=== PATIENT | male | born 1960 | race Caucasian/White ===

== ENCOUNTER 2017-10-02 12:17 | Inpatient (IN) | payer MEDICAID, SELFPAY ==
[2017-10-02 12:31] VITALS: BP 126/72; PULSE 60; RESP 16; TEMP 36.6; O2SAT 95; BMI 38.6; BMI 38.7
--- NOTE | 2017-10-02 12:50 | PCM.HP.COS ---
History of Present Illness Date of Admission: 10/02/17 Chief Complaint: CVA The patient is a 57 year old right-handed male who was admitted to the rehab unit for rehabilitation after suffering a right parietal infarct 2/2 to symptomatic right ICA occlusion. He has a history of HTN, Hep C, Cervical spondylosis, left lacunar ICH, right parietal ischemic stroke in 2016, GERD, HPD, Asthma, chronic lower back pain with right sided sciatica, L3-L5 disc bulge with mild canal narrowing, LUE weakness/spasticity from a previous stroke. On 09/24/17 he started experiencing several falls one in which he hit his head. EMS was called and he was taken to the hospital where presented with dysarthria, left facial droopy and left sided weakness, his INIH was 13. CTH showed a NAP but the patient was not a candidate due to his history of an ICH. An MRI showed an occlusion of the Right ICA, and a Right Caudal M@ segment. He was then taken to interventional radiology where he received a right ICA angioplasty x 3 and stent with TICI 2b. It was also noted that he had residual multifocal distal emboli but they where unable to retrieve these. He continues to have mild left sided facial droopy, flaccid left upper arm, he is able to lift and extend his left leg. He is tolerating a regular diet with thin liquids. He lives alone, is previously completely functionally independent and is admitted to the rehab unit in order to restore his previous level of functional independence. He did take aspirin previously at home. Past Medical History Allergies Iodinated Contrast- Oral and IV Dye Allergy (Verified 10/02/17 12:44) Hives perfume Allergy (Verified 10/02/17 12:44) Other pollen extracts Allergy (Verified 10/02/17 12:44) Other Home Medications: Ambulatory Orders Medication Instructions Recorded Acetaminophen [Tylenol] 650 mg PO Q4H PRN PRN 10/02/17 Albuterol Inhaler [Ventolin Hfa 2 puff INHALATION Q4H PRN PRN 10/02/17 (SP)] Aspirin [Aspirin, Baby] 324 mg PO DAILY 10/02/17 Atorvastatin Calcium 80 mg PO DAILY 10/02/17 Carvedilol 12.5 mg PO BID 10/02/17 Clopidogrel Bisulfate [Plavix] 75 mg PO DAILY 10/02/17 Docusate Sodium [Colace] 100 mg PO BID 10/02/17 Enoxaparin Sodium [Lovenox] 40 mg SQ DAILY 10/02/17 Escitalopram Oxalate [Lexapro] 10 mg PO DAILY 10/02/17 Lisinopril [Zestril] 30 mg PO DAILY 10/02/17 Pantoprazole Sodium [Protonix] 40 mg PO DAILY 10/02/17 Surgical History: herniorrhaphy, - - Cervical neck surgery plating with cardaviar bone graph Psychiatric History: Anxiety, Depression Lives: Alone Smoking Status: Heavy Smoker (>10/day) Tobacco Use: Cigarettes Alcohol: None Drugs: None Review of Systems Constitutional: Denies: Chills, Fever, Weight Change Eyes: Denies: Blurred vision, Double vision, Drainage HEENT: Reports: Difficulty Hearing, Sore Throat. Denies: Difficulty Swallowing, Head Aches, Nasal Congestion Cardiovascular: Denies: Chest Pain, Palpitations Respiratory: Denies: Shortness of Breath Gastrointestinal: Reports: Constipation, Vomiting. Denies: Abdominal Pain, Diarrhea Genitourinary: Denies: Dysuria, Frequency, Incontinence, Urgency Musculoskeletal: Reports: Foot Pain. Denies: Joint stiffness, Joint Tenderness Skin: Denies: Rash, Wounds Neurological: Denies: Numbness, Tingling, Focal weakness Psychiatric: Denies: Anxiety, Depression, Homicidal Ideations, Suicidal Ideations Hematologic/ Lymphatic: Denies: Easy Bruising, Easy Bleeding VTE Information - Inpt Only VTE Present on Admission: No VTE Mechan Device Prophylaxis: SCD's, Knee High HERIBERTO Hose VTE Pharm Prophylaxis ordered?: Yes - Physical Exam General: Alert, Oriented x3, Cooperative HEENT: Atraumatic, PERRLA, EOMI, Normocephalic Neck: Supple, No JVD, Negative Carotid Bruits Lungs: Clear to auscultation, Normal air movement Cardiovascular: Regular rate, No murmurs Abdomen: Bowel Sounds Present, Soft, Non Tender Extremities: No edema, Capillary Refill Less than 3 Seconds Skin: No rashes, No breakdown Musculoskeletal: No Tenderness to Palpation of Joints or Extremities, - - flaccid left arm Neurological: Cranial nerves II-XII grossly intact, Facial Droop - Left, - - Motor strength Right side 5/5, Left side flaccid, U/E 0/5, LE 2/5 Psych/Mental Status: Normal Affect, Appropriate, Alert and oriented to time, place, person, mood and affect Weight: 129.274 kg Body Mass Index (BMI) 38.6 Active Medications Acetaminophen (Tylenol) 650 mg PO Q4H PRN PRN PRN Reason: PAIN Albuterol Sulfate (Ventolin Hfa (Sp)) 2 puff INHALATION Q4H PRN PRN PRN Reason: WHEEZING Aspirin (Aspirin, Baby) 324 mg PO DAILYCM [facility] Atorvastatin Calcium (Lipitor) 80 mg PO QHS [facility] Bisacodyl (Dulcolax) 10 mg RECTAL .PRN X 1 PRN PRN Reason: Constipation Carvedilol (Coreg) 12.5 mg PO BID [facility] Clopidogrel Bisulfate (Plavix) 75 mg PO DAILY [facility] Docusate Sodium (Colace) 100 mg PO BID [facility] Enoxaparin Sodium (Lovenox) 40 mg SC DAILY [facility] Escitalopram Oxalate (Lexapro) 10 mg PO DAILY [facility] Lisinopril (Zestril) 30 mg PO DAILY [facility] Magnesium Hydroxide (Milk Of Magnesia) 30 ml PO .PRN X 1 PRN PRN Reason: Constipation Pantoprazole Sodium (Protonix) 40 mg PO DAILY [facility] Assessment/Plan debility s/p right parietal infarct 2/2 to symptomatic right ICA occlusion. complicated by a previous left lacunar ICH, and a right parietal ischemic stroke in 2016. The goal of rehab is sabianist of functional independence. Plan: - Physical therapy for gait and balance - Occupational Therapy for ADLs - As needed analgesics - Bowel protocol - Stroke prevention on ASA, Statin - DVT prophylaxis: SCDs, Lovenox - Hypertension: Stable with good control, continue home medications, Keep BP < 130/80 mmHg - Hx of HLD continue home dose of statin, Check LDL and Hba1c levels - Goal Hba1c <7% - Cervical spondylosis => Continued neck pain 2/2 fall prior to stroke => continue C-Collar - Hx GERD continue home medication - Hx Hep C - Hx Asthma - Hx of left lacunar ICH and a right parietal ischemic stroke
[2017-10-02 13:13] VITALS: O2SAT 95
--- NOTE | 2017-10-02 16:30 | NURSING ---
per dr julian moreno office pt does not need to wear cervial brace any longer. kolby gill made aware.
--- NOTE | 2017-10-02 17:54 | NURSING ---
pt called out and stated, its too late im having a bm in my pants pt at first wanting to go to br to get on commode. 2nd nurse in for transfer and pt pivot transfer x2 to bsc. incont soft brm stool but had lg bm after being up. pt leaning hard to lt side with neglect. went to reposition self on commode and almost fell off bsc to lt. this rn had to catch pt and some impulsiveness noted as pt trying to assist with care too much. unable to void and back to chair. pt transfers well when feet planted directly under him. pa alarm while in chair d/t pt leaning so doesnt lean too far and fall.
[2017-10-02 20:33] VITALS: BP 142/72; PULSE 60; RESP 18; TEMP 36.7; O2SAT 95
[2017-10-02] MEDS: Carvedilol 12.5 MG Tablet PO (21:28)
[2017-10-02] MEDS: Docusate Sodium 100 MG Capsule PO (21:28)
[2017-10-03 05:43] LABS: Hematocrit 37.7 % (40-54); Hemoglobin 12.7 g/dl (13.0-16.5); Mean Corp Hgb Conc 33.7 g/gl (32-36); Mean Corpuscular Hgb 30.2 pg (27.0-32.0); Mean Corpuscular Volume 89.5 fL (80-94); Mean Platelet Vol. 11.3 fl (6.2-12.0); Platelet Count 209 K/mm3 (150-450); RBC Distribution Width CV 14.6 % (11.6-14.6); RBC Distribution Width SD 47.5 fl (35.1-43.9); Red Blood Count 4.21 M/mm3 (4.6-6.2); White Blood Count 9.3 K/mm3 (4.4-11.0)
[2017-10-03 05:51] LABS: Scan Indicated on CBC? Y/N NO
[2017-10-03 05:52] LABS: International Normalized Ratio 1.2; Prothrombin Time (Protime)PT. 14.3 SECONDS (11.7-14.9)
[2017-10-03 05:58] LABS: Anion Gap 8 (5-15); BUN 18 mg/dL (7-18); Calcium,Total 8.3 mg/dL (8.5-10.1); Chloride 105 mmol/L (98-107); Creatinine, Serum 0.78 mg/dL (0.70-1.30); EST Glomerular Filtration Rate 109 mL/min (>60); Est Glom Filt Rate - Afr Amer 132 mL/min (>60); Estimated Creatinine Clearance 116.07 ml/min; Glucose 89 mg/dL (74-106); Potassium 3.8 mmol/L (3.5-5.1); Sodium Level 139 mmol/L (136-145)
[2017-10-03 08:28] VITALS: BP 122/70; PULSE 63; RESP 18; TEMP 36.6; O2SAT 95
[2017-10-03] MEDS: Aspirin 81 MG TAB.CHEW 324 MG PO (09:10)
[2017-10-03] MEDS: Lisinopril 10 MG Tablet 30 MG PO (09:10)
[2017-10-03] MEDS: Escitalopram Oxalate 10 MG Tablet PO (09:10)
[2017-10-03] MEDS: Docusate Sodium 100 MG Capsule PO ×2 (09:10→20:46)
[2017-10-03] MEDS: Pantoprazole Sodium 40 MG Tablet PO (09:10)
[2017-10-03] MEDS: Carvedilol 12.5 MG Tablet PO ×2 (09:10→20:46)
[2017-10-03] MEDS: Clopidogrel Bisulfate 75 MG Tablet PO (09:10)
[2017-10-03] MEDS: Enoxaparin 40 MG/0.4 ML Syringe SC (09:11)
[2017-10-03] MEDS: NYSTATIN 500,000 UNIT/5 ML UDC 500000 UNIT PO ×3 (12:49→20:46)
--- NOTE | 2017-10-03 15:43 | PCM.PN.HOSP ---
Subjective: CC: Objective: CC: Status post right parietal infarct He is a nice 57 year old male who was admitted to the rehab unit for rehabilitation after a 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He underwent a right ICA angioplasty x 3 with stent placement by IR at [facility]. When I saw him he was alert and oriented to time place and person, he has significant left-sided weakness and facial droop. Vitals/I&O's: Vital Signs Temp Pulse Resp BP Pulse Ox 97.9 F 63 18 122/70 H 95 10/03/17 08:28 10/03/17 08:28 10/03/17 08:28 10/03/17 08:28 10/03/17 08:28 Oxygen Delivery Method Room Air Weight: 129.274 kg Body Mass Index (BMI) 38.6 Intake and Output for Last 24 Hours 10/01/17 10/02/17 10/03/17 23:59 23:59 23:59 Intake Total 680 / 680 220 / 220 Output Total 150 / 150 Balance 679 / 679 70 / 70 General: Alert, Oriented x3 Neck: Supple, No JVD Lungs: Clear to auscultation, No wheeze Cardiovascular: Regular rate, Regular Rhythm, Normal S1, Normal S2 Abdomen: Bowel Sounds Present, Soft, Non Tender Extremities: No edema Neurological: - - Left-sided deficits Psych/Mental Status: Normal Affect Laboratory Results 10/03/17 05:20: Sodium 139, Potassium 3.8, Chloride 105, Carbon Dioxide 26.0, Anion Gap 8, BUN 18, Creatinine 0.78, Estim Creat Clear Calc 116.07, Est GFR (MDRD) Af Amer 132, Est GFR (MDRD) Non-Af 109, BUN/Creatinine Ratio 23.0 H, Glucose 89, Calcium 8.3 L 10/03/17 05:20: WBC 9.3, RBC 4.21 L, Hgb 12.7 L, Hct 37.7 L, MCV 89.5, MCH 30.2, MCHC 33.7, RDW 14.6, RDW Differential 47.5 H, Plt Count 209, MPV 11.3 10/03/17 05:20: PT 14.3, INR 1.2 Current Medications Acetaminophen (Tylenol) 650 mg PO Q4H PRN PRN PRN Reason: PAIN Albuterol Sulfate (Ventolin Hfa (Sp)) 2 puff INHALATION Q4H PRN PRN PRN Reason: WHEEZING Aspirin (Aspirin, Baby) 324 mg PO DAILYCM [facility] Last Admin: 10/03/17 09:10 Dose: 324 mg Atorvastatin Calcium (Lipitor) 80 mg PO QHS [facility] Bisacodyl (Dulcolax) 10 mg RECTAL .PRN X 1 PRN PRN Reason: Constipation Carvedilol (Coreg) 12.5 mg PO BID [facility] Last Admin: 10/03/17 09:10 Dose: 12.5 mg Clopidogrel Bisulfate (Plavix) 75 mg PO DAILY [facility] Last Admin: 10/03/17 09:10 Dose: 75 mg Docusate Sodium (Colace) 100 mg PO BID [facility] Last Admin: 10/03/17 09:10 Dose: 100 mg Enoxaparin Sodium (Lovenox) 40 mg SC DAILY [facility] Last Admin: 10/03/17 09:11 Dose: 40 mg Escitalopram Oxalate (Lexapro) 10 mg PO DAILY [facility] Last Admin: 10/03/17 09:10 Dose: 10 mg Lisinopril (Zestril) 30 mg PO DAILY [facility] Last Admin: 10/03/17 09:10 Dose: 30 mg Magnesium Hydroxide (Milk Of Magnesia) 30 ml PO .PRN X 1 PRN PRN Reason: Constipation Nystatin (Nystatin) 500,000 unit PO 4X/DAY [facility] Last Admin: 10/03/17 12:49 Dose: 500,000 unit Pantoprazole Sodium (Protonix) 40 mg PO DAILY [facility] Last Admin: 10/03/17 09:10 Dose: 40 mg Assessment/Plan 1. s/p right parietal infarct due to right ICA occlusion; continue on post acute care rehabilitation. 2. PVD with right ICA stenosis; status post angioplasty and stent placement. Will Continue on dual antiplatelet therapy with a statin therapy. 3. Hypertension; continue on current antihypertensive agents. 4. history of Cervical spondylosis; stable. 5. DVT ppx with Lovenox.
[2017-10-03 19:29] VITALS: BP 124/61; PULSE 65; RESP 18; TEMP 36.4; O2SAT 93
[2017-10-03 19:30] VITALS: PULSE 65; O2SAT 93
[2017-10-03] MEDS: Atorvastatin Calcium 80 MG Tablet PO (20:45)
--- NOTE | 2017-10-04 02:46 | NURSING ---
Reviewed and agree with LPNs fims and handoff
[2017-10-04 07:53] VITALS: BP 133/71; PULSE 63; RESP 18; TEMP 36.8; O2SAT 95
[2017-10-04] MEDS: Escitalopram Oxalate 10 MG Tablet PO (08:28)
[2017-10-04] MEDS: Clopidogrel Bisulfate 75 MG Tablet PO (08:28)
[2017-10-04] MEDS: Carvedilol 12.5 MG Tablet PO ×2 (08:28→21:46)
[2017-10-04] MEDS: Enoxaparin 40 MG/0.4 ML Syringe SC (08:28)
[2017-10-04] MEDS: Docusate Sodium 100 MG Capsule PO ×2 (08:28→21:45)
[2017-10-04] MEDS: Lisinopril 10 MG Tablet 30 MG PO (08:28)
[2017-10-04] MEDS: Aspirin 81 MG TAB.CHEW 324 MG PO (08:28)
[2017-10-04] MEDS: Pantoprazole Sodium 40 MG Tablet PO (08:28)
[2017-10-04] MEDS: NYSTATIN 500,000 UNIT/5 ML UDC 500000 UNIT PO ×4 (08:29→21:46)
[2017-10-04 19:12] VITALS: PULSE 61; RESP 18; TEMP 36.5; O2SAT 96
[2017-10-04 21:42] VITALS: BP 119/78; PULSE 60
[2017-10-04] MEDS: Atorvastatin Calcium 80 MG Tablet PO (21:46)
[2017-10-05 06:56] VITALS: BP 142/78; PULSE 69; RESP 20; TEMP 37; O2SAT 95
[2017-10-05] MEDS: Pantoprazole Sodium 40 MG Tablet PO (07:37)
[2017-10-05] MEDS: Lisinopril 10 MG Tablet 30 MG PO (07:37)
[2017-10-05] MEDS: Aspirin 81 MG TAB.CHEW 324 MG PO (07:38)
[2017-10-05] MEDS: Clopidogrel Bisulfate 75 MG Tablet PO (07:38)
[2017-10-05] MEDS: Escitalopram Oxalate 10 MG Tablet PO (07:38)
[2017-10-05] MEDS: Docusate Sodium 100 MG Capsule PO ×2 (07:38→19:55)
[2017-10-05] MEDS: Carvedilol 12.5 MG Tablet PO ×2 (07:38→19:55)
[2017-10-05] MEDS: NYSTATIN 500,000 UNIT/5 ML UDC 500000 UNIT PO ×4 (08:22→19:55)
[2017-10-05] MEDS: Enoxaparin 40 MG/0.4 ML Syringe SC (08:22)
--- NOTE | 2017-10-05 13:10 | PN.NEURO_ITS ---
Subjective: No new complaints. Tolerating therapies. No GI or complaints. He reports some mild anxiety but this is controlled and he does not want any further therapy at this point. is present and agrees. Objective: Patient discloses stable left hemiparesis. There is a twitch of movement in his left upper extremity, and his left lower extremity, he is 2/5. - Physical Exam General: Alert, Oriented x3, Cooperative Psych/Mental Status: Normal Affect Vital Signs Temp Pulse Resp BP Pulse Ox 37.0 C 69 20 H 142/78 H 95 10/05/17 06:56 10/05/17 06:56 10/05/17 06:56 10/05/17 06:56 10/05/17 06:56 Oxygen Delivery Method Room Air Weight: 129.274 kg Body Mass Index (BMI) 38.6 Intake and Output for Last 24 Hours 10/03/17 10/04/17 10/05/17 23:59 23:59 23:59 Intake Total 220 / 220 680 / 680 Output Total 150 / 150 Balance 70 / 70 680 / 680 Current Medications Generic Name Dose Route Start Last Admin Trade Name Freq PRN Reason Stop Dose Admin Acetaminophen 650 mg 10/02/17 12:57 Tylenol PO Q4H PRN PRN PAIN Albuterol Sulfate 2 puff 10/02/17 12:57 Ventolin Hfa (Sp) INHALATION Q4H PRN PRN WHEEZING Aspirin 324 mg 10/03/17 08:00 10/05/17 07:38 Aspirin, Baby PO 324 mg DAILYCM [facility] Administration Atorvastatin Calcium 80 mg 10/03/17 22:00 10/04/17 21:46 Lipitor PO 80 mg QHS [facility] Administration Bisacodyl 10 mg 10/02/17 12:33 Dulcolax RECTAL .PRN X 1 PRN Constipation Carvedilol 12.5 mg 10/02/17 22:00 10/05/17 07:38 Coreg PO 12.5 mg BID [facility]RO Administration Clopidogrel Bisulfate 75 mg 10/03/17 10:00 10/05/17 07:38 Plavix PO 75 mg DAILY [facility] Administration Docusate Sodium 100 mg 10/02/17 22:00 10/05/17 07:38 Colace PO 100 mg BID [facility] Administration Enoxaparin Sodium 40 mg 10/03/17 10:00 10/05/17 08:22 Lovenox SC 40 mg DAILY [facility] Administration Escitalopram Oxalate 10 mg 10/03/17 10:00 10/05/17 07:38 Lexapro PO 10 mg DAILY [facility] Administration Lisinopril 30 mg 10/03/17 10:00 10/05/17 07:37 Zestril PO 30 mg DAILY [facility] Administration Magnesium Hydroxide 30 ml 10/02/17 12:33 Milk Of Magnesia PO .PRN X 1 PRN Constipation Nystatin 500,000 unit 10/03/17 10:00 10/05/17 08:22 Nystatin PO 500,000 unit 4X/DAY [facility] Administration Pantoprazole Sodium 40 mg 10/03/17 10:00 10/05/17 07:37 Protonix PO 40 mg DAILY [facility] Administration Assessment/Plan debility s/p right parietal infarct 2/2 to symptomatic right ICA occlusion. complicated by a previous left lacunar ICH, and a right parietal ischemic stroke in 2016. The goal of rehab is oriental orthodox of functional independence. Plan: - Physical therapy for gait and balance - Occupational Therapy for ADLs - As needed analgesics - Bowel protocol - Stroke prevention on ASA, Statin - DVT prophylaxis: SCDs, Lovenox - Hypertension: Stable with good control, continue home medications, Keep BP < 130/80 mmHg - Hx of HLD continue home dose of statin, Check LDL and Hba1c levels -Anxiety: Lexapro - Cervical spondylosis => Continued neck pain 2/2 fall prior to stroke => continue C-Collar - Hx GERD continue home medication - Hx Hep C - Hx Asthma - Hx of left lacunar ICH and a right parietal ischemic stroke
[2017-10-05] MEDS: Atorvastatin Calcium 80 MG Tablet PO (19:55)
[2017-10-05 19:59] VITALS: PULSE 58
[2017-10-05 22:00] VITALS: BP 147/65; PULSE 58; RESP 18; TEMP 36.8; O2SAT 94
--- NOTE | 2017-10-06 00:40 | NURSING ---
Reviewed and agree with LPNs fims and shift assessment
[2017-10-06] MEDS: Acetaminophen 325 MG Tablet 650 MG PO (02:20)
[2017-10-06 07:17] VITALS: BP 157/77; PULSE 56; RESP 17; TEMP 36.4; O2SAT 94
[2017-10-06] MEDS: Lisinopril 10 MG Tablet 30 MG PO (07:56)
[2017-10-06] MEDS: Docusate Sodium 100 MG Capsule PO (07:56)
[2017-10-06] MEDS: Aspirin 81 MG TAB.CHEW 324 MG PO (07:56)
[2017-10-06] MEDS: NYSTATIN 500,000 UNIT/5 ML UDC 500000 UNIT PO ×4 (07:56→19:47)
[2017-10-06] MEDS: Clopidogrel Bisulfate 75 MG Tablet PO (07:56)
[2017-10-06] MEDS: Carvedilol 12.5 MG Tablet PO ×2 (07:57→19:47)
[2017-10-06] MEDS: Escitalopram Oxalate 10 MG Tablet PO (07:57)
[2017-10-06] MEDS: Pantoprazole Sodium 40 MG Tablet PO (07:57)
[2017-10-06] MEDS: Enoxaparin 40 MG/0.4 ML Syringe SC (07:59)
--- NOTE | 2017-10-06 11:07 | PN.NEURO_ITS ---
Subjective: Patient seen and examined. No new compliances. Tolerating therapy, He has slight Twitch of movement left upper extremity, his Strength in Left lower extremity is 2/5. - Physical Exam General: Alert, Oriented x3, Cooperative HEENT: Atraumatic, PERRLA, EOMI, Normocephalic Neck: Supple, No JVD, Negative Carotid Bruits Lungs: Clear to auscultation, Normal air movement Cardiovascular: Regular rate, No murmurs Abdomen: Bowel Sounds Present, Soft, Non Tender Extremities: No edema, Capillary Refill Less than 3 Seconds Skin: No rashes, No breakdown Musculoskeletal: No Tenderness to Palpation of Joints or Extremities Neurological: Cranial nerves II-XII grossly intact Psych/Mental Status: Normal Affect, Appropriate Vital Signs Temp Pulse Resp BP Pulse Ox 97.5 F L 56 L 17 157/77 H 94 10/06/17 07:17 10/06/17 07:17 10/06/17 07:17 10/06/17 07:17 10/06/17 07:17 Oxygen Delivery Method Room Air Weight: 129.274 kg Body Mass Index (BMI) 38.6 Intake and Output for Last 24 Hours 10/04/17 10/05/17 10/06/17 23:59 23:59 23:59 Intake Total 680 / 680 360 / 360 260 / 260 Balance 680 / 680 360 / 360 260 / 260 Active Medications Acetaminophen (Tylenol) 650 mg PO Q4H PRN PRN PRN Reason: PAIN Last Admin: 10/06/17 02:20 Dose: 650 mg Albuterol Sulfate (Ventolin Hfa (Sp)) 2 puff INHALATION Q4H PRN PRN PRN Reason: WHEEZING Aspirin [facility], Baby) [facility] Last Admin: 10/06/17 07:56 Dose: 324 mg Atorvastatin Calcium (Lipitor) 80 mg PO QHS [facility] Last Admin: 10/05/17 19:55 Dose: 80 mg Bisacodyl (Dulcolax) 10 mg RECTAL .PRN X 1 PRN PRN Reason: Constipation Carvedilol (Coreg) 12.5 mg PO BID [facility] Last Admin: 10/06/17 07:57 Dose: 12.5 mg Clopidogrel Bisulfate (Plavix) 75 mg PO DAILY [facility] Last Admin: 10/06/17 07:56 Dose: 75 mg Enoxaparin Sodium (Lovenox) 40 mg SC DAILY [facility] Last Admin: 10/06/17 07:59 Dose: 40 mg Escitalopram Oxalate (Lexapro) 10 mg PO DAILY [facility] Last Admin: 10/06/17 07:57 Dose: 10 mg Lisinopril (Zestril) 30 mg PO DAILY [facility] Last Admin: 10/06/17 07:56 Dose: 30 mg Magnesium Hydroxide (Milk Of Magnesia) 30 ml PO .PRN X 1 PRN PRN Reason: Constipation Nystatin (Nystatin) 500,000 unit PO 4X/DAY [facility] Last Admin: 10/06/17 07:56 Dose: 500,000 unit Pantoprazole Sodium (Protonix) 40 mg PO DAILY [facility] Last Admin: 10/06/17 07:57 Dose: 40 mg Senna/Docusate Sodium (Senokot-S, Suki-Colace) 2 tablet PO BID [facility] Assessment/Plan debility s/p right parietal infarct 2/2 to symptomatic right ICA occlusion. complicated by a previous left lacunar ICH, and a right parietal ischemic stroke in 2016. The goal of rehab is sikhism of functional independence. Plan: - Physical therapy for gait and balance - Occupational Therapy for ADLs - As needed analgesics - Bowel protocol - Stroke prevention on ASA, Statin - DVT prophylaxis: SCDs, Lovenox - Hypertension: Stable with good control, continue home medications, Keep BP < 130/80 mmHg - Echo shows an EF 85%, mild LVH, no WMA and no shunt. - Hx of HLD continue home dose of statin, Check LDL and Hba1c levels => LDL 113 , and HA1C 5.7 - Goal Hba1c <7% - Cervical spondylosis => Continued neck pain 2/2 fall prior to stroke => continue C-Collar - Hx GERD continue home medication - Hx Hep C - Hx Asthma - Hx of left lacunar ICH and a right parietal ischemic stroke - Recommend 30 day event monitor on D/C
[2017-10-06 12:04] VITALS: BMI 38.6
[2017-10-06 16:21] VITALS: BP 132/73; PULSE 56; RESP 16
[2017-10-06 19:40] VITALS: BP 137/83; PULSE 58; RESP 18; TEMP 36.7; O2SAT 97; BMI 38.6
[2017-10-06] MEDS: Atorvastatin Calcium 80 MG Tablet PO (19:47)
[2017-10-06] MEDS: Senna/Docusate Sodium 1 Tablet 2 TABLET PO (19:47)
--- NOTE | 2017-10-07 02:31 | NURSING ---
Reviewed and agree with [employer] documentation.
[2017-10-07] MEDS: Escitalopram Oxalate 10 MG Tablet PO (07:53)
[2017-10-07] MEDS: Pantoprazole Sodium 40 MG Tablet PO (07:53)
[2017-10-07] MEDS: NYSTATIN 500,000 UNIT/5 ML UDC 500000 UNIT PO ×4 (07:53→20:42)
[2017-10-07] MEDS: Senna/Docusate Sodium 1 Tablet 2 TABLET PO ×2 (07:53→20:41)
[2017-10-07] MEDS: Carvedilol 12.5 MG Tablet PO ×2 (07:53→20:41)
[2017-10-07] MEDS: Lisinopril 10 MG Tablet 30 MG PO (07:53)
[2017-10-07] MEDS: Aspirin 81 MG TAB.CHEW 324 MG PO (07:53)
[2017-10-07] MEDS: Clopidogrel Bisulfate 75 MG Tablet PO (07:53)
[2017-10-07 10:00] VITALS: BP 143/85; PULSE 60; RESP 17; TEMP 36.7; O2SAT 95
[2017-10-07] MEDS: Enoxaparin 40 MG/0.4 ML Syringe SC (10:27)
[2017-10-07 12:15] VITALS: BMI 38.6
--- NOTE | 2017-10-07 13:28 | PCM.PN.NEU ---
Subjective: Patient seen and examined. No new complaints. Tolerating therapy. Was able to move the index finger on his left hand, and has some muscle tone in the thigh of his left leg. He is tolerating a regular diet. No issues with GI/. - Physical Exam General: Alert, Oriented x3, Cooperative HEENT: Atraumatic, PERRLA, EOMI, Normocephalic Neck: Supple, No JVD, Negative Carotid Bruits Lungs: Clear to auscultation, Normal air movement Cardiovascular: Regular rate, No murmurs Abdomen: Bowel Sounds Present, Soft, Non Tender Extremities: No edema, Capillary Refill Less than 3 Seconds Skin: No rashes, No breakdown Musculoskeletal: No Tenderness to Palpation of Joints or Extremities Neurological: Cranial nerves II-XII grossly intact Psych/Mental Status: Normal Affect, Appropriate Vital Signs Temp Pulse Resp BP Pulse Ox 98.0 F 60 17 143/85 H 95 10/07/17 10:00 10/07/17 10:00 10/07/17 10:00 10/07/17 10:00 10/07/17 10:00 Oxygen Delivery Method Room Air Weight: 129.274 kg Body Mass Index (BMI) 38.6 Intake and Output for Last 24 Hours 10/05/17 10/06/17 10/07/17 23:59 23:59 23:59 Intake Total 360 / 360 500 / 500 240 / 240 Balance 360 / 360 500 / 500 240 / 240 Active Medications Acetaminophen (Tylenol) 650 mg PO Q4H PRN PRN PRN Reason: PAIN Last Admin: 10/06/17 02:20 Dose: 650 mg Albuterol Sulfate (Ventolin Hfa (Sp)) 2 puff INHALATION Q4H PRN PRN PRN Reason: WHEEZING [facility]) [facility] Last Admin: 10/07/17 07:53 Dose: 324 mg Atorvastatin Calcium (Lipitor) 80 mg PO QHS [facility] Last Admin: 10/06/17 19:47 Dose: 80 mg Bisacodyl (Dulcolax) 10 mg RECTAL .PRN X 1 PRN PRN Reason: Constipation Carvedilol (Coreg) 12.5 mg PO BID [facility] Last Admin: 10/07/17 07:53 Dose: 12.5 mg Clopidogrel Bisulfate (Plavix) 75 mg PO DAILY [facility] Last Admin: 10/07/17 07:53 Dose: 75 mg Enoxaparin Sodium (Lovenox) 40 mg SC DAILY [facility] Last Admin: 10/07/17 10:27 Dose: 40 mg Escitalopram Oxalate (Lexapro) 10 mg PO DAILY [facility] Last Admin: 10/07/17 07:53 Dose: 10 mg Lisinopril (Zestril) 30 mg PO DAILY [facility] Last Admin: 10/07/17 07:53 Dose: 30 mg Magnesium Hydroxide (Milk Of Magnesia) 30 ml PO .PRN X 1 PRN PRN Reason: Constipation Nystatin (Nystatin) 500,000 unit PO 4X/DAY [facility] Last Admin: 10/07/17 07:53 Dose: 500,000 unit Pantoprazole Sodium (Protonix) 40 mg PO DAILY [facility] Last Admin: 10/07/17 07:53 Dose: 40 mg Senna/Docusate Sodium (Senokot-S, Suki-Colace) 2 tablet PO BID [facility] Last Admin: 10/07/17 07:53 Dose: 2 tablet Assessment/Plan debility s/p right parietal infarct 2/2 to symptomatic right ICA occlusion. complicated by a previous left lacunar ICH, and a right parietal ischemic stroke in 2016. The goal of rehab is confucianist of functional independence. Plan: - Physical therapy for gait and balance - Occupational Therapy for ADLs - As needed analgesics - Bowel protocol - Stroke prevention on ASA, Statin - DVT prophylaxis: SCDs, Lovenox - Hypertension: Stable with good control, continue home medications, Keep BP < 130/80 mmHg - Echo shows an EF 85%, mild LVH, no WMA and no shunt. - Hx of HLD continue home dose of statin, Check LDL and Hba1c levels => LDL 113, and HA1C 5.7 - Goal Hba1c <7% - Cervical spondylosis => Continued neck pain 2/2 fall prior to stroke => continue C-Collar - Hx GERD continue home medication - Hx Hep C - Hx Asthma - Hx of left lacunar ICH and a right parietal ischemic stroke - Recommend 30 day event monitor on D/C
--- NOTE | 2017-10-07 14:41 | PCM.PN.HOSP ---
Subjective: Still with left sided weakness. Started having some movement in LLE. Vitals/I&O's: Vital Signs Temp Pulse Resp BP Pulse Ox 36.7 C 60 17 143/85 H 95 10/07/17 10:00 10/07/17 10:00 10/07/17 10:00 10/07/17 10:00 10/07/17 10:00 Oxygen Delivery Method Room Air Weight: 129.274 kg Body Mass Index (BMI) 38.6 Intake and Output for Last 24 Hours 10/05/17 10/06/17 10/07/17 23:59 23:59 23:59 Intake Total 360 / 360 500 / 500 240 / 240 Balance 360 / 360 500 / 500 240 / 240 General: Alert, Cooperative, No apparent distress HEENT: Atraumatic, Normocephalic Neck: No Nodes, Thyroid Normal Size and Texture Lungs: Clear to auscultation, Normal air movement, No rhonchi, No wheeze Cardiovascular: Regular rate, Regular Rhythm, Normal S1, Normal S2 Abdomen: Bowel Sounds Present, Soft, Non Tender, Non-Distended, Obese Extremities: No edema, No Calf Tenderness Neurological: Facial Droop - left, - - MS 1/5 LLE, 5/5 RLE Psych/Mental Status: Normal Affect, Appropriate Current Medications Acetaminophen (Tylenol) 650 mg PO Q4H PRN PRN PRN Reason: PAIN Last Admin: 10/06/17 02:20 Dose: 650 mg Albuterol Sulfate (Ventolin Hfa (Sp)) 2 puff INHALATION Q4H PRN PRN PRN Reason: WHEEZING [facility]) [facility] Last Admin: 10/07/17 07:53 Dose: 324 mg Atorvastatin Calcium (Lipitor) 80 mg PO QHS [facility] Last Admin: 10/06/17 19:47 Dose: 80 mg Bisacodyl (Dulcolax) 10 mg RECTAL .PRN X 1 PRN PRN Reason: Constipation Carvedilol (Coreg) 12.5 mg PO BID [facility] Last Admin: 10/07/17 07:53 Dose: 12.5 mg Clopidogrel Bisulfate (Plavix) 75 mg PO DAILY [facility] Last Admin: 10/07/17 07:53 Dose: 75 mg Enoxaparin Sodium (Lovenox) 40 mg SC DAILY [facility] Last Admin: 10/07/17 10:27 Dose: 40 mg Escitalopram Oxalate (Lexapro) 10 mg PO DAILY [facility] Last Admin: 10/07/17 07:53 Dose: 10 mg Lisinopril (Zestril) 30 mg PO DAILY [facility] Last Admin: 10/07/17 07:53 Dose: 30 mg Magnesium Hydroxide (Milk Of Magnesia) 30 ml PO .PRN X 1 PRN PRN Reason: Constipation Nystatin (Nystatin) 500,000 unit PO 4X/DAY [facility] Last Admin: 10/07/17 13:49 Dose: 500,000 unit Pantoprazole Sodium (Protonix) 40 mg PO DAILY [facility] Last Admin: 10/07/17 07:53 Dose: 40 mg Senna/Docusate Sodium (Senokot-S, Suki-Colace) 2 tablet PO BID [facility] Last Admin: 10/07/17 07:53 Dose: 2 tablet Assessment/Plan 1. Right ICA stroke still with dense left sided hemiparesis, though some mvmt in LLE. s/p [id number] stent continue with asa, plavix, high-intensity statin 2. DVT proph: LMWH Code Visit Inpatient E&M: 32615 Subs Hosp L2
--- NOTE | 2017-10-07 14:45 | PN_ITS ---
Subjective: Still with left sided weakness. Started having some movement in LLE. Vitals/I&O's: Vital Signs Temp Pulse Resp BP Pulse Ox 36.7 C 60 17 143/85 H 95 10/07/17 10:00 10/07/17 10:00 10/07/17 10:00 10/07/17 10:00 10/07/17 10:00 Oxygen Delivery Method Room Air Weight: 129.274 kg Body Mass Index (BMI) 38.6 Intake and Output for Last 24 Hours 10/05/17 10/06/17 10/07/17 23:59 23:59 23:59 Intake Total 360 / 360 500 / 500 240 / 240 Balance 360 / 360 500 / 500 240 / 240 General: Alert, Cooperative, No apparent distress HEENT: Atraumatic, Normocephalic Neck: No Nodes, Thyroid Normal Size and Texture Lungs: Clear to auscultation, Normal air movement, No rhonchi, No wheeze Cardiovascular: Regular rate, Regular Rhythm, Normal S1, Normal S2 Abdomen: Bowel Sounds Present, Soft, Non Tender, Non-Distended, Obese Extremities: No edema, No Calf Tenderness Neurological: Facial Droop - left, - - MS 1/5 LLE, 5/5 RLE Psych/Mental Status: Normal Affect, Appropriate Current Medications Acetaminophen (Tylenol) 650 mg PO Q4H PRN PRN PRN Reason: PAIN Last Admin: 10/06/17 02:20 Dose: 650 mg Albuterol Sulfate (Ventolin Hfa (Sp)) 2 puff INHALATION Q4H PRN PRN PRN Reason: WHEEZING Aspirin ([facility], Baby) [facility] Last Admin: 10/07/17 07:53 Dose: 324 mg Atorvastatin Calcium (Lipitor) 80 mg PO QHS [facility] Last Admin: 10/06/17 19:47 Dose: 80 mg Bisacodyl (Dulcolax) 10 mg RECTAL .PRN X 1 PRN PRN Reason: Constipation Carvedilol (Coreg) 12.5 mg PO BID [facility] Last Admin: 10/07/17 07:53 Dose: 12.5 mg Clopidogrel Bisulfate (Plavix) 75 mg PO DAILY [facility] Last Admin: 10/07/17 07:53 Dose: 75 mg Enoxaparin Sodium (Lovenox) 40 mg SC DAILY [facility] Last Admin: 10/07/17 10:27 Dose: 40 mg Escitalopram Oxalate (Lexapro) 10 mg PO DAILY [facility] Last Admin: 10/07/17 07:53 Dose: 10 mg Lisinopril (Zestril) 30 mg PO DAILY [facility] Last Admin: 10/07/17 07:53 Dose: 30 mg Magnesium Hydroxide (Milk Of Magnesia) 30 ml PO .PRN X 1 PRN PRN Reason: Constipation Nystatin (Nystatin) 500,000 unit PO 4X/DAY [facility] Last Admin: 10/07/17 13:49 Dose: 500,000 unit Pantoprazole Sodium (Protonix) 40 mg PO DAILY [facility] Last Admin: 10/07/17 07:53 Dose: 40 mg Senna/Docusate Sodium (Senokot-S, Suki-Colace) 2 tablet PO BID [facility] Last Admin: 10/07/17 07:53 Dose: 2 tablet Assessment/Plan 1. Right ICA stroke * still with dense left sided hemiparesis, though some mvmt in LLE. * s/p JAGRUTI stent * continue with asa, plavix, high-intensity statin 2. DVT proph: LMWH Code Visit Inpatient E&M: 22721 Subs Hosp L2
--- NOTE | 2017-10-07 16:31 | CHAPLAIN ---
Type of Pastoral Visit _x__ Initial Visit ___ Follow-up Visit ___ On-call Visit ___ General Patient Visit ___ Spiritual Assessment ___ Family Conference ___ Bereavement ___ Rapid Response ___ Code Blue ___ Other (describe below) Pastoral Care Referral From _x__ Patient ___ Family _x__ Nurse ___ Physician ___ Station Cleaning Porter ___ Television Production Technician ___ Other (describe below) Sacrament/Intervention _x__ Active listening ___ Anointing ___ Zoroastrianism ___ Bereavement ___ Communion ___ Lali exploration ___ _x__ Life review _x__ Prayer ___ Reconciliation ___ Sacrament of Sick ___ Supportive presence ___ Wedding ___ Other (describe below) Pastoral Comments Very active talker who expressed delight in talking about spiritual things 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
[2017-10-07 20:10] VITALS: BP 143/87; PULSE 61; RESP 18; TEMP 37; O2SAT 95; BMI 38.6
[2017-10-07] MEDS: Atorvastatin Calcium 80 MG Tablet PO (20:41)
[2017-10-07] MEDS: Menthol/Lanolin/Calamine/Znox 113 GM Tube 1 APPLIC TOPICAL (20:42)
--- NOTE | 2017-10-08 01:18 | NURSING ---
REVIEWED AND AGREE WITH [employer] [place].
[2017-10-08 07:53] VITALS: BP 156/89; PULSE 58; RESP 18; TEMP 36.4; O2SAT 93
[2017-10-08] MEDS: Lisinopril 10 MG Tablet 30 MG PO (09:36)
[2017-10-08] MEDS: Escitalopram Oxalate 10 MG Tablet PO (09:36)
[2017-10-08] MEDS: Clopidogrel Bisulfate 75 MG Tablet PO (09:36)
[2017-10-08] MEDS: Carvedilol 12.5 MG Tablet PO ×2 (09:36→22:04)
[2017-10-08] MEDS: Aspirin 81 MG TAB.CHEW 324 MG PO (09:36)
[2017-10-08] MEDS: Pantoprazole Sodium 40 MG Tablet PO (09:36)
[2017-10-08] MEDS: Enoxaparin 40 MG/0.4 ML Syringe SC (09:37)
[2017-10-08] MEDS: NYSTATIN 500,000 UNIT/5 ML UDC 500000 UNIT PO ×4 (09:37→22:04)
[2017-10-08] MEDS: Senna/Docusate Sodium 1 Tablet 2 TABLET PO (09:38)
[2017-10-08] MEDS: Menthol/Lanolin/Calamine/Znox 113 GM Tube 1 APPLIC TOPICAL ×2 (09:39→22:06)
[2017-10-08 09:57] VITALS: BMI 38.6
--- NOTE | 2017-10-08 10:36 | PCM.PN.NEU ---
Subjective: Patient seen and examined. No events over night. Tolerating therapy. Denies any shortness of breath or chest pains. Tolerating a regular diet. No issues with GI/. - Physical Exam General: Alert, Oriented x3, Cooperative HEENT: Atraumatic, PERRLA, EOMI, Normocephalic Neck: Supple, No JVD, Negative Carotid Bruits Lungs: Clear to auscultation, Normal air movement Cardiovascular: Regular rate, No murmurs Abdomen: Bowel Sounds Present, Soft, Non Tender Extremities: No edema, Capillary Refill Less than 3 Seconds Skin: No rashes, No breakdown Musculoskeletal: No Tenderness to Palpation of Joints or Extremities Neurological: Cranial nerves II-XII grossly intact Psych/Mental Status: Normal Affect, Appropriate Vital Signs Temp Pulse Resp BP Pulse Ox 97.6 F L 58 L 18 156/89 H 93 10/08/17 07:53 10/08/17 07:53 10/08/17 07:53 10/08/17 07:53 10/08/17 07:53 Oxygen Delivery Method Room Air Weight: 129.274 kg Body Mass Index (BMI) 38.6 Intake and Output for Last 24 Hours 10/06/17 10/07/17 10/08/17 23:59 23:59 23:59 Intake Total 500 / 500 600 / 600 260 / 260 Balance 500 / 500 600 / 600 260 / 260 Active Medications Acetaminophen (Tylenol) 650 mg PO Q4H PRN PRN PRN Reason: PAIN Last Admin: 10/06/17 02:20 Dose: 650 mg Albuterol Sulfate (Ventolin Hfa (Sp)) 2 puff INHALATION Q4H PRN PRN PRN Reason: WHEEZING [facility], [facility]) [facility] Last Admin: 10/08/17 09:36 Dose: 324 mg Atorvastatin Calcium (Lipitor) 80 mg PO QHS [facility] Last Admin: 10/07/17 20:41 Dose: 80 mg Bisacodyl (Dulcolax) 10 mg RECTAL .PRN X 1 PRN PRN Reason: Constipation Calamine/Phenol (Calmoseptine Ointment) 1 applic TOPICAL BID [facility] PRN Reason: Protocol Last Admin: 10/08/17 09:39 Dose: 1 applicatio Carvedilol (Coreg) 12.5 mg PO BID [facility] Last Admin: 10/08/17 09:36 Dose: 12.5 mg Clopidogrel Bisulfate (Plavix) 75 mg PO DAILY [facility] Last Admin: 10/08/17 09:36 Dose: 75 mg Enoxaparin Sodium (Lovenox) 40 mg SC DAILY [facility] Last Admin: 10/08/17 09:37 Dose: 40 mg Escitalopram Oxalate (Lexapro) 10 mg PO DAILY [facility] Last Admin: 10/08/17 09:36 Dose: 10 mg Lisinopril (Zestril) 30 mg PO DAILY [facility] Last Admin: 10/08/17 09:36 Dose: 30 mg Magnesium Hydroxide (Milk Of Magnesia) 30 ml PO .PRN X 1 PRN PRN Reason: Constipation Nystatin (Nystatin) 500,000 unit PO 4X/DAY [facility] Last Admin: 10/08/17 09:37 Dose: 500,000 unit Pantoprazole Sodium (Protonix) 40 mg PO DAILY [facility] Last Admin: 10/08/17 09:36 Dose: 40 mg Senna/Docusate Sodium (Senokot-S, Suki-Colace) 2 tablet PO BID [facility] Last Admin: 10/08/17 09:38 Dose: 2 tablet Assessment/Plan Debility s/p right parietal infarct 2/2 to symptomatic right ICA occlusion. complicated by a previous left lacunar ICH, and a right parietal ischemic stroke in 2016. The goal of rehab is yarsani of functional independence. Plan: - Physical therapy for gait and balance - Occupational Therapy for ADLs - As needed analgesics - Bowel protocol - Stroke prevention on ASA, Statin - DVT prophylaxis: SCDs, Lovenox - Hypertension: Stable with good control, continue home medications, Keep BP < 130/80 mmHg - Echo shows an EF 85%, mild LVH, no WMA and no shunt. - Hx of HLD continue home dose of statin, Check LDL and Hba1c levels => LDL 113, and HA1C 5.7 - Goal Hba1c <7% - Cervical spondylosis => Continued neck pain 2/2 fall prior to stroke => continue C-Collar - Hx GERD continue home medication - Hx Hep C - Hx Asthma - Hx of left lacunar ICH and a right parietal ischemic stroke - Recommend 30 day event monitor on D/C
--- NOTE | 2017-10-08 10:39 | PN.NEURO_ITS ---
Subjective: Patient seen and examined. No events over night. Tolerating therapy. Denies any shortness of breath or chest pains. Tolerating a regular diet. No issues with GI/. - Physical Exam General: Alert, Oriented x3, Cooperative HEENT: Atraumatic, PERRLA, EOMI, Normocephalic Neck: Supple, No JVD, Negative Carotid Bruits Lungs: Clear to auscultation, Normal air movement Cardiovascular: Regular rate, No murmurs Abdomen: Bowel Sounds Present, Soft, Non Tender Extremities: No edema, Capillary Refill Less than 3 Seconds Skin: No rashes, No breakdown Musculoskeletal: No Tenderness to Palpation of Joints or Extremities Neurological: Cranial nerves II-XII grossly intact Psych/Mental Status: Normal Affect, Appropriate Vital Signs Temp Pulse Resp BP Pulse Ox 97.6 F L 58 L 18 156/89 H 93 10/08/17 07:53 10/08/17 07:53 10/08/17 07:53 10/08/17 07:53 10/08/17 07:53 Oxygen Delivery Method Room Air Weight: 129.274 kg Body Mass Index (BMI) 38.6 Intake and Output for Last 24 Hours 10/06/17 10/07/17 10/08/17 23:59 23:59 23:59 Intake Total 500 / 500 600 / 600 260 / 260 Balance 500 / 500 600 / 600 260 / 260 Active Medications Acetaminophen (Tylenol) 650 mg PO Q4H PRN PRN PRN Reason: PAIN Last Admin: 10/06/17 02:20 Dose: 650 mg Albuterol Sulfate (Ventolin Hfa (Sp)) 2 puff INHALATION Q4H PRN PRN PRN Reason: WHEEZING Aspirin ([facility]in, Baby) [facility] Last Admin: 10/08/17 09:36 Dose: 324 mg Atorvastatin Calcium (Lipitor) 80 mg PO QHS [facility] Last Admin: 10/07/17 20:41 Dose: 80 mg Bisacodyl (Dulcolax) 10 mg RECTAL .PRN X 1 PRN PRN Reason: Constipation Calamine/Phenol (Calmoseptine Ointment) 1 applic TOPICAL BID [facility] PRN Reason: Protocol Last Admin: 10/08/17 09:39 Dose: 1 applicatio Carvedilol (Coreg) 12.5 mg PO BID [facility] Last Admin: 10/08/17 09:36 Dose: 12.5 mg Clopidogrel Bisulfate (Plavix) 75 mg PO DAILY [facility] Last Admin: 10/08/17 09:36 Dose: 75 mg Enoxaparin Sodium (Lovenox) 40 mg SC DAILY [facility] Last Admin: 10/08/17 09:37 Dose: 40 mg Escitalopram Oxalate (Lexapro) 10 mg PO DAILY [facility] Last Admin: 10/08/17 09:36 Dose: 10 mg Lisinopril (Zestril) 30 mg PO DAILY [facility] Last Admin: 10/08/17 09:36 Dose: 30 mg Magnesium Hydroxide (Milk Of Magnesia) 30 ml PO .PRN X 1 PRN PRN Reason: Constipation Nystatin (Nystatin) 500,000 unit PO 4X/DAY [facility] Last Admin: 10/08/17 09:37 Dose: 500,000 unit Pantoprazole Sodium (Protonix) 40 mg PO DAILY [facility] Last Admin: 10/08/17 09:36 Dose: 40 mg Senna/Docusate Sodium (Senokot-S, Suki-Colace) 2 tablet PO BID [facility] Last Admin: 10/08/17 09:38 Dose: 2 tablet Assessment/Plan Debility s/p right parietal infarct 2/2 to symptomatic right ICA occlusion. complicated by a previous left lacunar ICH, and a right parietal ischemic stroke in 2016. The goal of rehab is buddhism of functional independence. Plan: - Physical therapy for gait and balance - Occupational Therapy for ADLs - As needed analgesics - Bowel protocol - Stroke prevention on ASA, Statin - DVT prophylaxis: SCDs, Lovenox - Hypertension: Stable with good control, continue home medications, Keep BP < 130/80 mmHg - Echo shows an EF 85%, mild LVH, no WMA and no shunt. - Hx of HLD continue home dose of statin, Check LDL and Hba1c levels => LDL 113 , and HA1C 5.7 - Goal Hba1c <7% - Cervical spondylosis => Continued neck pain 2/2 fall prior to stroke => continue C-Collar - Hx GERD continue home medication - Hx Hep C - Hx Asthma - Hx of left lacunar ICH and a right parietal ischemic stroke - Recommend 30 day event monitor on D/C
--- NOTE | 2017-10-08 14:00 | SP.MBSS_ITS ---
PRIMARY / SECONDARY DIAGNOSIS: dysphagia (R13.10) REFERRING PHYSICIAN: Dr. Travis Levin MD CURRENT DIET: regular textures, thin liquids DENTITION: WFL MENTAL STATUS: left visuospatial neglect RESPIRATORY STATUS: O2 via room air PREVIOUS MODIFIED BARIUM SWALLOW STUDY: none REASON FOR REFERRAL: Patient is a 57 year old male referred for a modified barium swallow (MBS) study to objectively assess the Patients oropharyngeal swallow function under fluoroscopy secondary to the recent diagnosis of right parietal infarct secondary to symptomatic right ICA occlusion complicated by a previous left lacunar intracerebral hemorrhage, a right parietal ischemic stroke in 2015, and a right anterior cervical fusion in June of 2017. Patient reports undergoing anterior cervical surgery prior to , reports persistent dysphagia with both liquids and solids (persistent globus sensation, mild odynophagia / discomfort) most notably with larger bolus, reports tightness in neck during outpatient physical therapy sessions prior to admission, reports workup underway prior to cerebrovascular accident. Pt. reports current issues w / persistent left sided pocketing improving, though continued presence, continued right sided drooling. MEDICAL HISTORY: Left lacunar intracerebral hemorrhage, a right parietal ischemic stroke in 2015 with residual left upper extremity weakness / spasticity, cervical spondylosis status post right anterior cervical fusion in June of 2017, hepatitis C, gastroesophageal reflux disease, hypertension, histrionic personality disorder, asthma, chronic lower back pain with right sided sciatica , L3-L5 disc bulge with mild canal narrowing. STUDY FINDINGS: Patient participated in a Modified Barium Swallow (MBS) study on 10/08/2017. Dr. Jackson was the radiologist present for this evaluation. This study was recorded in the lateral view and images were sent to PACs for storage. The following consistencies were presented to this patient for analysis of oropharyngeal swallow function: thin liquids, pudding, and a regular textured, Nevin Doone cookie. Results of the MBS are as follows: PENETRATION / ASPIRATION SCALE (VÁZQUEZ): 1 = does not enter airway 2 = enters airway/above vocal folds/ejected 3 = enters airway/above vocal folds/not ejected 4 = enters airway/contacts vocal folds/ejected 5 = enters airway/contacts vocal folds/not ejected 6 = enters airway/below vocal folds/ejected 7 = enters airway/below vocal folds/not ejected despite effort 8 = enters airway/below vocal folds/no effort PENETRATION / ASPIRATION SCALE (SCORE): Thin liquid - 5 mL tsp.: 2 Thin liquids via cup (single sip): 2 Thin liquids via cup (single sip): 2 Thin liquids via cup (chin tuck): 1 Thin liquids via cup (single sip): 2 * Thin liquids via cup (chin tuck): 1 Thin liquids via cup (chin tuck): 1 Thin liquids via straw (sequential swallows): 2 Pudding via spoon: 1 Regular textured cookie: 1 Thin liquids via straw (sequential swallows): 2 * denotes suboptimal chin tuck execution IMPRESSION: DIAGNOSIS: mild to moderate oropharyngeal dysphagia (R13.12) ORAL PHASE CHARACTERIZED BY: LABIAL SEAL: interlabial escape, no progression to anterior lip TONGUE CONTROL DURING BOLUS MANIPULATION: posterior escape of less than half of bolus BOLUS PREPARATION / MASTICATION: slow prolonged chewing/mashing with complete recollection BOLUS TRANSPORT / LINGUAL MOTION: brisk tongue motion ORAL RESIDUE: trace residue lining oral structures PHARYNGEAL PHASE CHARACTERIZED BY: INITIATION OF PHARYNGEAL SWALLOW: bolus head in valleculae at first hyoid excursion SOFT PALATE ELEVATION: no bolus between soft palate and pharyngeal wall LARYNGEAL ELEVATION: partial superior movement of thyroid cartilage/partial approximation of arytenoids cartilage to epiglottic petiole ANTERIOR HYOID EXCURSION: trace / partial anterior movement EPIGLOTTIC MOVEMENT: partial epiglottic inversion LARYNGEAL VESTIBULE CLOSURE AT HEIGHT OF SWALLOW: inconsistent laryngeal vestibule closure with narrow column of air/contrast in laryngeal vestibule PHARYNGEAL STRIPPING WAVE: pharyngeal stripping wave present / diminished PHARYNGOESOPHAGEAL SEGMENT OPENING: partial distension and partial duration; partial obstruction of flow TONGUE BASE RETRACTION: narrow column of contrast between tongue base and posterior pharyngeal wall PHARYNGEAL RESIDUE: collection of residue within or on pharyngeal structures ( valleculae, pyriform sinus) primarily with more viscous textures ESOPHAGEAL PHASE CHARACTERIZED BY: ESOPHAGEAL BOLUS CLEARANCE IN THE UPRIGHT POSITION: could not view EFFECTS OF TREATMENT STRATEGIES ATTEMPTED: Chin tuck posture = effective Reduced bolus size = effective DIET TEXTURE RECOMMENDATIONS: Will recommend a regular-soft textured, thin liquid diet. COMPENSATORY STRATEGIES RECOMMENDED: Supervision, chin tuck with thin liquids, check for left sided pocketing, intermittent lingual sweep, reduced bolus volume, alternate liquids and solids, minimize distractions, seated upright at 90 degrees during PO intake, remain upright at 90 degrees for 30-60 min post intake, medication whole in applesauce. INTERPRETATION OF RESULTS: Patient presents with mild to moderate oropharyngeal dysphagia (R13.12) secondary to a right parietal infarct complicated by a previous left lacunar intracerebral hemorrhage, a right parietal ischemic stroke in 2016, and a right anterior cervical fusion. Oral phase primarily marked by mastication inefficiency; suboptimal lingual control resulting in premature posterior bolus loss; poor oral clearance secondary to reduced intraoral strength and sensitivity; insufficient labial control. Pharyngeal phase primarily marked by delayed pharyngeal swallow onset timing; reduced closure of the airway during deglutition attributed to reduced anterior hyoid excursion; and suboptimal pharyngeal motility / pharyngeal dysmotility resulting in pharyngeal retention within the valleculae and pyriforms. All deficits ameliorated with chin tuck execution and bolus volume adjustments. Noted carotid stent during head movement , spinal disc cadaver allografts RECOMMENDATIONS: Patient requires intensive skilled speech-language intervention targeting continued diet texture management; training and implementation of recommended compensatory strategies; and training and implementation of recommended oropharyngeal strengthening exercises to facilitate improved labial control / strength, lingual control / strength, swallow onset timing, laryngeal vestibule closure / pressure, pharyngeal motility. ADDITIONAL COMMENTS/RECOMMENDATIONS: Results and recommendations were discussed with the Patient immediately following MBS completion, with the Patient verbalizing understanding and agreement with all recommendations and education provided. IMAGE COUNT: [id number]
--- NOTE | 2017-10-08 14:00 | RAD_ITS ---
STUDY: SWALLOWING STUDY REASON FOR EXAM: Male, 57 years old. CVA. TECHNIQUE: The examination was performed with Speech Pathology in attendance. Under fluoroscopic observation, the patient ingested thin barium, thick barium, barium pudding, and barium coated cracker. FLUOROSCOPY TIME: 2:05 minutes/seconds. 1744 spot images were obtained. RADIOLOGIST INVOLVEMENT: Radiologist was present and providing direct supervision. COMPARISON: None. FINDINGS: The following was observed during swallowing of the various mixtures of barium: Thin Barium: Transient penetration with ingestion of thin liquids. Thick Barium: There was no evidence of aspiration or laryngeal penetration. Barium Pudding: There was no evidence of aspiration or laryngeal penetration. Barium Coated Cracker: There was no evidence of aspiration or laryngeal penetration. RAD/Swallowing Function w/Video IMPRESSION: Transient penetration with ingestion of thin liquids. The swallow study findings were discussed with the patient by the speech pathologist at the conclusion of the examination. Please see speech pathology report for more information and recommendations. Electronically Signed: Jose Luis Jackson MD at 8:24 EST Tel [phone], Service support ,
[2017-10-08 22:00] VITALS: BP 137/75; PULSE 67; RESP 14; TEMP 36.8; O2SAT 94
[2017-10-08] MEDS: Atorvastatin Calcium 80 MG Tablet PO (22:04)
[2017-10-08 23:17] VITALS: BMI 38.6
--- NOTE | 2017-10-09 03:50 | NURSING ---
Reviewed and agree with TEMPERATURE REGULATOR documentation.
[2017-10-09] MEDS: Acetaminophen 325 MG Tablet 650 MG PO (06:26)
[2017-10-09] MEDS: Aspirin 81 MG TAB.CHEW 324 MG PO (07:17)
[2017-10-09] MEDS: Clopidogrel Bisulfate 75 MG Tablet PO (07:18)
[2017-10-09] MEDS: Escitalopram Oxalate 10 MG Tablet PO (07:18)
[2017-10-09] MEDS: Pantoprazole Sodium 40 MG Tablet PO (07:18)
[2017-10-09] MEDS: Carvedilol 12.5 MG Tablet PO ×2 (07:18→23:00)
[2017-10-09] MEDS: Lisinopril 10 MG Tablet 30 MG PO (07:18)
[2017-10-09 07:46] VITALS: BP 153/84; PULSE 72; RESP 16; TEMP 36.4; O2SAT 94
--- NOTE | 2017-10-09 09:42 | CT_ITS ---
STUDY: CT BRAIN WITHOUT CONTRAST REASON FOR EXAM: Male, 57 years old. Right parietal ischemic stroke. Right ICA occlusion. RADIATION DOSAGE (If Supplied By Facility): CTDIvol = ( 44.99 ) mGy, DLP = ( 849.54 ) mGycm TECHNIQUE: Transaxial CT imaging of the brain was performed without administration of intravenous contrast material. Individualized dose optimization techniques were used for this CT. COMPARISON: None. FINDINGS: Normal soft tissue structures. Normal calvarium. There is mild cerebral atrophy with widening of the extra-axial spaces and ventricular dilatation. There is a consult for decreased attenuation in the right temporal parietal lobes involving the white matter and garay matter. This is in keeping with history of drop right middle suprarenal artery territory infarction. There is evidence of increase attenuation of the gyri suggestive of petechial hemorrhage. Mild degree of volume edema. Evidence of a lacunar infarct in the body of the left caudate nucleus. Normal brainstem. Normal cerebellum. There is no intracranial hemorrhage. There are no findings of an acute ischemic infarction. Normal visualized paranasal sinuses. CT/Brain/Head without Contrast IMPRESSION: Findings in keeping with subacute infarction involving the right temporoparietal lobes with evidence of edema and petechial hemorrhage along the gyri. Old lacunar infarct in the left basal ganglia. Electronically Signed: Jose Luis Jackson MD at 11:59 EST Tel [phone], Service support ,
[2017-10-09] MEDS: NYSTATIN 500,000 UNIT/5 ML UDC 500000 UNIT PO ×4 (10:04→23:00)
[2017-10-09] MEDS: Enoxaparin 40 MG/0.4 ML Syringe SC (10:05)
[2017-10-09] MEDS: Menthol/Lanolin/Calamine/Znox 113 GM Tube 1 APPLIC TOPICAL ×2 (10:07→22:59)
--- NOTE | 2017-10-09 10:53 | CASEMGMT ---
Team meeting held. Patient present, no support person present. Patient reporting that patient girlfriend is working today. Patient aware that insurance update is due on 10/14/17 and that there is no guarantee of continued coverage. No discharge date set at this time, team wanting to continue to work with patient. Patient plans to discharge back home alone, this manager social services to keep working with patient on formulate the discharge plan as patient would not be able to return home alone at this time. Support given. Will continue to follow. Elvia DENT, LEGAL OPERATIONS MANAGER
--- NOTE | 2017-10-09 13:03 | PCM.PN.NEU ---
Subjective: Staffed in team meeting. Family was not present at meeting. Questions answered. With Physical therapy He is a moderate assist of 1-2 for transfer. He is moderate assist of two to stand and pivot. He is a max assist of two to stand at the wall and to help with advancement of left leg. With Occupational therapy, he is an assist of moderate to max to get in the shower, he is able to do upper body care on the left side requires help for care on the right. He is total assist for lower body care. He has some movement in his Biceps and Triceps area with E stim. With speech he has left neglect and in attention to that left side. He is improving on that side and is finding ways to help compensate for the neglect. Had a swallow evaluation noted some problems but they are correctable with the use of tucking his chin. He remains on a regular diet with thin liquids. Complaining of headaches, will do a CT head to look for changes in the area of his stroke. - Physical Exam General: Alert, Oriented x3, Cooperative HEENT: Atraumatic, PERRLA, EOMI, Normocephalic Neck: Supple, No JVD, Negative Carotid Bruits Lungs: Clear to auscultation, Normal air movement Cardiovascular: Regular rate, No murmurs Abdomen: Bowel Sounds Present, Soft, Non Tender Extremities: No edema, Capillary Refill Less than 3 Seconds Skin: No rashes, No breakdown Musculoskeletal: No Tenderness to Palpation of Joints or Extremities Neurological: Cranial nerves II-XII grossly intact Psych/Mental Status: Normal Affect, Appropriate Vital Signs Temp Pulse Resp BP Pulse Ox 97.5 F L 72 16 153/84 H 94 10/09/17 07:46 10/09/17 07:46 10/09/17 07:46 10/09/17 07:46 10/09/17 07:46 Oxygen Delivery Method Room Air Weight: 129.274 kg Body Mass Index (BMI) 38.6 Intake and Output for Last 24 Hours 10/07/17 10/08/17 10/09/17 23:59 23:59 23:59 Intake Total 600 / 600 620 / 620 240 / 240 Balance 600 / 600 620 / 620 240 / 240 Active Medications Acetaminophen (Tylenol) 650 mg PO Q4H PRN PRN PRN Reason: PAIN Last Admin: 10/09/17 06:26 Dose: 650 mg Albuterol Sulfate (Ventolin Hfa (Sp)) 2 puff INHALATION Q4H PRN PRN PRN Reason: WHEEZING Aspirin (Aspirin, Baby) 324 mg PO DAILYCM [facility] Last Admin: 10/09/17 07:17 Dose: 324 mg Atorvastatin Calcium (Lipitor) 80 mg PO QHS [facility] Last Admin: 10/08/17 22:04 Dose: 80 mg Bisacodyl (Dulcolax) 10 mg RECTAL .PRN X 1 PRN PRN Reason: Constipation Calamine/Phenol (Calmoseptine Ointment) 1 applic TOPICAL BID [facility] PRN Reason: Protocol Last Admin: 10/09/17 10:07 Dose: 1 applicatio Carvedilol (Coreg) 12.5 mg PO BID [facility] Last Admin: 10/09/17 07:18 Dose: 12.5 mg Clopidogrel Bisulfate (Plavix) 75 mg PO DAILY [facility] Last Admin: 10/09/17 07:18 Dose: 75 mg Enoxaparin Sodium (Lovenox) 40 mg SC DAILY [facility] Last Admin: 10/09/17 10:05 Dose: 40 mg Escitalopram Oxalate (Lexapro) 10 mg PO DAILY [facility] Last Admin: 10/09/17 07:18 Dose: 10 mg Lisinopril (Zestril) 30 mg PO DAILY [facility] Last Admin: 10/09/17 07:18 Dose: 30 mg Magnesium Hydroxide (Milk Of Magnesia) 30 ml PO .PRN X 1 PRN PRN Reason: Constipation Nutritional Formula (Lactose Free) (Ensure Enlive) 120 ml PO 4X/DAY [facility] Last Admin: 10/09/17 07:20 Dose: Not Given Nystatin (Nystatin) 500,000 unit PO 4X/DAY [facility] Last Admin: 10/09/17 10:04 Dose: 500,000 unit Pantoprazole Sodium (Protonix) 40 mg PO DAILY [facility] Last Admin: 10/09/17 07:18 Dose: 40 mg Senna/Docusate Sodium (Senokot-S, Suki-Colace) 2 tablet PO BID [facility] Last Admin: 10/09/17 07:18 Dose: Not Given Assessment/Plan Debility s/p right parietal infarct 2/2 to symptomatic right ICA occlusion. complicated by a previous left lacunar ICH, and a right parietal ischemic stroke in 2016. The goal of rehab is [facility]ecostal of functional independence. Plan: - Physical therapy for gait and balance - Occupational Therapy for ADLs - As needed analgesics - Bowel protocol - Stroke prevention on ASA, Statin - DVT prophylaxis: SCDs, Lovenox - Hypertension: Stable with good control, continue home medications, Keep BP < 130/80 mmHg - Echo shows an EF 85%, mild LVH, no WMA and no shunt. - Hx of HLD continue home dose of statin, Check LDL and Hba1c levels => LDL 113, and HA1C 5.7 - Goal Hba1c <7% - Cervical spondylosis => Continued neck pain 2/2 fall prior to stroke => continue C-Collar - Hx GERD continue home medication - Hx Hep C - Hx Asthma - Hx of left lacunar ICH and a right parietal ischemic stroke - Recommend 30 day event monitor on D/C - CT head= new complains of increase headaches.
[2017-10-09 13:06] VITALS: BMI 38.6
--- NOTE | 2017-10-09 13:13 | PN.NEURO_ITS ---
Subjective: Staffed in team meeting. Family was not present at meeting. Questions answered. With Physical therapy He is a moderate assist of 1-2 for transfer. He is moderate assist of two to stand and pivot. He is a max assist of two to stand at the wall and to help with advancement of left leg. With Occupational therapy, he is an assist of moderate to max to get in the shower, he is able to do upper body care on the left side requires help for care on the right. He is total assist for lower body care. He has some movement in his Biceps and Triceps area with E stim. With speech he has left neglect and in attention to that left side. He is improving on that side and is finding ways to help compensate for the neglect. Had a swallow evaluation noted some problems but they are correctable with the use of tucking his chin. He remains on a regular diet with thin liquids. Complaining of headaches, will do a CT head to look for changes in the area of his stroke. - Physical Exam General: Alert, Oriented x3, Cooperative HEENT: Atraumatic, PERRLA, EOMI, Normocephalic Neck: Supple, No JVD, Negative Carotid Bruits Lungs: Clear to auscultation, Normal air movement Cardiovascular: Regular rate, No murmurs Abdomen: Bowel Sounds Present, Soft, Non Tender Extremities: No edema, Capillary Refill Less than 3 Seconds Skin: No rashes, No breakdown Musculoskeletal: No Tenderness to Palpation of Joints or Extremities Neurological: Cranial nerves II-XII grossly intact Psych/Mental Status: Normal Affect, Appropriate Vital Signs Temp Pulse Resp BP Pulse Ox 97.5 F L 72 16 153/84 H 94 10/09/17 07:46 10/09/17 07:46 10/09/17 07:46 10/09/17 07:46 10/09/17 07:46 Oxygen Delivery Method Room Air Weight: 129.274 kg Body Mass Index (BMI) 38.6 Intake and Output for Last 24 Hours 10/07/17 10/08/17 10/09/17 23:59 23:59 23:59 Intake Total 600 / 600 620 / 620 240 / 240 Balance 600 / 600 620 / 620 240 / 240 Active Medications Acetaminophen (Tylenol) 650 mg PO Q4H PRN PRN PRN Reason: PAIN Last Admin: 10/09/17 06:26 Dose: 650 mg Albuterol Sulfate (Ventolin Hfa (Sp)) 2 puff INHALATION Q4H PRN PRN PRN Reason: WHEEZING Aspirin (Aspirin, Baby) 324 mg PO DAILYCM [facility] Last Admin: 10/09/17 07:17 Dose: 324 mg Atorvastatin Calcium (Lipitor) 80 mg PO QHS [facility] Last Admin: 10/08/17 22:04 Dose: 80 mg Bisacodyl (Dulcolax) 10 mg RECTAL .PRN X 1 PRN PRN Reason: Constipation Calamine/Phenol (Calmoseptine Ointment) 1 applic TOPICAL BID [facility] PRN Reason: Protocol Last Admin: 10/09/17 10:07 Dose: 1 applicatio Carvedilol (Coreg) 12.5 mg PO BID [facility] Last Admin: 10/09/17 07:18 Dose: 12.5 mg Clopidogrel Bisulfate (Plavix) 75 mg PO DAILY [facility] Last Admin: 10/09/17 07:18 Dose: 75 mg Enoxaparin Sodium (Lovenox) 40 mg SC DAILY [facility] Last Admin: 10/09/17 10:05 Dose: 40 mg Escitalopram Oxalate (Lexapro) 10 mg PO DAILY [facility] Last Admin: 10/09/17 07:18 Dose: 10 mg Lisinopril (Zestril) 30 mg PO DAILY [facility] Last Admin: 10/09/17 07:18 Dose: 30 mg Magnesium Hydroxide (Milk Of Magnesia) 30 ml PO .PRN X 1 PRN PRN Reason: Constipation Nutritional Formula (Lactose Free) (Ensure Enlive) 120 ml PO 4X/DAY [facility] Last Admin: 10/09/17 07:20 Dose: Not Given Nystatin (Nystatin) 500,000 unit PO 4X/DAY [facility] Last Admin: 10/09/17 10:04 Dose: 500,000 unit Pantoprazole Sodium (Protonix) 40 mg PO DAILY [facility] Last Admin: 10/09/17 07:18 Dose: 40 mg Senna/Docusate Sodium (Senokot-S, Suki-Colace) 2 tablet PO BID [facility] Last Admin: 10/09/17 07:18 Dose: Not Given Assessment/Plan Debility s/p right parietal infarct 2/2 to symptomatic right ICA occlusion. complicated by a previous left lacunar ICH, and a right parietal ischemic stroke in 2016. The goal of rehab is jew of functional independence. Plan: - Physical therapy for gait and balance - Occupational Therapy for ADLs - As needed analgesics - Bowel protocol - Stroke prevention on ASA, Statin - DVT prophylaxis: SCDs, Lovenox - Hypertension: Stable with good control, continue home medications, Keep BP < 130/80 mmHg - Echo shows an EF 85%, mild LVH, no WMA and no shunt. - Hx of HLD continue home dose of statin, Check LDL and Hba1c levels => LDL 113 , and HA1C 5.7 - Goal Hba1c <7% - Cervical spondylosis => Continued neck pain 2/2 fall prior to stroke => continue C-Collar - Hx GERD continue home medication - Hx Hep C - Hx Asthma - Hx of left lacunar ICH and a right parietal ischemic stroke - Recommend 30 day event monitor on D/C - CT head= new complains of increase headaches.
--- NOTE | 2017-10-09 15:00 | NURSING ---
Nithya JACOBS aware of CT scan results. Patient denies further headache and neuro assessment is at baseline.
[2017-10-09 19:49] VITALS: BP 130/76; PULSE 62; RESP 18; TEMP 36.5; O2SAT 94
[2017-10-09 19:52] VITALS: BMI 38.6
[2017-10-09 21:26] LABS: Hematocrit 36.1 % (40-54); Mean Corp Hgb Conc 33.2 g/gl (32-36); Mean Corpuscular Volume 90.3 fL (80-94); Mean Platelet Vol. 10.2 fl (6.2-12.0); Platelet Count 240 K/mm3 (150-450); RBC Distribution Width CV 14.6 % (11.6-14.6); RBC Distribution Width SD 48.2 fl (35.1-43.9)
[2017-10-09 21:27] LABS: Scan Indicated on CBC? Y/N NO
[2017-10-09 21:46] LABS: International Normalized Ratio 1.2; Prothrombin Time (Protime)PT. 14.6 SECONDS (11.7-14.9)
[2017-10-09] MEDS: Atorvastatin Calcium 80 MG Tablet PO (23:00)
[2017-10-09] MEDS: Senna/Docusate Sodium 1 Tablet 2 TABLET PO (23:00)
[2017-10-10] MEDS: Carvedilol 12.5 MG Tablet PO ×2 (07:58→19:44)
[2017-10-10] MEDS: Escitalopram Oxalate 10 MG Tablet PO (07:58)
[2017-10-10] MEDS: Lisinopril 10 MG Tablet 30 MG PO (07:58)
[2017-10-10] MEDS: NYSTATIN 500,000 UNIT/5 ML UDC 500000 UNIT PO ×4 (08:00→19:45)
[2017-10-10] MEDS: Clopidogrel Bisulfate 75 MG Tablet PO (08:00)
[2017-10-10] MEDS: Pantoprazole Sodium 40 MG Tablet PO (08:00)
[2017-10-10] MEDS: Aspirin 81 MG TAB.CHEW 324 MG PO (08:02)
[2017-10-10] MEDS: Menthol/Lanolin/Calamine/Znox 113 GM Tube 1 APPLIC TOPICAL ×2 (08:15→19:42)
[2017-10-10 08:30] VITALS: BP 154/79; PULSE 69; RESP 17; TEMP 36.5; O2SAT 95
[2017-10-10 13:23] VITALS: BMI 38.6
--- NOTE | 2017-10-10 14:56 | NURSING ---
small flecks and small blood clots noted in urine. patient denies pain or burning with urination, dysuria, cva tenderness, afebrile, urine color light yellow. blood noted coming from meatus. 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 spoke with dr sue and he was consulted.
--- NOTE | 2017-10-10 16:46 | PCM.PN.NEU ---
Subjective: Patient seen having issues with spot bleeding on belly, and blood around urethral Meatus. Sent Urinalysis, Urine culture and will consult Urology, decrease his ASA from 325mg to 81mg. Due to placement of stent will need to keep his Plavix dose and an ASA dose going will hold the Lovenox for now and use Prasad hoses and SCDs for DVT PPX. Tolerating therapy. No issues with GI. - Physical Exam General: Alert, Oriented x3, Cooperative HEENT: Atraumatic, PERRLA, EOMI, Normocephalic Neck: Supple, No JVD, Negative Carotid Bruits Lungs: Clear to auscultation, Normal air movement Cardiovascular: Regular rate, No murmurs Abdomen: Bowel Sounds Present, Soft, Non Tender Extremities: No edema, Capillary Refill Less than 3 Seconds Skin: No rashes, No breakdown Musculoskeletal: No Tenderness to Palpation of Joints or Extremities Neurological: Cranial nerves II-XII grossly intact Psych/Mental Status: Normal Affect, Appropriate Vital Signs Temp Pulse Resp BP Pulse Ox 97.7 F L 69 17 154/79 H 95 10/10/17 08:30 10/10/17 08:30 10/10/17 08:30 10/10/17 08:30 10/10/17 08:30 Oxygen Delivery Method Room Air Weight: 129.274 kg Body Mass Index (BMI) 38.6 Intake and Output for Last 24 Hours 10/08/17 10/09/17 10/10/17 23:59 23:59 23:59 Intake Total 620 / 620 840 / 840 320 / 320 Balance 620 / 620 840 / 840 320 / 320 Laboratory Tests Past 24 Hrs 10/09/17 10/09/17 21:15 21:15 WBC 7.0 RBC 4.00 L Hgb 12.0 L Hct 36.1 L MCV 90.3 MCH 30.0 MCHC 33.2 RDW 14.6 RDW Differential 48.2 H Plt Count 240 MPV 10.2 PT 14.6 INR 1.2 Active Medications Acetaminophen (Tylenol) 650 mg PO Q4H PRN PRN PRN Reason: PAIN Last Admin: 10/09/17 06:26 Dose: 650 mg Albuterol Sulfate (Ventolin Hfa (Sp)) 2 puff INHALATION Q4H PRN PRN PRN Reason: WHEEZING Aspirin (Aspirin, Baby) 81 mg PO DAILYCM [facility] Atorvastatin Calcium (Lipitor) 80 mg PO QHS [facility] Last Admin: 10/09/17 23:00 Dose: 80 mg Bisacodyl (Dulcolax) 10 mg RECTAL .PRN X 1 PRN PRN Reason: Constipation Calamine/Phenol (Calmoseptine Ointment) 1 applic TOPICAL BID [facility] PRN Reason: Protocol Last Admin: 10/10/17 08:15 Dose: 1 applicatio Carvedilol (Coreg) 12.5 mg PO BID [facility] Last Admin: 10/10/17 07:58 Dose: 12.5 mg Clopidogrel Bisulfate (Plavix) 75 mg PO DAILY [facility] Last Admin: 10/10/17 08:00 Dose: 75 mg Escitalopram Oxalate (Lexapro) 10 mg PO DAILY [facility] Last Admin: 10/10/17 07:58 Dose: 10 mg Lisinopril (Zestril) 30 mg PO DAILY [facility] Last Admin: 10/10/17 07:58 Dose: 30 mg Magnesium Hydroxide (Milk Of Magnesia) 30 ml PO .PRN X 1 PRN PRN Reason: Constipation Nutritional Formula (Lactose Free) (Ensure Enlive) 120 ml PO 4X/DAY [facility] Last Admin: 10/10/17 13:19 Dose: 120 ml Nystatin (Nystatin) 500,000 unit PO 4X/DAY [facility] Last Admin: 10/10/17 13:19 Dose: 500,000 unit Pantoprazole Sodium (Protonix) 40 mg PO DAILY [facility] Last Admin: 10/10/17 08:00 Dose: 40 mg Senna/Docusate Sodium (Senokot-S, Suki-Colace) 2 tablet PO BID [facility] Last Admin: 10/10/17 08:15 Dose: Not Given Assessment/Plan Debility s/p right parietal infarct 2/2 to symptomatic right ICA occlusion. complicated by a previous left lacunar ICH, and a right parietal ischemic stroke in 2016. The goal of rehab is jain of functional independence. Plan: - Physical therapy for gait and balance - Occupational Therapy for ADLs - As needed analgesics - Bowel protocol - Stroke prevention on ASA decrease to 81mg from 325mg, Statin - DVT prophylaxis: SCDs, Plavix, Prasad hoses - Hypertension: Stable with good control, continue home medications, Keep BP < 130/80 mmHg - Echo shows an EF 85%, mild LVH, no WMA and no shunt. - Hx of HLD continue home dose of statin, Check LDL and Hba1c levels => LDL 113, and HA1C 5.7 - Goal Hba1c <7% - Cervical spondylosis => Continued neck pain 2/2 fall prior to stroke => continue C-Collar - Hx GERD continue home medication - Hx Hep C - Hx Asthma - Hx of left lacunar ICH and a right parietal ischemic stroke - Recommend 30 day event monitor on D/C - CT head= new complains of increase headaches. - Stent placement => continue Plavix, ASA 81 mg - Blood around urethral meatus => Urinalysis, urine culture, consult Urology
--- NOTE | 2017-10-10 16:55 | PN.NEURO_ITS ---
Subjective: Patient seen having issues with spot bleeding on belly, and blood around urethral Meatus. Sent Urinalysis, Urine culture and will consult Urology, decrease his ASA from 325mg to 81mg. Due to placement of stent will need to keep his Plavix dose and an ASA dose going will hold the Lovenox for now and use Prasad hoses and SCDs for DVT PPX. Tolerating therapy. No issues with GI. - Physical Exam General: Alert, Oriented x3, Cooperative HEENT: Atraumatic, PERRLA, EOMI, Normocephalic Neck: Supple, No JVD, Negative Carotid Bruits Lungs: Clear to auscultation, Normal air movement Cardiovascular: Regular rate, No murmurs Abdomen: Bowel Sounds Present, Soft, Non Tender Extremities: No edema, Capillary Refill Less than 3 Seconds Skin: No rashes, No breakdown Musculoskeletal: No Tenderness to Palpation of Joints or Extremities Neurological: Cranial nerves II-XII grossly intact Psych/Mental Status: Normal Affect, Appropriate Vital Signs Temp Pulse Resp BP Pulse Ox 97.7 F L 69 17 154/79 H 95 10/10/17 08:30 10/10/17 08:30 10/10/17 08:30 10/10/17 08:30 10/10/17 08:30 Oxygen Delivery Method Room Air Weight: 129.274 kg Body Mass Index (BMI) 38.6 Intake and Output for Last 24 Hours 10/08/17 10/09/17 10/10/17 23:59 23:59 23:59 Intake Total 620 / 620 840 / 840 320 / 320 Balance 620 / 620 840 / 840 320 / 320 Laboratory Tests Past 24 Hrs 10/09/17 10/09/17 21:15 21:15 WBC 7.0 RBC 4.00 L Hgb 12.0 L Hct 36.1 L MCV 90.3 MCH 30.0 MCHC 33.2 RDW 14.6 RDW Differential 48.2 H Plt Count 240 MPV 10.2 PT 14.6 INR 1.2 Active Medications Acetaminophen (Tylenol) 650 mg PO Q4H PRN PRN PRN Reason: PAIN Last Admin: 10/09/17 06:26 Dose: 650 mg Albuterol Sulfate (Ventolin Hfa (Sp)) 2 puff INHALATION Q4H PRN PRN PRN Reason: WHEEZING Aspirin (Aspirin, Baby) 81 mg PO DAILYCM [facility] Atorvastatin Calcium (Lipitor) 80 mg PO QHS [facility] Last Admin: 10/09/17 23:00 Dose: 80 mg Bisacodyl (Dulcolax) 10 mg RECTAL .PRN X 1 PRN PRN Reason: Constipation Calamine/Phenol (Calmoseptine Ointment) 1 applic TOPICAL BID [facility] PRN Reason: Protocol Last Admin: 10/10/17 08:15 Dose: 1 applicatio Carvedilol (Coreg) 12.5 mg PO BID [facility] Last Admin: 10/10/17 07:58 Dose: 12.5 mg Clopidogrel Bisulfate (Plavix) 75 mg PO DAILY [facility] Last Admin: 10/10/17 08:00 Dose: 75 mg Escitalopram Oxalate (Lexapro) 10 mg PO DAILY [facility] Last Admin: 10/10/17 07:58 Dose: 10 mg Lisinopril (Zestril) 30 mg PO DAILY [facility] Last Admin: 10/10/17 07:58 Dose: 30 mg Magnesium Hydroxide (Milk Of Magnesia) 30 ml PO .PRN X 1 PRN PRN Reason: Constipation Nutritional Formula (Lactose Free) (Ensure Enlive) 120 ml PO 4X/DAY [facility] Last Admin: 10/10/17 13:19 Dose: 120 ml Nystatin (Nystatin) 500,000 unit PO 4X/DAY [facility] Last Admin: 10/10/17 13:19 Dose: 500,000 unit Pantoprazole Sodium (Protonix) 40 mg PO DAILY [facility] Last Admin: 10/10/17 08:00 Dose: 40 mg Senna/Docusate Sodium (Senokot-S, Suki-Colace) 2 tablet PO BID [facility] Last Admin: 10/10/17 08:15 Dose: Not Given Assessment/Plan Debility s/p right parietal infarct 2/2 to symptomatic right ICA occlusion. complicated by a previous left lacunar ICH, and a right parietal ischemic stroke in 2016. The goal of rehab is methodist of functional independence. Plan: - Physical therapy for gait and balance - Occupational Therapy for ADLs - As needed analgesics - Bowel protocol - Stroke prevention on ASA decrease to 81mg from 325mg, Statin - DVT prophylaxis: SCDs, Plavix, Prasad hoses - Hypertension: Stable with good control, continue home medications, Keep BP < 130/80 mmHg - Echo shows an EF 85%, mild LVH, no WMA and no shunt. - Hx of HLD continue home dose of statin, Check LDL and Hba1c levels => LDL 113 , and HA1C 5.7 - Goal Hba1c <7% - Cervical spondylosis => Continued neck pain 2/2 fall prior to stroke => continue C-Collar - Hx GERD continue home medication - Hx Hep C - Hx Asthma - Hx of left lacunar ICH and a right parietal ischemic stroke - Recommend 30 day event monitor on D/C - CT head= new complains of increase headaches. - Stent placement => continue Plavix, ASA 81 mg - Blood around urethral meatus => Urinalysis, urine culture, consult Urology
[2017-10-10 19:39] VITALS: BP 134/81; PULSE 72; RESP 18; TEMP 36.6; O2SAT 97
[2017-10-10] MEDS: Atorvastatin Calcium 80 MG Tablet PO (19:44)
[2017-10-10 20:42] LABS: Bacteria 0 SEEN /hpf (None Seen); Mucous, Urine 0 SEEN /hpf (<or=2+); Squamous Epithelial Cells - UA 0 SEEN /hpf (0-5); White Blood Cells 0 SEEN /hpf (0-5)
[2017-10-10 20:47] LABS: Color, Urine Yellow (Yellow); Glucose, Dipstick Normal (Normal); Ketone-Dipstick Negative (Negative); Leukocyte Esterase-Dipstick Negative /ul (Negative); Nitrite-Dipstick Negative (Negative); Occult Blood-Urine 50 /ul (Negative); Protein-Dipstick Negative (Negative); Urine Bilirubin Dipstick Negative (Negative); Urine Clarity Sl. Cloudy (Clear); Urine Urobilinogen Normal (Normal)
[2017-10-10 21:21] LABS: Red Blood Cells-Urine 10-25 SEEN /hpf (0-5)
[2017-10-11] MEDS: Acetaminophen 325 MG Tablet 650 MG PO (04:44)
[2017-10-11] MEDS: Loratadine 10 MG Tablet 5 MG PO (04:45)
[2017-10-11 08:21] VITALS: BP 149/76; PULSE 60; RESP 18; TEMP 36.5; O2SAT 95
[2017-10-11] MEDS: Carvedilol 12.5 MG Tablet PO ×2 (08:44→22:50)
[2017-10-11] MEDS: Escitalopram Oxalate 10 MG Tablet PO (08:44)
[2017-10-11] MEDS: Pantoprazole Sodium 40 MG Tablet PO (08:44)
[2017-10-11] MEDS: Lisinopril 10 MG Tablet 30 MG PO (08:44)
[2017-10-11] MEDS: Aspirin 81 MG TAB.CHEW PO (08:44)
[2017-10-11] MEDS: Clopidogrel Bisulfate 75 MG Tablet PO (08:44)
[2017-10-11] MEDS: NYSTATIN 500,000 UNIT/5 ML UDC 500000 UNIT PO ×4 (08:45→22:50)
[2017-10-11] MEDS: Menthol/Lanolin/Calamine/Znox 113 GM Tube 1 APPLIC TOPICAL ×2 (08:48→22:50)
[2017-10-11 11:47] VITALS: BMI 38.6
--- NOTE | 2017-10-11 14:43 | CON.PCM_ITS ---
Reason for Consult Date of Consultation: 10/11/17 History of Present Illness: The patient is a 57 year old M on rehab due to 2nd CVA. Has been taking 4 ASA/ d and plavix and then started on Lovenox injections. Shortly afterwards strarted w groo hematuria. Has positive hx of tobacco usage. Had obstructive sxs for few yrs w noct X2, slow strem and minimal urgency (until these CVA's). Since stopping the Lovenox the urine has cleared and C&S was negative, Dictation not available due to ??? At this point suspect BPH as culprit, but w hx of tobacco etc would recommend US of kidneys PSA and then start on proscar Plan on cysto scopy in few days. Past Medical History Allergies Iodinated Contrast- Oral and IV Dye Allergy (Verified 10/02/17 12:44) Hives perfume Allergy (Verified 10/02/17 12:44) Other pollen extracts Allergy (Verified 10/02/17 12:44) Other Home Medications: Ambulatory Orders Medication Instructions Recorded Acetaminophen [Tylenol] 650 mg PO Q4H PRN PRN 10/02/17 Albuterol Inhaler [Ventolin Hfa 2 puff INHALATION Q4H PRN PRN 10/02/17 (SP)] Aspirin [Aspirin, Baby] 324 mg PO DAILY 10/02/17 Atorvastatin Calcium 80 mg PO DAILY 10/02/17 Carvedilol 12.5 mg PO BID 10/02/17 Clopidogrel Bisulfate [Plavix] 75 mg PO DAILY 10/02/17 Docusate Sodium [Colace] 100 mg PO BID 10/02/17 Enoxaparin Sodium [Lovenox] 40 mg SQ DAILY 10/02/17 Escitalopram Oxalate [Lexapro] 10 mg PO DAILY 10/02/17 Lisinopril [Zestril] 30 mg PO DAILY 10/02/17 Pantoprazole Sodium [Protonix] 40 mg PO DAILY 10/02/17 Surgical History: herniorrhaphy, - - Cervical neck surgery plating with cardaviar bone graph Psychiatric History: Anxiety, Depression Lives: Alone Smoking Status: Heavy Smoker (>10/day) Tobacco Use: Cigarettes Alcohol: None Drugs: None - Physical Exam Vital Signs Temp Pulse Resp BP Pulse Ox 97.7 F L 60 18 149/76 H 95 10/11/17 08:21 10/11/17 08:21 10/11/17 08:21 10/11/17 08:21 10/11/17 08:21 Oxygen Delivery Method Room Air Weight: 129.274 kg Body Mass Index (BMI) 38.6 Intake and Output for Last 24 Hours 10/09/17 10/10/17 10/11/17 23:59 23:59 23:59 Intake Total 840 / 840 680 / 680 360 / 360 Balance 840 / 840 680 / 680 360 / 360 Microbiology Past 72 Hours 10/10/17 20:25 Urine Culture - Preliminary Urine, Clean Catch Culture exhibits no growth. Laboratory Tests Past 24 Hrs 10/10/17 20:25 Urine Color Yellow Urine Clarity Sl. Cloudy Urine pH 6.0 Ur Specific [place] 1.020 Urine Protein Negative Urine Glucose (UA) Normal Urine Ketones Negative Urine Occult Blood 50 H Urine Nitrite Negative Urine Bilirubin Negative Urine Urobilinogen Normal Ur Leukocyte Esterase Negative Urine RBC 10-25 SEEN Urine WBC 0 SEEN Ur Squamous Epith Cells 0 SEEN Urine Bacteria 0 SEEN Urine Mucus 0 SEEN
--- NOTE | 2017-10-11 15:10 | US_ITS ---
STUDY: RENAL ULTRASOUND - COMPLETE REASON FOR EXAM: Male, 57 years old. Hematuria TECHNIQUE: Ultrasound evaluation of the kidneys was performed with real-time and static boothe-scale imaging. COMPARISON: None available. FINDINGS: This study is limited by patient body habitus and bowel gas. RIGHT KIDNEY: Normal location of the right kidney, which is normal in size. The right kidney measures 13.3 cm. There is a normal cortex of the right kidney. There is no right renal mass or cyst. There are no right renal calculi. There is no right hydronephrosis. DISTAL RIGHT URETER: There is non-visualization of the distal right ureter. There is no demonstrated right ureterovesical junction calculus. There is a visualized right ureteral jet. LEFT KIDNEY: Normal location of the left kidney, which is normal in size. The left kidney measures 14.5 cm. There is a normal cortex of the left kidney. There is no left renal mass or cyst. There are no left renal calculi. There is no left hydronephrosis. DISTAL LEFT URETER: There is non-visualization of the distal left ureter. There is no demonstrated left ureterovesical junction calculus. There is a visualized left ureteral jet. BLADDER: There is a postvoid residual volume of 72 cc. US/Kidney and Bladder IMPRESSION: Normal kidneys. Postvoid residual volume of 72 cc in the urinary bladder. Electronically Signed: Campbell Valdovinos, at 6:35 EST Tel , Service support ,
[2017-10-11 16:21] LABS: PSA,Total- Diagnostic 2.72 ng/mL (0.0-4.0)
[2017-10-11 19:43] VITALS: BP 115/65; PULSE 64; RESP 16; TEMP 36.6; O2SAT 96
[2017-10-11] MEDS: Atorvastatin Calcium 80 MG Tablet PO (22:50)
[2017-10-12] VITALS (9 sets, daily range): BP systolic 99–185; BP diastolic 63–86; PULSE 60–66; RESP 16–20; TEMP 36.4–37; O2SAT 94–95; BMI 38.6
[2017-10-12] MEDS: Acetaminophen 325 MG Tablet 650 MG PO ×2 (02:52→22:25)
--- NOTE | 2017-10-12 02:55 | NURSING ---
PT WAKES AND REPORTS HE HAS ZHENG PAIN TO BACK OF HEAD, AND PAIN IN R EAR AND THROAT. STATES THROAT FEELS WORSE WHEN HE SWALLOWS AND PT WONDERS IF HE HAS A FEVER. TEMP IS 97.9. SPEECH IS CLEAR AND APPROPRIATE AND NO NEURO CHANGES NOTED. PT REPOSITIONED, INCONTINENT OF URINE AND ATTENDS AND LINENS CHANGED AND PT MEDICATED. WILL REASSESS SHORTLY.
--- NOTE | 2017-10-12 03:30 | NURSING ---
PT RESTING QUIETLY WITH EYES PARTIALLY CLOSED. PT STATES HE NO LONGER HAS PAIN TO BACK OF HEAD. STATES PAIN TO R EAR AND THROAT HAS DECREASED TO #2 AND THAT THROAT IS DRY,BUT HE DOES NOT WANT TO DRINK WATER BECAUSE HE DOESN'T WANT TO HAVE TO URINATE TOO MUCH. CALL LIGHT IN REACH AND PT ENCOURAGED TO NOTIFY ME OF ANY CHANGES, PT VERBALIZES UNDERSTANDING.
--- NOTE | 2017-10-12 04:00 | NURSING ---
PT RESTING WITH EYES CLOSED AND RESPIRATIONS ARE EVEN AND EASY.
--- NOTE | 2017-10-12 07:00 | NURSING ---
WHILE TALKING WITH PT TO ASSESS PAIN, PT STATES HE NOW NOTICES HE HAS FRONTAL ZHENG PAIN THAT HE RATES #6. PAIN IS MOSTLY GONE TO BACK OF HEAD.
--- NOTE | 2017-10-12 07:19 | NURSING ---
NEUROLOGY PAGING SERVICE CONTACTED FOR DR WALLACE.
--- NOTE | 2017-10-12 07:30 | NURSING ---
DR WALLACE INFORMED THAT PT HAD MILD HEADACHE, SORE THROAT AND R EAR PAIN WHICH WAS MOSTLY RELIEVED WITH TYLENOL. INFORMED THAT WHILE TALKING WITH PT AT 0700 TODAY, PT NOTICED THAT NOW HE HAS A FRONTAL ZHENG THAT HE RATE #6 ON PAIN SCALE AND REQUESTING TYLENOL. NO OTHER NEURO CHANGES NOTED. ORDERS GIVEN. REQUEST TO RETURN CALL TO HIM IS PT'S BP IS 140-1150'S SYSTOLIC AFTER BEING CHECK THIS AM.
--- NOTE | 2017-10-12 08:03 | NURSING ---
patient c/o severe chest pain to center of chest rates pain 8/10 and c/o burining pain down right arm. slight sob, denies n/v, skin warm and dry, color pale. patient resting in bed. called [facility] for ekg stat, dr dunham pagechristiano. 02 applied at 2 l/m via n.c. dr dunham aware and ordered cardiac enzymes. dr alicea aware. bp 185/86, apical regular at 64, resp 20, spo2 94% with o2 at 2 l/m via n.c. cps here to complete ekg. lab called at this time.
--- NOTE | 2017-10-12 08:11 | EKG12_ITS ---
Test Reason : CP Blood Pressure : / mmHG Vent. Rate : 060 BPM Atrial Rate : 060 BPM P-R Int : 182 ms QRS Dur : 104 ms QT Int : 422 ms P-R-T Axes : 065 -41 062 degrees QTc Int : 422 ms Normal sinus rhythm Left axis deviation Abnormal ECG No previous ECGs available Confirmed by OSWALDO JOHNSON ([id number]), purchase request editor SUZIE RIOS ([id number]) on 10/16/2017 3:11:42 PM Referred By: TTAE Confirmed By:OSWALDO JOHNSON
--- NOTE | 2017-10-12 08:18 | NURSING ---
dr dunham here to see patient. lab here at this time.
--- NOTE | 2017-10-12 08:25 | NURSING ---
dr dunham ordered nitroglycerin sl prn and give x1 now. ok to give scheduled medications, and to d/c toradol x1 dose. patient is resting in bed. dr dunham read the ekg and is awaiting lab work.
[2017-10-12 08:30] LABS: Hematocrit 37.8 % (40-54); Hemoglobin 12.9 g/dl (13.0-16.5); Mean Corp Hgb Conc 34.1 g/gl (32-36); Mean Corpuscular Hgb 30.6 pg (27.0-32.0); Mean Corpuscular Volume 89.8 fL (80-94); Mean Platelet Vol. 10.5 fl (6.2-12.0); Platelet Count 226 K/mm3 (150-450); RBC Distribution Width CV 14.3 % (11.6-14.6); RBC Distribution Width SD 45.9 fl (35.1-43.9); Red Blood Count 4.21 M/mm3 (4.6-6.2); Scan Indicated on CBC? Y/N NO; White Blood Count 6.9 K/mm3 (4.4-11.0)
[2017-10-12] MEDS: Pantoprazole Sodium 40 MG Tablet PO (08:30)
[2017-10-12] MEDS: Loratadine 10 MG Tablet 5 MG PO ×2 (08:30→15:05)
[2017-10-12] MEDS: Lisinopril 10 MG Tablet 30 MG PO (08:31)
[2017-10-12] MEDS: Finasteride 5 MG Tablet PO (08:31)
[2017-10-12] MEDS: Aspirin 81 MG TAB.CHEW PO (08:31)
[2017-10-12] MEDS: Escitalopram Oxalate 10 MG Tablet PO (08:31)
[2017-10-12] MEDS: Clopidogrel Bisulfate 75 MG Tablet PO (08:31)
[2017-10-12] MEDS: Carvedilol 12.5 MG Tablet PO ×2 (08:31→22:17)
[2017-10-12] MEDS: Menthol/Lanolin/Calamine/Znox 113 GM Tube 1 APPLIC TOPICAL ×2 (08:33→22:17)
--- NOTE | 2017-10-12 08:36 | NURSING ---
nitroglycerin 0.4 mg given at this time. patient resting in bed. chest pain continues to mid chest. describes as pressure and burning continues to radiate down right arm. pain level to chest area to 6/10. a/o x3. continues to deny dizziness, vertigo, n/v, but slight sob continues resp at 20. spo2 95 with o2 @ 2l/m via n.c.
[2017-10-12 08:51] LABS: Anion Gap 7 (5-15); BUN 11 mg/dL (7-18); BUN/Creat Ratio 13.4 RATIO (10-20); Calcium,Total 8.5 mg/dL (8.5-10.1); Chloride 107 mmol/L (98-107); Creatinine, Serum 0.82 mg/dL (0.70-1.30); EST Glomerular Filtration Rate 103 mL/min (>60); Est Glom Filt Rate - Afr Amer 124 mL/min (>60); Estimated Creatinine Clearance 110.41 ml/min; Glucose 92 mg/dL (74-106); Potassium 4.2 mmol/L (3.5-5.1); Sodium Level 143 mmol/L (136-145)
--- NOTE | 2017-10-12 08:53 | NURSING ---
22 gauge iv started to right hand,good blood return and flush.
--- NOTE | 2017-10-12 09:26 | NURSING ---
dr dunham aware of troponin level. will continue to monitor and awaiting next troponin level.
--- NOTE | 2017-10-12 10:34 | NURSING ---
dr alicea aware and updated on patient.
--- NOTE | 2017-10-12 10:42 | NURSING ---
patient resting quietly in bed with eyes closed. no distress noted.
--- NOTE | 2017-10-12 12:09 | NURSING ---
patient repositioned up in chair. only has mild pain pressure to mid chest area, denies any further burning sensation down right arm. denies sob, dizziness, lightheadedness, n/v or headache at this time. no acute distress noted.
--- NOTE | 2017-10-12 12:23 | PCM.PN.HOSP ---
Subjective: Patient seen and examined today. He was complaining of right-sided chest pain radiating to his right arm which has just started this morning. He really pain at around 8/10 initially but at time of review had gone down to about 4/10. He denied any dizziness or palpitations or increased sweating. He also denied any shortness of breath. He has never had a heart attack before those he does have a strong family history of it. His father of a heart attack in his 30s. He denied any fever or chills, any cough, any abdominal pain, any diarrhea vomiting. 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 He has a history of hypertension, hepatitis C, cervical spondylosis, asthma, and previous right parietal ischemic stroke in 2016 with residual left upper extremity weakness and spasticity. He is status post right ICA angioplasty ?3 and stent. Vitals/I&O's: Vital Signs Temp Pulse Resp BP Pulse Ox 97.9 F 60 18 137/81 H 94 10/12/17 07:47 10/12/17 12:08 10/12/17 12:08 10/12/17 12:08 10/12/17 12:08 Oxygen Flow Rate 2 Oxygen Delivery Method Room Air Weight: 285 lb 0.006 oz Body Mass Index (BMI) 38.6 Intake and Output for Last 24 Hours 10/10/17 10/11/17 10/12/17 23:59 23:59 23:59 Intake Total 680 / 680 600 / 600 Balance 680 / 680 600 / 600 General: Alert, Oriented x3, Cooperative HEENT: Atraumatic, PERRLA, EOMI, Normocephalic Oral: Moist Mucosa Neck: Supple, No JVD, Negative Carotid Bruits Lungs: Clear to auscultation, Normal air movement, No rhonchi, No wheeze, No rales Cardiovascular: Regular rate, Regular Rhythm, Normal S1, Normal S2, No murmurs Abdomen: Bowel Sounds Present, Soft, Non Tender, Non-Distended, No Hepato-splenomegaly Extremities: No clubbing, No cyanosis, No edema Skin: No rashes, No breakdown Musculoskeletal: No Tenderness to Palpation of Joints or Extremities Lymphatic: No Cervical, Supraclavicular, or Inguinal Adenopathy Neurological: - - 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 Unable to wrinkle his forehead on the left side of his face. And when he smells mouth is deviated more towards the right side. He also has left upper extremity weakness with power approximately 1/5. Power of left lower extremities approximately 3/5. Psych/Mental Status: Normal Affect, Appropriate, Alert and oriented to time, place, person, mood and affect Microbiology Past 72 Hours 10/10/17 20:25 Urine, Clean Catch Urine Culture - Preliminary Coag Negative Staph Laboratory Results 10/11/17 15:33: Total PSA 2.72 10/12/17 08:20: Sodium 143, Potassium 4.2, Chloride 107, Carbon Dioxide 29.0, Anion Gap 7, BUN 11, Creatinine 0.82, Estim Creat Clear Calc 110.41, Est GFR (MDRD) Af Amer 124, Est GFR (MDRD) Non-Af 103, BUN/Creatinine Ratio 13.4, Glucose 92, Calcium 8.5, Troponin I < 0.02 10/12/17 08:20: WBC 6.9, RBC 4.21 L, Hgb 12.9 L, Hct 37.8 L, MCV 89.8, MCH 30.6, MCHC 34.1, RDW 14.3, RDW Differential 45.9 H, Plt Count 226, MPV 10.5 10/12/17 11:42: Troponin I < 0.02 Current Medications Acetaminophen (Tylenol) 650 mg PO Q4H PRN PRN PRN Reason: PAIN Last Admin: 10/12/17 02:52 Dose: 650 mg Albuterol Sulfate (Ventolin Hfa (Sp)) 2 puff INHALATION Q4H PRN PRN PRN Reason: WHEEZING Aspirin ([facility]in, Baby) [facility] Last Admin: 10/12/17 08:31 Dose: 81 mg Atorvastatin Calcium (Lipitor) 80 mg PO QHS [facility] Last Admin: 10/11/17 22:50 Dose: 80 mg Bisacodyl (Dulcolax) 10 mg RECTAL .PRN X 1 PRN PRN Reason: Constipation Calamine/Phenol (Calmoseptine Ointment) 1 applic TOPICAL BID [facility] PRN Reason: Protocol Last Admin: 10/12/17 08:33 Dose: 1 applicatio Carvedilol (Coreg) 12.5 mg PO BID [facility] Last Admin: 10/12/17 08:31 Dose: 12.5 mg Clopidogrel Bisulfate (Plavix) 75 mg PO DAILY [facility] Last Admin: 10/12/17 08:31 Dose: 75 mg Enoxaparin Sodium (Lovenox) 40 mg SC DAILY@0600 [facility] Escitalopram Oxalate (Lexapro) 10 mg PO DAILY [facility] Last Admin: 10/12/17 08:31 Dose: 10 mg Finasteride (Proscar) 5 mg PO DAILY [facility] Last Admin: 10/12/17 08:31 Dose: 5 mg Lisinopril (Zestril) 30 mg PO DAILY [facility] Last Admin: 10/12/17 08:31 Dose: 30 mg Loratadine (Claritin) 5 mg PO DAILY PRN PRN Reason: ALLERGIES Last Admin: 10/12/17 08:30 Dose: 5 mg Magnesium Hydroxide (Milk Of Magnesia) 30 ml PO .PRN X 1 PRN PRN Reason: Constipation Nitroglycerin (Nitrostat) 0.4 mg SUBLINGUAL Q5M PRN PRN Reason: CARDIAC/CHEST PAIN Last Admin: 10/12/17 08:34 Dose: 0.4 mg Nutritional Formula (Lactose Free) (Ensure Enlive) 120 ml PO 4X/DAY [facility] Last Admin: 10/12/17 08:33 Dose: Not Given Nystatin (Nystatin) 500,000 unit PO 4X/DAY [facility] Last Admin: 10/12/17 08:56 Dose: Not Given Pantoprazole Sodium (Protonix) 40 mg PO DAILY [facility] Last Admin: 10/12/17 08:30 Dose: 40 mg Senna/Docusate Sodium (Senokot-S, Suki-Colace) 2 tablet PO BID [facility] Last Admin: 10/12/17 08:32 Dose: Not Given Assessment/Plan 1. Chest pain will want to rule out ACS Complains of chest pain this morning pain was right-sided and radiating to his right arm. He described the pain as pressure-like. At time of review, chest pain had gone down from about 8 to about 5/10. He also complains of a history of GERD and was thinking of the chest pain may be due to GERD. At time of review vitals were significant for blood pressure of 140/77, pulse of 64 and respiratory rate of 20. At time pain started, blood pressure going up to 185/86 Stat EKG was significant only for left axis deviation. There were no acute ST changes. Initial troponin done was negative. repeat troponin was also less than 0.02. We will cycle troponin and cycle EKG as well. On aspirin and Plavix and high intensity statin on account of stroke. Start patient on sublingual nitroglycerin 0.4 mg as needed. . He had an echo done on account of stroke showed normal EF of 85%, and mild LVH Will give protonix as it may help with chest pain, in light of his previous history of GERD will continue to monitor 2. Hypertension: fairly controlled. On carvedilol and lisinopril 3. History of right ICA stroke still has some left side3d hemiparesis, with power in LUE eing ~ 1/5, and in LLE being 3/5 neurology on board s/p JAGRUTI stent on aspirin, plavix, high intensity statin DVT prophylaxis: lovenox Code Visit Inpatient E&M: 49378 Subs Hosp L2
--- NOTE | 2017-10-12 12:34 | PN_ITS ---
Subjective: Patient seen and examined today. He was complaining of right-sided chest pain radiating to his right arm which has just started this morning. He really pain at around 8/10 initially but at time of review had gone down to about 4/10. He denied any dizziness or palpitations or increased sweating. He also denied any shortness of breath. He has never had a heart attack before those he does have a strong family history of it. His father of a heart attack in his 30s. He denied any fever or chills, any cough, any abdominal pain, any diarrhea vomiting. 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 He has a history of hypertension, hepatitis C, cervical spondylosis, asthma, and previous right parietal ischemic stroke in 2016 with residual left upper extremity weakness and spasticity. He is status post right ICA angioplasty ?3 and stent. Vitals/I&O's: Vital Signs Temp Pulse Resp BP Pulse Ox 97.9 F 60 18 137/81 H 94 10/12/17 07:47 10/12/17 12:08 10/12/17 12:08 10/12/17 12:08 10/12/17 12:08 Oxygen Flow Rate 2 Oxygen Delivery Method Room Air Weight: 285 lb 0.006 oz Body Mass Index (BMI) 38.6 Intake and Output for Last 24 Hours 10/10/17 10/11/17 10/12/17 23:59 23:59 23:59 Intake Total 680 / 680 600 / 600 Balance 680 / 680 600 / 600 General: Alert, Oriented x3, Cooperative HEENT: Atraumatic, PERRLA, EOMI, Normocephalic Oral: Moist Mucosa Neck: Supple, No JVD, Negative Carotid Bruits Lungs: Clear to auscultation, Normal air movement, No rhonchi, No wheeze, No rales Cardiovascular: Regular rate, Regular Rhythm, Normal S1, Normal S2, No murmurs Abdomen: Bowel Sounds Present, Soft, Non Tender, Non-Distended, No Hepato- splenomegaly Extremities: No clubbing, No cyanosis, No edema Skin: No rashes, No breakdown Musculoskeletal: No Tenderness to Palpation of Joints or Extremities Lymphatic: No Cervical, Supraclavicular, or Inguinal Adenopathy Neurological: - - 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 Unable to wrinkle his forehead on the left side of his face. And when he smells mouth is deviated more towards the right side. He also has left upper extremity weakness with power approximately 1/5. Power of left lower extremities approximately 3/5. Psych/Mental Status: Normal Affect, Appropriate, Alert and oriented to time, place, person, mood and affect Microbiology Past 72 Hours 10/10/17 20:25 Urine, Clean Catch Urine Culture - Preliminary Coag Negative Staph Laboratory Results 10/11/17 15:33: Total PSA 2.72 10/12/17 08:20: Sodium 143, Potassium 4.2, Chloride 107, Carbon Dioxide 29.0, Anion Gap 7, BUN 11, Creatinine 0.82, Estim Creat Clear Calc 110.41, Est GFR ( MDRD) Af Amer 124, Est GFR (MDRD) Non-Af 103, BUN/Creatinine Ratio 13.4, Glucose 92, Calcium 8.5, Troponin I < 0.02 10/12/17 08:20: WBC 6.9, RBC 4.21 L, Hgb 12.9 L, Hct 37.8 L, MCV 89.8, MCH 30.6 , MCHC 34.1, RDW 14.3, RDW Differential 45.9 H, Plt Count 226, MPV 10.5 10/12/17 11:42: Troponin I < 0.02 Current Medications Acetaminophen (Tylenol) 650 mg PO Q4H PRN PRN PRN Reason: PAIN Last Admin: 10/12/17 02:52 Dose: 650 mg Albuterol Sulfate (Ventolin Hfa (Sp)) 2 puff INHALATION Q4H PRN PRN PRN Reason: WHEEZING Aspirin ([facility]in, Baby) [facility] Last Admin: 10/12/17 08:31 Dose: 81 mg Atorvastatin Calcium (Lipitor) 80 mg PO QHS [facility] Last Admin: 10/11/17 22:50 Dose: 80 mg Bisacodyl (Dulcolax) 10 mg RECTAL .PRN X 1 PRN PRN Reason: Constipation Calamine/Phenol (Calmoseptine Ointment) 1 applic TOPICAL BID [facility] PRN Reason: Protocol Last Admin: 10/12/17 08:33 Dose: 1 applicatio Carvedilol (Coreg) 12.5 mg PO BID [facility] Last Admin: 10/12/17 08:31 Dose: 12.5 mg Clopidogrel Bisulfate (Plavix) 75 mg PO DAILY [facility] Last Admin: 10/12/17 08:31 Dose: 75 mg Enoxaparin Sodium (Lovenox) 40 mg SC DAILY@0600 [facility] Escitalopram Oxalate (Lexapro) 10 mg PO DAILY [facility] Last Admin: 10/12/17 08:31 Dose: 10 mg Finasteride (Proscar) 5 mg PO DAILY [facility] Last Admin: 10/12/17 08:31 Dose: 5 mg Lisinopril (Zestril) 30 mg PO DAILY [facility] Last Admin: 10/12/17 08:31 Dose: 30 mg Loratadine (Claritin) 5 mg PO DAILY PRN PRN Reason: ALLERGIES Last Admin: 10/12/17 08:30 Dose: 5 mg Magnesium Hydroxide (Milk Of Magnesia) 30 ml PO .PRN X 1 PRN PRN Reason: Constipation Nitroglycerin (Nitrostat) 0.4 mg SUBLINGUAL Q5M PRN PRN Reason: CARDIAC/CHEST PAIN Last Admin: 10/12/17 08:34 Dose: 0.4 mg Nutritional Formula (Lactose Free) (Ensure Enlive) 120 ml PO 4X/DAY [facility] Last Admin: 10/12/17 08:33 Dose: Not Given Nystatin (Nystatin) 500,000 unit PO 4X/DAY [facility] Last Admin: 10/12/17 08:56 Dose: Not Given Pantoprazole Sodium (Protonix) 40 mg PO DAILY [facility] Last Admin: 10/12/17 08:30 Dose: 40 mg Senna/Docusate Sodium (Senokot-S, Suki-Colace) 2 tablet PO BID [facility] Last Admin: 10/12/17 08:32 Dose: Not Given Assessment/Plan 1. Chest pain will want to rule out ACS * Complains of chest pain this morning pain was right-sided and radiating to his right arm. He described the pain as pressure-like. * At time of review, chest pain had gone down from about 8 to about 5/10. He also complains of a history of GERD and was thinking of the chest pain may be due to GERD. * At time of review vitals were significant for blood pressure of 140/77, pulse of 64 and respiratory rate of 20. At time pain started, blood pressure going up to 185/86 * Stat EKG was significant only for left axis deviation. There were no acute ST changes. * Initial troponin done was negative. repeat troponin was also less than 0.02. We will cycle troponin and cycle EKG as well. * On aspirin and Plavix and high intensity statin on account of stroke. Start patient on sublingual nitroglycerin 0.4 mg as needed. * . He had an echo done on account of stroke showed normal EF of 85%, and mild LVH * Will give protonix as it may help with chest pain, in light of his previous history of GERD * will continue to monitor * 2. Hypertension: fairly controlled. On carvedilol and lisinopril 3. History of right ICA stroke * still has some left side3d hemiparesis, with power in LUE eing ~ 1/5, and in LLE being 3/5 * neurology on board * s/p JAGRUTI stent * on aspirin, plavix, high intensity statin * DVT prophylaxis: lovenox Code Visit Inpatient E&M: 70284 Subs Hosp L2
[2017-10-12] MEDS: NYSTATIN 500,000 UNIT/5 ML UDC 500000 UNIT PO ×3 (13:33→22:16)
--- NOTE | 2017-10-12 17:32 | NURSING ---
patient continues to deny chest pain/pressure or headaches at this time. patient sitting up in chair eating supper. no acute distress noted.
--- NOTE | 2017-10-12 17:49 | NURSING ---
no blood noted in urine this shift. urine clear and straw color. denies any urinary abnormal symptoms at this time.
[2017-10-12] MEDS: Atorvastatin Calcium 80 MG Tablet PO (22:16)
[2017-10-12] MEDS: 0.9% NaCl Peripheral Flush Adult/Peds IV (22:30)
[2017-10-13 05:00] VITALS: BMI 38.6
[2017-10-13 07:21] VITALS: BP 137/83; PULSE 60; RESP 18; TEMP 36.8; O2SAT 94
[2017-10-13] MEDS: Carvedilol 12.5 MG Tablet PO ×2 (07:46→20:25)
[2017-10-13] MEDS: Pantoprazole Sodium 40 MG Tablet PO (07:46)
[2017-10-13] MEDS: Aspirin 81 MG TAB.CHEW PO (07:46)
[2017-10-13] MEDS: Finasteride 5 MG Tablet PO (07:46)
[2017-10-13] MEDS: Clopidogrel Bisulfate 75 MG Tablet PO (07:46)
[2017-10-13] MEDS: Loratadine 10 MG Tablet 5 MG PO (07:46)
[2017-10-13] MEDS: Escitalopram Oxalate 10 MG Tablet PO (07:46)
[2017-10-13] MEDS: Lisinopril 10 MG Tablet 30 MG PO (07:46)
[2017-10-13] MEDS: NYSTATIN 500,000 UNIT/5 ML UDC 500000 UNIT PO (07:46)
[2017-10-13] MEDS: Menthol/Lanolin/Calamine/Znox 113 GM Tube 1 APPLIC TOPICAL ×2 (07:49→20:25)
--- NOTE | 2017-10-13 10:10 | REHABEVAL_ITS ---
Admission Information Status Changes from Prescreening?: No changes Identified Actual Problem List:: Falls, Pain, ALteration in Cmfrt, Cognitve Impr/Memory Loss, Mobility Impaired, Self Care Deficit, Ineffect.D/C Plan r/t Psy Potential Problem List:: DVT, Bleeding, Infection, UTI, Aspiration, Falls, Skin Integrity, Depression Risk of Complications DVT: LMWH, HERIBERTO Hose, Sequential Compression Device Bleeding: Monitor Lab Values, Nursing to Teach Precautions for anti-coagulation therapy., Wound, if applicable, to be assessed every shift., Stroke patients assessed for lethargy or change in status. Infection: Clinical Staff to Monitor for S/S of infection:, S/S of infection include fever, redness, warmth, etc. Urinary Tract Infection: Monitor for frequency, burning, discomfort, or incontinence., Nursing will obtain urine sample for urinalysis and C&S when ordered. Aspiration: Clinical staff will monitor for coughing, drooling, congestion., Speech will evaluate swallowing and dsyphasia., Nursing will monitor patient swallowing during meals. Falls: Patient will be evaluated for Fall Precautions, Patient will be placed on Fall Precautions as indicated per protocol. Skin Breakdown: Nursing will assess skin daily using assessment tool., Nursing will place on Skin Breakdown Precautions as indicated. Pain: Clinical staff will assess patient's pain level per protocol., Medications will be given, if needed, and the pain level reassessed., Other methods: Massage, distraction, decrease stimulus, etc. used PRN. Plan of Care Patient requires physician specializing in physical medicine and rehab oversight to provide close medical supervision of rehab issues including: Pain Management, Sleep Problems, Bowel and Bladder, Medical and co-morbidity Management, DVT prophylaxis, Rehabilitation Leadership, Coordination of treatment team Patient needs Physical Therapy: For a minimum of 1 hour, At least 5 out of 7 days Patient needs Physical Therapy to improve:: Mobility, Mobility, Mobility, Strengthening, Transfers, Stretching, ROM, Endurance, Stairs, Gait, Balance Patient needs Occupational Therapy: For a minimum of 1 hour, At least 5 out of 7 days Patient needs Occupational Therapy to improve ADL's incl.: Eating, Grooming, Bathing, Dressing, Toileting, Toilet transfers, Community Reintegration, Higher functioning activities, Household tasks, Adaptive Equipment, Splinting, Other activities as determined Patient requires speech therapy: For a minimum of 1 hour, At least 5 out of 7 days Patient requires speech therapy for: Swallowing, Cognition, Language Skills, Compensatory Strategies Patient requires 24/ Rehabilitation Nursing for: Pain Issues, Identifying and preventing risk factors, Monitoring and reporting current medical conditions, Assisting with ambulation, transfer, and all ADL's, Teaching patients about disease process and medications, Family teaching, Providing safe environment, Bowel and Bladder Issues, Skin integrity, Medication Management Patient needs Division Manager/ Case Management for: Discharge Planning, Arranging Home Equipment or Services, Family Interventions Patient needs Dietary and Nutrition Services for: Adequate Nutrition, Nutritional Supplements, Nutritional Education Goals Patient will remain: free from falls, or injury at time of discharge. Patient will perform bed mobility at: MOD I level of assist. Patient will complete transfers from bed to chair at: MOD I level of assist. Patient will ambulate: 100 feet, with MOD I assist, with LRD Patient will complete upper body dressing at: MOD I level of assist. Patient will complete lower body dressing at: MOD I level of assist. Patient will complete toileting at: MOD I level of assist. Patient will perform bathing at: MOD I level of assist. Patient will complete grooming at: MOD I level of assist. Patient will complete home management skills at: MOD I level of assist. Patient will achieve: 12 stairs, at MOD I assist Patient will have pain level of: of 3 or less Patient's skin will: remain intact, free from infection. Patient will receive: adequate nutrition. Discharge Planning Pt Prognosis for Sig. Practical Improv. w/in Reasonable Time: Good Anticipated D/C Destination: Home with Outpt Therapy Was Preadmission Assessment Accurate?: Yes
--- NOTE | 2017-10-13 10:54 | PN.NEURO_ITS ---
Subjective: Patient seen and examined. No issues over night. Over the weekend the patient complained of right sided chest pain radiating to his right arm, EKG was obtained which showed normal sinus rhythm and serial troponin was negative. This morning the patient states he feels much better, denies any shortness of breath, chest pains, or dizziness. He is tolerating therapy, is able to lift his right leg up off the mat, his strength is about 3/5, he has more tone is his biceps and triceps strength is about 2/5. No issues with GI/. - Physical Exam General: Alert, Oriented x3, Cooperative HEENT: Atraumatic, PERRLA, EOMI, Normocephalic Neck: Supple, No JVD, Negative Carotid Bruits Lungs: Clear to auscultation, Normal air movement Cardiovascular: Regular rate, No murmurs Abdomen: Bowel Sounds Present, Soft, Non Tender Extremities: No edema, Capillary Refill Less than 3 Seconds Skin: No rashes, No breakdown Musculoskeletal: No Tenderness to Palpation of Joints or Extremities Neurological: Cranial nerves II-XII grossly intact Psych/Mental Status: Normal Affect, Appropriate Vital Signs Temp Pulse Resp BP Pulse Ox 98.3 F 60 18 137/83 H 94 10/13/17 07:21 10/13/17 07:21 10/13/17 07:21 10/13/17 07:21 10/13/17 07:21 Oxygen Flow Rate 2 Oxygen Delivery Method Room Air Weight: 121.251 kg Body Mass Index (BMI) 38.6 Intake and Output for Last 24 Hours 10/11/17 10/12/17 10/13/17 23:59 23:59 23:59 Intake Total 600 / 600 Output Total 200 / 200 Balance 600 / 600 -200 / -200 Microbiology Past 72 Hours 10/10/17 20:25 Urine Culture - Final Urine, Clean Catch Coag Negative Staph Laboratory Tests Past 24 Hrs 10/12/17 10/12/17 10/12/17 11:42 15:55 22:04 Troponin I < 0.02 < 0.02 < 0.02 Active Medications Acetaminophen (Tylenol) 650 mg PO Q4H PRN PRN PRN Reason: PAIN Last Admin: 10/12/17 22:25 Dose: 650 mg Albuterol Sulfate (Ventolin Hfa (Sp)) 2 puff INHALATION Q4H PRN PRN PRN Reason: WHEEZING [facility]irin [facility], [facility]) [facility] Last Admin: 10/13/17 07:46 Dose: 81 mg Atorvastatin Calcium (Lipitor) 80 mg PO QHS [facility] Last Admin: 10/12/17 22:16 Dose: 80 mg Bisacodyl (Dulcolax) 10 mg RECTAL .PRN X 1 PRN PRN Reason: Constipation Calamine/Phenol (Calmoseptine Ointment) 1 applic TOPICAL BID [facility] PRN Reason: Protocol Last Admin: 10/13/17 07:49 Dose: 1 applicatio Carvedilol (Coreg) 12.5 mg PO BID [facility] Last Admin: 10/13/17 07:46 Dose: 12.5 mg Clopidogrel Bisulfate (Plavix) 75 mg PO DAILY [facility] Last Admin: 10/13/17 07:46 Dose: 75 mg Escitalopram Oxalate (Lexapro) 10 mg PO DAILY [facility] Last Admin: 10/13/17 07:46 Dose: 10 mg Finasteride (Proscar) 5 mg PO DAILY [facility] Last Admin: 10/13/17 07:46 Dose: 5 mg Lisinopril (Zestril) 30 mg PO DAILY [facility] Last Admin: 10/13/17 07:46 Dose: 30 mg Loratadine (Claritin) 5 mg PO DAILY [facility] Magnesium Hydroxide (Milk Of Magnesia) 30 ml PO .PRN X 1 PRN PRN Reason: Constipation Nitroglycerin (Nitrostat) 0.4 mg SUBLINGUAL Q5M PRN PRN Reason: CARDIAC/CHEST PAIN Last Admin: 10/12/17 08:34 Dose: 0.4 mg Pantoprazole Sodium (Protonix) 20 mg PO BID [facility] Senna/Docusate Sodium (Senokot-S, Suki-Colace) 2 tablet PO BID [facility] Last Admin: 10/13/17 07:40 Dose: Not Given Sodium Chloride () 5 - 30 ml IV UD PRN PRN Reason: SALINE FLUSH Last Admin: 10/12/17 22:30 Dose: 20 ml Assessment/Plan Debility s/p right parietal infarct 2/2 to symptomatic right ICA occlusion. complicated by a previous left lacunar ICH, and a right parietal ischemic stroke in 2016. The goal of rehab is buddhism of functional independence. Plan: - Physical therapy for gait and balance - Occupational Therapy for ADLs - As needed analgesics - Bowel protocol - Stroke prevention on ASA decrease to 81mg from 325mg, Statin - DVT prophylaxis: SCDs, Plavix, Prasad yadieles - Hypertension: Stable with good control, continue home medications, Keep BP < 130/80 mmHg - Echo shows an EF 85%, mild LVH, no WMA and no shunt. - Hx of HLD continue home dose of statin, Check LDL and Hba1c levels => LDL 113 , and HA1C 5.7 - Goal Hba1c <7% - Cervical spondylosis => Continued neck pain 2/2 fall prior to stroke => continue C-Collar - Hx GERD continue home medication - Hx Hep C - Hx Asthma - Hx of left lacunar ICH and a right parietal ischemic stroke - Recommend 30 day event monitor on D/C - CT head= new complains of increase headaches. - Stent placement => continue Plavix, ASA 81 mg - Blood around urethral meatus => Urinalysis, urine culture, consult Urology
[2017-10-13 11:42] VITALS: BMI 38.6
--- NOTE | 2017-10-13 11:46 | NURSING ---
left message for [employer] to return call regarding a hinge brace for patient.
--- NOTE | 2017-10-13 16:24 | CASEMGMT ---
Social Work Meeting with patient in room to discuss discharge planning. This social worker psychiatric broaching topic of a plan B for patient in the event that patient is not approved more time with patient insurance. Patient aware that patient is unable to discharge home at this time and would need to transition to a intermediate facility if [facility] would not approve more time. Patient planning to speak with patient girlfriend this evening about what detention if needed. A list of nursing homes was provided to patient. Support given. Will continue to follow. Elvia DENT, TOMOGRAPHIC TECH
[2017-10-13 20:05] VITALS: BP 142/70; PULSE 60; RESP 18; TEMP 36.6; O2SAT 98
[2017-10-13 20:17] VITALS: BMI 38.6
[2017-10-13] MEDS: Senna/Docusate Sodium 1 Tablet 2 TABLET PO (20:26)
[2017-10-13] MEDS: Atorvastatin Calcium 80 MG Tablet PO (20:26)
[2017-10-14 07:47] VITALS: BP 144/81; PULSE 64; RESP 17; TEMP 36.7; O2SAT 91
[2017-10-14] MEDS: Pantoprazole Sodium 20 MG Tablet PO ×2 (09:04→22:28)
[2017-10-14] MEDS: Lisinopril 10 MG Tablet 30 MG PO (09:04)
[2017-10-14] MEDS: Aspirin 81 MG TAB.CHEW PO (09:05)
[2017-10-14] MEDS: Carvedilol 12.5 MG Tablet PO ×2 (09:05→22:28)
[2017-10-14] MEDS: Clopidogrel Bisulfate 75 MG Tablet PO (09:05)
[2017-10-14] MEDS: Escitalopram Oxalate 10 MG Tablet PO (09:05)
[2017-10-14] MEDS: Finasteride 5 MG Tablet PO (09:05)
[2017-10-14] MEDS: Loratadine 10 MG Tablet 5 MG PO (09:05)
[2017-10-14] MEDS: Menthol/Lanolin/Calamine/Znox 113 GM Tube 1 APPLIC TOPICAL ×2 (09:06→22:29)
--- NOTE | 2017-10-14 10:54 | PCM.PN.NEU ---
Subjective: Patient seen and examined. No issues overnight. Tolerating therapy, was able to walk about 25 feet x 2 along the chair rail this morning. The brace for his leg from [employer] will be delivered on , this should help him to increase his distance during walking. - Physical Exam General: Alert, Oriented x3, Cooperative HEENT: Atraumatic, PERRLA, EOMI, Normocephalic Neck: Supple, No JVD, Negative Carotid Bruits Lungs: Clear to auscultation, Normal air movement Cardiovascular: Regular rate, No murmurs Abdomen: Bowel Sounds Present, Soft, Non Tender Extremities: No edema, Capillary Refill Less than 3 Seconds Skin: No rashes, No breakdown Musculoskeletal: No Tenderness to Palpation of Joints or Extremities Neurological: Cranial nerves II-XII grossly intact Psych/Mental Status: Normal Affect, Appropriate Vital Signs Temp Pulse Resp BP Pulse Ox 98.1 F 64 17 144/81 H 91 10/14/17 07:47 10/14/17 07:47 10/14/17 07:47 10/14/17 07:47 10/14/17 07:47 Oxygen Flow Rate 2 Oxygen Delivery Method Room Air Weight: 121.251 kg Body Mass Index (BMI) 38.6 Intake and Output for Last 24 Hours 10/12/17 10/13/17 10/14/17 23:59 23:59 23:59 Intake Total 360 / 360 480 / 480 Output Total 200 / 200 250 / 250 Balance 160 / 160 230 / 230 Microbiology Past 72 Hours 10/10/17 20:25 Urine Culture - Final Urine, Clean Catch Coag Negative Staph Active Medications Acetaminophen (Tylenol) 650 mg PO Q4H PRN PRN PRN Reason: PAIN Last Admin: 10/12/17 22:25 Dose: 650 mg Albuterol Sulfate (Ventolin Hfa (Sp)) 2 puff INHALATION Q4H PRN PRN PRN Reason: WHEEZING Aspirin (Aspirin, Baby) 81 mg PO [facility] Last Admin: 10/14/17 09:05 Dose: 81 mg Atorvastatin Calcium (Lipitor) 80 mg PO QHS [facility] Last Admin: 10/13/17 20:26 Dose: 80 mg Bisacodyl (Dulcolax) 10 mg RECTAL .PRN X 1 PRN PRN Reason: Constipation Calamine/Phenol (Calmoseptine Ointment) 1 applic TOPICAL BID [facility] PRN Reason: Protocol Last Admin: 10/14/17 09:06 Dose: 1 applicatio Carvedilol (Coreg) 12.5 mg PO BID [facility] Last Admin: 10/14/17 09:05 Dose: 12.5 mg Clopidogrel Bisulfate (Plavix) 75 mg PO DAILY [facility] Last Admin: 10/14/17 09:05 Dose: 75 mg Escitalopram Oxalate (Lexapro) 10 mg PO DAILY [facility] Last Admin: 10/14/17 09:05 Dose: 10 mg Finasteride (Proscar) 5 mg PO DAILY [facility] Last Admin: 10/14/17 09:05 Dose: 5 mg Lisinopril (Zestril) 30 mg PO DAILY [facility] Last Admin: 10/14/17 09:04 Dose: 30 mg Loratadine (Claritin) 5 mg PO DAILY [facility] Last Admin: 10/14/17 09:05 Dose: 5 mg Magnesium Hydroxide (Milk Of Magnesia) 30 ml PO .PRN X 1 PRN PRN Reason: Constipation Nitroglycerin (Nitrostat) 0.4 mg SUBLINGUAL Q5M PRN PRN Reason: CARDIAC/CHEST PAIN Last Admin: 10/12/17 08:34 Dose: 0.4 mg Pantoprazole Sodium (Protonix) 20 mg PO BID [facility] Last Admin: 10/14/17 09:04 Dose: 20 mg Senna/Docusate Sodium (Senokot-S, Suki-Colace) 2 tablet PO BID [facility] Last Admin: 10/14/17 08:55 Dose: Not Given Sodium Chloride () 5 - 30 ml IV UD PRN PRN Reason: SALINE FLUSH Last Admin: 10/12/17 22:30 Dose: 20 ml Assessment/Plan Debility s/p right parietal infarct 2/2 to symptomatic right ICA occlusion. complicated by a previous left lacunar ICH, and a right parietal ischemic stroke in 2016. The goal of rehab is confucianist of functional independence. Plan: - Physical therapy for gait and balance - Occupational Therapy for ADLs - As needed analgesics - Bowel protocol - Stroke prevention on ASA decrease to 81mg from 325mg, Statin - DVT prophylaxis: SCDs, Plavix, Prasad hoses - Hypertension: Stable with good control, continue home medications, Keep BP < 130/80 mmHg - Echo shows an EF 85%, mild LVH, no WMA and no shunt. - Hx of HLD continue home dose of statin, Check LDL and Hba1c levels => LDL 113, and HA1C 5.7 - Goal Hba1c <7% - Cervical spondylosis => Continued neck pain 2/2 fall prior to stroke => continue C-Collar - Hx GERD continue home medication - Hx Hep C - Hx Asthma - Hx of left lacunar ICH and a right parietal ischemic stroke - Recommend 30 day event monitor on D/C - CT head= new complains of increase headaches. - Stent placement => continue Plavix, ASA 81 mg - Blood around urethral meatus => Urinalysis, urine culture, consult Urology - Hinged knee brace => pending delivery
--- NOTE | 2017-10-14 11:05 | PN.NEURO_ITS ---
Subjective: Patient seen and examined. No issues overnight. Tolerating therapy, was able to walk about 25 feet x 2 along the chair rail this morning. The brace for his leg from [employer] will be delivered on , this should help him to increase his distance during walking. - Physical Exam General: Alert, Oriented x3, Cooperative HEENT: Atraumatic, PERRLA, EOMI, Normocephalic Neck: Supple, No JVD, Negative Carotid Bruits Lungs: Clear to auscultation, Normal air movement Cardiovascular: Regular rate, No murmurs Abdomen: Bowel Sounds Present, Soft, Non Tender Extremities: No edema, Capillary Refill Less than 3 Seconds Skin: No rashes, No breakdown Musculoskeletal: No Tenderness to Palpation of Joints or Extremities Neurological: Cranial nerves II-XII grossly intact Psych/Mental Status: Normal Affect, Appropriate Vital Signs Temp Pulse Resp BP Pulse Ox 98.1 F 64 17 144/81 H 91 10/14/17 07:47 10/14/17 07:47 10/14/17 07:47 10/14/17 07:47 10/14/17 07:47 Oxygen Flow Rate 2 Oxygen Delivery Method Room Air Weight: 121.251 kg Body Mass Index (BMI) 38.6 Intake and Output for Last 24 Hours 10/12/17 10/13/17 10/14/17 23:59 23:59 23:59 Intake Total 360 / 360 480 / 480 Output Total 200 / 200 250 / 250 Balance 160 / 160 230 / 230 Microbiology Past 72 Hours 10/10/17 20:25 Urine Culture - Final Urine, Clean Catch Coag Negative Staph Active Medications Acetaminophen (Tylenol) 650 mg PO Q4H PRN PRN PRN Reason: PAIN Last Admin: 10/12/17 22:25 Dose: 650 mg Albuterol Sulfate (Ventolin Hfa (Sp)) 2 puff INHALATION Q4H PRN PRN PRN Reason: WHEEZING Aspirin (Aspirin, Baby) 81 mg PO DAILYCM [facility] Last Admin: 10/14/17 09:05 Dose: 81 mg Atorvastatin Calcium (Lipitor) 80 mg PO QHS [facility] Last Admin: 10/13/17 20:26 Dose: 80 mg Bisacodyl (Dulcolax) 10 mg RECTAL .PRN X 1 PRN PRN Reason: Constipation Calamine/Phenol (Calmoseptine Ointment) 1 applic TOPICAL BID [facility] PRN Reason: Protocol Last Admin: 10/14/17 09:06 Dose: 1 applicatio Carvedilol (Coreg) 12.5 mg PO BID [facility] Last Admin: 10/14/17 09:05 Dose: 12.5 mg Clopidogrel Bisulfate (Plavix) 75 mg PO DAILY [facility] Last Admin: 10/14/17 09:05 Dose: 75 mg Escitalopram Oxalate (Lexapro) 10 mg PO DAILY [facility] Last Admin: 10/14/17 09:05 Dose: 10 mg Finasteride (Proscar) 5 mg PO DAILY [facility] Last Admin: 10/14/17 09:05 Dose: 5 mg Lisinopril (Zestril) 30 mg PO DAILY [facility] Last Admin: 10/14/17 09:04 Dose: 30 mg Loratadine (Claritin) 5 mg PO DAILY [facility] Last Admin: 10/14/17 09:05 Dose: 5 mg Magnesium Hydroxide (Milk Of Magnesia) 30 ml PO .PRN X 1 PRN PRN Reason: Constipation Nitroglycerin (Nitrostat) 0.4 mg SUBLINGUAL Q5M PRN PRN Reason: CARDIAC/CHEST PAIN Last Admin: 10/12/17 08:34 Dose: 0.4 mg Pantoprazole Sodium (Protonix) 20 mg PO BID [facility] Last Admin: 10/14/17 09:04 Dose: 20 mg Senna/Docusate Sodium (Senokot-S, Suki-Colace) 2 tablet PO BID [facility] Last Admin: 10/14/17 08:55 Dose: Not Given Sodium Chloride () 5 - 30 ml IV UD PRN PRN Reason: SALINE FLUSH Last Admin: 10/12/17 22:30 Dose: 20 ml Assessment/Plan Debility s/p right parietal infarct 2/2 to symptomatic right ICA occlusion. complicated by a previous left lacunar ICH, and a right parietal ischemic stroke in 2016. The goal of rehab is hinduism of functional independence. Plan: - Physical therapy for gait and balance - Occupational Therapy for ADLs - As needed analgesics - Bowel protocol - Stroke prevention on ASA decrease to 81mg from 325mg, Statin - DVT prophylaxis: SCDs, Plavix, Prasad hoses - Hypertension: Stable with good control, continue home medications, Keep BP < 130/80 mmHg - Echo shows an EF 85%, mild LVH, no WMA and no shunt. - Hx of HLD continue home dose of statin, Check LDL and Hba1c levels => LDL 113 , and HA1C 5.7 - Goal Hba1c <7% - Cervical spondylosis => Continued neck pain 2/2 fall prior to stroke => continue C-Collar - Hx GERD continue home medication - Hx Hep C - Hx Asthma - Hx of left lacunar ICH and a right parietal ischemic stroke - Recommend 30 day event monitor on D/C - CT head= new complains of increase headaches. - Stent placement => continue Plavix, ASA 81 mg - Blood around urethral meatus => Urinalysis, urine culture, consult Urology - Hinged knee brace => pending delivery
--- NOTE | 2017-10-14 12:00 | CASEMGMT ---
Insurance Clinical information faxed. Pending continued stay approval at this time. Auth#[id number] Elvia DENT, MACHINE ADJUSTER LEADER
[2017-10-14 13:12] VITALS: BMI 38.6
[2017-10-14 19:59] VITALS: BP 140/93; PULSE 60; RESP 18; TEMP 36.3; O2SAT 96
[2017-10-14 20:06] VITALS: BMI 38.6
[2017-10-14] MEDS: Atorvastatin Calcium 80 MG Tablet PO (22:28)
[2017-10-15 07:58] VITALS: BP 142/84; PULSE 64; RESP 18; TEMP 36.5; O2SAT 92
[2017-10-15] MEDS: Lisinopril 10 MG Tablet 30 MG PO (07:58)
[2017-10-15] MEDS: Pantoprazole Sodium 20 MG Tablet PO ×2 (07:58→21:06)
[2017-10-15] MEDS: Carvedilol 12.5 MG Tablet PO ×2 (07:59→21:07)
[2017-10-15] MEDS: Loratadine 10 MG Tablet 5 MG PO (07:59)
[2017-10-15] MEDS: Clopidogrel Bisulfate 75 MG Tablet PO (07:59)
[2017-10-15] MEDS: Escitalopram Oxalate 10 MG Tablet PO (07:59)
[2017-10-15] MEDS: Aspirin 81 MG TAB.CHEW PO (07:59)
[2017-10-15] MEDS: Acetaminophen 325 MG Tablet 650 MG PO (08:03)
[2017-10-15] MEDS: Menthol/Lanolin/Calamine/Znox 113 GM Tube 1 APPLIC TOPICAL ×2 (08:03→21:07)
[2017-10-15] MEDS: Finasteride 5 MG Tablet PO (08:04)
--- NOTE | 2017-10-15 09:30 | PN.NEURO_ITS ---
Subjective: Patient seen and examined. No new complaints. Tolerating therapy. Denies any shortness of breath or chest pains. Tolerating regular diet, no issues with GI/ . - Physical Exam General: Alert, Oriented x3, Cooperative HEENT: Atraumatic, PERRLA, EOMI, Normocephalic Neck: Supple, No JVD, Negative Carotid Bruits Lungs: Clear to auscultation, Normal air movement Cardiovascular: Regular rate, No murmurs Abdomen: Bowel Sounds Present, Soft, Non Tender Extremities: No edema, Capillary Refill Less than 3 Seconds Skin: No rashes, No breakdown Musculoskeletal: No Tenderness to Palpation of Joints or Extremities Neurological: Cranial nerves II-XII grossly intact Psych/Mental Status: Normal Affect, Appropriate Vital Signs Temp Pulse Resp BP Pulse Ox 97.7 F L 64 18 142/84 H 92 10/15/17 07:58 10/15/17 07:58 10/15/17 07:58 10/15/17 07:58 10/15/17 07:58 Oxygen Flow Rate 2 Oxygen Delivery Method Room Air Weight: 121.25 kg Body Mass Index (BMI) 38.6 Intake and Output for Last 24 Hours 10/13/17 10/14/17 10/15/17 23:59 23:59 23:59 Intake Total 360 / 360 720 / 720 480 / 480 Output Total 200 / 200 250 / 250 Balance 160 / 160 470 / 470 480 / 480 Microbiology Past 72 Hours 10/10/17 20:25 Urine Culture - Final Urine, Clean Catch Coag Negative Staph Active Medications Acetaminophen (Tylenol) 650 mg PO Q4H PRN PRN PRN Reason: PAIN Last Admin: 10/15/17 08:03 Dose: 650 mg Albuterol Sulfate (Ventolin Hfa (Sp)) 2 puff INHALATION Q4H PRN PRN PRN Reason: WHEEZING [facility]ir[facility], [facility] Last Admin: 10/15/17 07:59 Dose: 81 mg Atorvastatin Calcium (Lipitor) 80 mg PO QHS [facility] Last Admin: 10/14/17 22:28 Dose: 80 mg Bisacodyl (Dulcolax) 10 mg RECTAL .PRN X 1 PRN PRN Reason: Constipation Calamine/Phenol (Calmoseptine Ointment) 1 applic TOPICAL BID [facility] PRN Reason: Protocol Last Admin: 10/15/17 08:03 Dose: 1 applicatio Carvedilol (Coreg) 12.5 mg PO BID [facility] Last Admin: 10/15/17 07:59 Dose: 12.5 mg Clopidogrel Bisulfate (Plavix) 75 mg PO DAILY [facility] Last Admin: 10/15/17 07:59 Dose: 75 mg Escitalopram Oxalate (Lexapro) 10 mg PO DAILY [facility] Last Admin: 10/15/17 07:59 Dose: 10 mg Finasteride (Proscar) 5 mg PO DAILY [facility] Last Admin: 10/15/17 08:04 Dose: 5 mg Lisinopril (Zestril) 30 mg PO DAILY [facility] Last Admin: 10/15/17 07:58 Dose: 30 mg Loratadine (Claritin) 5 mg PO DAILY [facility] Last Admin: 10/15/17 07:59 Dose: 5 mg Magnesium Hydroxide (Milk Of Magnesia) 30 ml PO .PRN X 1 PRN PRN Reason: Constipation Nitroglycerin (Nitrostat) 0.4 mg SUBLINGUAL Q5M PRN PRN Reason: CARDIAC/CHEST PAIN Last Admin: 10/12/17 08:34 Dose: 0.4 mg Pantoprazole Sodium (Protonix) 20 mg PO BID [facility] Last Admin: 10/15/17 07:58 Dose: 20 mg Senna/Docusate Sodium (Senokot-S, Suki-Colace) 2 tablet PO BID [facility] Last Admin: 10/15/17 08:05 Dose: Not Given Sodium Chloride () 5 - 30 ml IV UD PRN PRN Reason: SALINE FLUSH Last Admin: 10/12/17 22:30 Dose: 20 ml Assessment/Plan Debility s/p right parietal infarct 2/2 to symptomatic right ICA occlusion. complicated by a previous left lacunar ICH, and a right parietal ischemic stroke in 2016. The goal of rehab is sabianism of functional independence. Plan: - Physical therapy for gait and balance - Occupational Therapy for ADLs - As needed analgesics - Bowel protocol - Stroke prevention on ASA decrease to 81mg from 325mg, Statin - DVT prophylaxis: SCDs, Plavix, Prasad hoses - Hypertension: Stable with good control, continue home medications, Keep BP < 130/80 mmHg - Echo shows an EF 85%, mild LVH, no WMA and no shunt. - Hx of HLD continue home dose of statin, Check LDL and Hba1c levels => LDL 113 , and HA1C 5.7 - Goal Hba1c <7% - Cervical spondylosis => Continued neck pain 2/2 fall prior to stroke => continue C-Collar - Hx GERD continue home medication - Hx Hep C - Hx Asthma - Hx of left lacunar ICH and a right parietal ischemic stroke - Recommend 30 day event monitor on D/C - CT head= new complains of increase headaches. - Stent placement => continue Plavix, ASA 81 mg - Blood around urethral meatus => Urinalysis, urine culture, consult Urology - Hinged knee brace => pending delivery
--- NOTE | 2017-10-15 11:59 | CASEMGMT ---
Insurance Continued stay has been approved with next update due on 10/28/17 with LCD being 10/28/17. Auth#[id number] Elvia DENT, [employer] REDEMPTION CLERK
[2017-10-15 16:36] VITALS: BMI 38.6
[2017-10-15 19:32] VITALS: BP 122/69; PULSE 71; RESP 16; TEMP 36.5; O2SAT 97
[2017-10-15] MEDS: Atorvastatin Calcium 80 MG Tablet PO (21:06)
[2017-10-16 05:00] VITALS: BMI 38.6
[2017-10-16] MEDS: Acetaminophen 325 MG Tablet 650 MG PO (07:47)
[2017-10-16] MEDS: Finasteride 5 MG Tablet PO (07:48)
[2017-10-16] MEDS: Escitalopram Oxalate 10 MG Tablet PO (07:48)
[2017-10-16] MEDS: Lisinopril 10 MG Tablet 30 MG PO (07:48)
[2017-10-16] MEDS: Carvedilol 12.5 MG Tablet PO ×2 (07:48→21:39)
[2017-10-16] MEDS: Pantoprazole Sodium 20 MG Tablet PO ×2 (07:48→21:39)
[2017-10-16] MEDS: Clopidogrel Bisulfate 75 MG Tablet PO (07:48)
[2017-10-16] MEDS: Loratadine 10 MG Tablet 5 MG PO (07:48)
[2017-10-16] MEDS: Aspirin 81 MG TAB.CHEW PO (07:49)
[2017-10-16] MEDS: Menthol/Lanolin/Calamine/Znox 113 GM Tube 1 APPLIC TOPICAL ×2 (07:52→21:39)
[2017-10-16 08:00] VITALS: BP 156/80; PULSE 64; RESP 17; TEMP 36.8; O2SAT 94
--- NOTE | 2017-10-16 08:41 | PN.NEURO_ITS ---
Subjective: Staffed in team meeting. Family was not present at meeting. Questions answered. With Physical therapy He is contact guard to minimal assist to get to his feet. Minimal assist on the right and moderate assist on the left side for stand and pivot. Rojas carr saw patient this morning to assess gait will be back later this afternoon to cast the left ankle for articulating AFO. He has strength in both his quad muscle and hip muscle on the left side but not in the ankle. With Occupational therapy, he is minimal assist to get in the shower, and moderate assist to get out of the shower. He is able to do his upper body care with minimal assistance but is moderate assistance for lower body he needs help with putting on his undergarments and pants. With speech he has left neglect and in attention to that left side. He is improving on that side and is finding ways to help compensate for the neglect. He does require cues to remind him to look and pay attention to the left side. he is easily distracted, he is improving in this area. He is doing well with the chin tuck for eating does requires cues occasionally to remind him to tuck his chin, he is supervised when eating. He remains on a regular diet with thin liquids. Complaining of right ear discomfort, the ear canal is red and has a large amount of wax will order neomycin drops x 4 days and reassess. - Physical Exam General: Alert, Oriented x3, Cooperative HEENT: Atraumatic, PERRLA, EOMI, Normocephalic, - - C/O pain and discomfort in his right ear, TM slight pink the ear canal is full of wax and the canalitself is red. Neck: Supple, No JVD, Negative Carotid Bruits Lungs: Clear to auscultation, Normal air movement Cardiovascular: Regular rate, No murmurs Abdomen: Bowel Sounds Present, Soft, Non Tender, Obese Extremities: No edema, Capillary Refill Less than 3 Seconds, - - Flaccid left upper extremity Skin: No rashes, No breakdown Musculoskeletal: No Tenderness to Palpation of Joints or Extremities Neurological: Cranial nerves II-XII grossly intact Psych/Mental Status: Normal Affect, Appropriate Vital Signs Temp Pulse Resp BP Pulse Ox 97.7 F L 71 16 122/69 H 97 10/15/17 19:32 10/15/17 19:32 10/15/17 19:32 10/15/17 19:32 10/15/17 19:32 Oxygen Flow Rate 2 Oxygen Delivery Method Room Air Weight: 121.25 kg Body Mass Index (BMI) 38.6 Intake and Output for Last 24 Hours 10/14/17 10/15/17 10/16/17 23:59 23:59 23:59 Intake Total 720 / 720 1100 / 1100 420 / 420 Output Total 250 / 250 Balance 470 / 470 1100 / 1100 420 / 420 Microbiology Past 72 Hours 10/10/17 20:25 Urine Culture - Final Urine, Clean Catch Coag Negative Staph Active Medications Acetaminophen (Tylenol) 650 mg PO Q4H PRN PRN PRN Reason: PAIN Last Admin: 10/16/17 07:47 Dose: 650 mg Albuterol Sulfate (Ventolin Hfa (Sp)) 2 puff INHALATION Q4H PRN PRN PRN Reason: WHEEZING [facility] Last Admin: 10/16/17 07:49 Dose: 81 mg Atorvastatin Calcium (Lipitor) 80 mg PO QHS [facility] Last Admin: 10/15/17 21:06 Dose: 80 mg Bisacodyl (Dulcolax) 10 mg RECTAL .PRN X 1 PRN PRN Reason: Constipation Calamine/Phenol (Calmoseptine Ointment) 1 applic TOPICAL BID [facility] PRN Reason: Protocol Last Admin: 10/16/17 07:52 Dose: 1 applicatio Carvedilol (Coreg) 12.5 mg PO BID [facility] Last Admin: 10/16/17 07:48 Dose: 12.5 mg Clopidogrel Bisulfate (Plavix) 75 mg PO DAILY [facility] Last Admin: 10/16/17 07:48 Dose: 75 mg Escitalopram Oxalate (Lexapro) 10 mg PO DAILY [facility] Last Admin: 10/16/17 07:48 Dose: 10 mg Finasteride (Proscar) 5 mg PO DAILY [facility] Last Admin: 10/16/17 07:48 Dose: 5 mg Lisinopril (Zestril) 10 mg PO X1 ONE Stop: 10/16/17 10:01 Lisinopril (Zestril) 40 mg PO DAILY [facility] Loratadine (Claritin) 5 mg PO DAILY [facility] Last Admin: 10/16/17 07:48 Dose: 5 mg Magnesium Hydroxide (Milk Of Magnesia) 30 ml PO .PRN X 1 PRN PRN Reason: Constipation Nitroglycerin (Nitrostat) 0.4 mg SUBLINGUAL Q5M PRN PRN Reason: CARDIAC/CHEST PAIN Last Admin: 10/12/17 08:34 Dose: 0.4 mg Pantoprazole Sodium (Protonix) 20 mg PO BID [facility] Last Admin: 10/16/17 07:48 Dose: 20 mg Senna/Docusate Sodium (Senokot-S, Suki-Colace) 2 tablet PO BID [facility] Last Admin: 10/15/17 21:06 Dose: Not Given Sodium Chloride () 5 - 30 ml IV UD PRN PRN Reason: SALINE FLUSH Last Admin: 10/12/17 22:30 Dose: 20 ml Assessment/Plan Debility s/p right parietal infarct 2/2 to symptomatic right ICA occlusion. complicated by a previous left lacunar ICH, and a right parietal ischemic stroke in 2016. The goal of rehab is druze of functional independence. Plan: - Physical therapy for gait and balance - Occupational Therapy for ADLs - As needed analgesics - Bowel protocol - Stroke prevention on ASA decrease to 81mg from 325mg, Statin - DVT prophylaxis: SCDs, Plavix, Prasad hoses - Hypertension: Stable with good control, continue home medications, Keep BP < 130/80 mmHg - Echo shows an EF 85%, mild LVH, no WMA and no shunt. - Hx of HLD continue home dose of statin, Check LDL and Hba1c levels => LDL 113 , and HA1C 5.7 - Goal Hba1c <7% - Cervical spondylosis => Continued neck pain 2/2 fall prior to stroke => continue C-Collar - Hx GERD continue home medication - Hx Hep C - Hx Asthma - Hx of left lacunar ICH and a right parietal ischemic stroke - Recommend 30 day event monitor on D/C - CT head= new complains of increase headaches. - Stent placement => continue Plavix, ASA 81 mg - Blood around urethral meatus => Urinalysis, urine culture, consult Urology - Hinged knee brace and AFO => pending delivery - Right Ear pain => ear canal red, wax => Neomycin drops in canal 2 drops TID
--- NOTE | 2017-10-16 10:03 | CASEMGMT ---
Team meeting held. Patient present, no support person present at this time. Patient plans to continue with further care and treatment on the Inpatient Rehab Unit as there has been no discharge date set. Patient next insurance update is due on 10/28/17. Patient plans to discharge home with significant other at time of discharge. Support given. Will continue to follow. Elvia DENT, VIDEO GAME TECHNICIAN
[2017-10-16] MEDS: Lisinopril 10 MG Tablet PO (10:14)
[2017-10-16 16:27] VITALS: BMI 38.6
[2017-10-16 21:36] VITALS: BP 139/84; PULSE 60; RESP 18; TEMP 36.5; O2SAT 97
[2017-10-16] MEDS: Atorvastatin Calcium 80 MG Tablet PO (21:39)
[2017-10-16] MEDS: Neomycin Sulfate/Polymyxin/Hc Susp 10 ML Bottle 4 DRP OTIC (21:39)
[2017-10-17] MEDS: Neomycin Sulfate/Polymyxin/Hc Susp 10 ML Bottle 4 DRP OTIC ×3 (05:48→20:15)
[2017-10-17] MEDS: Clopidogrel Bisulfate 75 MG Tablet PO (07:17)
[2017-10-17] MEDS: Escitalopram Oxalate 10 MG Tablet PO (07:17)
[2017-10-17] MEDS: Aspirin 81 MG TAB.CHEW PO (07:17)
[2017-10-17] MEDS: Menthol/Lanolin/Calamine/Znox 113 GM Tube 1 APPLIC TOPICAL ×2 (07:18→20:14)
[2017-10-17 07:55] VITALS: BP 160/77; PULSE 70; RESP 18; TEMP 36.4; O2SAT 94
[2017-10-17] MEDS: Loratadine 10 MG Tablet 5 MG PO (09:43)
[2017-10-17] MEDS: Pantoprazole Sodium 20 MG Tablet PO ×2 (09:43→20:14)
[2017-10-17] MEDS: Carvedilol 12.5 MG Tablet PO ×2 (09:43→20:14)
[2017-10-17] MEDS: Finasteride 5 MG Tablet PO (09:43)
[2017-10-17] MEDS: Lisinopril 40 MG Tablet PO (10:19)
[2017-10-17 16:21] VITALS: BMI 38.6
--- NOTE | 2017-10-17 16:59 | PCM.PN.HOSP ---
Subjective: C: Status post right parietal infarct He is a nice 57 year old male who was admitted to the rehab unit for rehabilitation after a 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He underwent a right ICA angioplasty x 3 with stent placement by IR at [facility]. When I saw him he was alert and oriented to time place and person, he has significant left-sided weakness and facial droop. No acute event reported overnight. Vitals/I&O's: Vital Signs Temp Pulse Resp BP Pulse Ox 97.6 F L 70 18 160/77 H 94 10/17/17 07:55 10/17/17 07:55 10/17/17 07:55 10/17/17 07:55 10/17/17 07:55 Oxygen Flow Rate 2 Oxygen Delivery Method Room Air Weight: 121.25 kg Body Mass Index (BMI) 38.6 Intake and Output for Last 24 Hours 10/15/17 10/16/17 10/17/17 23:59 23:59 23:59 Intake Total 1100 / 1100 1100 / 1100 520 / 520 Balance 1100 / 1100 1100 / 1100 520 / 520 General: Alert, Oriented x3 Oral: Moist Mucosa Neck: Supple, No JVD Lungs: Clear to auscultation, No wheeze Cardiovascular: Regular rate, Normal S1, Normal S2 Abdomen: Bowel Sounds Present, Soft Extremities: No clubbing, No edema Neurological: Cranial nerves II-XII grossly intact, Motor Exam 5/5 strength throughout Psych/Mental Status: Normal Affect Current Medications Acetaminophen (Tylenol) 650 mg PO Q4H PRN PRN PRN Reason: PAIN Last Admin: 10/16/17 07:47 Dose: 650 mg Albuterol Sulfate (Ventolin Hfa (Sp)) 2 puff INHALATION Q4H PRN PRN PRN Reason: WHEEZING Aspirin (Aspirin, Baby) 81 mg PO DAILYCM [facility]PLAC[facility] Last Admin: 10/17/17 07:17 Dose: 81 mg Atorvastatin Calcium (Lipitor) 80 mg PO QHS [facility] Last Admin: 10/16/17 21:39 Dose: 80 mg Bisacodyl (Dulcolax) 10 mg RECTAL .PRN X 1 PRN PRN Reason: Constipation Calamine/Phenol (Calmoseptine Ointment) 1 applic TOPICAL BID [facility] PRN Reason: Protocol Last Admin: 10/17/17 07:18 Dose: 1 applicatio Carvedilol (Coreg) 12.5 mg PO BID [facility] Last Admin: 10/17/17 09:43 Dose: 12.5 mg Clopidogrel Bisulfate (Plavix) 75 mg PO DAILY [facility] Last Admin: 10/17/17 07:17 Dose: 75 mg Escitalopram Oxalate (Lexapro) 10 mg PO DAILY [facility] Last Admin: 10/17/17 07:17 Dose: 10 mg Finasteride (Proscar) 5 mg PO DAILY [facility] Last Admin: 10/17/17 09:43 Dose: 5 mg Lisinopril (Zestril) 40 mg PO DAILY [facility] Last Admin: 10/17/17 10:19 Dose: 40 mg Loratadine (Claritin) 5 mg PO DAILY [facility] Last Admin: 10/17/17 09:43 Dose: 5 mg Magnesium Hydroxide (Milk Of Magnesia) 30 ml PO .PRN X 1 PRN PRN Reason: Constipation Neomycin/Polymyxin/Hydrocortisone (Otocort Susp) 4 drop OTIC Q8H [facility] Last Admin: 10/17/17 13:52 Dose: 4 drop Nitroglycerin (Nitrostat) 0.4 mg SUBLINGUAL Q5M PRN PRN Reason: CARDIAC/CHEST PAIN Last Admin: 10/12/17 08:34 Dose: 0.4 mg Pantoprazole Sodium (Protonix) 20 mg PO BID [facility] Last Admin: 10/17/17 09:43 Dose: 20 mg Senna/Docusate Sodium (Senokot-S, Suki-Colace) 2 tablet PO BID [facility] Last Admin: 10/17/17 09:44 Dose: Not Given Sodium Chloride () 5 - 30 ml IV UD PRN PRN Reason: SALINE FLUSH Last Admin: 10/12/17 22:30 Dose: 20 ml Assessment/Plan 1. s/p right parietal infarct due to right ICA occlusion; continue on post acute care rehabilitation. 2. PVD with right ICA stenosis; status post angioplasty and stent placement. Will Continue on dual antiplatelet therapy with a statin therapy. 3. Hypertension; continue on current antihypertensive agents. 4. history of Cervical spondylosis; stable. 5. DVT ppx with Lovenox. Code Visit Inpatient E&M: 54407 Subs Hosp L2
[2017-10-17 20:00] VITALS: BP 144/70; PULSE 63; RESP 16; TEMP 36.4; O2SAT 93; BMI 38.6
[2017-10-17] MEDS: Atorvastatin Calcium 80 MG Tablet PO (20:14)
[2017-10-18] MEDS: Neomycin Sulfate/Polymyxin/Hc Susp 10 ML Bottle 4 DRP OTIC ×3 (05:31→20:57)
--- NOTE | 2017-10-18 06:50 | NURSING ---
Reviewed and agree with [facility] fims and handoff
[2017-10-18] MEDS: Finasteride 5 MG Tablet PO (07:52)
[2017-10-18] MEDS: Loratadine 10 MG Tablet 5 MG PO (07:52)
[2017-10-18] MEDS: Pantoprazole Sodium 20 MG Tablet PO ×2 (07:52→20:57)
[2017-10-18] MEDS: Aspirin 81 MG TAB.CHEW PO (07:52)
[2017-10-18] MEDS: Escitalopram Oxalate 10 MG Tablet PO (07:52)
[2017-10-18] MEDS: Lisinopril 40 MG Tablet PO (07:52)
[2017-10-18] MEDS: Clopidogrel Bisulfate 75 MG Tablet PO (07:52)
[2017-10-18] MEDS: Carvedilol 12.5 MG Tablet PO ×2 (07:52→20:59)
[2017-10-18 08:09] VITALS: BP 144/95; PULSE 73; RESP 18; TEMP 36.8; O2SAT 95
[2017-10-18] MEDS: Menthol/Lanolin/Calamine/Znox 113 GM Tube 1 APPLIC TOPICAL ×2 (08:22→21:00)
[2017-10-18] MEDS: Acetaminophen 325 MG Tablet 650 MG PO ×3 (09:26→20:56)
[2017-10-18 11:53] VITALS: BMI 38.6
[2017-10-18 20:36] VITALS: BP 155/78; PULSE 60; RESP 17; TEMP 36.8; O2SAT 95
[2017-10-18] MEDS: Atorvastatin Calcium 80 MG Tablet PO (20:58)
[2017-10-18 21:06] VITALS: BMI 38.6
[2017-10-19] MEDS: Neomycin Sulfate/Polymyxin/Hc Susp 10 ML Bottle 4 DRP OTIC ×3 (05:23→20:53)
[2017-10-19 07:30] VITALS: BP 161/91; PULSE 65; RESP 18; O2SAT 93
[2017-10-19] MEDS: Carvedilol 12.5 MG Tablet PO ×2 (07:41→20:53)
[2017-10-19] MEDS: Senna/Docusate Sodium 1 Tablet 2 TABLET PO ×2 (07:41→20:51)
[2017-10-19] MEDS: Escitalopram Oxalate 10 MG Tablet PO (07:42)
[2017-10-19] MEDS: Loratadine 10 MG Tablet 5 MG PO (07:42)
[2017-10-19] MEDS: Finasteride 5 MG Tablet PO (07:42)
[2017-10-19] MEDS: Clopidogrel Bisulfate 75 MG Tablet PO (07:42)
[2017-10-19] MEDS: Lisinopril 40 MG Tablet PO (07:42)
[2017-10-19] MEDS: Aspirin 81 MG TAB.CHEW PO (07:42)
[2017-10-19] MEDS: Pantoprazole Sodium 20 MG Tablet PO ×2 (07:42→20:52)
[2017-10-19] MEDS: Menthol/Lanolin/Calamine/Znox 113 GM Tube 1 APPLIC TOPICAL ×2 (07:44→20:53)
[2017-10-19 11:05] VITALS: BMI 38.6
--- NOTE | 2017-10-19 12:54 | PCM.PN.NEU ---
Subjective: No new complaints. Tolerating therapies. He is with his today. No GI or complaints, sleeping well. Looking forward to receiving his AFO early this week. - Physical Exam General: Alert, Oriented x3, Cooperative, No apparent distress Neurological: Cranial nerves II-XII grossly intact Vital Signs Temp Pulse Resp BP Pulse Ox 36.8 C 65 18 161/91 H 93 10/18/17 20:36 10/19/17 07:30 10/19/17 07:30 10/19/17 07:30 10/19/17 07:30 Oxygen Flow Rate 2 Oxygen Delivery Method Room Air Weight: 121.25 kg Body Mass Index (BMI) 38.6 Intake and Output for Last 24 Hours 10/17/17 10/18/17 10/19/17 23:59 23:59 23:59 Intake Total 640 / 640 1200 / 1200 620 / 620 Balance 640 / 640 1200 / 1200 620 / 620 Assessment/Plan debility s/p right parietal infarct 2/2 to symptomatic right ICA occlusion. complicated by a previous left lacunar ICH, and a right parietal ischemic stroke in 2016. The goal of rehab is adventism of functional independence. Plan: - Physical therapy for gait and balance - Occupational Therapy for ADLs - As needed analgesics - Bowel protocol - Stroke prevention on ASA, Statin - DVT prophylaxis: SCDs, Lovenox - Hypertension: Stable with good control, continue home medications, Keep BP < 130/80 mmHg - Hx of HLD continue home dose of statin, Check LDL and Hba1c levels -Anxiety: Lexapro - Cervical spondylosis => Continued neck pain 2/2 fall prior to stroke => continue C-Collar - Hx GERD continue home medication - Hx Hep C - Hx Asthma - Hx of left lacunar ICH and a right parietal ischemic stroke
[2017-10-19 19:51] VITALS: BP 141/69; PULSE 75; RESP 18; TEMP 36.8; O2SAT 96
[2017-10-19 19:55] VITALS: BMI 38.6
[2017-10-19] MEDS: Atorvastatin Calcium 80 MG Tablet PO (20:52)
[2017-10-20] MEDS: Neomycin Sulfate/Polymyxin/Hc Susp 10 ML Bottle 4 DRP OTIC ×3 (05:43→20:59)
[2017-10-20] MEDS: Escitalopram Oxalate 10 MG Tablet PO (07:51)
[2017-10-20] MEDS: Loratadine 10 MG Tablet 5 MG PO (07:51)
[2017-10-20] MEDS: Aspirin 81 MG TAB.CHEW PO (07:51)
[2017-10-20] MEDS: Lisinopril 40 MG Tablet PO (07:51)
[2017-10-20] MEDS: Clopidogrel Bisulfate 75 MG Tablet PO (07:51)
[2017-10-20] MEDS: Finasteride 5 MG Tablet PO (07:51)
[2017-10-20] MEDS: Pantoprazole Sodium 20 MG Tablet PO ×2 (07:51→20:59)
[2017-10-20] MEDS: Carvedilol 12.5 MG Tablet PO ×2 (07:51→20:57)
[2017-10-20] MEDS: Menthol/Lanolin/Calamine/Znox 113 GM Tube 1 APPLIC TOPICAL ×2 (07:56→20:57)
[2017-10-20 08:00] VITALS: BP 160/100; PULSE 64
[2017-10-20 08:17] VITALS: PULSE 64; RESP 18; TEMP 36.6; O2SAT 94
[2017-10-20 08:36] VITALS: BP 165/99
[2017-10-20 09:19] VITALS: BP 150/80
[2017-10-20] MEDS: Lisinopril 10 MG Tablet PO (10:00)
[2017-10-20 11:05] VITALS: BMI 38.6
--- NOTE | 2017-10-20 13:37 | PCM.PN.NEU ---
Subjective: Patient seen and examined. No events over night. Tolerating therapy. Will restart Lovenox at 30mg daily. Denies any shortness of breath, or chest pains. No issues with blood from the Urethra will continue to monitor now that we are restarting the Lovenox. - Physical Exam General: Alert, Oriented x3, Cooperative HEENT: Atraumatic, PERRLA, EOMI, Normocephalic Neck: Supple, No JVD, Negative Carotid Bruits Lungs: Clear to auscultation, Normal air movement Cardiovascular: Regular rate, No murmurs Abdomen: Bowel Sounds Present, Soft, Non Tender Extremities: No edema, Capillary Refill Less than 3 Seconds Skin: No rashes, No breakdown Musculoskeletal: No Tenderness to Palpation of Joints or Extremities Neurological: Cranial nerves II-XII grossly intact Psych/Mental Status: Normal Affect, Appropriate Vital Signs Temp Pulse Resp BP Pulse Ox 97.8 F 64 18 150/80 H 94 10/20/17 08:17 10/20/17 08:17 10/20/17 08:17 10/20/17 09:19 10/20/17 08:17 Oxygen Flow Rate 2 Oxygen Delivery Method Room Air Weight: 121.25 kg Body Mass Index (BMI) 38.6 Intake and Output for Last 24 Hours 10/18/17 10/19/17 10/20/17 23:59 23:59 23:59 Intake Total 1200 / 1200 620 / 620 520 / 520 Balance 1200 / 1200 620 / 620 520 / 520 Active Medications Acetaminophen (Tylenol) 650 mg PO Q4H PRN PRN PRN Reason: PAIN Last Admin: 10/18/17 20:56 Dose: 650 mg Albuterol Sulfate (Ventolin Hfa (Sp)) 2 puff INHALATION Q4H PRN PRN PRN Reason: WHEEZING Aspirin (Aspirin, Baby) 81 mg PO DAILYCM [facility] Last Admin: 10/20/17 07:51 Dose: 81 mg Atorvastatin Calcium (Lipitor) 80 mg PO QHS [facility] Last Admin: 10/19/17 20:52 Dose: 80 mg Bisacodyl (Dulcolax) 10 mg RECTAL .PRN X 1 PRN PRN Reason: Constipation Calamine/Phenol (Calmoseptine Ointment) 1 applic TOPICAL BID [facility] PRN Reason: Protocol Last Admin: 10/20/17 07:56 Dose: 1 applicatio Carvedilol (Coreg) 12.5 mg PO BID [facility] Last Admin: 10/20/17 07:51 Dose: 12.5 mg Clopidogrel Bisulfate (Plavix) 75 mg PO DAILY [facility] Last Admin: 10/20/17 07:51 Dose: 75 mg Enoxaparin Sodium (Lovenox) 30 mg SC DAILY@0600 [facility] Escitalopram Oxalate (Lexapro) 10 mg PO DAILY [facility] Last Admin: 10/20/17 07:51 Dose: 10 mg Finasteride (Proscar) 5 mg PO DAILY [facility] Last Admin: 10/20/17 07:51 Dose: 5 mg Lisinopril (Zestril) 40 mg PO DAILY [facility] Lisinopril (Zestril) 10 mg PO DAILY [facility] Loratadine (Claritin) 5 mg PO DAILY [facility] Last Admin: 10/20/17 07:51 Dose: 5 mg Magnesium Hydroxide (Milk Of Magnesia) 30 ml PO .PRN X 1 PRN PRN Reason: Constipation Neomycin/Polymyxin/Hydrocortisone (Otocort Susp) 4 drop OTIC Q8H [facility] Last Admin: 10/20/17 05:43 Dose: 4 drop Nitroglycerin (Nitrostat) 0.4 mg SUBLINGUAL Q5M PRN PRN Reason: CARDIAC/CHEST PAIN Last Admin: 10/12/17 08:34 Dose: 0.4 mg Pantoprazole Sodium (Protonix) 20 mg PO BID [facility] Last Admin: 10/20/17 07:51 Dose: 20 mg Senna/Docusate Sodium (Senokot-S, Suki-Colace) 2 tablet PO BID [facility] Last Admin: 10/20/17 07:52 Dose: Not Given Sodium Chloride () 5 - 30 ml IV UD PRN PRN Reason: SALINE FLUSH Last Admin: 10/12/17 22:30 Dose: 20 ml Assessment/Plan debility s/p right parietal infarct 2/2 to symptomatic right ICA occlusion. complicated by a previous left lacunar ICH, and a right parietal ischemic stroke in 2016. The goal of rehab is oriental orthodox of functional independence. Plan: - Physical therapy for gait and balance - Occupational Therapy for ADLs - As needed analgesics - Bowel protocol - Stroke prevention on ASA, Statin, and Plavix - DVT prophylaxis: SCDs, Prasad hoses, Lovenox - Hypertension: Stable with good control, continue home medications, Keep BP < 130/80 mmHg => increase Zestril to 50mg daily - Hx of HLD continue home dose of statin, Check LDL and Hba1c levels - Anxiety: Lexapro - Stent placement right ICA=> continue Plavix - Cervical spondylosis => Continued neck pain 2/2 fall prior to stroke => continue C-Collar - Hx GERD continue home medication - Hx Hep C - Hx Asthma - Hx of left lacunar ICH and a right parietal ischemic stroke - Restart Lovenox at 30mg daily
--- NOTE | 2017-10-20 13:44 | PN.NEURO_ITS ---
Subjective: Patient seen and examined. No events over night. Tolerating therapy. Will restart Lovenox at 30mg daily. Denies any shortness of breath, or chest pains. No issues with blood from the Urethra will continue to monitor now that we are restarting the Lovenox. - Physical Exam General: Alert, Oriented x3, Cooperative HEENT: Atraumatic, PERRLA, EOMI, Normocephalic Neck: Supple, No JVD, Negative Carotid Bruits Lungs: Clear to auscultation, Normal air movement Cardiovascular: Regular rate, No murmurs Abdomen: Bowel Sounds Present, Soft, Non Tender Extremities: No edema, Capillary Refill Less than 3 Seconds Skin: No rashes, No breakdown Musculoskeletal: No Tenderness to Palpation of Joints or Extremities Neurological: Cranial nerves II-XII grossly intact Psych/Mental Status: Normal Affect, Appropriate Vital Signs Temp Pulse Resp BP Pulse Ox 97.8 F 64 18 150/80 H 94 10/20/17 08:17 10/20/17 08:17 10/20/17 08:17 10/20/17 09:19 10/20/17 08:17 Oxygen Flow Rate 2 Oxygen Delivery Method Room Air Weight: 121.25 kg Body Mass Index (BMI) 38.6 Intake and Output for Last 24 Hours 10/18/17 10/19/17 10/20/17 23:59 23:59 23:59 Intake Total 1200 / 1200 620 / 620 520 / 520 Balance 1200 / 1200 620 / 620 520 / 520 Active Medications Acetaminophen (Tylenol) 650 mg PO Q4H PRN PRN PRN Reason: PAIN Last Admin: 10/18/17 20:56 Dose: 650 mg Albuterol Sulfate (Ventolin Hfa (Sp)) 2 puff INHALATION Q4H PRN PRN PRN Reason: WHEEZING Aspirin (Aspirin, Baby) 81 mg PO DAILYCM [facility] Last Admin: 10/20/17 07:51 Dose: 81 mg Atorvastatin Calcium (Lipitor) 80 mg PO QHS [facility] Last Admin: 10/19/17 20:52 Dose: 80 mg Bisacodyl (Dulcolax) 10 mg RECTAL .PRN X 1 PRN PRN Reason: Constipation Calamine/Phenol (Calmoseptine Ointment) 1 applic TOPICAL BID [facility] PRN Reason: Protocol Last Admin: 10/20/17 07:56 Dose: 1 applicatio Carvedilol (Coreg) 12.5 mg PO BID [facility] Last Admin: 10/20/17 07:51 Dose: 12.5 mg Clopidogrel Bisulfate (Plavix) 75 mg PO DAILY [facility] Last Admin: 10/20/17 07:51 Dose: 75 mg Enoxaparin Sodium (Lovenox) 30 mg SC DAILY@0600 [facility] Escitalopram Oxalate (Lexapro) 10 mg PO DAILY [facility] Last Admin: 10/20/17 07:51 Dose: 10 mg Finasteride (Proscar) 5 mg PO DAILY [facility] Last Admin: 10/20/17 07:51 Dose: 5 mg Lisinopril (Zestril) 40 mg PO DAILY [facility] Lisinopril (Zestril) 10 mg PO DAILY [facility] Loratadine (Claritin) 5 mg PO DAILY [facility] Last Admin: 10/20/17 07:51 Dose: 5 mg Magnesium Hydroxide (Milk Of Magnesia) 30 ml PO .PRN X 1 PRN PRN Reason: Constipation Neomycin/Polymyxin/Hydrocortisone (Otocort Susp) 4 drop OTIC Q8H [facility] Last Admin: 10/20/17 05:43 Dose: 4 drop Nitroglycerin (Nitrostat) 0.4 mg SUBLINGUAL Q5M PRN PRN Reason: CARDIAC/CHEST PAIN Last Admin: 10/12/17 08:34 Dose: 0.4 mg Pantoprazole Sodium (Protonix) 20 mg PO BID [facility] Last Admin: 10/20/17 07:51 Dose: 20 mg Senna/Docusate Sodium (Senokot-S, Suki-Colace) 2 tablet PO BID [facility] Last Admin: 10/20/17 07:52 Dose: Not Given Sodium Chloride () 5 - 30 ml IV UD PRN PRN Reason: SALINE FLUSH Last Admin: 10/12/17 22:30 Dose: 20 ml Assessment/Plan debility s/p right parietal infarct 2/2 to symptomatic right ICA occlusion. complicated by a previous left lacunar ICH, and a right parietal ischemic stroke in 2016. The goal of rehab is hinduism of functional independence. Plan: - Physical therapy for gait and balance - Occupational Therapy for ADLs - As needed analgesics - Bowel protocol - Stroke prevention on ASA, Statin, and Plavix - DVT prophylaxis: SCDs, Prasad hoses, Lovenox - Hypertension: Stable with good control, continue home medications, Keep BP < 130/80 mmHg => increase Zestril to 50mg daily - Hx of HLD continue home dose of statin, Check LDL and Hba1c levels - Anxiety: Lexapro - Stent placement right ICA=> continue Plavix - Cervical spondylosis => Continued neck pain 2/2 fall prior to stroke => continue C-Collar - Hx GERD continue home medication - Hx Hep C - Hx Asthma - Hx of left lacunar ICH and a right parietal ischemic stroke - Restart Lovenox at 30mg daily
--- NOTE | 2017-10-20 15:42 | PCM.PN.HOSP ---
Subjective: Patient is a 57-year-old male admitted to the inpatient rehab unit with 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, left-sided hemiparesis SKIN: No Rash Vitals/I&O's: Vital Signs Temp Pulse Resp BP Pulse Ox 97.8 F 64 18 150/80 H 94 10/20/17 08:17 10/20/17 08:17 10/20/17 08:17 10/20/17 09:19 10/20/17 08:17 Oxygen Flow Rate 2 Oxygen Delivery Method Room Air Weight: 121.25 kg Body Mass Index (BMI) 38.6 Intake and Output for Last 24 Hours 10/18/17 10/19/17 10/20/17 23:59 23:59 23:59 Intake Total 1200 / 1200 620 / 620 520 / 520 Balance 1200 / 1200 620 / 620 520 / 520 Current Medications Acetaminophen (Tylenol) 650 mg PO Q4H PRN PRN PRN Reason: PAIN Last Admin: 10/18/17 20:56 Dose: 650 mg Albuterol Sulfate (Ventolin Hfa (Sp)) 2 puff INHALATION Q4H PRN PRN PRN Reason: WHEEZING [facility] Last Admin: 10/20/17 07:51 Dose: 81 mg Atorvastatin Calcium (Lipitor) 80 mg PO QHS [facility] Last Admin: 10/19/17 20:52 Dose: 80 mg Bisacodyl (Dulcolax) 10 mg RECTAL .PRN X 1 PRN PRN Reason: Constipation Calamine/Phenol (Calmoseptine Ointment) 1 applic TOPICAL BID [facility] PRN Reason: Protocol Last Admin: 10/20/17 07:56 Dose: 1 applicatio Carvedilol (Coreg) 12.5 mg PO BID [facility] Last Admin: 10/20/17 07:51 Dose: 12.5 mg Clopidogrel Bisulfate (Plavix) 75 mg PO DAILY [facility] Last Admin: 10/20/17 07:51 Dose: 75 mg Enoxaparin Sodium (Lovenox) 30 mg SC DAILY@0600 [facility] Escitalopram Oxalate (Lexapro) 10 mg PO DAILY [facility] Last Admin: 10/20/17 07:51 Dose: 10 mg Finasteride (Proscar) 5 mg PO DAILY [facility] Last Admin: 10/20/17 07:51 Dose: 5 mg Lisinopril (Zestril) 40 mg PO DAILY [facility] Lisinopril (Zestril) 10 mg PO DAILY [facility] Loratadine (Claritin) 5 mg PO DAILY [facility] Last Admin: 10/20/17 07:51 Dose: 5 mg Magnesium Hydroxide (Milk Of Magnesia) 30 ml PO .PRN X 1 PRN PRN Reason: Constipation Neomycin/Polymyxin/Hydrocortisone (Otocort Susp) 4 drop OTIC Q8H [facility] Last Admin: 10/20/17 14:29 Dose: 4 drop Nitroglycerin (Nitrostat) 0.4 mg SUBLINGUAL Q5M PRN PRN Reason: CARDIAC/CHEST PAIN Last Admin: 10/12/17 08:34 Dose: 0.4 mg Pantoprazole Sodium (Protonix) 20 mg PO BID [facility] Last Admin: 10/20/17 07:51 Dose: 20 mg Senna/Docusate Sodium (Senokot-S, Suki-Colace) 2 tablet PO BID [facility] Last Admin: 10/20/17 07:52 Dose: Not Given Sodium Chloride () 5 - 30 ml IV UD PRN PRN Reason: SALINE FLUSH Last Admin: 10/12/17 22:30 Dose: 20 ml Assessment/Plan Patient is a 57-year-old male admitted to the inpatient rehab unit with 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 He underwent right ICA occlusion at the [facility] prior to his admission to the inpatient rehab unit 1. Acute right parietal infarct due to right ICA occlusion status post angioplasty and placement. Admitted to the inpatient rehab unit where patient is currently undergoing therapy. Patient is also on antiplatelet therapy as well as started 2. Hypertension-blood pressure controlled, home medications continued with dose adjustment as needed 3. Dyslipidemia: On statin therapy did continue 4. History of cervical spondylosis 5. DVT prophylaxis SC Lovenox Code Visit Inpatient E&M: [id number] [facility] Hosp L2
--- NOTE | 2017-10-20 15:46 | PN_ITS ---
Subjective: Patient is a 57-year-old male admitted to the inpatient rehab unit with 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, left-sided hemiparesis SKIN: No Rash Vitals/I&O's: Vital Signs Temp Pulse Resp BP Pulse Ox 97.8 F 64 18 150/80 H 94 10/20/17 08:17 10/20/17 08:17 10/20/17 08:17 10/20/17 09:19 10/20/17 08:17 Oxygen Flow Rate 2 Oxygen Delivery Method Room Air Weight: 121.25 kg Body Mass Index (BMI) 38.6 Intake and Output for Last 24 Hours 10/18/17 10/19/17 10/20/17 23:59 23:59 23:59 Intake Total 1200 / 1200 620 / 620 520 / 520 Balance 1200 / 1200 620 / 620 520 / 520 Current Medications Acetaminophen (Tylenol) 650 mg PO Q4H PRN PRN PRN Reason: PAIN Last Admin: 10/18/17 20:56 Dose: 650 mg Albuterol Sulfate (Ventolin Hfa (Sp)) 2 puff INHALATION Q4H PRN PRN PRN Reason: WHEEZING [facility] Last Admin: 10/20/17 07:51 Dose: 81 mg Atorvastatin Calcium (Lipitor) 80 mg PO QHS [facility] Last Admin: 10/19/17 20:52 Dose: 80 mg Bisacodyl (Dulcolax) 10 mg RECTAL .PRN X 1 PRN PRN Reason: Constipation Calamine/Phenol (Calmoseptine Ointment) 1 applic TOPICAL BID [facility] PRN Reason: Protocol Last Admin: 10/20/17 07:56 Dose: 1 applicatio Carvedilol (Coreg) 12.5 mg PO BID [facility] Last Admin: 10/20/17 07:51 Dose: 12.5 mg Clopidogrel Bisulfate (Plavix) 75 mg PO DAILY [facility] Last Admin: 10/20/17 07:51 Dose: 75 mg Enoxaparin Sodium (Lovenox) 30 mg SC DAILY@0600 [facility] Escitalopram Oxalate (Lexapro) 10 mg PO DAILY [facility] Last Admin: 10/20/17 07:51 Dose: 10 mg Finasteride (Proscar) 5 mg PO DAILY [facility] Last Admin: 10/20/17 07:51 Dose: 5 mg Lisinopril (Zestril) 40 mg PO DAILY [facility] Lisinopril (Zestril) 10 mg PO DAILY [facility] Loratadine (Claritin) 5 mg PO DAILY [facility] Last Admin: 10/20/17 07:51 Dose: 5 mg Magnesium Hydroxide (Milk Of Magnesia) 30 ml PO .PRN X 1 PRN PRN Reason: Constipation Neomycin/Polymyxin/Hydrocortisone (Otocort Susp) 4 drop OTIC Q8H [facility] Last Admin: 10/20/17 14:29 Dose: 4 drop Nitroglycerin (Nitrostat) 0.4 mg SUBLINGUAL Q5M PRN PRN Reason: CARDIAC/CHEST PAIN Last Admin: 10/12/17 08:34 Dose: 0.4 mg Pantoprazole Sodium (Protonix) 20 mg PO BID [facility] Last Admin: 10/20/17 07:51 Dose: 20 mg Senna/Docusate Sodium (Senokot-S, Suki-Colace) 2 tablet PO BID [facility] Last Admin: 10/20/17 07:52 Dose: Not Given Sodium Chloride () 5 - 30 ml IV UD PRN PRN Reason: SALINE FLUSH Last Admin: 10/12/17 22:30 Dose: 20 ml Assessment/Plan Patient is a 57-year-old male admitted to the inpatient rehab unit with 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 He underwent right ICA occlusion at the [facility] prior to his admission to the inpatient rehab unit 1. Acute right parietal infarct due to right ICA occlusion status post angioplasty and placement. Admitted to the inpatient rehab unit where patient is currently undergoing therapy. Patient is also on antiplatelet therapy as well as started 2. Hypertension-blood pressure controlled, home medications continued with dose adjustment as needed 3. Dyslipidemia: On statin therapy did continue 4. History of cervical spondylosis 5. DVT prophylaxis SC Lovenox Code Visit Inpatient E&M: [id number] [facility] Hosp L2
[2017-10-20 20:26] VITALS: BP 152/69; PULSE 70; RESP 17; TEMP 36.6; O2SAT 96
[2017-10-20 20:47] VITALS: BMI 38.6
[2017-10-20] MEDS: Atorvastatin Calcium 80 MG Tablet PO (20:58)
[2017-10-20] MEDS: Senna/Docusate Sodium 1 Tablet 2 TABLET PO (20:59)
[2017-10-21] MEDS: Neomycin Sulfate/Polymyxin/Hc Susp 10 ML Bottle 4 DRP OTIC ×3 (05:39→20:34)
[2017-10-21] MEDS: Enoxaparin 30 MG/0.3 ML Syringe SC (05:39)
[2017-10-21 07:30] VITALS: BP 157/97; PULSE 66; RESP 18; TEMP 36.2; O2SAT 94
[2017-10-21] MEDS: Menthol/Lanolin/Calamine/Znox 113 GM Tube 1 APPLIC TOPICAL ×2 (07:32→20:34)
[2017-10-21] MEDS: Senna/Docusate Sodium 1 Tablet 2 TABLET PO (07:33)
[2017-10-21] MEDS: Lisinopril 40 MG Tablet PO (07:33)
[2017-10-21] MEDS: Loratadine 10 MG Tablet 5 MG PO (07:33)
[2017-10-21] MEDS: Escitalopram Oxalate 10 MG Tablet PO (07:33)
[2017-10-21] MEDS: Finasteride 5 MG Tablet PO (07:33)
[2017-10-21] MEDS: Pantoprazole Sodium 20 MG Tablet PO ×2 (07:33→20:34)
[2017-10-21] MEDS: Clopidogrel Bisulfate 75 MG Tablet PO (07:34)
[2017-10-21] MEDS: Carvedilol 12.5 MG Tablet PO (07:34)
[2017-10-21] MEDS: Aspirin 81 MG TAB.CHEW PO (07:34)
[2017-10-21] MEDS: Acetaminophen 325 MG Tablet 650 MG PO (07:39)
[2017-10-21] MEDS: Lisinopril 10 MG Tablet PO (09:02)
[2017-10-21 10:11] VITALS: BMI 38.6
[2017-10-21 14:59] VITALS: BP 158/80; PULSE 63
[2017-10-21 20:10] VITALS: PULSE 60; RESP 18; O2SAT 97; BMI 38.6
[2017-10-21] MEDS: Carvedilol 25 MG Tablet PO (20:34)
[2017-10-21] MEDS: Atorvastatin Calcium 80 MG Tablet PO (20:34)
[2017-10-22] MEDS: Acetaminophen 325 MG Tablet 650 MG PO (05:05)
[2017-10-22] MEDS: Neomycin Sulfate/Polymyxin/Hc Susp 10 ML Bottle 4 DRP OTIC ×3 (05:06→22:12)
[2017-10-22] MEDS: Enoxaparin 30 MG/0.3 ML Syringe SC (05:07)
[2017-10-22 07:45] VITALS: BP 167/100
[2017-10-22] MEDS: Clopidogrel Bisulfate 75 MG Tablet PO (07:57)
[2017-10-22] MEDS: Loratadine 10 MG Tablet 5 MG PO (07:57)
[2017-10-22] MEDS: Lisinopril 40 MG Tablet PO (07:57)
[2017-10-22] MEDS: Carvedilol 25 MG Tablet PO ×2 (07:57→22:12)
[2017-10-22] MEDS: Pantoprazole Sodium 20 MG Tablet PO ×2 (07:57→22:11)
[2017-10-22] MEDS: Finasteride 5 MG Tablet PO (07:57)
[2017-10-22] MEDS: Escitalopram Oxalate 10 MG Tablet PO (07:57)
[2017-10-22] MEDS: Aspirin 81 MG TAB.CHEW PO (07:58)
[2017-10-22 08:00] VITALS: BP 167/100; PULSE 66; RESP 18; TEMP 36.6; O2SAT 98
[2017-10-22] MEDS: Menthol/Lanolin/Calamine/Znox 113 GM Tube 1 APPLIC TOPICAL ×2 (08:06→22:12)
[2017-10-22 08:10] VITALS: BP 160/102
[2017-10-22 08:28] VITALS: BP 156/96
--- NOTE | 2017-10-22 08:57 | PCM.PN.NEU ---
Subjective: Patient seen and examined. No Acute events over night. Tolerating therapy. Denies any shortness of breath or chest pain. No bleeding noted in urine since restarting the Lovenox injections. - Physical Exam General: Alert, Oriented x3, Cooperative HEENT: Atraumatic, PERRLA, EOMI, Normocephalic Neck: Supple, No JVD, Negative Carotid Bruits Lungs: Clear to auscultation, Normal air movement Cardiovascular: Regular rate, No murmurs Abdomen: Bowel Sounds Present, Soft, Non Tender Extremities: No edema, Capillary Refill Less than 3 Seconds Skin: No rashes, No breakdown Musculoskeletal: No Tenderness to Palpation of Joints or Extremities Neurological: Cranial nerves II-XII grossly intact Psych/Mental Status: Normal Affect, Appropriate Vital Signs Temp Pulse Resp BP Pulse Ox 97.8 F 66 18 156/96 H 98 10/22/17 08:00 10/22/17 08:00 10/22/17 08:00 10/22/17 08:28 10/22/17 08:00 Oxygen Flow Rate 2 Oxygen Delivery Method Room Air Weight: 121.8 kg Body Mass Index (BMI) 38.6 Intake and Output for Last 24 Hours 10/20/17 10/21/17 10/22/17 23:59 23:59 23:59 Intake Total 840 / 840 Balance 840 / 840 Active Medications Acetaminophen (Tylenol) 650 mg PO Q4H PRN PRN PRN Reason: PAIN Last Admin: 10/22/17 05:05 Dose: 650 mg Albuterol Sulfate (Ventolin Hfa (Sp)) 2 puff INHALATION Q4H PRN PRN PRN Reason: WHEEZING [facility]ir[facility] ([facility], [facility]) [facility] Last Admin: 10/22/17 07:58 Dose: 81 mg Atorvastatin Calcium (Lipitor) 80 mg PO QHS [facility] Last Admin: 10/21/17 20:34 Dose: 80 mg Bisacodyl (Dulcolax) 10 mg RECTAL .PRN X 1 PRN PRN Reason: Constipation Calamine/Phenol (Calmoseptine Ointment) 1 applic TOPICAL BID [facility] PRN Reason: Protocol Last Admin: 10/22/17 08:06 Dose: 1 applicatio Carvedilol (Coreg) 25 mg PO BID [facility] Last Admin: 10/22/17 07:57 Dose: 25 mg Clopidogrel Bisulfate (Plavix) 75 mg PO DAILY [facility] Last Admin: 10/22/17 07:57 Dose: 75 mg Enoxaparin Sodium (Lovenox) 30 mg SC DAILY@0600 [facility] Last Admin: 10/22/17 05:07 Dose: 30 mg Escitalopram Oxalate (Lexapro) 10 mg PO DAILY [facility] Last Admin: 10/22/17 07:57 Dose: 10 mg Finasteride (Proscar) 5 mg PO DAILY [facility] Last Admin: 10/22/17 07:57 Dose: 5 mg Lisinopril (Zestril) 40 mg PO DAILY [facility] Last Admin: 10/22/17 07:57 Dose: 40 mg Loratadine (Claritin) 5 mg PO DAILY [facility] Last Admin: 10/22/17 07:57 Dose: 5 mg Magnesium Hydroxide (Milk Of Magnesia) 30 ml PO .PRN X 1 PRN PRN Reason: Constipation Neomycin/Polymyxin/Hydrocortisone (Otocort Susp) 4 drop OTIC Q8H [facility] Last Admin: 10/22/17 05:06 Dose: 4 drop Nitroglycerin (Nitrostat) 0.4 mg SUBLINGUAL Q5M PRN PRN Reason: CARDIAC/CHEST PAIN Last Admin: 10/12/17 08:34 Dose: 0.4 mg Pantoprazole Sodium (Protonix) 20 mg PO BID [facility] Last Admin: 10/22/17 07:57 Dose: 20 mg Senna/Docusate Sodium (Senokot-S, Suki-Colace) 2 tablet PO BID [facility] Last Admin: 10/22/17 07:58 Dose: Not Given Sodium Chloride () 5 - 30 ml IV UD PRN PRN Reason: SALINE FLUSH Last Admin: 10/12/17 22:30 Dose: 20 ml Assessment/Plan debility s/p right parietal infarct 2/2 to symptomatic right ICA occlusion. complicated by a previous left lacunar ICH, and a right parietal ischemic stroke in 2016. The goal of rehab is yarsani of functional independence. Plan: - Physical therapy for gait and balance - Occupational Therapy for ADLs - As needed analgesics - Bowel protocol - Stroke prevention on ASA, Statin, and Plavix - DVT prophylaxis: SCDs, Prasad hoses, Lovenox - Hypertension: Stable with good control, continue home medications, Keep BP < 130/80 mmHg => increase Zestril to 50mg daily - Hx of HLD continue home dose of statin, Check LDL and Hba1c levels - Anxiety: Lexapro - Stent placement right ICA=> continue Plavix - Cervical spondylosis => Continued neck pain 2/2 fall prior to stroke => continue C-Collar - Hx GERD continue home medication - Hx Hep C - Hx Asthma - Hx of left lacunar ICH and a right parietal ischemic stroke - Restart Lovenox at 30mg daily
[2017-10-22 09:19] VITALS: BP 139/86; PULSE 74
--- NOTE | 2017-10-22 16:19 | PCM.PN.HOSP ---
Subjective: Patient seen admit to therapy progressing as expected. Pressure control still remains labile Objective: GENERAL: cooperative HEENT: Clear conjunctiva, NECK; supple, normal thyroid, CHEST: Clear to auscultation bilaterally, HEART: Regular S1 S2, no audible murmurs ABDOMEN: soft, non-tender, normoactive bowel sounds, RECTAL: deferred EXTREMITIES: No edema, no clubbing, MANAGER PROJECT: Awake, left-sided hemiparesis SKIN: No Rash Vitals/I&O's: Vital Signs Temp Pulse Resp BP Pulse Ox 97.8 F 74 18 139/86 H 98 10/22/17 08:00 10/22/17 09:19 10/22/17 08:00 10/22/17 09:19 10/22/17 08:00 Oxygen Flow Rate 2 Oxygen Delivery Method Room Air Weight: 121.8 kg Body Mass Index (BMI) 38.6 Intake and Output for Last 24 Hours 10/20/17 10/21/17 10/22/17 23:59 23:59 23:59 Intake Total 840 / 840 600 / 600 Balance 840 / 840 600 / 600 Current Medications Acetaminophen (Tylenol) 650 mg PO Q4H PRN PRN PRN Reason: PAIN Last Admin: 10/22/17 05:05 Dose: 650 mg Albuterol Sulfate (Ventolin Hfa (Sp)) 2 puff INHALATION Q4H PRN PRN PRN Reason: WHEEZING [facility] Last Admin: 10/22/17 07:58 Dose: 81 mg Atorvastatin Calcium (Lipitor) 80 mg PO QHS [facility] BEDS AT [facility] Last Admin: 10/21/17 20:34 Dose: 80 mg Bisacodyl (Dulcolax) 10 mg RECTAL .PRN X 1 PRN PRN Reason: Constipation Calamine/Phenol (Calmoseptine Ointment) 1 applic TOPICAL BID [facility] PRN Reason: Protocol Last Admin: 10/22/17 08:06 Dose: 1 applicatio Carvedilol (Coreg) 25 mg PO BID [facility] Last Admin: 10/22/17 07:57 Dose: 25 mg Clopidogrel Bisulfate (Plavix) 75 mg PO DAILY [facility] B[facility]S [facility] Last Admin: 10/22/17 07:57 Dose: 75 mg Enoxaparin Sodium (Lovenox) 30 mg SC DAILY@0600 [facility] BEDS [facility] Last Admin: 10/22/17 05:07 Dose: 30 mg Escitalopram Oxalate (Lexapro) 10 mg PO DAILY [facility] Last Admin: 10/22/17 07:57 Dose: 10 mg Finasteride (Proscar) 5 mg PO DAILY [facility] B[facility]S [facility] Last Admin: 10/22/17 07:57 Dose: 5 mg Lisinopril (Zestril) 40 mg PO DAILY [facility] B[facility] Last Admin: 10/22/17 07:57 Dose: 40 mg Loratadine (Claritin) 5 mg PO DAILY [facility] Last Admin: 10/22/17 07:57 Dose: 5 mg Magnesium Hydroxide (Milk Of Magnesia) 30 ml PO .PRN X 1 PRN PRN Reason: Constipation Neomycin/Polymyxin/Hydrocortisone (Otocort Susp) 4 drop OTIC Q8H [facility] BEDS [facility] Last Admin: 10/22/17 14:42 Dose: 4 drop Nitroglycerin (Nitrostat) 0.4 mg SUBLINGUAL Q5M PRN PRN Reason: CARDIAC/CHEST PAIN Last Admin: 10/12/17 08:34 Dose: 0.4 mg Pantoprazole Sodium (Protonix) 20 mg PO BID [facility] B[facility] Last Admin: 10/22/17 07:57 Dose: 20 mg Senna/Docusate Sodium (Senokot-S, Suki-Colace) 2 tablet PO BID [facility] BEDS AT [facility] Last Admin: 10/22/17 07:58 Dose: Not Given Sodium Chloride () 5 - 30 ml IV UD PRN PRN Reason: SALINE FLUSH Last Admin: 10/12/17 22:30 Dose: 20 ml Assessment/Plan Patient is a 57-year-old male admitted to the inpatient rehab unit with 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 He underwent right ICA occlusion at the [facility] prior to his admission to the inpatient rehab unit 1. Acute right parietal infarct due to right ICA occlusion status post angioplasty and placement. Admitted to the inpatient rehab unit where patient is currently undergoing therapy. Patient is also on antiplatelet therapy as well as started 2. Hypertension-blood pressure controlled, home medications continued with dose adjustment as needed 3. Dyslipidemia: On statin therapy did continue 4. History of cervical spondylosis 5. DVT prophylaxis SC Lovenox Code Visit Inpatient E&M: [id number] [facility] Hosp L2
[2017-10-22 17:00] VITALS: BMI 38.6
[2017-10-22 21:50] VITALS: BP 153/75; PULSE 63; RESP 20; TEMP 36.7; O2SAT 95
[2017-10-22] MEDS: Atorvastatin Calcium 80 MG Tablet PO (22:12)
[2017-10-23 05:00] VITALS: BMI 38.6
[2017-10-23] MEDS: Neomycin Sulfate/Polymyxin/Hc Susp 10 ML Bottle 4 DRP OTIC ×3 (06:29→20:44)
[2017-10-23] MEDS: Enoxaparin 30 MG/0.3 ML Syringe SC (06:29)
[2017-10-23 07:50] VITALS: BP 152/102; PULSE 74; RESP 20; TEMP 36.7; O2SAT 97
[2017-10-23] MEDS: Aspirin 81 MG TAB.CHEW PO (07:53)
[2017-10-23] MEDS: Lisinopril 40 MG Tablet PO (07:53)
[2017-10-23] MEDS: Pantoprazole Sodium 20 MG Tablet PO ×2 (07:53→20:45)
[2017-10-23] MEDS: Carvedilol 25 MG Tablet PO ×2 (07:54→20:44)
[2017-10-23] MEDS: Clopidogrel Bisulfate 75 MG Tablet PO (07:54)
[2017-10-23] MEDS: Escitalopram Oxalate 10 MG Tablet PO (07:54)
[2017-10-23] MEDS: Finasteride 5 MG Tablet PO (07:54)
[2017-10-23] MEDS: Loratadine 10 MG Tablet 5 MG PO (07:54)
[2017-10-23 10:49] VITALS: BP 152/104; PULSE 76
[2017-10-23] MEDS: Menthol/Lanolin/Calamine/Znox 113 GM Tube 1 APPLIC TOPICAL ×2 (10:53→20:44)
--- NOTE | 2017-10-23 10:53 | PCM.PN.NEU ---
Subjective: Staffed in team meeting. Family was not present at meeting. Questions answered. With Physical therapy He is contact guard to minimal assist to get to his feet. Minimal assist to stand and pivot. Has been fitted with brace for his left foot has improved the quality of his walking he is able to walk about 30 feet. He has strength in both his quad muscle and hip muscle on the left side but not in the ankle. With Occupational therapy, he is minimal assist to get in the shower, and moderate assist to get out of the shower. He is able to do his upper body care with minimal assistance but is moderate assistance for lower body he needs help with putting on his undergarments and pants. He is total assist to put on his brace. With speech his left neglect has improved and so has his attention on the left side. He is improving on that side and is finding ways to help compensate for the neglect. He is very aware of his limitation and is able to better focus on what he needs to do to help compensate. He is doing well with the chin tuck for eating, he is supervised when eating. He remains on a regular diet with thin liquids. Will re-team next . - Physical Exam General: Alert, Oriented x3, Cooperative HEENT: Atraumatic, PERRLA, EOMI, Normocephalic Neck: Supple, No JVD, Negative Carotid Bruits Lungs: Clear to auscultation, Normal air movement Cardiovascular: Regular rate, No murmurs Abdomen: Bowel Sounds Present, Soft, Non Tender Extremities: No edema, Capillary Refill Less than 3 Seconds Skin: No rashes, No breakdown Musculoskeletal: No Tenderness to Palpation of Joints or Extremities Neurological: Cranial nerves II-XII grossly intact Psych/Mental Status: Normal Affect, Appropriate Vital Signs Temp Pulse Resp BP Pulse Ox 98.1 F 76 20 H 152/104 H 97 10/23/17 07:50 10/23/17 10:49 10/23/17 07:50 10/23/17 10:49 10/23/17 07:50 Oxygen Flow Rate 2 Oxygen Delivery Method Room Air Weight: 121.8 kg Body Mass Index (BMI) 38.6 Intake and Output for Last 24 Hours 10/21/17 10/22/17 10/23/17 23:59 23:59 23:59 Intake Total 840 / 840 420 / 420 Balance 840 / 840 420 / 420 Active Medications Acetaminophen (Tylenol) 650 mg PO Q4H PRN PRN PRN Reason: PAIN Last Admin: 10/22/17 05:05 Dose: 650 mg Albuterol Sulfate (Ventolin Hfa (Sp)) 2 puff INHALATION Q4H PRN PRN PRN Reason: WHEEZING Amlodipine Besylate (Norvasc) 5 mg PO DAILY [facility] Aspirin ([facility]in, Baby) [facility] Last Admin: 10/23/17 07:53 Dose: 81 mg Atorvastatin Calcium (Lipitor) 80 mg PO QHS [facility] Last Admin: 10/22/17 22:12 Dose: 80 mg Bisacodyl (Dulcolax) 10 mg RECTAL .PRN X 1 PRN PRN Reason: Constipation Calamine/Phenol (Calmoseptine Ointment) 1 applic TOPICAL BID [facility] PRN Reason: Protocol Last Admin: 10/22/17 22:12 Dose: 1 applicatio Carvedilol (Coreg) 25 mg PO BID [facility] Last Admin: 10/23/17 07:54 Dose: 25 mg Clopidogrel Bisulfate (Plavix) 75 mg PO DAILY [facility] Last Admin: 10/23/17 07:54 Dose: 75 mg Enoxaparin Sodium (Lovenox) 30 mg SC DAILY@0600 [facility] Last Admin: 10/23/17 06:29 Dose: 30 mg Escitalopram Oxalate (Lexapro) 10 mg PO DAILY [facility] Last Admin: 10/23/17 07:54 Dose: 10 mg Finasteride (Proscar) 5 mg PO DAILY [facility] Last Admin: 10/23/17 07:54 Dose: 5 mg Lisinopril (Zestril) 40 mg PO DAILY [facility] Last Admin: 10/23/17 07:53 Dose: 40 mg Loratadine (Claritin) 5 mg PO DAILY [facility] Last Admin: 10/23/17 07:54 Dose: 5 mg Magnesium Hydroxide (Milk Of Magnesia) 30 ml PO .PRN X 1 PRN PRN Reason: Constipation Neomycin/Polymyxin/Hydrocortisone (Otocort Susp) 4 drop OTIC Q8H [facility] Last Admin: 10/23/17 06:29 Dose: 4 drop Nitroglycerin (Nitrostat) 0.4 mg SUBLINGUAL Q5M PRN PRN Reason: CARDIAC/CHEST PAIN Last Admin: 10/12/17 08:34 Dose: 0.4 mg Pantoprazole Sodium (Protonix) 20 mg PO BID [facility] Last Admin: 10/23/17 07:53 Dose: 20 mg Senna/Docusate Sodium (Senokot-S, Suki-Colace) 2 tablet PO BID [facility] Last Admin: 10/23/17 07:51 Dose: Not Given Sodium Chloride () 5 - 30 ml IV UD PRN PRN Reason: SALINE FLUSH Last Admin: 10/12/17 22:30 Dose: 20 ml Assessment/Plan debility s/p right parietal infarct 2/2 to symptomatic right ICA occlusion. complicated by a previous left lacunar ICH, and a right parietal ischemic stroke in 2016. The goal of rehab is [facility] of functional independence. Plan: - Physical therapy for gait and balance - Occupational Therapy for ADLs - As needed analgesics - Bowel protocol - Stroke prevention on ASA, Statin, and Plavix - DVT prophylaxis: SCDleigh, Prasad stinson, Lovenox - Hypertension: BP continues to be Elevated, Keep BP < 130/80 mmHg => currently on Coreg 25mg, Zestril 40mg, will add Norvasc 5mg daily - Hx of HLD continue home dose of statin, Check LDL and Hba1c levels - Anxiety: Lexapro - Stent placement right ICA=> continue Plavix - Cervical spondylosis => Continued neck pain 2/2 fall prior to stroke => continue C-Collar - Hx GERD continue home medication - Hx Hep C - Hx Asthma - Hx of left lacunar ICH and a right parietal ischemic stroke - Restart Lovenox at 30mg daily
[2017-10-23] MEDS: amLODIPine 5 MG Tablet PO (12:21)
[2017-10-23 13:38] VITALS: BP 162/79; PULSE 74; BMI 38.6
--- NOTE | 2017-10-23 13:59 | CASEMGMT ---
Team meeting held. Patient present, no support person present at this time. Patient reporting to want to update support person about team meeting and that this community mental health social worker does not need to contact support person. Patient plans to continue with further care and treatment on the Inpatient Rehab Unit at this time. Patient plans to discharge home with significant other at time of discharge. Support given. Will continue to follow. Elvia DENT, KAIAKO KURA [place] MAORI
[2017-10-23 20:27] VITALS: BMI 38.6
[2017-10-23 20:37] VITALS: BP 150/90; PULSE 62; RESP 18; TEMP 36.8; O2SAT 96
[2017-10-23] MEDS: Atorvastatin Calcium 80 MG Tablet PO (20:44)
[2017-10-23] MEDS: Senna/Docusate Sodium 1 Tablet 2 TABLET PO (20:45)
[2017-10-24] MEDS: Neomycin Sulfate/Polymyxin/Hc Susp 10 ML Bottle 4 DRP OTIC ×2 (05:22→14:38)
[2017-10-24] MEDS: Enoxaparin 30 MG/0.3 ML Syringe SC (05:22)
[2017-10-24] MEDS: Aspirin 81 MG TAB.CHEW PO (07:32)
[2017-10-24] MEDS: Loratadine 10 MG Tablet 5 MG PO (07:32)
[2017-10-24] MEDS: Carvedilol 25 MG Tablet PO ×2 (07:32→20:55)
[2017-10-24] MEDS: Escitalopram Oxalate 10 MG Tablet PO (07:33)
[2017-10-24] MEDS: Clopidogrel Bisulfate 75 MG Tablet PO (07:33)
[2017-10-24] MEDS: Pantoprazole Sodium 20 MG Tablet PO ×2 (07:33→20:55)
[2017-10-24] MEDS: Finasteride 5 MG Tablet PO (07:33)
[2017-10-24] MEDS: amLODIPine 5 MG Tablet PO (07:33)
[2017-10-24] MEDS: Lisinopril 40 MG Tablet PO (07:33)
[2017-10-24 08:20] VITALS: BP 155/77; PULSE 71; RESP 18; TEMP 36.5; O2SAT 93
[2017-10-24 10:07] VITALS: BMI 38.6
[2017-10-24] MEDS: Menthol/Lanolin/Calamine/Znox 113 GM Tube 1 APPLIC TOPICAL ×2 (11:34→20:55)
--- NOTE | 2017-10-24 14:53 | PCM.PN.NEU ---
Subjective: Patient seen, no new complaints. Tolerating therapy. Denies any shortness of breath or pain. No issues with GI/. - Physical Exam General: Alert, Oriented x3, Cooperative HEENT: Atraumatic, PERRLA, EOMI, Normocephalic Neck: Supple, No JVD, Negative Carotid Bruits Lungs: Clear to auscultation, Normal air movement Cardiovascular: Regular rate, No murmurs Abdomen: Bowel Sounds Present, Soft, Non Tender Extremities: No edema, Capillary Refill Less than 3 Seconds Skin: No rashes, No breakdown Musculoskeletal: No Tenderness to Palpation of Joints or Extremities Neurological: Cranial nerves II-XII grossly intact Psych/Mental Status: Normal Affect, Appropriate Vital Signs Temp Pulse Resp BP Pulse Ox 97.7 F L 71 18 155/77 H 93 10/24/17 08:20 10/24/17 08:20 10/24/17 08:20 10/24/17 08:20 10/24/17 08:20 Oxygen Flow Rate 2 Oxygen Delivery Method Room Air Weight: 121.8 kg Body Mass Index (BMI) 38.6 Intake and Output for Last 24 Hours 10/22/17 10/23/17 10/24/17 23:59 23:59 23:59 Intake Total 840 / 840 980 / 980 260 / 260 Balance 840 / 840 980 / 980 260 / 260 Active Medications Acetaminophen (Tylenol) 650 mg PO Q4H PRN PRN PRN Reason: PAIN Last Admin: 10/22/17 05:05 Dose: 650 mg Albuterol Sulfate (Ventolin Hfa (Sp)) 2 puff INHALATION Q4H PRN PRN PRN Reason: WHEEZING Amlodipine Besylate (Norvasc) 5 mg PO DAILY [facility] Last Admin: 10/24/17 07:33 Dose: 5 mg [facility], [facility]) [facility] Last Admin: 10/24/17 07:32 Dose: 81 mg Atorvastatin Calcium (Lipitor) 80 mg PO QHS [facility] Last Admin: 10/23/17 20:44 Dose: 80 mg Bisacodyl (Dulcolax) 10 mg RECTAL .PRN X 1 PRN PRN Reason: Constipation Calamine/Phenol (Calmoseptine Ointment) 1 applic TOPICAL BID [facility] PRN Reason: Protocol Last Admin: 10/24/17 11:34 Dose: 1 applicatio Carvedilol (Coreg) 25 mg PO BID [facility] Last Admin: 10/24/17 07:32 Dose: 25 mg Clopidogrel Bisulfate (Plavix) 75 mg PO DAILY [facility] Last Admin: 10/24/17 07:33 Dose: 75 mg Enoxaparin Sodium (Lovenox) 30 mg SC DAILY@0600 [facility] Last Admin: 10/24/17 05:22 Dose: 30 mg Escitalopram Oxalate (Lexapro) 10 mg PO DAILY [facility] Last Admin: 10/24/17 07:33 Dose: 10 mg Finasteride (Proscar) 5 mg PO DAILY [facility] Last Admin: 10/24/17 07:33 Dose: 5 mg Lisinopril (Zestril) 40 mg PO DAILY [facility] Last Admin: 10/24/17 07:33 Dose: 40 mg Loratadine (Claritin) 5 mg PO DAILY [facility] Last Admin: 10/24/17 07:32 Dose: 5 mg Magnesium Hydroxide (Milk Of Magnesia) 30 ml PO .PRN X 1 PRN PRN Reason: Constipation Neomycin/Polymyxin/Hydrocortisone (Otocort Susp) 4 drop OTIC Q8H [facility] Last Admin: 10/24/17 14:38 Dose: 4 drop Nitroglycerin (Nitrostat) 0.4 mg SUBLINGUAL Q5M PRN PRN Reason: CARDIAC/CHEST PAIN Last Admin: 10/12/17 08:34 Dose: 0.4 mg Pantoprazole Sodium (Protonix) 20 mg PO BID [facility] Last Admin: 10/24/17 07:33 Dose: 20 mg Senna/Docusate Sodium (Senokot-S, Suki-Colace) 2 tablet PO BID [facility] Last Admin: 10/24/17 07:35 Dose: Not Given Sodium Chloride () 5 - 30 ml IV UD PRN PRN Reason: SALINE FLUSH Last Admin: 10/12/17 22:30 Dose: 20 ml Assessment/Plan debility s/p right parietal infarct 2/2 to symptomatic right ICA occlusion. complicated by a previous left lacunar ICH, and a right parietal ischemic stroke in 2016. The goal of rehab is caodaism of functional independence. Plan: - Physical therapy for gait and balance - Occupational Therapy for ADLs - As needed analgesics - Bowel protocol - Stroke prevention on ASA, Statin, and Plavix - DVT prophylaxis: SCDs, Prasad hosbob, Lovenox - Hypertension: BP continues to be Elevated, Keep BP < 130/80 mmHg => currently on Coreg 25mg, Zestril 40mg, will add Norvasc 5mg daily - Hx of HLD continue home dose of statin, Check LDL and Hba1c levels - Anxiety: Lexapro - Stent placement right ICA=> continue Plavix - Cervical spondylosis => Continued neck pain 2/2 fall prior to stroke => continue C-Collar - Hx GERD continue home medication - Hx Hep C - Hx Asthma - Hx of left lacunar ICH and a right parietal ischemic stroke - Restart Lovenox at 30mg daily - Recheck INR levels
--- NOTE | 2017-10-24 14:56 | PN.NEURO_ITS ---
Subjective: Patient seen, no new complaints. Tolerating therapy. Denies any shortness of breath or pain. No issues with GI/. - Physical Exam General: Alert, Oriented x3, Cooperative HEENT: Atraumatic, PERRLA, EOMI, Normocephalic Neck: Supple, No JVD, Negative Carotid Bruits Lungs: Clear to auscultation, Normal air movement Cardiovascular: Regular rate, No murmurs Abdomen: Bowel Sounds Present, Soft, Non Tender Extremities: No edema, Capillary Refill Less than 3 Seconds Skin: No rashes, No breakdown Musculoskeletal: No Tenderness to Palpation of Joints or Extremities Neurological: Cranial nerves II-XII grossly intact Psych/Mental Status: Normal Affect, Appropriate Vital Signs Temp Pulse Resp BP Pulse Ox 97.7 F L 71 18 155/77 H 93 10/24/17 08:20 10/24/17 08:20 10/24/17 08:20 10/24/17 08:20 10/24/17 08:20 Oxygen Flow Rate 2 Oxygen Delivery Method Room Air Weight: 121.8 kg Body Mass Index (BMI) 38.6 Intake and Output for Last 24 Hours 10/22/17 10/23/17 10/24/17 23:59 23:59 23:59 Intake Total 840 / 840 980 / 980 260 / 260 Balance 840 / 840 980 / 980 260 / 260 Active Medications Acetaminophen (Tylenol) 650 mg PO Q4H PRN PRN PRN Reason: PAIN Last Admin: 10/22/17 05:05 Dose: 650 mg Albuterol Sulfate (Ventolin Hfa (Sp)) 2 puff INHALATION Q4H PRN PRN PRN Reason: WHEEZING Amlodipine Besylate (Norvasc) 5 mg PO DAILY [facility] Last Admin: 10/24/17 07:33 Dose: 5 mg [facility] Last Admin: 10/24/17 07:32 Dose: 81 mg Atorvastatin Calcium (Lipitor) 80 mg PO QHS [facility] Last Admin: 10/23/17 20:44 Dose: 80 mg Bisacodyl (Dulcolax) 10 mg RECTAL .PRN X 1 PRN PRN Reason: Constipation Calamine/Phenol (Calmoseptine Ointment) 1 applic TOPICAL BID [facility] PRN Reason: Protocol Last Admin: 10/24/17 11:34 Dose: 1 applicatio Carvedilol (Coreg) 25 mg PO BID [facility] Last Admin: 10/24/17 07:32 Dose: 25 mg Clopidogrel Bisulfate (Plavix) 75 mg PO DAILY [facility] Last Admin: 10/24/17 07:33 Dose: 75 mg Enoxaparin Sodium (Lovenox) 30 mg SC DAILY@0600 [facility] Last Admin: 10/24/17 05:22 Dose: 30 mg Escitalopram Oxalate (Lexapro) 10 mg PO DAILY [facility] Last Admin: 10/24/17 07:33 Dose: 10 mg Finasteride (Proscar) 5 mg PO DAILY [facility] Last Admin: 10/24/17 07:33 Dose: 5 mg Lisinopril (Zestril) 40 mg PO DAILY [facility] Last Admin: 10/24/17 07:33 Dose: 40 mg Loratadine (Claritin) 5 mg PO DAILY [facility] Last Admin: 10/24/17 07:32 Dose: 5 mg Magnesium Hydroxide (Milk Of Magnesia) 30 ml PO .PRN X 1 PRN PRN Reason: Constipation Neomycin/Polymyxin/Hydrocortisone (Otocort Susp) 4 drop OTIC Q8H [facility] Last Admin: 10/24/17 14:38 Dose: 4 drop Nitroglycerin (Nitrostat) 0.4 mg SUBLINGUAL Q5M PRN PRN Reason: CARDIAC/CHEST PAIN Last Admin: 10/12/17 08:34 Dose: 0.4 mg Pantoprazole Sodium (Protonix) 20 mg PO BID [facility] Last Admin: 10/24/17 07:33 Dose: 20 mg Senna/Docusate Sodium (Senokot-S, Suki-Colace) 2 tablet PO BID [facility] Last Admin: 10/24/17 07:35 Dose: Not Given Sodium Chloride () 5 - 30 ml IV UD PRN PRN Reason: SALINE FLUSH Last Admin: 10/12/17 22:30 Dose: 20 ml Assessment/Plan debility s/p right parietal infarct 2/2 to symptomatic right ICA occlusion. complicated by a previous left lacunar ICH, and a right parietal ischemic stroke in 2016. The goal of rehab is zoroastrianism of functional independence. Plan: - Physical therapy for gait and balance - Occupational Therapy for ADLs - As needed analgesics - Bowel protocol - Stroke prevention on ASA, Statin, and Plavix - DVT prophylaxis: SCDs, Prasad hosbob, Lovenox - Hypertension: BP continues to be Elevated, Keep BP < 130/80 mmHg => currently on Coreg 25mg, Zestril 40mg, will add Norvasc 5mg daily - Hx of HLD continue home dose of statin, Check LDL and Hba1c levels - Anxiety: Lexapro - Stent placement right ICA=> continue Plavix - Cervical spondylosis => Continued neck pain 2/2 fall prior to stroke => continue C-Collar - Hx GERD continue home medication - Hx Hep C - Hx Asthma - Hx of left lacunar ICH and a right parietal ischemic stroke - Restart Lovenox at 30mg daily - Recheck INR levels
[2017-10-24 17:22] LABS: International Normalized Ratio 1.1; Prothrombin Time (Protime)PT. 14.2 SECONDS (11.7-14.9)
[2017-10-24 20:45] VITALS: BP 136/74; PULSE 61; RESP 18; TEMP 36.4; O2SAT 94; BMI 38.6
[2017-10-24] MEDS: Senna/Docusate Sodium 1 Tablet 2 TABLET PO (20:54)
[2017-10-24] MEDS: Atorvastatin Calcium 80 MG Tablet PO (20:55)
--- NOTE | 2017-10-25 04:42 | NURSING ---
Reviewed and agree with LPNs fims and handoff
[2017-10-25] MEDS: Enoxaparin 30 MG/0.3 ML Syringe SC (05:10)
[2017-10-25] MEDS: Lisinopril 40 MG Tablet PO (08:14)
[2017-10-25] MEDS: Senna/Docusate Sodium 1 Tablet 2 TABLET PO (08:14)
[2017-10-25] MEDS: Aspirin 81 MG TAB.CHEW PO (08:15)
[2017-10-25] MEDS: Carvedilol 25 MG Tablet PO ×2 (08:15→22:16)
[2017-10-25] MEDS: Loratadine 10 MG Tablet 5 MG PO (08:15)
[2017-10-25] MEDS: Escitalopram Oxalate 10 MG Tablet PO (08:15)
[2017-10-25] MEDS: amLODIPine 5 MG Tablet PO (08:15)
[2017-10-25] MEDS: Clopidogrel Bisulfate 75 MG Tablet PO (08:15)
[2017-10-25] MEDS: Pantoprazole Sodium 20 MG Tablet PO ×2 (08:15→22:16)
[2017-10-25] MEDS: Finasteride 5 MG Tablet PO (08:15)
[2017-10-25] MEDS: Menthol/Lanolin/Calamine/Znox 113 GM Tube 1 APPLIC TOPICAL ×2 (08:18→22:16)
[2017-10-25 08:53] VITALS: PULSE 72; RESP 18; TEMP 36.5; O2SAT 91
[2017-10-25] MEDS: Acetaminophen 325 MG Tablet 650 MG PO (09:09)
--- NOTE | 2017-10-25 12:41 | PCM.PN.HOSP ---
Subjective: Patient tolerating PT and slowly improving Objective: GENERAL: cooperative HEENT: Clear conjunctiva, NECK; supple, normal thyroid, CHEST: Clear to auscultation bilaterally, HEART: Regular S1 S2, no audible murmurs ABDOMEN: soft, non-tender, normoactive bowel sounds, RECTAL: deferred EXTREMITIES: No edema, no clubbing, [employer] LAMINATOR: Awake, left-sided hemiparesis SKIN: No Rash Vitals/I&O's: Vital Signs Temp Pulse Resp BP Pulse Ox 97.7 F L 72 18 136/74 H 91 10/25/17 08:53 10/25/17 08:53 10/25/17 08:53 10/24/17 20:45 10/25/17 08:53 Oxygen Flow Rate 2 Oxygen Delivery Method Room Air Weight: 121.8 kg Body Mass Index (BMI) 38.6 Intake and Output for Last 24 Hours 10/23/17 10/24/17 10/25/17 23:59 23:59 23:59 Intake Total 980 / 980 520 / 520 460 / 460 Balance 980 / 980 520 / 520 460 / 460 Laboratory Results 10/24/17 16:45: PT 14.2, INR 1.1 Current Medications Acetaminophen (Tylenol) 650 mg PO Q4H PRN PRN PRN Reason: PAIN Last Admin: 10/25/17 09:09 Dose: 650 mg Albuterol Sulfate (Ventolin Hfa (Sp)) 2 puff INHALATION Q4H PRN PRN PRN Reason: WHEEZING Amlodipine Besylate (Norvasc) 5 mg PO DAILY [facility] Last Admin: 10/25/17 08:15 Dose: 5 [facility] Last Admin: 10/25/17 08:15 Dose: 81 mg Atorvastatin Calcium (Lipitor) 80 mg PO QHS [facility] Last Admin: 10/24/17 20:55 Dose: 80 mg Bisacodyl (Dulcolax) 10 mg RECTAL .PRN X 1 PRN PRN Reason: Constipation Calamine/Phenol (Calmoseptine Ointment) 1 applic TOPICAL BID [facility] PRN Reason: Protocol Last Admin: 10/25/17 08:18 Dose: 1 applicatio Carvedilol (Coreg) 25 mg PO BID [facility] Last Admin: 10/25/17 08:15 Dose: 25 mg Clopidogrel Bisulfate (Plavix) 75 mg PO DAILY [facility] Last Admin: 10/25/17 08:15 Dose: 75 mg Enoxaparin Sodium (Lovenox) 30 mg SC DAILY@0600 [facility] Last Admin: 10/25/17 05:10 Dose: 30 mg Escitalopram Oxalate (Lexapro) 10 mg PO DAILY [facility] Last Admin: 10/25/17 08:15 Dose: 10 mg Finasteride (Proscar) 5 mg PO DAILY [facility] Last Admin: 10/25/17 08:15 Dose: 5 mg Lisinopril (Zestril) 40 mg PO DAILY [facility] Last Admin: 10/25/17 08:14 Dose: 40 mg Loratadine (Claritin) 5 mg PO DAILY [facility] Last Admin: 10/25/17 08:15 Dose: 5 mg Magnesium Hydroxide (Milk Of Magnesia) 30 ml PO .PRN X 1 PRN PRN Reason: Constipation Nitroglycerin (Nitrostat) 0.4 mg SUBLINGUAL Q5M PRN PRN Reason: CARDIAC/CHEST PAIN Last Admin: 10/12/17 08:34 Dose: 0.4 mg Pantoprazole Sodium (Protonix) 20 mg PO BID [facility] Last Admin: 10/25/17 08:15 Dose: 20 mg Senna/Docusate Sodium (Senokot-S, Suki-Colace) 2 tablet PO BID [facility] Last Admin: 10/25/17 08:14 Dose: 1 tablet Sodium Chloride () 5 - 30 ml IV UD PRN PRN Reason: SALINE FLUSH Last Admin: 10/12/17 22:30 Dose: 20 ml Assessment/Plan Patient is a 57-year-old male admitted to the inpatient rehab unit with 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 He underwent right ICA occlusion at [facility] prior to his admission to the inpatient rehab unit 1. Acute right parietal infarct due to right ICA occlusion status post angioplasty and placement. Admitted to the inpatient rehab unit where patient is currently undergoing therapy. Patient is also on antiplatelet therapy as well as started 2. Hypertension-blood pressure controlled, home medications continued with dose adjustment as needed 3. Dyslipidemia: On statin therapy did continue 4. History of cervical spondylosis 5. DVT prophylaxis SC Lovenox Code Visit Inpatient E&M: [id number] Subs Hosp L2
[2017-10-25 17:00] VITALS: BMI 38.6
[2017-10-25 22:00] VITALS: BP 154/80; PULSE 64; RESP 16; TEMP 36.4; O2SAT 95
[2017-10-25] MEDS: Atorvastatin Calcium 80 MG Tablet PO (22:16)
[2017-10-25 23:38] VITALS: BMI 38.6
[2017-10-26] MEDS: Enoxaparin 30 MG/0.3 ML Syringe SC (05:33)
[2017-10-26 08:02] VITALS: BP 163/88; PULSE 69; RESP 18; TEMP 36.8; O2SAT 95
[2017-10-26] MEDS: Pantoprazole Sodium 20 MG Tablet PO ×2 (08:06→20:48)
[2017-10-26] MEDS: Aspirin 81 MG TAB.CHEW PO (08:06)
[2017-10-26] MEDS: Escitalopram Oxalate 10 MG Tablet PO (08:06)
[2017-10-26] MEDS: Finasteride 5 MG Tablet PO (08:06)
[2017-10-26] MEDS: Lisinopril 40 MG Tablet PO (08:06)
[2017-10-26] MEDS: Loratadine 10 MG Tablet 5 MG PO ×2 (08:06→21:10)
[2017-10-26] MEDS: Clopidogrel Bisulfate 75 MG Tablet PO (08:07)
[2017-10-26] MEDS: Carvedilol 25 MG Tablet PO ×2 (08:07→20:49)
[2017-10-26] MEDS: Menthol/Lanolin/Calamine/Znox 113 GM Tube 1 APPLIC TOPICAL (08:08)
[2017-10-26] MEDS: amLODIPine 10 MG Tablet PO (08:41)
[2017-10-26 10:50] VITALS: BP 125/74; PULSE 76
[2017-10-26 13:51] VITALS: BMI 38.6
[2017-10-26 20:45] VITALS: BP 145/92; PULSE 70; RESP 16; TEMP 36.8; O2SAT 97; BMI 38.6
[2017-10-26] MEDS: Atorvastatin Calcium 80 MG Tablet PO (20:49)
[2017-10-27] MEDS: Enoxaparin 30 MG/0.3 ML Syringe SC (06:31)
--- NOTE | 2017-10-27 07:03 | NURSING ---
Reviewed and agree with LPNs handoff and fims
[2017-10-27] MEDS: Lisinopril 40 MG Tablet PO (08:30)
[2017-10-27] MEDS: Loratadine 10 MG Tablet 5 MG PO (08:30)
[2017-10-27] MEDS: amLODIPine 10 MG Tablet PO (08:31)
[2017-10-27] MEDS: Carvedilol 25 MG Tablet PO ×2 (08:31→21:07)
[2017-10-27] MEDS: Pantoprazole Sodium 20 MG Tablet PO ×2 (08:31→21:07)
[2017-10-27] MEDS: Finasteride 5 MG Tablet PO (08:31)
[2017-10-27] MEDS: Clopidogrel Bisulfate 75 MG Tablet PO (08:31)
[2017-10-27] MEDS: Escitalopram Oxalate 10 MG Tablet PO (08:31)
[2017-10-27] MEDS: Aspirin 81 MG TAB.CHEW PO (08:31)
[2017-10-27 09:47] VITALS: BP 160/93; PULSE 72; RESP 16; TEMP 36.6; O2SAT 96
[2017-10-27 12:48] VITALS: BMI 38.6
--- NOTE | 2017-10-27 17:37 | PCM.PN.NEU ---
Subjective: Patient seen and examined. Having increased allergy symptoms during the night currently on Claritin 5mg will increase to 10mg. Tolerating therapy. No issues with GI/. - Physical Exam General: Alert, Oriented x3, Cooperative HEENT: Atraumatic, PERRLA, EOMI, Normocephalic Neck: Supple, No JVD, Negative Carotid Bruits Lungs: Clear to auscultation, Normal air movement Cardiovascular: Regular rate, No murmurs Abdomen: Bowel Sounds Present, Soft, Non Tender Extremities: No edema, Capillary Refill Less than 3 Seconds Skin: No rashes, No breakdown Musculoskeletal: No Tenderness to Palpation of Joints or Extremities Neurological: Cranial nerves II-XII grossly intact Psych/Mental Status: Normal Affect, Appropriate Vital Signs Temp Pulse Resp BP Pulse Ox 97.8 F 72 16 160/93 H 96 10/27/17 09:47 10/27/17 09:47 10/27/17 09:47 10/27/17 09:47 10/27/17 09:47 Oxygen Flow Rate (L/min) 2 Oxygen Delivery Method Room Air Weight: 121.8 kg Body Mass Index (BMI) 38.6 Intake and Output for Last 24 Hours 10/25/17 10/26/17 10/27/17 23:59 23:59 23:59 Intake Total 1180 / 1180 640 / 640 740 / 740 Balance 1180 / 1180 640 / 640 740 / 740 Active Medications Acetaminophen (Tylenol) 650 mg PO Q4H PRN PRN PRN Reason: PAIN Last Admin: 10/25/17 09:09 Dose: 650 mg Albuterol Sulfate (Ventolin Hfa (Sp)) 2 puff INHALATION Q4H PRN PRN PRN Reason: WHEEZING Amlodipine Besylate (Norvasc) 10 mg PO DAILY [facility] Last Admin: 10/27/17 08:31 Dose: 10 mg Aspirin (Aspirin, Baby) 81 mg PO DAILYCM [facility] Last Admin: 10/27/17 08:31 Dose: 81 mg Atorvastatin Calcium (Lipitor) 80 mg PO QHS [facility] Last Admin: 10/26/17 20:49 Dose: 80 mg Bisacodyl (Dulcolax) 10 mg RECTAL .PRN X 1 PRN PRN Reason: Constipation Calamine/Phenol (Calmoseptine Ointment) 1 applic TOPICAL BID PRN; Protocol PRN Reason: redness Carvedilol (Coreg) 25 mg PO BID [facility] Last Admin: 10/27/17 08:31 Dose: 25 mg Clopidogrel Bisulfate (Plavix) 75 mg PO DAILY [facility] Last Admin: 10/27/17 08:31 Dose: 75 mg Enoxaparin Sodium (Lovenox) 30 mg SC DAILY@0600 [facility] Last Admin: 10/27/17 06:31 Dose: 30 mg Escitalopram Oxalate (Lexapro) 10 mg PO DAILY [facility] Last Admin: 10/27/17 08:31 Dose: 10 mg Finasteride (Proscar) 5 mg PO DAILY [facility] Last Admin: 10/27/17 08:31 Dose: 5 mg Lisinopril (Zestril) 40 mg PO DAILY [facility] Last Admin: 10/27/17 08:30 Dose: 40 mg Loratadine (Claritin) 10 mg PO DAILY [facility] Magnesium Hydroxide (Milk Of Magnesia) 30 ml PO .PRN X 1 PRN PRN Reason: Constipation Nitroglycerin (Nitrostat) 0.4 mg SUBLINGUAL Q5M PRN PRN Reason: CARDIAC/CHEST PAIN Last Admin: 10/12/17 08:34 Dose: 0.4 mg Pantoprazole Sodium (Protonix) 20 mg PO BID [facility] Last Admin: 10/27/17 08:31 Dose: 20 mg Senna/Docusate Sodium (Senokot-S, Suki-Colace) 2 tablet PO BID [facility] Last Admin: 10/27/17 08:35 Dose: Not Given Sodium Chloride () 5 - 30 ml IV UD PRN PRN Reason: SALINE FLUSH Last Admin: 10/12/17 22:30 Dose: 20 ml Assessment/Plan debility s/p right parietal infarct 2/2 to symptomatic right ICA occlusion. complicated by a previous left lacunar ICH, and a right parietal ischemic stroke in 2016. The goal of rehab is gnosticism of functional independence. Plan: - Physical therapy for gait and balance - Occupational Therapy for ADLs - As needed analgesics - Bowel protocol - Stroke prevention on ASA, Statin, and Plavix - DVT prophylaxis: SCDs, Prasad stinson, Lovenox - Hypertension: BP continues to be Elevated, Keep BP < 130/80 mmHg => currently on Coreg 25mg, Zestril 40mg, will add Norvasc 5mg daily - Hx of HLD continue home dose of statin, Check LDL and Hba1c levels - Anxiety: Lexapro - Stent placement right ICA=> continue Plavix - Cervical spondylosis => Continued neck pain 2/2 fall prior to stroke => continue C-Collar - Hx GERD continue home medication - Hx Hep C - Hx Asthma - Hx of left lacunar ICH and a right parietal ischemic stroke - Restart Lovenox at 30mg daily
--- NOTE | 2017-10-27 17:40 | PN.NEURO_ITS ---
Subjective: Patient seen and examined. Having increased allergy symptoms during the night currently on Claritin 5mg will increase to 10mg. Tolerating therapy. No issues with GI/. - Physical Exam General: Alert, Oriented x3, Cooperative HEENT: Atraumatic, PERRLA, EOMI, Normocephalic Neck: Supple, No JVD, Negative Carotid Bruits Lungs: Clear to auscultation, Normal air movement Cardiovascular: Regular rate, No murmurs Abdomen: Bowel Sounds Present, Soft, Non Tender Extremities: No edema, Capillary Refill Less than 3 Seconds Skin: No rashes, No breakdown Musculoskeletal: No Tenderness to Palpation of Joints or Extremities Neurological: Cranial nerves II-XII grossly intact Psych/Mental Status: Normal Affect, Appropriate Vital Signs Temp Pulse Resp BP Pulse Ox 97.8 F 72 16 160/93 H 96 10/27/17 09:47 10/27/17 09:47 10/27/17 09:47 10/27/17 09:47 10/27/17 09:47 Oxygen Flow Rate (L/min) 2 Oxygen Delivery Method Room Air Weight: 121.8 kg Body Mass Index (BMI) 38.6 Intake and Output for Last 24 Hours 10/25/17 10/26/17 10/27/17 23:59 23:59 23:59 Intake Total 1180 / 1180 640 / 640 740 / 740 Balance 1180 / 1180 640 / 640 740 / 740 Active Medications Acetaminophen (Tylenol) 650 mg PO Q4H PRN PRN PRN Reason: PAIN Last Admin: 10/25/17 09:09 Dose: 650 mg Albuterol Sulfate (Ventolin Hfa (Sp)) 2 puff INHALATION Q4H PRN PRN PRN Reason: WHEEZING Amlodipine Besylate (Norvasc) 10 mg PO DAILY [facility] Last Admin: 10/27/17 08:31 Dose: 10 mg Aspirin (Aspirin, Baby) 81 mg PO DAILYCM [facility] Last Admin: 10/27/17 08:31 Dose: 81 mg Atorvastatin Calcium (Lipitor) 80 mg PO QHS [facility] Last Admin: 10/26/17 20:49 Dose: 80 mg Bisacodyl (Dulcolax) 10 mg RECTAL .PRN X 1 PRN PRN Reason: Constipation Calamine/Phenol (Calmoseptine Ointment) 1 applic TOPICAL BID PRN; Protocol PRN Reason: redness Carvedilol (Coreg) 25 mg PO BID [facility] Last Admin: 10/27/17 08:31 Dose: 25 mg Clopidogrel Bisulfate (Plavix) 75 mg PO DAILY [facility] Last Admin: 10/27/17 08:31 Dose: 75 mg Enoxaparin Sodium (Lovenox) 30 mg SC DAILY@0600 [facility] Last Admin: 10/27/17 06:31 Dose: 30 mg Escitalopram Oxalate (Lexapro) 10 mg PO DAILY [facility] Last Admin: 10/27/17 08:31 Dose: 10 mg Finasteride (Proscar) 5 mg PO DAILY [facility] Last Admin: 10/27/17 08:31 Dose: 5 mg Lisinopril (Zestril) 40 mg PO DAILY [facility] Last Admin: 10/27/17 08:30 Dose: 40 mg Loratadine (Claritin) 10 mg PO DAILY [facility] Magnesium Hydroxide (Milk Of Magnesia) 30 ml PO .PRN X 1 PRN PRN Reason: Constipation Nitroglycerin (Nitrostat) 0.4 mg SUBLINGUAL Q5M PRN PRN Reason: CARDIAC/CHEST PAIN Last Admin: 10/12/17 08:34 Dose: 0.4 mg Pantoprazole Sodium (Protonix) 20 mg PO BID [facility] Last Admin: 10/27/17 08:31 Dose: 20 mg Senna/Docusate Sodium (Senokot-S, Suki-Colace) 2 tablet PO BID [facility] Last Admin: 10/27/17 08:35 Dose: Not Given Sodium Chloride () 5 - 30 ml IV UD PRN PRN Reason: SALINE FLUSH Last Admin: 10/12/17 22:30 Dose: 20 ml Assessment/Plan debility s/p right parietal infarct 2/2 to symptomatic right ICA occlusion. complicated by a previous left lacunar ICH, and a right parietal ischemic stroke in 2016. The goal of rehab is latter day of functional independence. Plan: - Physical therapy for gait and balance - Occupational Therapy for ADLs - As needed analgesics - Bowel protocol - Stroke prevention on ASA, Statin, and Plavix - DVT prophylaxis: SCDs, Prasad stinson, Lovenox - Hypertension: BP continues to be Elevated, Keep BP < 130/80 mmHg => currently on Coreg 25mg, Zestril 40mg, will add Norvasc 5mg daily - Hx of HLD continue home dose of statin, Check LDL and Hba1c levels - Anxiety: Lexapro - Stent placement right ICA=> continue Plavix - Cervical spondylosis => Continued neck pain 2/2 fall prior to stroke => continue C-Collar - Hx GERD continue home medication - Hx Hep C - Hx Asthma - Hx of left lacunar ICH and a right parietal ischemic stroke - Restart Lovenox at 30mg daily
[2017-10-27 21:00] VITALS: BP 148/81; PULSE 68; RESP 18; TEMP 36.8; O2SAT 96; BMI 38.6
[2017-10-27] MEDS: Senna/Docusate Sodium 1 Tablet 2 TABLET PO (21:06)
[2017-10-27] MEDS: Atorvastatin Calcium 80 MG Tablet PO (21:07)
--- NOTE | 2017-10-28 02:09 | NURSING ---
REVIEWED AND AGREE WITH [employer] FIM CHARTING.
[2017-10-28] MEDS: Enoxaparin 30 MG/0.3 ML Syringe SC (05:42)
--- NOTE | 2017-10-28 08:57 | PCM.PN.NEU ---
Subjective: No new complaints. Tolerating therapy and making great progress. No issues with GI/. - Physical Exam General: Alert, Oriented x3, Cooperative HEENT: Atraumatic, PERRLA, EOMI, Normocephalic Neck: Supple, No JVD, Negative Carotid Bruits Lungs: Clear to auscultation, Normal air movement Cardiovascular: Regular rate, No murmurs Abdomen: Bowel Sounds Present, Soft, Non Tender Extremities: No edema, Capillary Refill Less than 3 Seconds Skin: No rashes, No breakdown Musculoskeletal: No Tenderness to Palpation of Joints or Extremities Neurological: Cranial nerves II-XII grossly intact Psych/Mental Status: Normal Affect, Appropriate Vital Signs Temp Pulse Resp BP Pulse Ox 98.3 F 68 18 148/81 H 96 10/27/17 21:00 10/27/17 21:00 10/27/17 21:00 10/27/17 21:00 10/27/17 21:00 Oxygen Flow Rate (L/min) 2 Oxygen Delivery Method Room Air Weight: 121.8 kg Body Mass Index (BMI) 38.6 Intake and Output for Last 24 Hours 10/26/17 10/27/17 10/28/17 23:59 23:59 23:59 Intake Total 640 / 640 980 / 980 Balance 640 / 640 980 / 980 Active Medications Acetaminophen (Tylenol) 650 mg PO Q4H PRN PRN PRN Reason: PAIN Last Admin: 10/25/17 09:09 Dose: 650 mg Albuterol Sulfate (Ventolin Hfa (Sp)) 2 puff INHALATION Q4H PRN PRN PRN Reason: WHEEZING Amlodipine Besylate (Norvasc) 10 mg PO DAILY [facility] Last Admin: 10/27/17 08:31 Dose: 10 [facility] Admin: 10/27/17 08:31 Dose: 81 mg Atorvastatin Calcium (Lipitor) 80 mg PO QHS [facility] Last Admin: 10/27/17 21:07 Dose: 80 mg Bisacodyl (Dulcolax) 10 mg RECTAL .PRN X 1 PRN PRN Reason: Constipation Calamine/Phenol (Calmoseptine Ointment) 1 applic TOPICAL BID PRN; Protocol PRN Reason: redness Carvedilol (Coreg) 25 mg PO BID [facility] Last Admin: 10/27/17 21:07 Dose: 25 mg Clopidogrel Bisulfate (Plavix) 75 mg PO DAILY [facility] Last Admin: 10/27/17 08:31 Dose: 75 mg Enoxaparin Sodium (Lovenox) 30 mg SC DAILY@0600 [facility] Last Admin: 10/28/17 05:42 Dose: 30 mg Escitalopram Oxalate (Lexapro) 10 mg PO DAILY [facility] Last Admin: 10/27/17 08:31 Dose: 10 mg Finasteride (Proscar) 5 mg PO DAILY [facility] Last Admin: 10/27/17 08:31 Dose: 5 mg Lisinopril (Zestril) 40 mg PO DAILY [facility] Last Admin: 10/27/17 08:30 Dose: 40 mg Loratadine (Claritin) 10 mg PO DAILY [facility] Magnesium Hydroxide (Milk Of Magnesia) 30 ml PO .PRN X 1 PRN PRN Reason: Constipation Nitroglycerin (Nitrostat) 0.4 mg SUBLINGUAL Q5M PRN PRN Reason: CARDIAC/CHEST PAIN Last Admin: 10/12/17 08:34 Dose: 0.4 mg Pantoprazole Sodium (Protonix) 20 mg PO BID [facility] Last Admin: 10/27/17 21:07 Dose: 20 mg Senna/Docusate Sodium (Senokot-S, Suki-Colace) 2 tablet PO BID [facility] Last Admin: 10/27/17 21:06 Dose: 1 tablet Sodium Chloride () 5 - 30 ml IV UD PRN PRN Reason: SALINE FLUSH Last Admin: 10/12/17 22:30 Dose: 20 ml Assessment/Plan debility s/p right parietal infarct 2/2 to symptomatic right ICA occlusion. complicated by a previous left lacunar ICH, and a right parietal ischemic stroke in 2016. The goal of rehab is judaism of functional independence. Plan: - Physical therapy for gait and balance - Occupational Therapy for ADLs - As needed analgesics - Bowel protocol - Stroke prevention on ASA, Statin, and Plavix - DVT prophylaxis: SCDs, Timmy Zuleta - Hypertension: BP continues to be Elevated, Keep BP < 130/80 mmHg => currently on Coreg 25mg, Zestril 40mg, will add Norvasc 5mg daily - Hx of HLD continue home dose of statin, Check LDL and Hba1c levels - Anxiety: Lexapro - Stent placement right ICA=> continue Plavix - Cervical spondylosis => Continued neck pain 2/2 fall prior to stroke => continue C-Collar - Hx GERD continue home medication - Hx Hep C - Hx Asthma - Hx of left lacunar ICH and a right parietal ischemic stroke - Lovenox at 30mg daily - Pollen/perfume Allergies -> started on Claritin 10mg
[2017-10-28 10:00] VITALS: BP 167/89; PULSE 69; RESP 16; TEMP 36.8; O2SAT 93
[2017-10-28] MEDS: amLODIPine 10 MG Tablet PO (10:02)
[2017-10-28] MEDS: Loratadine 10 MG Tablet PO (10:02)
[2017-10-28] MEDS: Finasteride 5 MG Tablet PO (10:02)
[2017-10-28] MEDS: Carvedilol 25 MG Tablet PO ×2 (10:02→19:53)
[2017-10-28] MEDS: Lisinopril 40 MG Tablet PO (10:02)
[2017-10-28] MEDS: Clopidogrel Bisulfate 75 MG Tablet PO (10:02)
[2017-10-28] MEDS: Pantoprazole Sodium 20 MG Tablet PO ×2 (10:02→19:53)
[2017-10-28] MEDS: Escitalopram Oxalate 10 MG Tablet PO (10:02)
[2017-10-28] MEDS: Aspirin 81 MG TAB.CHEW PO (10:02)
[2017-10-28] MEDS: Senna/Docusate Sodium 1 Tablet 2 TABLET PO (10:03)
[2017-10-28 11:19] VITALS: BMI 38.6
--- NOTE | 2017-10-28 11:54 | CASEMGMT ---
Insurance Clinical information faxed. Pending continued stay approval at this time. Auth#[id number] Elvia DENT, PARTS COUNTER ASSOCIATE
[2017-10-28] MEDS: NYSTATIN 500,000 UNIT/5 ML UDC 500000 UNIT PO ×3 (13:59→19:54)
[2017-10-28 17:09] VITALS: BP 133/74; PULSE 64; RESP 18
[2017-10-28 19:45] VITALS: PULSE 68; RESP 16; O2SAT 95; BMI 38.6
[2017-10-28] MEDS: Atorvastatin Calcium 80 MG Tablet PO (19:53)
--- NOTE | 2017-10-28 20:32 | NURSING ---
Hospitalist paged re:allergic reaction pt had to an odor. 1x dose of Benadryl ordered.
[2017-10-28] MEDS: DiphenhydrAMINE 25 MG Capsule PO (20:40)
--- NOTE | 2017-10-29 04:39 | NURSING ---
Reviewed and agree with TURF SALES PERSON documentation.
[2017-10-29 07:53] VITALS: BP 153/79; PULSE 68; RESP 18; TEMP 36.7; O2SAT 95
[2017-10-29] MEDS: Finasteride 5 MG Tablet PO (08:08)
[2017-10-29] MEDS: Loratadine 10 MG Tablet PO (08:08)
[2017-10-29] MEDS: Lisinopril 40 MG Tablet PO (08:08)
[2017-10-29] MEDS: Escitalopram Oxalate 10 MG Tablet PO (08:08)
[2017-10-29] MEDS: Pantoprazole Sodium 20 MG Tablet PO ×2 (08:08→20:59)
[2017-10-29] MEDS: Clopidogrel Bisulfate 75 MG Tablet PO (08:09)
[2017-10-29] MEDS: Aspirin 81 MG TAB.CHEW PO (08:09)
[2017-10-29] MEDS: Enoxaparin 30 MG/0.3 ML Syringe SC (08:09)
[2017-10-29] MEDS: Carvedilol 25 MG Tablet PO ×2 (08:09→20:59)
[2017-10-29] MEDS: NYSTATIN 500,000 UNIT/5 ML UDC 500000 UNIT PO ×4 (08:09→20:59)
[2017-10-29] MEDS: amLODIPine 10 MG Tablet PO (08:10)
--- NOTE | 2017-10-29 08:54 | PN.NEURO_ITS ---
Subjective: Patient seen and examined. No acute events over night. Tolerating therapy. Denies any shortness of breath, or chest pains. No issues with GI/. - Physical Exam General: Alert, Oriented x3, Cooperative HEENT: Atraumatic, PERRLA, EOMI, Normocephalic Neck: Supple, No JVD, Negative Carotid Bruits Lungs: Clear to auscultation, Normal air movement Cardiovascular: Regular rate, No murmurs Abdomen: Bowel Sounds Present, Soft, Non Tender Extremities: No edema, Capillary Refill Less than 3 Seconds Skin: No rashes, No breakdown Musculoskeletal: No Tenderness to Palpation of Joints or Extremities Neurological: Cranial nerves II-XII grossly intact Psych/Mental Status: Normal Affect, Appropriate Vital Signs Temp Pulse Resp BP Pulse Ox 98.0 F 68 18 153/79 H 95 10/29/17 07:53 10/29/17 07:53 10/29/17 07:53 10/29/17 07:53 10/29/17 07:53 Oxygen Flow Rate (L/min) 2 Oxygen Delivery Method Room Air Weight: 124.2 kg Body Mass Index (BMI) 38.6 Intake and Output for Last 24 Hours 10/27/17 10/28/17 10/29/17 23:59 23:59 23:59 Intake Total 980 / 980 820 / 820 360 / 360 Balance 980 / 980 820 / 820 360 / 360 Active Medications Acetaminophen (Tylenol) 650 mg PO Q4H PRN PRN PRN Reason: PAIN Last Admin: 10/25/17 09:09 Dose: 650 mg Albuterol Sulfate (Ventolin Hfa (Sp)) 2 puff INHALATION Q4H PRN PRN PRN Reason: WHEEZING Last Admin: 10/28/17 20:29 Dose: 2 inhaler Amlodipine Besylate (Norvasc) 10 mg PO DAILY [facility] Last Admin: 10/29/17 08:10 Dose: 10 mg [facility]irin ([facility]in, Baby) [facility] Last Admin: 10/29/17 08:09 Dose: 81 mg Atorvastatin Calcium (Lipitor) 80 mg PO QHS [facility] Last Admin: 10/28/17 19:53 Dose: 80 mg Bisacodyl (Dulcolax) 10 mg RECTAL .PRN X 1 PRN PRN Reason: Constipation Calamine/Phenol (Calmoseptine Ointment) 1 applic TOPICAL BID PRN; Protocol PRN Reason: redness Carvedilol (Coreg) 25 mg PO BID [facility] Last Admin: 10/29/17 08:09 Dose: 25 mg Clopidogrel Bisulfate (Plavix) 75 mg PO DAILY [facility] Last Admin: 10/29/17 08:09 Dose: 75 mg Enoxaparin Sodium (Lovenox) 30 mg SC DAILY@0600 [facility] Last Admin: 10/29/17 08:09 Dose: 30 mg Escitalopram Oxalate (Lexapro) 10 mg PO DAILY [facility] Last Admin: 10/29/17 08:08 Dose: 10 mg Finasteride (Proscar) 5 mg PO DAILY [facility] Last Admin: 10/29/17 08:08 Dose: 5 mg Lisinopril (Zestril) 40 mg PO DAILY [facility] Last Admin: 10/29/17 08:08 Dose: 40 mg Loratadine (Claritin) 10 mg PO DAILY [facility] Last Admin: 10/29/17 08:08 Dose: 10 mg Magnesium Hydroxide (Milk Of Magnesia) 30 ml PO .PRN X 1 PRN PRN Reason: Constipation Nitroglycerin (Nitrostat) 0.4 mg SUBLINGUAL Q5M PRN PRN Reason: CARDIAC/CHEST PAIN Last Admin: 10/12/17 08:34 Dose: 0.4 mg Nystatin (Nystatin) 500,000 unit PO 4X/DAY [facility] Last Admin: 10/29/17 08:09 Dose: 500,000 unit Pantoprazole Sodium (Protonix) 20 mg PO BID [facility] Last Admin: 10/29/17 08:08 Dose: 20 mg Senna/Docusate Sodium (Senokot-S, Suki-Colace) 2 tablet PO BID [facility] Last Admin: 10/29/17 08:10 Dose: Not Given Sodium Chloride () 5 - 30 ml IV UD PRN PRN Reason: SALINE FLUSH Last Admin: 10/12/17 22:30 Dose: 20 ml Assessment/Plan debility s/p right parietal infarct 2/2 to symptomatic right ICA occlusion. complicated by a previous left lacunar ICH, and a right parietal ischemic stroke in 2016. The goal of rehab is taoist of functional independence. Plan: - Physical therapy for gait and balance - Occupational Therapy for ADLs - As needed analgesics - Bowel protocol - Stroke prevention on ASA, Statin, and Plavix - DVT prophylaxis: SCDs, Prasad stinson, Lovenox - Hypertension: BP continues to be Elevated, Keep BP < 130/80 mmHg => currently on Coreg 25mg, Zestril 40mg, will add Norvasc 5mg daily - Hx of HLD continue home dose of statin, Check LDL and Hba1c levels - Anxiety: Lexapro - Stent placement right ICA=> continue Plavix - Cervical spondylosis => Continued neck pain 2/2 fall prior to stroke => continue C-Collar - Hx GERD continue home medication - Hx Hep C - Hx Asthma - Hx of left lacunar ICH and a right parietal ischemic stroke - Lovenox at 30mg daily - Pollen/perfume Allergies -> started on Claritin 10mg
[2017-10-29 11:16] VITALS: BMI 38.6
[2017-10-29 14:12] VITALS: BP 134/76; PULSE 69
[2017-10-29 20:54] VITALS: BP 147/84; PULSE 68; RESP 18; TEMP 36.6; O2SAT 96
[2017-10-29 20:56] VITALS: BMI 38.6
[2017-10-29] MEDS: Atorvastatin Calcium 80 MG Tablet PO (20:59)
[2017-10-30] MEDS: Enoxaparin 30 MG/0.3 ML Syringe SC (06:13)
[2017-10-30] MEDS: Pantoprazole Sodium 20 MG Tablet PO ×2 (07:58→20:05)
[2017-10-30] MEDS: Finasteride 5 MG Tablet PO (07:58)
[2017-10-30] MEDS: Lisinopril 40 MG Tablet PO (07:58)
[2017-10-30] MEDS: Loratadine 10 MG Tablet PO (07:59)
[2017-10-30] MEDS: amLODIPine 10 MG Tablet PO (07:59)
[2017-10-30] MEDS: Carvedilol 25 MG Tablet PO ×2 (07:59→20:05)
[2017-10-30] MEDS: Aspirin 81 MG TAB.CHEW PO (07:59)
[2017-10-30] MEDS: Clopidogrel Bisulfate 75 MG Tablet PO (07:59)
[2017-10-30 09:13] VITALS: BP 129/84; PULSE 81; RESP 18; TEMP 37; O2SAT 93
--- NOTE | 2017-10-30 09:50 | CASEMGMT ---
Team meeting held. Patient present, no support person present at this time. Patient requesting for this outreach and education social worker to contact patient significant other, Winsome - [phone] to update Winsome on team meeting. Communicating to patient that continued stay has been approved with insurance. Patient voicing understanding and reporting that first choice for senior care is now [facility] ([facility]) in the event that patient is unable to discharge home and insurance denies continued coverage. Support given. Telephone call to Winsome, this outreach and education social worker leaving voicemail encouraging Winsome to contact this outreach and education social worker back. Will continue to follow. Elvia DENT, UPHOLSTERY INSTRUCTOR
[2017-10-30] MEDS: NYSTATIN 500,000 UNIT/5 ML UDC 500000 UNIT PO ×4 (09:52→20:05)
[2017-10-30] MEDS: Escitalopram Oxalate 10 MG Tablet PO (09:52)
--- NOTE | 2017-10-30 12:30 | PN.NEURO_ITS ---
Subjective: Staffed in team meeting. No family at bedside. Questions answered. With Physical therapy he is moderate assist for bed mobility. He is minimal assist for going from a sitting position to a standing position. He is able to walk 190 feet using a Carlos Eduardo-walker with contact assist. With Occupational therapy, he is minimal assist for bathing with lower body being a moderate to max assist. He is setup and stand by assist for grooming. He has some movement in his left shoulder and the Triceps, but not in the hand or wrist. He has some left sided neglect and can create safety issues when he does not stay focus. With Speech therapy he does well when he stays focus and pays attention to what he is doing. He has improved greatly from admission. With Nursing no issues. correction worker has been approved more time till next week. Will up date again on 11/03. - Physical Exam General: Alert, Oriented x3, Cooperative HEENT: Atraumatic, PERRLA, EOMI, Normocephalic Neck: Supple, No JVD, Negative Carotid Bruits Lungs: Clear to auscultation, Normal air movement Cardiovascular: Regular rate, No murmurs Abdomen: Bowel Sounds Present, Soft, Non Tender Extremities: No edema, Capillary Refill Less than 3 Seconds Skin: No rashes, No breakdown Musculoskeletal: No Tenderness to Palpation of Joints or Extremities Neurological: Cranial nerves II-XII grossly intact Psych/Mental Status: Normal Affect, Appropriate Vital Signs Temp Pulse Resp BP Pulse Ox 98.6 F 81 18 129/84 H 93 10/30/17 09:13 10/30/17 09:13 10/30/17 09:13 10/30/17 09:13 10/30/17 09:13 Oxygen Flow Rate (L/min) 2 Oxygen Delivery Method Room Air Weight: 124.2 kg Body Mass Index (BMI) 38.6 Intake and Output for Last 24 Hours 10/28/17 10/29/17 10/30/17 23:59 23:59 23:59 Intake Total 820 / 820 360 / 360 320 / 320 Balance 820 / 820 360 / 360 320 / 320 Active Medications Acetaminophen (Tylenol) 650 mg PO Q4H PRN PRN PRN Reason: PAIN Last Admin: 10/25/17 09:09 Dose: 650 mg Albuterol Sulfate (Ventolin Hfa (Sp)) 2 puff INHALATION Q4H PRN PRN PRN Reason: WHEEZING Last Admin: 10/28/17 20:29 Dose: 2 inhaler Amlodipine Besylate (Norvasc) 10 mg PO DAILY [facility] Last Admin: 10/30/17 07:59 Dose: 10 mg Aspirin (Aspirin, Baby) 81 [facility] Last Admin: 10/30/17 07:59 Dose: 81 mg Atorvastatin Calcium (Lipitor) 80 mg PO QHS [facility] Last Admin: 10/29/17 20:59 Dose: 80 mg Bisacodyl (Dulcolax) 10 mg RECTAL .PRN X 1 PRN PRN Reason: Constipation Calamine/Phenol (Calmoseptine Ointment) 1 applic TOPICAL BID PRN; Protocol PRN Reason: redness Carvedilol (Coreg) 25 mg PO BID [facility] Last Admin: 10/30/17 07:59 Dose: 25 mg Clopidogrel Bisulfate (Plavix) 75 mg PO DAILY [facility] Last Admin: 10/30/17 07:59 Dose: 75 mg Enoxaparin Sodium (Lovenox) 30 mg SC DAILY@0600 [facility] Last Admin: 10/30/17 06:13 Dose: 30 mg Escitalopram Oxalate (Lexapro) 10 mg PO DAILY [facility] Last Admin: 10/30/17 09:52 Dose: 10 mg Finasteride (Proscar) 5 mg PO DAILY [facility] Last Admin: 10/30/17 07:58 Dose: 5 mg Lisinopril (Zestril) 40 mg PO DAILY [facility] Last Admin: 10/30/17 07:58 Dose: 40 mg Loratadine (Claritin) 10 mg PO DAILY [facility] Last Admin: 10/30/17 07:59 Dose: 10 mg Magnesium Hydroxide (Milk Of Magnesia) 30 ml PO .PRN X 1 PRN PRN Reason: Constipation Nitroglycerin (Nitrostat) 0.4 mg SUBLINGUAL Q5M PRN PRN Reason: CARDIAC/CHEST PAIN Last Admin: 10/12/17 08:34 Dose: 0.4 mg Nystatin (Nystatin) 500,000 unit PO 4X/DAY [facility] Last Admin: 10/30/17 09:52 Dose: 500,000 unit Pantoprazole Sodium (Protonix) 20 mg PO BID [facility] Last Admin: 10/30/17 07:58 Dose: 20 mg Senna/Docusate Sodium (Senokot-S, Suki-Colace) 2 tablet PO BID [facility] Last Admin: 10/30/17 08:01 Dose: Not Given Sodium Chloride () 5 - 30 ml IV UD PRN PRN Reason: SALINE FLUSH Last Admin: 10/12/17 22:30 Dose: 20 ml Assessment/Plan debility s/p right parietal infarct 2/2 to symptomatic right ICA occlusion. complicated by a previous left lacunar ICH, and a right parietal ischemic stroke in 2016. The goal of rehab is protestant of functional independence. Plan: - Physical therapy for gait and balance - Occupational Therapy for ADLs - As needed analgesics - Bowel protocol - Stroke prevention on ASA, Statin, and Plavix - DVT prophylaxis: Yannick, Prasad stinson, Lovenox - Hypertension: BP continues to be Elevated, Keep BP < 130/80 mmHg => currently on Coreg 25mg, Zestril 40mg, will add Norvasc 5mg daily - Hx of HLD continue home dose of statin, Check LDL and Hba1c levels - Anxiety: Lexapro - Stent placement right ICA=> continue Plavix - Cervical spondylosis => Continued neck pain 2/2 fall prior to stroke => continue C-Collar - Hx GERD continue home medication - Hx Hep C - Hx Asthma - Hx of left lacunar ICH and a right parietal ischemic stroke - Lovenox at 30mg daily - Pollen/perfume Allergies -> started on Claritin 10mg
[2017-10-30 13:12] VITALS: BMI 38.6
--- NOTE | 2017-10-30 16:17 | CASEMGMT ---
Insurance Continued stay approved with next update due on 11/03/17. Last cover day being 11/04/17. Auth#[id number] Elvia DENT, CRM SPECIALIST
[2017-10-30 19:31] VITALS: BMI 38.6
[2017-10-30 20:01] VITALS: BP 152/77; PULSE 71; RESP 18; TEMP 36.7; O2SAT 99
[2017-10-30] MEDS: Atorvastatin Calcium 80 MG Tablet PO (20:05)
[2017-10-31] MEDS: Enoxaparin 30 MG/0.3 ML Syringe SC (05:26)
[2017-10-31 07:34] VITALS: BP 163/93; PULSE 79; RESP 18; O2SAT 95
[2017-10-31] MEDS: Lisinopril 40 MG Tablet PO (07:57)
[2017-10-31] MEDS: Clopidogrel Bisulfate 75 MG Tablet PO (07:57)
[2017-10-31] MEDS: Pantoprazole Sodium 20 MG Tablet PO ×2 (07:57→20:36)
[2017-10-31] MEDS: Loratadine 10 MG Tablet PO (07:57)
[2017-10-31] MEDS: Finasteride 5 MG Tablet PO (07:57)
[2017-10-31] MEDS: Escitalopram Oxalate 10 MG Tablet PO (07:57)
[2017-10-31] MEDS: amLODIPine 10 MG Tablet PO (07:57)
[2017-10-31] MEDS: Aspirin 81 MG TAB.CHEW PO (07:57)
[2017-10-31] MEDS: Carvedilol 25 MG Tablet PO ×2 (07:58→20:36)
[2017-10-31] MEDS: NYSTATIN 500,000 UNIT/5 ML UDC 500000 UNIT PO ×4 (11:08→20:37)
[2017-10-31 13:45] VITALS: BMI 38.6
--- NOTE | 2017-10-31 15:04 | PN_ITS ---
Subjective: CC: Status post right parietal infarct He is a nice 57 year old male who was admitted to the rehab unit for rehabilitation after a 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He underwent a right ICA angioplasty x 3 with stent placement by IR at [facility]. His speech is improving but he still has significant left-sided weakness and facial droop. He reports no new symptoms today. Vitals/I&O's: Vital Signs Temp Pulse Resp BP Pulse Ox 98.1 F 79 18 163/93 H 95 10/30/17 20:01 10/31/17 07:34 10/31/17 07:34 10/31/17 07:34 10/31/17 07:34 Oxygen Flow Rate (L/min) 2 Oxygen Delivery Method Room Air Weight: 120.5 kg Body Mass Index (BMI) 38.6 Intake and Output for Last 24 Hours 10/29/17 10/30/17 10/31/17 23:59 23:59 23:59 Intake Total 360 / 360 940 / 940 680 / 680 Balance 360 / 360 940 / 940 680 / 680 General: Alert, Oriented x3 HEENT: Atraumatic Oral: Moist Mucosa Neck: Supple Lungs: Clear to auscultation, Normal air movement Cardiovascular: Regular rate, Normal S1, Normal S2 Abdomen: Bowel Sounds Present, Non Tender Extremities: Tenderness Neurological: - - Left-sided weakness Current Medications Acetaminophen (Tylenol) 650 mg PO Q4H PRN PRN PRN Reason: PAIN Last Admin: 10/25/17 09:09 Dose: 650 mg Albuterol Sulfate (Ventolin Hfa (Sp)) 2 puff INHALATION Q4H PRN PRN PRN Reason: WHEEZING Last Admin: 10/28/17 20:29 Dose: 2 inhaler Amlodipine Besylate (Norvasc) 10 mg PO DAILY [facility] Last Admin: 10/31/17 07:57 Dose: 10 mg [facility] Last Admin: 10/31/17 07:57 Dose: 81 mg Atorvastatin Calcium (Lipitor) 80 mg PO QHS [facility] Last Admin: 10/30/17 20:05 Dose: 80 mg Bisacodyl (Dulcolax) 10 mg RECTAL .PRN X 1 PRN PRN Reason: Constipation Calamine/Phenol (Calmoseptine Ointment) 1 applic TOPICAL BID PRN; Protocol PRN Reason: redness Carvedilol (Coreg) 25 mg PO BID [facility] Last Admin: 10/31/17 07:58 Dose: 25 mg Clopidogrel Bisulfate (Plavix) 75 mg PO DAILY [facility] Last Admin: 10/31/17 07:57 Dose: 75 mg Enoxaparin Sodium (Lovenox) 30 mg SC DAILY@0600 [facility] Last Admin: 10/31/17 05:26 Dose: 30 mg Escitalopram Oxalate (Lexapro) 10 mg PO DAILY [facility] Last Admin: 10/31/17 07:57 Dose: 10 mg Finasteride (Proscar) 5 mg PO DAILY [facility] Last Admin: 10/31/17 07:57 Dose: 5 mg Lisinopril (Zestril) 40 mg PO DAILY [facility] Last Admin: 10/31/17 07:57 Dose: 40 mg Loratadine (Claritin) 10 mg PO DAILY [facility] Last Admin: 10/31/17 07:57 Dose: 10 mg Magnesium Hydroxide (Milk Of Magnesia) 30 ml PO .PRN X 1 PRN PRN Reason: Constipation Nitroglycerin (Nitrostat) 0.4 mg SUBLINGUAL Q5M PRN PRN Reason: CARDIAC/CHEST PAIN Last Admin: 10/12/17 08:34 Dose: 0.4 mg Nystatin (Nystatin) 500,000 unit PO 4X/DAY [facility] Last Admin: 10/31/17 11:08 Dose: 500,000 unit Pantoprazole Sodium (Protonix) 20 mg PO BID [facility] Last Admin: 10/31/17 07:57 Dose: 20 mg Senna/Docusate Sodium (Senokot-S, Suki-Colace) 2 tablet PO BID [facility] Last Admin: 10/31/17 11:08 Dose: Not Given Sodium Chloride () 5 - 30 ml IV UD PRN PRN Reason: SALINE FLUSH Last Admin: 10/12/17 22:30 Dose: 20 ml Assessment/Plan 1. s/p right parietal infarct due to right ICA occlusion; continue on post acute care rehabilitation. his speech is improving but he still has significant left-sided motor deficit 2. PVD with right ICA stenosis; status post angioplasty and stent placement. Will Continue on dual antiplatelet therapy with a statin therapy. 3. Hypertension; continue on current antihypertensive agents. 4. history of Cervical spondylosis; stable. 5. DVT ppx with Lovenox. Code Visit Inpatient E&M: 78293 Subs Hosp L2
--- NOTE | 2017-10-31 15:21 | PN.NEURO_ITS ---
Subjective: Patient doing well in good spirits sitting in bedside recliner. Denies any shortness of breath or chest pains. No issues with GI/. - Physical Exam General: Alert, Oriented x3, Cooperative HEENT: Atraumatic, PERRLA, EOMI, Normocephalic Neck: Supple, No JVD, Negative Carotid Bruits Lungs: Clear to auscultation, Normal air movement Cardiovascular: Regular rate, No murmurs Abdomen: Bowel Sounds Present, Soft, Non Tender Extremities: No edema, Capillary Refill Less than 3 Seconds Skin: No rashes, No breakdown Musculoskeletal: No Tenderness to Palpation of Joints or Extremities Neurological: Cranial nerves II-XII grossly intact Psych/Mental Status: Normal Affect, Appropriate Vital Signs Temp Pulse Resp BP Pulse Ox 98.1 F 79 18 163/93 H 95 10/30/17 20:01 10/31/17 07:34 10/31/17 07:34 10/31/17 07:34 10/31/17 07:34 Oxygen Flow Rate (L/min) 2 Oxygen Delivery Method Room Air Weight: 120.5 kg Body Mass Index (BMI) 38.6 Intake and Output for Last 24 Hours 10/29/17 10/30/17 10/31/17 23:59 23:59 23:59 Intake Total 360 / 360 940 / 940 680 / 680 Balance 360 / 360 940 / 940 680 / 680 Active Medications Acetaminophen (Tylenol) 650 mg PO Q4H PRN PRN PRN Reason: PAIN Last Admin: 10/25/17 09:09 Dose: 650 mg Albuterol Sulfate (Ventolin Hfa (Sp)) 2 puff INHALATION Q4H PRN PRN PRN Reason: WHEEZING Last Admin: 10/28/17 20:29 Dose: 2 inhaler Amlodipine Besylate (Norvasc) 10 mg PO DAILY [facility] Last Admin: 10/31/17 07:57 Dose: 10 mg [facility], [facility]) [facility] Last Admin: 10/31/17 07:57 Dose: 81 mg Atorvastatin Calcium (Lipitor) 80 mg PO QHS [facility] Last Admin: 10/30/17 20:05 Dose: 80 mg Bisacodyl (Dulcolax) 10 mg RECTAL .PRN X 1 PRN PRN Reason: Constipation Calamine/Phenol (Calmoseptine Ointment) 1 applic TOPICAL BID PRN; Protocol PRN Reason: redness Carvedilol (Coreg) 25 mg PO BID [facility] Last Admin: 10/31/17 07:58 Dose: 25 mg Clopidogrel Bisulfate (Plavix) 75 mg PO DAILY [facility] Last Admin: 10/31/17 07:57 Dose: 75 mg Enoxaparin Sodium (Lovenox) 30 mg SC DAILY@0600 [facility] Last Admin: 10/31/17 05:26 Dose: 30 mg Escitalopram Oxalate (Lexapro) 10 mg PO DAILY [facility] Last Admin: 10/31/17 07:57 Dose: 10 mg Finasteride (Proscar) 5 mg PO DAILY [facility] Last Admin: 10/31/17 07:57 Dose: 5 mg Lisinopril (Zestril) 40 mg PO DAILY [facility] Last Admin: 10/31/17 07:57 Dose: 40 mg Loratadine (Claritin) 10 mg PO DAILY [facility] Last Admin: 10/31/17 07:57 Dose: 10 mg Magnesium Hydroxide (Milk Of Magnesia) 30 ml PO .PRN X 1 PRN PRN Reason: Constipation Nitroglycerin (Nitrostat) 0.4 mg SUBLINGUAL Q5M PRN PRN Reason: CARDIAC/CHEST PAIN Last Admin: 10/12/17 08:34 Dose: 0.4 mg Nystatin (Nystatin) 500,000 unit PO 4X/DAY [facility] Last Admin: 10/31/17 11:08 Dose: 500,000 unit Pantoprazole Sodium (Protonix) 20 mg PO BID [facility] Last Admin: 10/31/17 07:57 Dose: 20 mg Senna/Docusate Sodium (Senokot-S, Suki-Colace) 2 tablet PO BID [facility] Last Admin: 10/31/17 11:08 Dose: Not Given Sodium Chloride () 5 - 30 ml IV UD PRN PRN Reason: SALINE FLUSH Last Admin: 10/12/17 22:30 Dose: 20 ml Assessment/Plan debility s/p right parietal infarct 2/2 to symptomatic right ICA occlusion. complicated by a previous left lacunar ICH, and a right parietal ischemic stroke in 2016. The goal of rehab is anabaptism of functional independence. Plan: - Physical therapy for gait and balance - Occupational Therapy for ADLs - As needed analgesics - Bowel protocol - Stroke prevention on ASA, Statin, and Plavix - DVT prophylaxis: SCDs, Prasad hoses, Lovenox - Hypertension: BP continues to be Elevated, Keep BP < 130/80 mmHg => currently on Coreg 25mg, Zestril 40mg, will add Norvasc 5mg daily - Hx of HLD continue home dose of statin, Check LDL and Hba1c levels - Anxiety: Lexapro - Stent placement right ICA=> continue Plavix - Cervical spondylosis => Continued neck pain 2/2 fall prior to stroke => continue C-Collar - Hx GERD continue home medication - Hx Hep C - Hx Asthma - Hx of left lacunar ICH and a right parietal ischemic stroke - Lovenox at 30mg daily - Pollen/perfume Allergies -> started on Claritin 10mg, patient feels it is not working family is bringing in some Sherry for him.
--- NOTE | 2017-10-31 16:32 | CASEMGMT ---
Social Work Collaborating further with patient in room on discharge plan. Patient reporting that [facility] if patient first choice and [facility] is patient second choice in the event that patient is not approved further time with insurance. Support given. [facility] and to be able to review clinical information. Clinical information faxed. Pending approval. Telephone call to [facility], mail left. No discharge date set at this time. Will continue to follow. Elvia DENT, AGRICULTURAL SPECIALIST
[2017-10-31] MEDS: Atorvastatin Calcium 80 MG Tablet PO (20:36)
[2017-10-31 22:00] VITALS: BP 127/45; PULSE 66; RESP 16; TEMP 36.8; O2SAT 95
[2017-11-01] MEDS: Enoxaparin 30 MG/0.3 ML Syringe SC (05:48)
[2017-11-01] MEDS: Lisinopril 40 MG Tablet PO (08:02)
[2017-11-01] MEDS: Aspirin 81 MG TAB.CHEW PO (08:02)
[2017-11-01] MEDS: Escitalopram Oxalate 10 MG Tablet PO (08:02)
[2017-11-01] MEDS: Carvedilol 25 MG Tablet PO ×2 (08:03→21:12)
[2017-11-01] MEDS: NYSTATIN 500,000 UNIT/5 ML UDC 500000 UNIT PO ×4 (08:04→21:12)
[2017-11-01] MEDS: Finasteride 5 MG Tablet PO (08:04)
[2017-11-01] MEDS: Clopidogrel Bisulfate 75 MG Tablet PO (08:04)
[2017-11-01] MEDS: Pantoprazole Sodium 20 MG Tablet PO ×2 (08:05→21:12)
[2017-11-01] MEDS: amLODIPine 10 MG Tablet PO (08:05)
[2017-11-01 09:18] VITALS: PULSE 72; RESP 16; TEMP 37.1; O2SAT 92
[2017-11-01 14:02] VITALS: BMI 38.6
[2017-11-01] MEDS: Atorvastatin Calcium 80 MG Tablet PO (21:12)
[2017-11-01 22:00] VITALS: BP 140/70; PULSE 70; RESP 18; TEMP 36.7; O2SAT 93
[2017-11-01 23:03] VITALS: BMI 38.6
--- NOTE | 2017-11-02 03:15 | NURSING ---
REVIEWED AND AGREE WITH RELEASE ENGINEER'S FIMS.
[2017-11-02] MEDS: Enoxaparin 30 MG/0.3 ML Syringe SC (05:47)
[2017-11-02] MEDS: amLODIPine 10 MG Tablet PO (07:55)
[2017-11-02] MEDS: Clopidogrel Bisulfate 75 MG Tablet PO (07:55)
[2017-11-02] MEDS: Pantoprazole Sodium 20 MG Tablet PO ×2 (07:55→20:59)
[2017-11-02] MEDS: Carvedilol 25 MG Tablet PO ×2 (07:55→20:59)
[2017-11-02] MEDS: Aspirin 81 MG TAB.CHEW PO (07:55)
[2017-11-02] MEDS: Lisinopril 40 MG Tablet PO (07:55)
[2017-11-02] MEDS: NYSTATIN 500,000 UNIT/5 ML UDC 500000 UNIT PO ×4 (07:55→20:59)
[2017-11-02] MEDS: Escitalopram Oxalate 10 MG Tablet PO (07:55)
[2017-11-02] MEDS: Finasteride 5 MG Tablet PO (07:55)
[2017-11-02 09:33] VITALS: BP 146/75; PULSE 74; RESP 18; TEMP 36.4; O2SAT 94
[2017-11-02] MEDS: Acetaminophen 325 MG Tablet 650 MG PO (09:35)
[2017-11-02 16:05] VITALS: BMI 38.6
--- NOTE | 2017-11-02 16:35 | PCM.PROGNOTE ---
Subjective: Pt improving. He did fall backwards yesterday when ambulating. He continues to have significant Left sided weakness. He has no hand movement, he can raise his arm slightly. He has some facial droop still. He is somewhat drooling. He has been having allergic symptoms to cologne and has been taking his own beatrice since for it with relief. He has noticed some swelling in his Left lower extremity intermittently. No hx DVT. He has pain in the back of his leg. - Physical Exam General: Alert, Oriented x3, Cooperative HEENT: Atraumatic, PERRLA, EOMI, Normocephalic Neck: Supple, No JVD, Negative Carotid Bruits Lungs: Clear to auscultation, Normal air movement Cardiovascular: Regular rate, No murmurs Abdomen: Bowel Sounds Present, Soft, Non Tender Extremities: No edema, Capillary Refill Less than 3 Seconds, Edema - LLE below knee non pitting., - - + lebron and benjamin sign. Skin: No rashes, No breakdown Musculoskeletal: No Tenderness to Palpation of Joints or Extremities Neurological: Cranial nerves II-XII grossly intact Psych/Mental Status: Normal Affect, Appropriate, Alert and oriented to time, place, person, mood and affect Vital Signs Temp Pulse Resp BP Pulse Ox 97.6 F L 74 18 146/75 H 94 11/02/17 09:33 11/02/17 09:33 11/02/17 09:33 11/02/17 09:33 11/02/17 09:33 Oxygen Flow Rate (L/min) 2 Oxygen Delivery Method Room Air Weight: 120.5 kg Body Mass Index (BMI) 38.6 Intake and Output for Last 24 Hours 10/31/17 11/01/17 11/03/17 23:59 23:59 00:59 Intake Total 680 / 680 580 / 580 600 / 600 Output Total 400 / 400 Balance 680 / 680 180 / 180 600 / 600 Assessment/Plan 1. Acute right parietal 2/2 right ICA occlusion s/p angioplasty - rehab per [facility]. Pt with continued left sided deficits, facial droop, ataxia. Prior hx of left lacunar ICH, right parietal ischemic stroke in 2016. Continue plavix, statin, asa 2. LLE swelling - + lebron/benjamin sign. check Venous Duplex U/S LLE. No hx DVT. 3. HTN - persistently elevated despite addition of norvasc. Trend and consider additional agent. 4. HLD - statin. 5. Thrush - continue nystatin 6. Hematuria - Follow up with urology. Hgb stable. UA with occult blood negative otherwise. 7. Anxiety - lexapro 8. Hx Hep C 9. Hx Asthma, Atopy - pt using his own beatrice 60 mg. 10. Hx GERD - protonix. Thank you for the opportunity to participate in the care of this patient. This patient was seen under the supervision of Dr. Rabago.
[2017-11-02] MEDS: Atorvastatin Calcium 80 MG Tablet PO (20:59)
[2017-11-02 21:00] VITALS: BP 121/76; PULSE 63; RESP 17; TEMP 36.6; O2SAT 97; BMI 38.6
--- NOTE | 2017-11-03 02:11 | NURSING ---
REVIEWED AND AGREE WITH SALES ASSISTANT ENTERTAINMENT AND MEDIA'S FIM AND HANDOFF CHARTING.
[2017-11-03] MEDS: Enoxaparin 30 MG/0.3 ML Syringe SC (05:17)
--- NOTE | 2017-11-03 05:55 | VDLE_ITS ---
Reason For Study: LEG SWELLING RIGHT LEFT CFV is compressible, spontaneous, phasic, GSV is normal. competent and demonstrates normal CFV is compressible, spontaneous, phasic, augmentation. competent, and demonstrates normal Procedure augmentation. Exam performed portable in patient room. FV is compressible, spontaneous, phasic, A preliminary report was called and/or faxed competent and demonstrates normal to RU nurse. augmentation. POP V is compressible, spontaneous, phasic, competent and demonstrates normal augmentation. T/P Trunk is compressible. PTV is compressible. LT PerV is compressible. Interpretation Summary There is no evidence of left lower extremity deep vein thrombosis. Left greater saphenous vein appears patent and compressible segmentally. Normal flow patterns right common femoral vein. Ordering Physician: Pedro Dior Performed By: Maris Bowman RVT
[2017-11-03 08:32] VITALS: BP 124/77; PULSE 70; RESP 16; TEMP 36.4; O2SAT 97
[2017-11-03] MEDS: Aspirin 81 MG TAB.CHEW PO (09:22)
[2017-11-03] MEDS: Lisinopril 40 MG Tablet PO (09:22)
[2017-11-03] MEDS: Clopidogrel Bisulfate 75 MG Tablet PO (09:22)
[2017-11-03] MEDS: amLODIPine 10 MG Tablet PO (09:22)
[2017-11-03] MEDS: NYSTATIN 500,000 UNIT/5 ML UDC 500000 UNIT PO ×4 (09:22→22:06)
[2017-11-03] MEDS: Carvedilol 25 MG Tablet PO ×2 (09:22→22:06)
[2017-11-03] MEDS: Finasteride 5 MG Tablet PO (09:22)
[2017-11-03] MEDS: Escitalopram Oxalate 10 MG Tablet PO (09:24)
[2017-11-03] MEDS: Pantoprazole Sodium 20 MG Tablet PO ×2 (09:24→22:06)
[2017-11-03] MEDS: Acetaminophen 325 MG Tablet 650 MG PO (09:24)
--- NOTE | 2017-11-03 10:37 | PCM.PN.NEU ---
Subjective: Patient seen and examined. No new complaints. Tolerating therapy. Still having issues with his allergies he is taking his home medication, Sherry. Denies any shortness of breath or chest pains. No issues with GI/. Had a venous duplex ordered to rule out lower extremity DVT today ordered by the Hospitalist. - Physical Exam General: Alert, Oriented x3, Cooperative HEENT: Atraumatic, PERRLA, EOMI, Normocephalic Neck: Supple, No JVD, Negative Carotid Bruits Lungs: Clear to auscultation, Normal air movement Cardiovascular: Regular rate, No murmurs Abdomen: Bowel Sounds Present, Soft, Non Tender Extremities: No edema, Capillary Refill Less than 3 Seconds Skin: No rashes, No breakdown Musculoskeletal: No Tenderness to Palpation of Joints or Extremities Neurological: Cranial nerves II-XII grossly intact Psych/Mental Status: Normal Affect, Appropriate Vital Signs Temp Pulse Resp BP Pulse Ox 97.6 F L 70 16 124/77 H 97 11/03/17 08:32 11/03/17 08:32 11/03/17 08:32 11/03/17 08:32 11/03/17 08:32 Oxygen Flow Rate (L/min) 2 Oxygen Delivery Method Room Air Weight: 120.5 kg Body Mass Index (BMI) 38.6 Intake and Output for Last 24 Hours 11/01/17 11/02/17 11/03/17 22:59 23:59 23:59 Intake Total 240 / 240 Output Total Balance 240 / 240 Active Medications Acetaminophen (Tylenol) 650 mg PO Q4H PRN PRN PRN Reason: PAIN Last Admin: 11/03/17 09:24 Dose: 650 mg Albuterol Sulfate (Ventolin Hfa (Sp)) 2 puff INHALATION Q4H PRN PRN PRN Reason: WHEEZING Last Admin: 10/28/17 20:29 Dose: 2 inhaler Amlodipine Besylate (Norvasc) 10 mg PO DAILY [facility] Last Admin: 11/03/17 09:22 Dose: 10 mg [facility]) [facility] Last Admin: 11/03/17 09:22 Dose: 81 mg Atorvastatin Calcium (Lipitor) 80 mg PO QHS [facility] Last Admin: 11/02/17 20:59 Dose: 80 mg Bisacodyl (Dulcolax) 10 mg RECTAL .PRN X 1 PRN PRN Reason: Constipation Calamine/Phenol (Calmoseptine Ointment) 1 applic TOPICAL BID PRN; Protocol PRN Reason: redness Carvedilol (Coreg) 25 mg PO BID [facility] Last Admin: 11/03/17 09:22 Dose: 25 mg Clopidogrel Bisulfate (Plavix) 75 mg PO DAILY [facility] Last Admin: 11/03/17 09:22 Dose: 75 mg Enoxaparin Sodium (Lovenox) 30 mg SC DAILY@0600 [facility] Last Admin: 11/03/17 05:17 Dose: 30 mg Escitalopram Oxalate (Lexapro) 10 mg PO DAILY [facility] Last Admin: 11/03/17 09:24 Dose: 10 mg Finasteride (Proscar) 5 mg PO DAILY [facility] Last Admin: 11/03/17 09:22 Dose: 5 mg Lisinopril (Zestril) 40 mg PO DAILY [facility] Last Admin: 11/03/17 09:22 Dose: 40 mg Loratadine (Claritin) 10 mg PO DAILY [facility] Last Admin: 11/03/17 08:55 Dose: Not Given Magnesium Hydroxide (Milk Of Magnesia) 30 ml PO .PRN X 1 PRN PRN Reason: Constipation Nitroglycerin (Nitrostat) 0.4 mg SUBLINGUAL Q5M PRN PRN Reason: CARDIAC/CHEST PAIN Last Admin: 10/12/17 08:34 Dose: 0.4 mg Nystatin (Nystatin) 500,000 unit PO 4X/DAY [facility] Last Admin: 11/03/17 09:22 Dose: 500,000 unit Pantoprazole Sodium (Protonix) 20 mg PO BID [facility] Last Admin: 11/03/17 09:24 Dose: 20 mg Senna/Docusate Sodium (Senokot-S, Suki-Colace) 2 tablet PO BID [facility] Last Admin: 11/03/17 08:55 Dose: Not Given Sodium Chloride () 5 - 30 ml IV UD PRN PRN Reason: SALINE FLUSH Last Admin: 10/12/17 22:30 Dose: 20 ml Assessment/Plan debility s/p right parietal infarct 2/2 to symptomatic right ICA occlusion. complicated by a previous left lacunar ICH, and a right parietal ischemic stroke in 2016. The goal of rehab is jew of functional independence. Plan: - Physical therapy for gait and balance - Occupational Therapy for ADLs - As needed analgesics - Bowel protocol - Stroke prevention on ASA, Statin, and Plavix - DVT prophylaxis: SCDs, Prasad stinson, Lovenox - Hypertension: BP continues to be Elevated, Keep BP < 130/80 mmHg => currently on Coreg 25mg, Zestril 40mg, will add Norvasc 5mg daily - Hx of HLD continue home dose of statin, Check LDL and Hba1c levels - Anxiety: Lexapro - Stent placement right ICA=> continue Plavix - Cervical spondylosis => Continued neck pain 2/2 fall prior to stroke => continue C-Collar - Hx GERD continue home medication - Hx Hep C - Hx Asthma - Hx of left lacunar ICH and a right parietal ischemic stroke - Lovenox at 30mg daily - Pollen/perfume Allergies -> started on Claritin 10mg, patient feels it is not working family is bringing in some Sherry for him. - Venous duplex ordered to rule out lower extremity DVT => pending results
--- NOTE | 2017-11-03 11:00 | CASEMGMT ---
Social Work Telephone call back [facility] requesting for clinical information to be faxed. Clinical information faxed. Notified patient of above information. Patient hoping to be able to continue with further care on the Inpatient Rehab Unit but aware that insurance may no approve more time and update is due today, 11/03/17. Will continue to follow. Elvia DENT, ORDAINED MINISTER
[2017-11-03 12:20] VITALS: BMI 38.6
--- NOTE | 2017-11-03 12:55 | CASEMGMT ---
Insurance Clinical information faxed. Pending continued stay approval at this time. Auth#[id number] Elvia DENT, TRAFFIC CONTROL SPECIALIST
--- NOTE | 2017-11-03 12:58 | PCM.PN.HOSP ---
Subjective: Seen exercising by himself in his room. Had a venous duplex ordered to rule out lower extremity DVT Objective: HEENT: Clear conjunctiva, NECK; supple, normal thyroid, CHEST: Clear to auscultation bilaterally, HEART: Regular S1 S2, no audible murmurs ABDOMEN: soft, non-tender, normoactive bowel sounds, RECTAL: deferred EXTREMITIES: No edema, no clubbing, PROJECT/PRODUCTION MANAGER IMAGING: Awake, left-sided hemiparesis SKIN: No Rash Vitals/I&O's: Vital Signs Temp Pulse Resp BP Pulse Ox 97.6 F L 70 16 124/77 H 97 11/03/17 08:32 11/03/17 08:32 11/03/17 08:32 11/03/17 08:32 11/03/17 08:32 Oxygen Flow Rate (L/min) 2 Oxygen Delivery Method Room Air Weight: 120.5 kg Body Mass Index (BMI) 38.6 Intake and Output for Last 24 Hours 11/01/17 11/02/17 11/03/17 22:59 23:59 23:59 Intake Total 240 / 240 Output Total Balance 240 / 240 Current Medications Acetaminophen (Tylenol) 650 mg PO Q4H PRN PRN PRN Reason: PAIN Last Admin: 11/03/17 09:24 Dose: 650 mg Albuterol Sulfate (Ventolin Hfa (Sp)) 2 puff INHALATION Q4H PRN PRN PRN Reason: WHEEZING Last Admin: 10/28/17 20:29 Dose: 2 inhaler Amlodipine Besylate (Norvasc) 10 mg PO DAILY [facility] Last Admin: 11/03/17 09:22 Dose: 10 mg [facility], [facility]) [facility] Last Admin: 11/03/17 09:22 Dose: 81 mg Atorvastatin Calcium (Lipitor) 80 mg PO QHS [facility] Last Admin: 11/02/17 20:59 Dose: 80 mg Bisacodyl (Dulcolax) 10 mg RECTAL .PRN X 1 PRN PRN Reason: Constipation Calamine/Phenol (Calmoseptine Ointment) 1 applic TOPICAL BID PRN; Protocol PRN Reason: redness Carvedilol (Coreg) 25 mg PO BID [facility] Last Admin: 11/03/17 09:22 Dose: 25 mg Clopidogrel Bisulfate (Plavix) 75 mg PO DAILY [facility] Last Admin: 11/03/17 09:22 Dose: 75 mg Enoxaparin Sodium (Lovenox) 30 mg SC DAILY@0600 [facility] Last Admin: 11/03/17 05:17 Dose: 30 mg Escitalopram Oxalate (Lexapro) 10 mg PO DAILY [facility] Last Admin: 11/03/17 09:24 Dose: 10 mg Fexofenadine HCl (Sherry Allergy) 60 mg PO TID PRN PRN PRN Reason: CONGESTION Finasteride (Proscar) 5 mg PO DAILY [facility] Last Admin: 11/03/17 09:22 Dose: 5 mg Lisinopril (Zestril) 40 mg PO DAILY [facility] Last Admin: 11/03/17 09:22 Dose: 40 mg Magnesium Hydroxide (Milk Of Magnesia) 30 ml PO .PRN X 1 PRN PRN Reason: Constipation Nitroglycerin (Nitrostat) 0.4 mg SUBLINGUAL Q5M PRN PRN Reason: CARDIAC/CHEST PAIN Last Admin: 10/12/17 08:34 Dose: 0.4 mg Nystatin (Nystatin) 500,000 unit PO 4X/DAY [facility] Last Admin: 11/03/17 09:22 Dose: 500,000 unit Pantoprazole Sodium (Protonix) 20 mg PO BID [facility] Last Admin: 11/03/17 09:24 Dose: 20 mg Senna/Docusate Sodium (Senokot-S, Suki-Colace) 2 tablet PO BID [facility] Last Admin: 11/03/17 08:55 Dose: Not Given Sodium Chloride () 5 - 30 ml IV UD PRN PRN Reason: SALINE FLUSH Last Admin: 10/12/17 22:30 Dose: 20 ml Assessment/Plan Patient is a 57-year-old male admitted to the inpatient rehab unit with 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 He underwent right ICA occlusion at the [facility] prior to his admission to the inpatient rehab unit 1. Acute right parietal infarct due to right ICA occlusion status post angioplasty and placement. Admitted to the inpatient rehab unit where patient is currently undergoing therapy. Patient is also on antiplatelet therapy as well as started 2. Hypertension-blood pressure controlled, home medications continued with dose adjustment as needed 3. Dyslipidemia: On statin therapy did continue 4. History of cervical spondylosis 5. DVT prophylaxis SC Lovenox Code Visit Inpatient E&M: 30658 Subs Hosp L2
--- NOTE | 2017-11-03 14:42 | NURSING ---
per certified cytotechnologist, dopplers to lle negative.
[2017-11-03 22:00] VITALS: BP 120/65; PULSE 64; RESP 16; TEMP 36.7; O2SAT 94; BMI 38.6
[2017-11-03] MEDS: Atorvastatin Calcium 80 MG Tablet PO (22:06)
--- NOTE | 2017-11-04 02:20 | NURSING ---
Reviewed and agree with TURF SALES PERSON documentation and FIMS charting.
[2017-11-04] MEDS: Enoxaparin 30 MG/0.3 ML Syringe SC (05:33)
[2017-11-04] MEDS: Acetaminophen 325 MG Tablet 650 MG PO ×3 (05:37→18:19)
[2017-11-04] MEDS: FEXOFENADINE HCL 60 MG TABLET PO ×3 (05:38→20:52)
--- NOTE | 2017-11-04 08:43 | CASEMGMT ---
Insurance Continued stay approved with next update due on 11/10/17. Last cover day: 11/11/17. Auth#[id number] Elvia DENT, BATCH TANK CONTROLLER
[2017-11-04] MEDS: NYSTATIN 500,000 UNIT/5 ML UDC 500000 UNIT PO ×4 (09:06→20:53)
[2017-11-04] MEDS: amLODIPine 10 MG Tablet PO (09:07)
[2017-11-04] MEDS: Clopidogrel Bisulfate 75 MG Tablet PO (09:07)
[2017-11-04] MEDS: Aspirin 81 MG TAB.CHEW PO (09:07)
[2017-11-04] MEDS: Lisinopril 40 MG Tablet PO (09:07)
[2017-11-04] MEDS: Finasteride 5 MG Tablet PO (09:07)
[2017-11-04] MEDS: Carvedilol 25 MG Tablet PO ×2 (09:07→20:53)
[2017-11-04] MEDS: Escitalopram Oxalate 10 MG Tablet PO (09:07)
[2017-11-04] MEDS: Pantoprazole Sodium 20 MG Tablet PO ×2 (09:07→20:55)
[2017-11-04 10:00] VITALS: BP 135/78; PULSE 83; RESP 17; TEMP 37; O2SAT 98
--- NOTE | 2017-11-04 12:11 | PCM.PN.NEU ---
Subjective: Patient seen and examined. No acute events overnight. Tolerating therapy. No issues with GI/. - Physical Exam General: Alert, Oriented x3, Cooperative HEENT: Atraumatic, PERRLA, EOMI, Normocephalic Neck: Supple, No JVD, Negative Carotid Bruits Lungs: Clear to auscultation, Normal air movement Cardiovascular: Regular rate, No murmurs Abdomen: Bowel Sounds Present, Soft, Non Tender Extremities: No edema, Capillary Refill Less than 3 Seconds Skin: No rashes, No breakdown Musculoskeletal: No Tenderness to Palpation of Joints or Extremities Neurological: Cranial nerves II-XII grossly intact Psych/Mental Status: Normal Affect, Appropriate Vital Signs Temp Pulse Resp BP Pulse Ox 98.6 F 83 17 135/78 H 98 11/04/17 10:00 11/04/17 10:00 11/04/17 10:00 11/04/17 10:00 11/04/17 10:00 Oxygen Flow Rate (L/min) 2 Oxygen Delivery Method Room Air Weight: 120.5 kg Body Mass Index (BMI) 38.6 Intake and Output for Last 24 Hours 11/02/17 11/03/17 11/04/17 23:59 23:59 23:59 Intake Total 600 / 600 240 / 240 Balance 600 / 600 240 / 240 Active Medications Acetaminophen (Tylenol) 650 mg PO Q4H PRN PRN PRN Reason: PAIN Last Admin: 11/04/17 10:06 Dose: 650 mg Albuterol Sulfate (Ventolin Hfa (Sp)) 2 puff INHALATION Q4H PRN PRN PRN Reason: WHEEZING Last Admin: 10/28/17 20:29 Dose: 2 inhaler Amlodipine Besylate (Norvasc) 10 mg PO DAILY [facility] Last Admin: 11/04/17 09:07 Dose: 10 mg [facility], [facility]) [facility] Last Admin: 11/04/17 09:07 Dose: 81 mg Atorvastatin Calcium (Lipitor) 80 mg PO QHS [facility] Last Admin: 11/03/17 22:06 Dose: 80 mg Bisacodyl (Dulcolax) 10 mg RECTAL .PRN X 1 PRN PRN Reason: Constipation Calamine/Phenol (Calmoseptine Ointment) 1 applic TOPICAL BID PRN; Protocol PRN Reason: redness Carvedilol (Coreg) 25 mg PO BID [facility] Last Admin: 11/04/17 09:07 Dose: 25 mg Clopidogrel Bisulfate (Plavix) 75 mg PO DAILY [facility] Last Admin: 11/04/17 09:07 Dose: 75 mg Enoxaparin Sodium (Lovenox) 30 mg SC DAILY@0600 [facility] Last Admin: 11/04/17 05:33 Dose: 30 mg Escitalopram Oxalate (Lexapro) 10 mg PO DAILY [facility] Last Admin: 11/04/17 09:07 Dose: 10 mg Fexofenadine HCl (Sherry Allergy) 60 mg PO TID PRN PRN PRN Reason: CONGESTION Last Admin: 11/04/17 05:38 Dose: 60 mg Finasteride (Proscar) 5 mg PO DAILY [facility] Last Admin: 11/04/17 09:07 Dose: 5 mg Lisinopril (Zestril) 40 mg PO DAILY [facility] Last Admin: 11/04/17 09:07 Dose: 40 mg Magnesium Hydroxide (Milk Of Magnesia) 30 ml PO .PRN X 1 PRN PRN Reason: Constipation Nitroglycerin (Nitrostat) 0.4 mg SUBLINGUAL Q5M PRN PRN Reason: CARDIAC/CHEST PAIN Last Admin: 10/12/17 08:34 Dose: 0.4 mg Nystatin (Nystatin) 500,000 unit PO 4X/DAY [facility] Last Admin: 11/04/17 09:06 Dose: 500,000 unit Pantoprazole Sodium (Protonix) 20 mg PO BID [facility] Last Admin: 11/04/17 09:07 Dose: 20 mg Senna/Docusate Sodium (Senokot-S, Suki-Colace) 2 tablet PO BID [facility] Last Admin: 11/04/17 09:08 Dose: Not Given Sodium Chloride () 5 - 30 ml IV UD PRN PRN Reason: SALINE FLUSH Last Admin: 10/12/17 22:30 Dose: 20 ml Assessment/Plan debility s/p right parietal infarct 2/2 to symptomatic right ICA occlusion. complicated by a previous left lacunar ICH, and a right parietal ischemic stroke in 2016. The goal of rehab is confucianism of functional independence. Plan: - Physical therapy for gait and balance - Occupational Therapy for ADLs - As needed analgesics - Bowel protocol - Stroke prevention on ASA, Statin, and Plavix - DVT prophylaxis: SCDs, Prasad hoses, Lovenox - Hypertension: BP continues to be Elevated, Keep BP < 130/80 mmHg => currently on Coreg 25mg, Zestril 40mg, will add Norvasc 5mg daily - Hx of HLD continue home dose of statin, Check LDL and Hba1c levels - Anxiety: Lexapro - Stent placement right ICA=> continue Plavix - Cervical spondylosis => Continued neck pain 2/2 fall prior to stroke => continue C-Collar - Hx GERD continue home medication - Hx Hep C - Hx Asthma - Hx of left lacunar ICH and a right parietal ischemic stroke - Lovenox at 30mg daily - Pollen/perfume Allergies -> started on Claritin 10mg, patient feels it is not working family is bringing in some Sherry for him. - Venous duplex ordered to rule out lower extremity DVT => pending results
[2017-11-04 14:38] VITALS: BMI 38.6
[2017-11-04 20:30] VITALS: BP 128/67; PULSE 70; RESP 16; TEMP 36.4; O2SAT 94; BMI 38.6
[2017-11-04 20:35] VITALS: PULSE 70; RESP 16; O2SAT 94
[2017-11-04] MEDS: Atorvastatin Calcium 80 MG Tablet PO (20:53)
--- NOTE | 2017-11-05 01:26 | NURSING ---
REVIEWED AND AGREE WITH MILLED RUBBER TENDER'S FIM AND HANDOFF CHARTING.
[2017-11-05] MEDS: Enoxaparin 30 MG/0.3 ML Syringe SC (05:31)
[2017-11-05] MEDS: Acetaminophen 325 MG Tablet 650 MG PO (08:19)
[2017-11-05] MEDS: Escitalopram Oxalate 10 MG Tablet PO (08:19)
[2017-11-05] MEDS: Finasteride 5 MG Tablet PO (08:19)
[2017-11-05] MEDS: Lisinopril 40 MG Tablet PO (08:19)
[2017-11-05] MEDS: amLODIPine 10 MG Tablet PO (08:19)
[2017-11-05] MEDS: Aspirin 81 MG TAB.CHEW PO (08:19)
[2017-11-05] MEDS: Carvedilol 25 MG Tablet PO ×2 (08:20→19:44)
[2017-11-05] MEDS: Clopidogrel Bisulfate 75 MG Tablet PO (08:20)
[2017-11-05] MEDS: NYSTATIN 500,000 UNIT/5 ML UDC 500000 UNIT PO ×4 (08:21→19:47)
[2017-11-05] MEDS: FEXOFENADINE HCL 60 MG TABLET PO ×2 (08:42→19:47)
[2017-11-05 08:48] VITALS: BP 153/97; PULSE 64; RESP 18; TEMP 36.7; O2SAT 98
[2017-11-05] MEDS: Pantoprazole Sodium 20 MG Tablet PO ×2 (09:37→19:44)
--- NOTE | 2017-11-05 12:42 | PCM.PN.HOSP ---
Subjective: Patient seen very very enthusiastic participating in physical therapy Objective: HEENT: Clear conjunctiva, NECK; supple, normal thyroid, CHEST: Clear to auscultation bilaterally, HEART: Regular S1 S2, no audible murmurs ABDOMEN: soft, non-tender, normoactive bowel sounds, RECTAL: deferred EXTREMITIES: No edema, no clubbing, CURER ACID DRUM: Awake, left-sided hemiparesis SKIN: No Rash Vitals/I&O's: Vital Signs Temp Pulse Resp BP Pulse Ox 98.0 F 64 18 153/97 H 98 11/05/17 08:48 11/05/17 08:48 11/05/17 08:48 11/05/17 08:48 11/05/17 08:48 Oxygen Flow Rate (L/min) 2 Oxygen Delivery Method Room Air Weight: 119.7 kg Body Mass Index (BMI) 38.6 Intake and Output for Last 24 Hours 11/03/17 11/04/17 11/05/17 23:59 23:59 23:59 Intake Total 600 / 600 800 / 800 420 / 420 Output Total 350 / 350 Balance 600 / 600 800 / 800 70 / 70 Current Medications Acetaminophen (Tylenol) 650 mg PO Q4H PRN PRN PRN Reason: PAIN Last Admin: 11/05/17 08:19 Dose: 650 mg Albuterol Sulfate (Ventolin Hfa (Sp)) 2 puff INHALATION Q4H PRN PRN PRN Reason: WHEEZING Last Admin: 10/28/17 20:29 Dose: 2 inhaler Amlodipine Besylate (Norvasc) 10 mg PO DAILY [facility] Last Admin: 11/05/17 08:19 Dose: 10 mg [facility], [facility]) [facility] Last Admin: 11/05/17 08:19 Dose: 81 mg Atorvastatin Calcium (Lipitor) 80 mg PO QHS [facility] Last Admin: 11/04/17 20:53 Dose: 80 mg Bisacodyl (Dulcolax) 10 mg RECTAL .PRN X 1 PRN PRN Reason: Constipation Calamine/Phenol (Calmoseptine Ointment) 1 applic TOPICAL BID PRN; Protocol PRN Reason: redness Carvedilol (Coreg) 25 mg PO BID [facility] Last Admin: 11/05/17 08:20 Dose: 25 mg Clopidogrel Bisulfate (Plavix) 75 mg PO DAILY [facility] Last Admin: 11/05/17 08:20 Dose: 75 mg Enoxaparin Sodium (Lovenox) 30 mg SC DAILY@0600 [facility] Last Admin: 11/05/17 05:31 Dose: 30 mg Escitalopram Oxalate (Lexapro) 10 mg PO DAILY [facility] Last Admin: 11/05/17 08:19 Dose: 10 mg Fexofenadine HCl (Sherry Allergy) 60 mg PO TID PRN PRN PRN Reason: CONGESTION Last Admin: 11/05/17 08:42 Dose: 60 mg Finasteride (Proscar) 5 mg PO DAILY [facility] Last Admin: 11/05/17 08:19 Dose: 5 mg Lisinopril (Zestril) 40 mg PO DAILY [facility] Last Admin: 11/05/17 08:19 Dose: 40 mg Magnesium Hydroxide (Milk Of Magnesia) 30 ml PO .PRN X 1 PRN PRN Reason: Constipation Nitroglycerin (Nitrostat) 0.4 mg SUBLINGUAL Q5M PRN PRN Reason: CARDIAC/CHEST PAIN Last Admin: 10/12/17 08:34 Dose: 0.4 mg Nystatin (Nystatin) 500,000 unit PO 4X/DAY [facility] Last Admin: 11/05/17 08:21 Dose: 500,000 unit Pantoprazole Sodium (Protonix) 20 mg PO BID [facility] Last Admin: 11/05/17 09:37 Dose: 20 mg Senna/Docusate Sodium (Senokot-S, Suki-Colace) 2 tablet PO BID [facility] Last Admin: 11/05/17 08:45 Dose: Not Given Sodium Chloride () 5 - 30 ml IV UD PRN PRN Reason: SALINE FLUSH Last Admin: 10/12/17 22:30 Dose: 20 ml Assessment/Plan Patient is a 57-year-old male admitted to the inpatient rehab unit with 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 He underwent right ICA occlusion at the [facility] prior to his admission to the inpatient rehab unit 1. Acute right parietal infarct due to right ICA occlusion status post angioplasty and placement. Admitted to the inpatient rehab unit where patient is currently undergoing therapy. Patient is also on antiplatelet therapy as well as started 2. Hypertension-blood pressure controlled, home medications continued with dose adjustment as needed 3. Dyslipidemia: On statin therapy did continue 4. History of cervical spondylosis 5. DVT prophylaxis SC Lovenox Code Visit Inpatient E&M: 51769 Subs Hosp L2
--- NOTE | 2017-11-05 14:03 | PN.NEURO_ITS ---
Addendum entered and electronically signed by Noam Crook MD 15:26: I have personally examined the patient at bedside. Please see FABRIC WORKER Nithya Arevalo's note as below for further complete details. I have discussed the management plan for the patient in detail with ARLENE Arevalo and please see the plan as noted below. Patient tolerating therapies well, GI/DVT prophylaxis, falls precautions. Original Note: Subjective: Patient seen while in Physical therapy. No acute events over night. Tolerating therapy. No issues with GI/. - Physical Exam General: Alert, Oriented x3, Cooperative HEENT: Atraumatic, PERRLA, EOMI, Normocephalic Neck: Supple, No JVD, Negative Carotid Bruits Lungs: Clear to auscultation, Normal air movement Cardiovascular: Regular rate, No murmurs Abdomen: Bowel Sounds Present, Soft, Non Tender Extremities: No edema, Capillary Refill Less than 3 Seconds Skin: No rashes, No breakdown Musculoskeletal: No Tenderness to Palpation of Joints or Extremities Neurological: Cranial nerves II-XII grossly intact Psych/Mental Status: Normal Affect, Appropriate Vital Signs Temp Pulse Resp BP Pulse Ox 98.0 F 64 18 153/97 H 98 11/05/17 08:48 11/05/17 08:48 11/05/17 08:48 11/05/17 08:48 11/05/17 08:48 Oxygen Flow Rate (L/min) 2 Oxygen Delivery Method Room Air Weight: 119.7 kg Body Mass Index (BMI) 38.6 Intake and Output for Last 24 Hours 11/03/17 11/04/17 11/05/17 23:59 23:59 23:59 Intake Total 600 / 600 800 / 800 420 / 420 Output Total 350 / 350 Balance 600 / 600 800 / 800 70 / 70 Active Medications Acetaminophen (Tylenol) 650 mg PO Q4H PRN PRN PRN Reason: PAIN Last Admin: 11/05/17 08:19 Dose: 650 mg Albuterol Sulfate (Ventolin Hfa (Sp)) 2 puff INHALATION Q4H PRN PRN PRN Reason: WHEEZING Last Admin: 10/28/17 20:29 Dose: 2 inhaler Amlodipine Besylate (Norvasc) 10 mg PO DAILY [facility] Last Admin: 11/05/17 08:19 Dose: 10 mg Aspirin (Aspirin, Baby) 81 mg PO DAILYCM [facility] Last Admin: 11/05/17 08:19 Dose: 81 mg Atorvastatin Calcium (Lipitor) 80 mg PO QHS [facility] Last Admin: 11/04/17 20:53 Dose: 80 mg Bisacodyl (Dulcolax) 10 mg RECTAL .PRN X 1 PRN PRN Reason: Constipation Calamine/Phenol (Calmoseptine Ointment) 1 applic TOPICAL BID PRN; Protocol PRN Reason: redness Carvedilol (Coreg) 25 mg PO BID [facility] Last Admin: 11/05/17 08:20 Dose: 25 mg Clopidogrel Bisulfate (Plavix) 75 mg PO DAILY [facility] Last Admin: 11/05/17 08:20 Dose: 75 mg Enoxaparin Sodium (Lovenox) 30 mg SC DAILY@0600 [facility] Last Admin: 11/05/17 05:31 Dose: 30 mg Escitalopram Oxalate (Lexapro) 10 mg PO DAILY [facility] Last Admin: 11/05/17 08:19 Dose: 10 mg Fexofenadine HCl (Sherry Allergy) 60 mg PO TID PRN PRN PRN Reason: CONGESTION Last Admin: 11/05/17 08:42 Dose: 60 mg Finasteride (Proscar) 5 mg PO DAILY [facility] Last Admin: 11/05/17 08:19 Dose: 5 mg Lisinopril (Zestril) 40 mg PO DAILY [facility] Last Admin: 11/05/17 08:19 Dose: 40 mg Magnesium Hydroxide (Milk Of Magnesia) 30 ml PO .PRN X 1 PRN PRN Reason: Constipation Nitroglycerin (Nitrostat) 0.4 mg SUBLINGUAL Q5M PRN PRN Reason: CARDIAC/CHEST PAIN Last Admin: 10/12/17 08:34 Dose: 0.4 mg Nystatin (Nystatin) 500,000 unit PO 4X/DAY [facility] Last Admin: 11/05/17 08:21 Dose: 500,000 unit Pantoprazole Sodium (Protonix) 20 mg PO BID [facility] Last Admin: 11/05/17 09:37 Dose: 20 mg Senna/Docusate Sodium (Senokot-S, Suki-Colace) 2 tablet PO BID [facility] Last Admin: 11/05/17 08:45 Dose: Not Given Sodium Chloride () 5 - 30 ml IV UD PRN PRN Reason: SALINE FLUSH Last Admin: 10/12/17 22:30 Dose: 20 ml Assessment/Plan debility s/p right parietal infarct 2/2 to symptomatic right ICA occlusion. complicated by a previous left lacunar ICH, and a right parietal ischemic stroke in 2016. The goal of rehab is sikhism of functional independence. Plan: - Physical therapy for gait and balance - Occupational Therapy for ADLs - As needed analgesics - Bowel protocol - Stroke prevention on ASA, Statin, and Plavix - DVT prophylaxis: CARLOSs, Prasad stinson, Lovenox - Hypertension: BP continues to be Elevated, Keep BP < 130/80 mmHg => currently on Coreg 25mg, Zestril 40mg, will add Norvasc 5mg daily - Hx of HLD continue home dose of statin, Check LDL and Hba1c levels - Anxiety: Lexapro - Stent placement right ICA=> continue Plavix - Cervical spondylosis => Continued neck pain 2/2 fall prior to stroke => continue C-Collar - Hx GERD continue home medication - Hx Hep C - Hx Asthma - Hx of left lacunar ICH and a right parietal ischemic stroke - Lovenox at 30mg daily - Pollen/perfume Allergies -> started on Claritin 10mg, patient feels it is not working family is bringing in some Sherry for him. - Venous duplex ordered to rule out lower extremity DVT => pending results
[2017-11-05 16:25] VITALS: BMI 38.6
[2017-11-05] MEDS: Atorvastatin Calcium 80 MG Tablet PO (19:43)
[2017-11-05 19:45] VITALS: BP 128/70; PULSE 69; RESP 18; TEMP 36.4; O2SAT 95
[2017-11-06] MEDS: Enoxaparin 30 MG/0.3 ML Syringe SC (06:21)
[2017-11-06] MEDS: FEXOFENADINE HCL 60 MG TABLET PO ×2 (06:38→19:42)
[2017-11-06] MEDS: Acetaminophen 325 MG Tablet 650 MG PO ×2 (06:46→19:41)
[2017-11-06 07:43] VITALS: BP 150/82; PULSE 66; RESP 18; TEMP 36.8; O2SAT 93
[2017-11-06] MEDS: NYSTATIN 500,000 UNIT/5 ML UDC 500000 UNIT PO ×4 (07:46→19:42)
[2017-11-06] MEDS: Carvedilol 25 MG Tablet PO ×2 (07:46→19:42)
[2017-11-06] MEDS: Lisinopril 40 MG Tablet PO (07:46)
[2017-11-06] MEDS: Pantoprazole Sodium 20 MG Tablet PO ×2 (07:47→19:42)
[2017-11-06] MEDS: Finasteride 5 MG Tablet PO (07:47)
[2017-11-06] MEDS: Escitalopram Oxalate 10 MG Tablet PO (07:47)
[2017-11-06] MEDS: Aspirin 81 MG TAB.CHEW PO (07:47)
[2017-11-06] MEDS: Clopidogrel Bisulfate 75 MG Tablet PO (07:47)
[2017-11-06] MEDS: amLODIPine 10 MG Tablet PO (07:47)
--- NOTE | 2017-11-06 10:06 | CASEMGMT ---
Team meeting held. Patient present, support person not present. Patient declining for this social security benefits interviewer to contact support person at this time and patient significant other is current up to date of patient status. Patient next update due on 11/10/17. Patient first choice is now [facility] in the event that patient is unable to discharge back to the community. Patient is reporting to now not be interested in [facility]. Support given. Telephone call to [facility], [facility] reporting to be able to accept patient in the event that a room is open next week. Will continue to follow. Elvia DENT, SALES OPERATIONS COORDINATOR
[2017-11-06 11:44] VITALS: BMI 38.6
--- NOTE | 2017-11-06 12:06 | PCM.PN.NEU ---
Subjective: Staffed in team meeting. Family not at bedside. Questions answered. With Physical therapy, he is minimal assist with bed mobility, he is minimal to contact guard with transfers. He is able to walk up and down the ramp with the Carlos Eduardo-walker at minimal to contact guard. He is able to go up and down a flight of steps at minimal to moderate assistance. With Occupational therapy he is minimal assistance for personal care, he is moderate assistance for lower body care, to pull up his pants, put on his shoes, and the AFO brace. He is able to do all his on personal hygiene at standby assist. He is able to bend and extend his elbow but there is no movement from the distal wrist or the fingers. He was able to sit and get his feet over and into the bath tub with stand by assist if needed. With speech he is doing well he is still having trouble focusing still if he could focus more he would continue to make tremendous progress. With Nursing addressed the issue with large amounts of coffee will, he will be allowed two cups of decaffeinated coffee for the day only. Also his blood pressure is elevated in the AM will change his lisinopril to be given at bed time. - Physical Exam General: Alert, Oriented x3, Cooperative HEENT: Atraumatic, PERRLA, EOMI, Normocephalic Neck: Supple, No JVD, Negative Carotid Bruits Lungs: Clear to auscultation, Normal air movement Cardiovascular: Regular rate, No murmurs Abdomen: Bowel Sounds Present, Soft, Non Tender Extremities: No edema, Capillary Refill Less than 3 Seconds Skin: No rashes, No breakdown Musculoskeletal: No Tenderness to Palpation of Joints or Extremities Neurological: Cranial nerves II-XII grossly intact Psych/Mental Status: Normal Affect, Appropriate Vital Signs Temp Pulse Resp BP Pulse Ox 98.3 F 66 18 150/82 H 93 11/06/17 07:43 11/06/17 07:43 11/06/17 07:43 11/06/17 07:43 11/06/17 07:43 Oxygen Flow Rate (L/min) 2 Oxygen Delivery Method Room Air Weight: 119.7 kg Body Mass Index (BMI) 38.6 Intake and Output for Last 24 Hours 11/04/17 11/05/17 11/06/17 23:59 23:59 23:59 Intake Total 800 / 800 780 / 780 Output Total 350 / 350 Balance 800 / 800 430 / 430 Active Medications Acetaminophen (Tylenol) 650 mg PO Q4H PRN PRN PRN Reason: PAIN Last Admin: 11/06/17 06:46 Dose: 650 mg Albuterol Sulfate (Ventolin Hfa (Sp)) 2 puff INHALATION Q4H PRN PRN PRN Reason: WHEEZING Last Admin: 10/28/17 20:29 Dose: 2 inhaler Amlodipine Besylate (Norvasc) 10 mg PO DAILY [facility] Last Admin: 11/06/17 07:47 Dose: 10 mg Aspirin (Aspirin, Baby) 81 mg PO DAILYCM [facility] Last Admin: 11/06/17 07:47 Dose: 81 mg Atorvastatin Calcium (Lipitor) 80 mg PO QHS [facility] Last Admin: 11/05/17 19:43 Dose: 80 mg Bisacodyl (Dulcolax) 10 mg RECTAL .PRN X 1 PRN PRN Reason: Constipation Calamine/Phenol (Calmoseptine Ointment) 1 applic TOPICAL BID PRN; Protocol PRN Reason: redness Carvedilol (Coreg) 25 mg PO BID [facility] Last Admin: 11/06/17 07:46 Dose: 25 mg Clopidogrel Bisulfate (Plavix) 75 mg PO DAILY [facility] Last Admin: 11/06/17 07:47 Dose: 75 mg Enoxaparin Sodium (Lovenox) 30 mg SC DAILY@0600 [facility] Last Admin: 11/06/17 06:21 Dose: 30 mg Escitalopram Oxalate (Lexapro) 10 mg PO DAILY [facility] Last Admin: 11/06/17 07:47 Dose: 10 mg Fexofenadine HCl (Sherry Allergy) 60 mg PO TID PRN PRN PRN Reason: CONGESTION Last Admin: 11/06/17 06:38 Dose: 60 mg Finasteride (Proscar) 5 mg PO DAILY [facility] Last Admin: 11/06/17 07:47 Dose: 5 mg Lisinopril (Zestril) 40 mg PO QHS [facility] Magnesium Hydroxide (Milk Of Magnesia) 30 ml PO .PRN X 1 PRN PRN Reason: Constipation Nitroglycerin (Nitrostat) 0.4 mg SUBLINGUAL Q5M PRN PRN Reason: CARDIAC/CHEST PAIN Last Admin: 10/12/17 08:34 Dose: 0.4 mg Nystatin (Nystatin) 500,000 unit PO 4X/DAY [facility] Last Admin: 11/06/17 07:46 Dose: 500,000 unit Pantoprazole Sodium (Protonix) 20 mg PO BID [facility] Last Admin: 11/06/17 07:47 Dose: 20 mg Senna/Docusate Sodium (Senokot-S, Suki-Colace) 2 tablet PO BID [facility] Last Admin: 11/06/17 07:47 Dose: Not Given Sodium Chloride () 5 - 30 ml IV UD PRN PRN Reason: SALINE FLUSH Last Admin: 10/12/17 22:30 Dose: 20 ml Assessment/Plan debility s/p right parietal infarct 2/2 to symptomatic right ICA occlusion. complicated by a previous left lacunar ICH, and a right parietal ischemic stroke in 2016. The goal of rehab is jehovah's witness of functional independence. Plan: - Physical therapy for gait and balance - Occupational Therapy for ADLs - As needed analgesics - Bowel protocol - Stroke prevention on ASA, Statin, and Plavix - DVT prophylaxis: Yannick, Prasad stinson, Lovenox - Hypertension: BP continues to be Elevated, Keep BP < 130/80 mmHg => currently on Coreg 25mg, Zestril 40mg, will add Norvasc 5mg daily - Hx of HLD continue home dose of statin, Check LDL and Hba1c levels - Anxiety: Lexapro - Stent placement right ICA=> continue Plavix - Cervical spondylosis => Continued neck pain 2/2 fall prior to stroke => continue C-Collar - Hx GERD continue home medication - Hx Hep C - Hx Asthma - Hx of left lacunar ICH and a right parietal ischemic stroke - Lovenox at 30mg daily - Pollen/perfume Allergies -> started on Claritin 10mg, patient feels it is not working family is bringing in some Sherry for him. - Venous duplex ordered to rule out lower extremity DVT => pending results
[2017-11-06 19:38] VITALS: BP 149/82; PULSE 80; RESP 17; TEMP 36.8; O2SAT 95
[2017-11-06] MEDS: Atorvastatin Calcium 80 MG Tablet PO (19:41)
[2017-11-07] MEDS: Enoxaparin 30 MG/0.3 ML Syringe SC (05:17)
[2017-11-07 07:49] VITALS: BP 156/81; PULSE 84; RESP 18; TEMP 36.8; O2SAT 95
[2017-11-07] MEDS: amLODIPine 10 MG Tablet PO (07:51)
[2017-11-07] MEDS: Clopidogrel Bisulfate 75 MG Tablet PO (07:51)
[2017-11-07] MEDS: FEXOFENADINE HCL 60 MG TABLET PO (07:51)
[2017-11-07] MEDS: Escitalopram Oxalate 10 MG Tablet PO (07:51)
[2017-11-07] MEDS: Aspirin 81 MG TAB.CHEW PO (07:51)
[2017-11-07] MEDS: Carvedilol 25 MG Tablet PO ×2 (07:51→20:19)
[2017-11-07] MEDS: Finasteride 5 MG Tablet PO (07:51)
[2017-11-07] MEDS: Acetaminophen 325 MG Tablet 650 MG PO ×2 (08:20→20:23)
[2017-11-07] MEDS: Pantoprazole Sodium 20 MG Tablet PO ×2 (09:49→20:18)
[2017-11-07] MEDS: NYSTATIN 500,000 UNIT/5 ML UDC 500000 UNIT PO ×2 (09:49→13:08)
[2017-11-07 13:52] VITALS: BMI 38.6
--- NOTE | 2017-11-07 13:58 | PN_ITS ---
Subjective: Patient seen having lunch. Per Nursing staff patient continues to tolerate physical therapy Objective: HEENT: Clear conjunctiva, NECK; supple, normal thyroid, CHEST: Clear to auscultation bilaterally, HEART: Regular S1 S2, no audible murmurs ABDOMEN: soft, non-tender, normoactive bowel sounds, RECTAL: deferred EXTREMITIES: No edema, no clubbing, FEATHER SHAPER: Awake, left-sided hemiparesis SKIN: No Rash Vitals/I&O's: Vital Signs Temp Pulse Resp BP Pulse Ox 98.2 F 84 18 156/81 H 95 11/07/17 07:49 11/07/17 07:49 11/07/17 07:49 11/07/17 07:49 11/07/17 07:49 Oxygen Flow Rate (L/min) 2 Oxygen Delivery Method Room Air Weight: 119.7 kg Body Mass Index (BMI) 38.6 Intake and Output for Last 24 Hours 11/05/17 11/06/17 11/07/17 23:59 23:59 23:59 Intake Total 780 / 780 600 / 600 520 / 520 Output Total 350 / 350 Balance 430 / 430 600 / 600 520 / 520 Current Medications Acetaminophen (Tylenol) 650 mg PO Q4H PRN PRN PRN Reason: PAIN Last Admin: 11/07/17 08:20 Dose: 650 mg Albuterol Sulfate (Ventolin Hfa (Sp)) 2 puff INHALATION Q4H PRN PRN PRN Reason: WHEEZING Last Admin: 10/28/17 20:29 Dose: 2 inhaler Amlodipine Besylate (Norvasc) 10 mg PO DAILY [facility] Last Admin: 11/07/17 07:51 Dose: 10 mg [facility] Last Admin: 11/07/17 07:51 Dose: 81 mg Atorvastatin Calcium (Lipitor) 80 mg PO QHS [facility] Last Admin: 11/06/17 19:41 Dose: 80 mg Bisacodyl (Dulcolax) 10 mg RECTAL .PRN X 1 PRN PRN Reason: Constipation Calamine/Phenol (Calmoseptine Ointment) 1 applic TOPICAL BID PRN; Protocol PRN Reason: redness Carvedilol (Coreg) 25 mg PO BID [facility] Last Admin: 11/07/17 07:51 Dose: 25 mg Clopidogrel Bisulfate (Plavix) 75 mg PO DAILY [facility] Last Admin: 11/07/17 07:51 Dose: 75 mg Enoxaparin Sodium (Lovenox) 30 mg SC DAILY@0600 [facility] Last Admin: 11/07/17 05:17 Dose: 30 mg Escitalopram Oxalate (Lexapro) 10 mg PO DAILY [facility] Last Admin: 11/07/17 07:51 Dose: 10 mg Fexofenadine HCl (Sherry Allergy) 60 mg PO TID PRN PRN PRN Reason: CONGESTION Last Admin: 11/07/17 07:51 Dose: 60 mg Finasteride (Proscar) 5 mg PO DAILY [facility] Last Admin: 11/07/17 07:51 Dose: 5 mg Lisinopril (Zestril) 40 mg PO QHS [facility] Magnesium Hydroxide (Milk Of Magnesia) 30 ml PO .PRN X 1 PRN PRN Reason: Constipation Nitroglycerin (Nitrostat) 0.4 mg SUBLINGUAL Q5M PRN PRN Reason: CARDIAC/CHEST PAIN Last Admin: 10/12/17 08:34 Dose: 0.4 mg Nystatin (Nystatin) 500,000 unit PO 4X/DAY [facility] Last Admin: 11/07/17 13:08 Dose: 500,000 unit Pantoprazole Sodium (Protonix) 20 mg PO BID [facility] Last Admin: 11/07/17 09:49 Dose: 20 mg Senna/Docusate Sodium (Senokot-S, Suki-Colace) 2 tablet PO BID [facility] Last Admin: 11/07/17 07:53 Dose: Not Given Sodium Chloride () 5 - 30 ml IV UD PRN PRN Reason: SALINE FLUSH Last Admin: 10/12/17 22:30 Dose: 20 ml Assessment/Plan Patient is a 57-year-old male admitted to the inpatient rehab unit with 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 He underwent right ICA occlusion at the [facility] prior to his admission to the inpatient rehab unit 1. Acute right parietal infarct due to right ICA occlusion status post angioplasty and placement. Admitted to the inpatient rehab unit where patient is currently undergoing therapy. Patient is also on antiplatelet therapy as well as started 2. Hypertension-blood pressure controlled, home medications continued with dose adjustment as needed 3. Dyslipidemia: On statin therapy did continue 4. History of cervical spondylosis 5. DVT prophylaxis SC Lovenox Code Visit Inpatient E&M: 46426 Subs Hosp L2
[2017-11-07 20:15] VITALS: BP 159/80; PULSE 82; RESP 16; TEMP 36.8; O2SAT 95; BMI 38.6
[2017-11-07] MEDS: Lisinopril 40 MG Tablet PO (20:18)
[2017-11-07] MEDS: Atorvastatin Calcium 80 MG Tablet PO (20:18)
--- NOTE | 2017-11-08 03:45 | NURSING ---
Reviewed and agree with PATTERN GRADER SUPERVISOR documentation and FIMS charting.
[2017-11-08] MEDS: Enoxaparin 30 MG/0.3 ML Syringe SC (05:53)
[2017-11-08] MEDS: Acetaminophen 325 MG Tablet 650 MG PO ×2 (05:56→19:53)
[2017-11-08 07:19] VITALS: BP 136/89; PULSE 68; RESP 17; TEMP 36.8; O2SAT 93
[2017-11-08] MEDS: Clopidogrel Bisulfate 75 MG Tablet PO (07:28)
[2017-11-08] MEDS: Carvedilol 25 MG Tablet PO ×2 (07:28→19:53)
[2017-11-08] MEDS: Pantoprazole Sodium 20 MG Tablet PO ×2 (07:28→19:53)
[2017-11-08] MEDS: Escitalopram Oxalate 10 MG Tablet PO (07:28)
[2017-11-08] MEDS: Senna/Docusate Sodium 1 Tablet 2 TABLET PO (07:28)
[2017-11-08] MEDS: Finasteride 5 MG Tablet PO (07:28)
[2017-11-08] MEDS: amLODIPine 10 MG Tablet PO (07:28)
[2017-11-08] MEDS: Aspirin 81 MG TAB.CHEW PO (07:28)
[2017-11-08] MEDS: FEXOFENADINE HCL 60 MG TABLET PO ×2 (07:47→20:12)
[2017-11-08 11:02] VITALS: BMI 38.6
[2017-11-08 19:43] VITALS: BP 154/87; PULSE 71; RESP 17; TEMP 36.6; O2SAT 95
[2017-11-08 19:50] VITALS: PULSE 71; RESP 17; O2SAT 95
[2017-11-08] MEDS: Atorvastatin Calcium 80 MG Tablet PO (19:53)
[2017-11-08] MEDS: Lisinopril 40 MG Tablet PO (19:57)
[2017-11-08 20:08] VITALS: BMI 38.6
--- NOTE | 2017-11-09 02:23 | NURSING ---
Reviewed and agree with ACOUSTICAL TILE DRILL PRESS OPERATOR documentation & FIMS charting
[2017-11-09] MEDS: Enoxaparin 30 MG/0.3 ML Syringe SC (05:12)
[2017-11-09 07:25] VITALS: BP 154/94; PULSE 71; RESP 16; TEMP 37.1; O2SAT 95
[2017-11-09] MEDS: FEXOFENADINE HCL 60 MG TABLET PO (07:51)
[2017-11-09] MEDS: Finasteride 5 MG Tablet PO (07:52)
[2017-11-09] MEDS: amLODIPine 10 MG Tablet PO (07:52)
[2017-11-09] MEDS: Carvedilol 25 MG Tablet PO ×2 (07:52→19:56)
[2017-11-09] MEDS: Aspirin 81 MG TAB.CHEW PO (07:52)
[2017-11-09] MEDS: Escitalopram Oxalate 10 MG Tablet PO (07:53)
[2017-11-09] MEDS: Clopidogrel Bisulfate 75 MG Tablet PO (07:53)
[2017-11-09] MEDS: Pantoprazole Sodium 20 MG Tablet PO ×2 (07:53→19:57)
[2017-11-09 09:20] VITALS: BP 134/78; PULSE 71
[2017-11-09] MEDS: Acetaminophen 325 MG Tablet 650 MG PO ×2 (09:22→19:55)
[2017-11-09 12:14] VITALS: BMI 38.6
--- NOTE | 2017-11-09 12:37 | CT_ITS ---
STUDY: CT BRAIN WITHOUT CONTRAST REASON FOR EXAM: Male, 57 years old. Headache, previous CVA RADIATION DOSAGE (If Supplied By Facility): CTDIvol = ( 44.99 ) mGy, DLP = ( 846.73 ) mGycm TECHNIQUE: Transaxial CT imaging of the brain was performed without administration of intravenous contrast material. Sagittal and coronal reconstructed images are provided and reviewed. Individualized dose optimization techniques were used for this CT. COMPARISON: 10/09/2017 FINDINGS: There is a small surgical clip adjacent to the left frontal sinus. Normal calvarium. There is mild cerebral atrophy with widening of the extra-axial spaces and ventricular dilatation. There is continuing evolution of the right MCA territory infarct, with better defined margins to the region of infarct and developing encephalomalacia. Remote left basal ganglia infarct is seen. Normal brainstem. Normal cerebellum. There is no intracranial hemorrhage. There are no findings of an acute ischemic infarction. Normal visualized paranasal sinuses. CT/Brain/Head without Contrast IMPRESSION: Evolving right MCA infarct. Remote left basal ganglia infarct. No new abnormality. Electronically Signed: Efren Kearney DO at 13:26 EDT Tel , Service support ,
--- NOTE | 2017-11-09 12:49 | NURSING ---
patient c/o headache and describes it as intermittent waves starting from the occipital area to frontal area; pain level 5/10. Prn tylenol given previously, ineffective per patient. Also, c/o nausea and dizziness with movement. pupils equal and reactive, left side facial droop, severe weakness to left side remains. No other new deficits noted. A/O x3. Dr. larry notified new order for Ct scan without contrast, prn zofran and patient can have 5 cups of caffeinated coffee per day. patient Ct scan completed. Fiance in room and aware.
[2017-11-09] MEDS: Ondansetron ODT 4 MG Tablet PO (13:09)
--- NOTE | 2017-11-09 14:15 | NURSING ---
patient stated his headache level 2/10 and denies any further nausea or dizziness. patient sitting up in chair playing cards with [employer]. patient had 2 cups of caffeinated coffee.
--- NOTE | 2017-11-09 17:16 | NURSING ---
denies any further headache. patient sitting up in chair eating supper with fiance.
[2017-11-09 19:42] VITALS: BP 125/58; PULSE 70; RESP 18; TEMP 37.3; O2SAT 96
[2017-11-09] MEDS: Atorvastatin Calcium 80 MG Tablet PO (19:56)
[2017-11-09] MEDS: Lisinopril 40 MG Tablet PO (19:56)
[2017-11-09 20:00] VITALS: PULSE 70; RESP 18; O2SAT 96; BMI 38.6
--- NOTE | 2017-11-10 00:59 | NURSING ---
Reviewed and agree with MORNING NEWS PRODUCER documentation and FIMS charting.
[2017-11-10] MEDS: Enoxaparin 30 MG/0.3 ML Syringe SC (05:12)
[2017-11-10] MEDS: Pantoprazole Sodium 20 MG Tablet PO ×2 (07:39→20:43)
[2017-11-10] MEDS: Clopidogrel Bisulfate 75 MG Tablet PO (07:40)
[2017-11-10] MEDS: amLODIPine 10 MG Tablet PO (07:40)
[2017-11-10] MEDS: Aspirin 81 MG TAB.CHEW PO (07:40)
[2017-11-10] MEDS: Escitalopram Oxalate 10 MG Tablet PO (07:40)
[2017-11-10] MEDS: Finasteride 5 MG Tablet PO (07:40)
[2017-11-10] MEDS: Carvedilol 25 MG Tablet PO ×2 (07:40→20:43)
[2017-11-10 08:15] VITALS: BP 139/73; PULSE 70; RESP 16; TEMP 36.4; O2SAT 96
[2017-11-10] MEDS: FEXOFENADINE HCL 60 MG TABLET PO (10:33)
--- NOTE | 2017-11-10 10:34 | NURSING ---
patient was reevaluated today new order for 1 cup of decaf per day and 1 cup of caffeinated coffee per day
[2017-11-10 10:46] VITALS: BMI 38.6
--- NOTE | 2017-11-10 12:45 | PCM.PN.NEU ---
Subjective: Patient seen and examined. Over the weekend had severe headaches, CT head was done and showed no changes, patients Caffeine intake had been decreased the week prior, feel this may have had some impact on his having a headache, patient may have one cup of caffeinated coffee a day, the rest will be decaffeinated. Tolerating therapy. No issues with GI/. - Physical Exam General: Alert, Oriented x3, Cooperative HEENT: Atraumatic, PERRLA, EOMI, Normocephalic Neck: Supple, No JVD, Negative Carotid Bruits Lungs: Clear to auscultation, Normal air movement Cardiovascular: Regular rate, No murmurs Abdomen: Bowel Sounds Present, Soft, Non Tender Extremities: No edema, Capillary Refill Less than 3 Seconds Skin: No rashes, No breakdown Musculoskeletal: No Tenderness to Palpation of Joints or Extremities Neurological: Cranial nerves II-XII grossly intact Psych/Mental Status: Normal Affect, Appropriate Vital Signs Temp Pulse Resp BP Pulse Ox 97.6 F L 70 16 139/73 H 96 11/10/17 08:15 11/10/17 08:15 11/10/17 08:15 11/10/17 08:15 11/10/17 08:15 Oxygen Flow Rate (L/min) 2 Oxygen Delivery Method Room Air Weight: 119.7 kg Body Mass Index (BMI) 38.6 Intake and Output for Last 24 Hours 11/08/17 11/09/17 11/10/17 23:59 23:59 23:59 Intake Total 680 / 680 520 / 520 360 / 360 Balance 680 / 680 520 / 520 360 / 360 Active Medications Acetaminophen (Tylenol) 650 mg PO Q4H PRN PRN PRN Reason: PAIN Last Admin: 11/09/17 19:55 Dose: 650 mg Albuterol Sulfate (Ventolin Hfa (Sp)) 2 puff INHALATION Q4H PRN PRN PRN Reason: WHEEZING Last Admin: 10/28/17 20:29 Dose: 2 inhaler Amlodipine Besylate (Norvasc) 10 mg PO DAILY [facility] Last Admin: 11/10/17 07:40 Dose: 10 mg [facility] Last Admin: 11/10/17 07:40 Dose: 81 mg Atorvastatin Calcium (Lipitor) 80 mg PO QHS [facility] Last Admin: 03/18/18 19:56 Dose: 80 mg Bisacodyl (Dulcolax) 10 mg RECTAL .PRN X 1 PRN PRN Reason: Constipation Calamine/Phenol (Calmoseptine Ointment) 1 applic TOPICAL BID PRN; Protocol PRN Reason: redness Carvedilol (Coreg) 25 mg PO BID [facility] Last Admin: 11/10/17 07:40 Dose: 25 mg Clopidogrel Bisulfate (Plavix) 75 mg PO DAILY [facility] Last Admin: 11/10/17 07:40 Dose: 75 mg Enoxaparin Sodium (Lovenox) 30 mg SC DAILY@0600 [facility] Last Admin: 11/10/17 05:12 Dose: 30 mg Escitalopram Oxalate (Lexapro) 10 mg PO DAILY [facility] Last Admin: 11/10/17 07:40 Dose: 10 mg Fexofenadine HCl (Sherry Allergy) 60 mg PO TID PRN PRN PRN Reason: CONGESTION Last Admin: 11/10/17 10:33 Dose: 60 mg Finasteride (Proscar) 5 mg PO DAILY [facility] Last Admin: 11/10/17 07:40 Dose: 5 mg Lisinopril (Zestril) 40 mg PO QHS [facility] Last Admin: 11/09/17 19:56 Dose: 40 mg Magnesium Hydroxide (Milk Of Magnesia) 30 ml PO .PRN X 1 PRN PRN Reason: Constipation Nitroglycerin (Nitrostat) 0.4 mg SUBLINGUAL Q5M PRN PRN Reason: CARDIAC/CHEST PAIN Last Admin: 10/12/17 08:34 Dose: 0.4 mg Ondansetron HCl (Zofran Odt) 4 mg PO Q8H PRN PRN PRN Reason: NAUSEA Last Admin: 11/09/17 13:09 Dose: 4 mg Pantoprazole Sodium (Protonix) 20 mg PO BID [facility] Last Admin: 11/10/17 07:39 Dose: 20 mg Senna/Docusate Sodium (Senokot-S, Suki-Colace) 2 tablet PO BID [facility] Last Admin: 11/10/17 07:40 Dose: Not Given Sodium Chloride () 5 - 30 ml IV UD PRN PRN Reason: SALINE FLUSH Last Admin: 10/12/17 22:30 Dose: 20 ml Medical Necessity - Tobacco Use Smoking Status: Heavy Smoker (>10/day) Tobacco Use: Cigarettes Assessment/Plan debility s/p right parietal infarct 2/2 to symptomatic right ICA occlusion. complicated by a previous left lacunar ICH, and a right parietal ischemic stroke in 2016. The goal of rehab is buddhism of functional independence. Plan: - Physical therapy for gait and balance - Occupational Therapy for ADLs - As needed analgesics - Bowel protocol - Stroke prevention on ASA, Statin, and Plavix - DVT prophylaxis: SCDs, Prasad stinson, Lovenox - Hypertension: BP continues to be Elevated, Keep BP < 130/80 mmHg => currently on Coreg 25mg, Zestril 40mg, will add Norvasc 5mg daily - Hx of HLD continue home dose of statin, Check LDL and Hba1c levels - Anxiety: Lexapro - Stent placement right ICA=> continue Plavix - Cervical spondylosis => Continued neck pain 2/2 fall prior to stroke => continue C-Collar - Hx GERD continue home medication - Hx Hep C - Hx Asthma - Hx of left lacunar ICH and a right parietal ischemic stroke - Lovenox at 30mg daily - Pollen/perfume Allergies -> started on Claritin 10mg, patient feels it is not working family is bringing in some Sherry for him. - Venous duplex ordered to rule out lower extremity DVT => Duplex was unremarkable - New onset Headaches -> CT head was showed no changes from previous studies.
--- NOTE | 2017-11-10 14:01 | CASEMGMT ---
Insurance Clinical information faxed. Pending continued stay approval. Auth#[id number] Elvia DENT, PROJ ENGINEER
[2017-11-10] MEDS: Atorvastatin Calcium 80 MG Tablet PO (20:43)
[2017-11-10] MEDS: Lisinopril 40 MG Tablet PO (20:46)
[2017-11-10] MEDS: Acetaminophen 325 MG Tablet 650 MG PO (20:52)
[2017-11-10 22:00] VITALS: BP 125/60; PULSE 66; RESP 18; TEMP 36.4; O2SAT 96
[2017-11-11 00:17] VITALS: BMI 38.6
--- NOTE | 2017-11-11 02:27 | NURSING ---
REVIEWED AND AGREE WITH EVS ATTENDANT'S FIM AND HANDOFF CHARTING.
[2017-11-11] MEDS: Enoxaparin 30 MG/0.3 ML Syringe SC (05:13)
[2017-11-11 08:17] VITALS: BP 145/92; PULSE 78; RESP 17; TEMP 36.7; O2SAT 94
[2017-11-11] MEDS: Carvedilol 25 MG Tablet PO ×2 (08:25→20:09)
[2017-11-11] MEDS: amLODIPine 10 MG Tablet PO (08:25)
[2017-11-11] MEDS: Finasteride 5 MG Tablet PO (08:25)
[2017-11-11] MEDS: Escitalopram Oxalate 10 MG Tablet PO (08:25)
[2017-11-11] MEDS: Aspirin 81 MG TAB.CHEW PO (08:25)
[2017-11-11] MEDS: Pantoprazole Sodium 20 MG Tablet PO ×2 (08:25→20:09)
[2017-11-11] MEDS: Clopidogrel Bisulfate 75 MG Tablet PO (08:25)
[2017-11-11] MEDS: Acetaminophen 325 MG Tablet 650 MG PO ×2 (08:36→20:10)
[2017-11-11] MEDS: FEXOFENADINE HCL 60 MG TABLET PO (08:37)
[2017-11-11 08:47] VITALS: BMI 38.6
--- NOTE | 2017-11-11 12:46 | PCM.PN.NEU ---
<Nithya Arevalo - Last Filed: 11/11/17 12:46> Subjective: Patient seen doing Occupational therapy session. Had an issue with some facial, arm and shoulder numbness, which resolved after some shoulder and neck stretching exercises. Patient is tolerating therapy, no issues with GI/. - Physical Exam General: Alert, Oriented x3, Cooperative HEENT: Atraumatic, PERRLA, EOMI, Normocephalic Neck: Supple, No JVD, Negative Carotid Bruits Lungs: Clear to auscultation, Normal air movement Cardiovascular: Regular rate, No murmurs Abdomen: Bowel Sounds Present, Soft, Non Tender Extremities: No edema, Capillary Refill Less than 3 Seconds Skin: No rashes, No breakdown Musculoskeletal: No Tenderness to Palpation of Joints or Extremities Neurological: Cranial nerves II-XII grossly intact Psych/Mental Status: Normal Affect, Appropriate Vital Signs Temp Pulse Resp BP Pulse Ox 98.0 F 78 17 145/92 H 94 11/11/17 08:17 11/11/17 08:17 11/11/17 08:17 11/11/17 08:17 11/11/17 08:17 Oxygen Flow Rate (L/min) 2 Oxygen Delivery Method Room Air Weight: 119.7 kg Body Mass Index (BMI) 38.6 Intake and Output for Last 24 Hours 11/09/17 11/10/17 11/11/17 23:59 23:59 23:59 Intake Total 520 / 520 600 / 600 320 / 320 Balance 520 / 520 600 / 600 320 / 320 Active Medications Acetaminophen (Tylenol) 650 mg PO Q4H PRN PRN PRN Reason: PAIN Last Admin: 11/11/17 08:36 Dose: 650 mg Albuterol Sulfate (Ventolin Hfa (Sp)) 2 puff INHALATION Q4H PRN PRN PRN Reason: WHEEZING Last Admin: 10/28/17 20:29 Dose: 2 inhaler Amlodipine Besylate (Norvasc) 10 mg PO DAILY [facility] Last Admin: 11/11/17 08:25 Dose: 10 mg [facility] ([facility], Baby) [facility] Last Admin: 11/11/17 08:25 Dose: 81 mg Atorvastatin Calcium (Lipitor) 80 mg PO QHS [facility] Last Admin: 11/10/17 20:43 Dose: 80 mg Bisacodyl (Dulcolax) 10 mg RECTAL .PRN X 1 PRN PRN Reason: Constipation Calamine/Phenol (Calmoseptine Ointment) 1 applic TOPICAL BID PRN; Protocol PRN Reason: redness Carvedilol (Coreg) 25 mg PO BID [facility] Last Admin: 11/11/17 08:25 Dose: 25 mg Clopidogrel Bisulfate (Plavix) 75 mg PO DAILY [facility] Last Admin: 11/11/17 08:25 Dose: 75 mg Enoxaparin Sodium (Lovenox) 30 mg SC DAILY@0600 [facility] Last Admin: 11/11/17 05:13 Dose: 30 mg Escitalopram Oxalate (Lexapro) 10 mg PO DAILY [facility] Last Admin: 11/11/17 08:25 Dose: 10 mg Fexofenadine HCl (Sherry Allergy) 60 mg PO TID PRN PRN PRN Reason: CONGESTION Last Admin: 11/11/17 08:37 Dose: 60 mg Finasteride (Proscar) 5 mg PO DAILY [facility] Last Admin: 11/11/17 08:25 Dose: 5 mg Lisinopril (Zestril) 40 mg PO QHS [facility] Last Admin: 11/10/17 20:46 Dose: 40 mg Magnesium Hydroxide (Milk Of Magnesia) 30 ml PO .PRN X 1 PRN PRN Reason: Constipation Nitroglycerin (Nitrostat) 0.4 mg SUBLINGUAL Q5M PRN PRN Reason: CARDIAC/CHEST PAIN Last Admin: 10/12/17 08:34 Dose: 0.4 mg Ondansetron HCl (Zofran Odt) 4 mg PO Q8H PRN PRN PRN Reason: NAUSEA Last Admin: 11/09/17 13:09 Dose: 4 mg Pantoprazole Sodium (Protonix) 20 mg PO BID [facility] Last Admin: 11/11/17 08:25 Dose: 20 mg Senna/Docusate Sodium (Senokot-S, Suki-Colace) 2 tablet PO BID [facility] Last Admin: 11/11/17 08:28 Dose: Not Given Sodium Chloride () 5 - 30 ml IV UD PRN PRN Reason: SALINE FLUSH Last Admin: 10/12/17 22:30 Dose: 20 ml Medical Necessity - Tobacco Use Smoking Status: Heavy Smoker (>10/day) Tobacco Use: Cigarettes Assessment/Plan debility s/p right parietal infarct 2/2 to symptomatic right ICA occlusion. complicated by a previous left lacunar ICH, and a right parietal ischemic stroke in 2016. The goal of rehab is caodaism of functional independence. Plan: - Physical therapy for gait and balance - Occupational Therapy for ADLs - As needed analgesics - Bowel protocol - Stroke prevention on ASA, Statin, and Plavix - DVT prophylaxis: SCDs, Prasad shantell, Lovenox - Hypertension: BP continues to be Elevated, Keep BP < 130/80 mmHg => currently on Coreg 25mg, Zestril 40mg, will add Norvasc 5mg daily - Hx of HLD continue home dose of statin, Check LDL and Hba1c levels - Anxiety: Lexapro - Stent placement right ICA=> continue Plavix - Cervical spondylosis => Continued neck pain 2/2 fall prior to stroke => continue C-Collar - Hx GERD continue home medication - Hx Hep C - Hx Asthma - Hx of left lacunar ICH and a right parietal ischemic stroke - Lovenox at 30mg daily - Pollen/perfume Allergies -> started on Claritin 10mg, patient feels it is not working family is bringing in some Sherry for him. - Venous duplex ordered to rule out lower extremity DVT => Duplex was unremarkable - New onset Headaches -> CT head was showed no changes from previous studies. <Travis Levin - Last Filed: 11/11/17 13:07> - Physical Exam Vital Signs Temp Pulse Resp BP Pulse Ox 36.7 C 78 17 145/92 H 94 11/11/17 08:17 11/11/17 08:17 11/11/17 08:17 11/11/17 08:17 11/11/17 08:17 Oxygen Flow Rate (L/min) 2 Oxygen Delivery Method Room Air Weight: 119.7 kg Body Mass Index (BMI) 38.6 Intake and Output for Last 24 Hours 11/09/17 11/10/17 11/11/17 23:59 23:59 23:59 Intake Total 520 / 520 600 / 600 320 / 320 Balance 520 / 520 600 / 600 320 / 320 Assessment/Plan Patient interviewed and examined. Agree with nurse practitioner notes and plan as. His primary complaint is caffeine intake, he previously drank copious caffeine, now he feels that his limitation is somewhat burdensome he also has noticed some left facial paresthesias which may in fact be 2's due to stroke recovery however he agrees to have a repeat CAT scan. Otherwise agree with nurse practitioner plan as above.
--- NOTE | 2017-11-11 12:59 | PN.NEURO_ITS ---
<Nithya Arevalo - Last Filed: 11/11/17 12:46> Subjective: Patient seen doing Occupational therapy session. Had an issue with some facial , arm and shoulder numbness, which resolved after some shoulder and neck stretching exercises. Patient is tolerating therapy, no issues with GI/. - Physical Exam General: Alert, Oriented x3, Cooperative HEENT: Atraumatic, PERRLA, EOMI, Normocephalic Neck: Supple, No JVD, Negative Carotid Bruits Lungs: Clear to auscultation, Normal air movement Cardiovascular: Regular rate, No murmurs Abdomen: Bowel Sounds Present, Soft, Non Tender Extremities: No edema, Capillary Refill Less than 3 Seconds Skin: No rashes, No breakdown Musculoskeletal: No Tenderness to Palpation of Joints or Extremities Neurological: Cranial nerves II-XII grossly intact Psych/Mental Status: Normal Affect, Appropriate Vital Signs Temp Pulse Resp BP Pulse Ox 98.0 F 78 17 145/92 H 94 11/11/17 08:17 11/11/17 08:17 11/11/17 08:17 11/11/17 08:17 11/11/17 08:17 Oxygen Flow Rate (L/min) 2 Oxygen Delivery Method Room Air Weight: 119.7 kg Body Mass Index (BMI) 38.6 Intake and Output for Last 24 Hours 11/09/17 11/10/17 11/11/17 23:59 23:59 23:59 Intake Total 520 / 520 600 / 600 320 / 320 Balance 520 / 520 600 / 600 320 / 320 Active Medications Acetaminophen (Tylenol) 650 mg PO Q4H PRN PRN PRN Reason: PAIN Last Admin: 11/11/17 08:36 Dose: 650 mg Albuterol Sulfate (Ventolin Hfa (Sp)) 2 puff INHALATION Q4H PRN PRN PRN Reason: WHEEZING Last Admin: 10/28/17 20:29 Dose: 2 inhaler Amlodipine Besylate (Norvasc) 10 mg PO DAILY [facility] Last Admin: 11/11/17 08:25 Dose: 10 mg Aspir[facility] ([facility], Baby) [facility] Last Admin: 11/11/17 08:25 Dose: 81 mg Atorvastatin Calcium (Lipitor) 80 mg PO QHS [facility] Last Admin: 11/10/17 20:43 Dose: 80 mg Bisacodyl (Dulcolax) 10 mg RECTAL .PRN X 1 PRN PRN Reason: Constipation Calamine/Phenol (Calmoseptine Ointment) 1 applic TOPICAL BID PRN; Protocol PRN Reason: redness Carvedilol (Coreg) 25 mg PO BID [facility] Last Admin: 11/11/17 08:25 Dose: 25 mg Clopidogrel Bisulfate (Plavix) 75 mg PO DAILY [facility] Last Admin: 11/11/17 08:25 Dose: 75 mg Enoxaparin Sodium (Lovenox) 30 mg SC DAILY@0600 [facility] Last Admin: 11/11/17 05:13 Dose: 30 mg Escitalopram Oxalate (Lexapro) 10 mg PO DAILY [facility] Last Admin: 11/11/17 08:25 Dose: 10 mg Fexofenadine HCl (Sherry Allergy) 60 mg PO TID PRN PRN PRN Reason: CONGESTION Last Admin: 11/11/17 08:37 Dose: 60 mg Finasteride (Proscar) 5 mg PO DAILY [facility] Last Admin: 11/11/17 08:25 Dose: 5 mg Lisinopril (Zestril) 40 mg PO QHS [facility] Last Admin: 11/10/17 20:46 Dose: 40 mg Magnesium Hydroxide (Milk Of Magnesia) 30 ml PO .PRN X 1 PRN PRN Reason: Constipation Nitroglycerin (Nitrostat) 0.4 mg SUBLINGUAL Q5M PRN PRN Reason: CARDIAC/CHEST PAIN Last Admin: 10/12/17 08:34 Dose: 0.4 mg Ondansetron HCl (Zofran Odt) 4 mg PO Q8H PRN PRN PRN Reason: NAUSEA Last Admin: 11/09/17 13:09 Dose: 4 mg Pantoprazole Sodium (Protonix) 20 mg PO BID [facility] Last Admin: 11/11/17 08:25 Dose: 20 mg Senna/Docusate Sodium (Senokot-S, Suki-Colace) 2 tablet PO BID [facility] Last Admin: 11/11/17 08:28 Dose: Not Given Sodium Chloride () 5 - 30 ml IV UD PRN PRN Reason: SALINE FLUSH Last Admin: 10/12/17 22:30 Dose: 20 ml Medical Necessity - Tobacco Use Smoking Status: Heavy Smoker (>10/day) Tobacco Use: Cigarettes Assessment/Plan debility s/p right parietal infarct 2/2 to symptomatic right ICA occlusion. complicated by a previous left lacunar ICH, and a right parietal ischemic stroke in 2016. The goal of rehab is jainism of functional independence. Plan: - Physical therapy for gait and balance - Occupational Therapy for ADLs - As needed analgesics - Bowel protocol - Stroke prevention on ASA, Statin, and Plavix - DVT prophylaxis: SCDs, Prasad shantell, Lovenox - Hypertension: BP continues to be Elevated, Keep BP < 130/80 mmHg => currently on Coreg 25mg, Zestril 40mg, will add Norvasc 5mg daily - Hx of HLD continue home dose of statin, Check LDL and Hba1c levels - Anxiety: Lexapro - Stent placement right ICA=> continue Plavix - Cervical spondylosis => Continued neck pain 2/2 fall prior to stroke => continue C-Collar - Hx GERD continue home medication - Hx Hep C - Hx Asthma - Hx of left lacunar ICH and a right parietal ischemic stroke - Lovenox at 30mg daily - Pollen/perfume Allergies -> started on Claritin 10mg, patient feels it is not working family is bringing in some Sherry for him. - Venous duplex ordered to rule out lower extremity DVT => Duplex was unremarkable - New onset Headaches -> CT head was showed no changes from previous studies. <Travis Levin - Last Filed: 11/11/17 13:07> - Physical Exam Vital Signs Temp Pulse Resp BP Pulse Ox 36.7 C 78 17 145/92 H 94 11/11/17 08:17 11/11/17 08:17 11/11/17 08:17 11/11/17 08:17 11/11/17 08:17 Oxygen Flow Rate (L/min) 2 Oxygen Delivery Method Room Air Weight: 119.7 kg Body Mass Index (BMI) 38.6 Intake and Output for Last 24 Hours 11/09/17 11/10/17 11/11/17 23:59 23:59 23:59 Intake Total 520 / 520 600 / 600 320 / 320 Balance 520 / 520 600 / 600 320 / 320 Assessment/Plan Patient interviewed and examined. Agree with nurse practitioner notes and plan as. His primary complaint is caffeine intake, he previously drank copious caffeine, now he feels that his limitation is somewhat burdensome he also has noticed some left facial paresthesias which may in fact be 2's due to stroke recovery however he agrees to have a repeat CAT scan. Otherwise agree with nurse practitioner plan as above.
--- NOTE | 2017-11-11 13:07 | CT_ITS ---
STUDY: CT BRAIN WITHOUT CONTRAST REASON FOR EXAM: Male, 57 years old. Left facial paracentesis. History of traumatic brain injury. RADIATION DOSAGE (If Supplied By Facility): CTDIvol = ( 44.99 ) mGy, DLP = ( 863.60 ) mGycm TECHNIQUE: Transaxial CT imaging of the brain was performed without administration of intravenous contrast material. Individualized dose optimization techniques were used for this CT. COMPARISON: Comparison is made with prior study dated November 09, 2017. FINDINGS: Normal soft tissue structures. Normal calvarium. There is mild cerebral atrophy with widening of the extra-axial spaces and ventricular dilatation. Stable appearance of the encephalomalacia in the territory of the right middle cerebral artery. This is unchanged. No significant mass effect is seen. Focal area of encephalomalacia in the body of the left caudate nucleus. Normal brainstem. Normal cerebellum. There is no intracranial hemorrhage. There are no findings of an acute ischemic infarction. Normal visualized paranasal sinuses. CT/Brain/Head without Contrast IMPRESSION: Chronic involutional changes of the brain. There has been no change since prior study. Electronically Signed: Jose Luis Jackson MD at 14:21 EDT Tel [phone], Service support ,
--- NOTE | 2017-11-11 15:43 | CASEMGMT ---
Insurance Continued stay approved. Next update due on 11/17/17. Last cover day bein11/18/17. Auth#[id number] Elvia DENT, [employer]
[2017-11-11] MEDS: Lisinopril 40 MG Tablet PO (20:10)
[2017-11-11] MEDS: Senna/Docusate Sodium 1 Tablet 2 TABLET PO (20:10)
[2017-11-11] MEDS: Atorvastatin Calcium 80 MG Tablet PO (20:10)
[2017-11-11 20:14] VITALS: BP 155/74; PULSE 75; RESP 14; O2SAT 96
[2017-11-11 22:45] VITALS: BMI 38.6
[2017-11-12] MEDS: Enoxaparin 30 MG/0.3 ML Syringe SC (05:48)
[2017-11-12 07:15] VITALS: BP 153/99; PULSE 84; RESP 18; TEMP 36.6; O2SAT 94
[2017-11-12] MEDS: Acetaminophen 325 MG Tablet 650 MG PO ×2 (08:32→20:03)
[2017-11-12] MEDS: amLODIPine 10 MG Tablet PO (08:33)
[2017-11-12] MEDS: Finasteride 5 MG Tablet PO (08:33)
[2017-11-12] MEDS: Clopidogrel Bisulfate 75 MG Tablet PO (08:33)
[2017-11-12] MEDS: Escitalopram Oxalate 10 MG Tablet PO (08:33)
[2017-11-12] MEDS: Pantoprazole Sodium 20 MG Tablet PO ×2 (08:33→20:04)
[2017-11-12] MEDS: Carvedilol 25 MG Tablet PO ×2 (08:33→20:04)
[2017-11-12] MEDS: Aspirin 81 MG TAB.CHEW PO (08:34)
--- NOTE | 2017-11-12 13:00 | PCM.PN.NEU ---
Subjective: Patient seen, no new complaints. Reports still has some facial numbness but feels slight better. Tolerating therapy. No issues with GI/. Tolerating regular diet. - Physical Exam General: Alert, Oriented x3, Cooperative HEENT: Atraumatic, PERRLA, EOMI, Normocephalic Neck: Supple, No JVD, Negative Carotid Bruits Lungs: Clear to auscultation, Normal air movement Cardiovascular: Regular rate, No murmurs Abdomen: Bowel Sounds Present, Soft, Non Tender Extremities: No edema, Capillary Refill Less than 3 Seconds Skin: No rashes, No breakdown Musculoskeletal: No Tenderness to Palpation of Joints or Extremities Neurological: Cranial nerves II-XII grossly intact Psych/Mental Status: Normal Affect, Appropriate Vital Signs Temp Pulse Resp BP Pulse Ox 98 F 84 18 153/99 H 94 11/12/17 07:15 11/12/17 07:15 11/12/17 07:15 11/12/17 07:15 11/12/17 07:15 Oxygen Flow Rate (L/min) 2 Oxygen Delivery Method Room Air Weight: 118.8 kg Body Mass Index (BMI) 38.6 Intake and Output for Last 24 Hours 11/10/17 11/11/17 11/12/17 23:59 23:59 23:59 Intake Total 600 / 600 800 / 800 320 / 320 Output Total 250 / 250 300 / 300 Balance 600 / 600 550 / 550 20 20 Active Medications Acetaminophen (Tylenol) 650 mg PO Q4H PRN PRN PRN Reason: PAIN Last Admin: 11/12/17 08:32 Dose: 650 mg Albuterol Sulfate (Ventolin Hfa (Sp)) 2 puff INHALATION Q4H PRN PRN PRN Reason: WHEEZING Last Admin: 10/28/17 20:29 Dose: 2 inhaler Amlodipine Besylate (Norvasc) 10 mg PO DAILY [facility] Last Admin: 11/12/17 08:33 Dose: 10 mg [facility], [facility]) [facility] Last Admin: 11/12/17 08:34 Dose: 81 mg Atorvastatin Calcium (Lipitor) 80 mg PO QHS [facility] Last Admin: 11/11/17 20:10 Dose: 80 mg Bisacodyl (Dulcolax) 10 mg RECTAL .PRN X 1 PRN PRN Reason: Constipation Calamine/Phenol (Calmoseptine Ointment) 1 applic TOPICAL BID PRN; Protocol PRN Reason: redness Carvedilol (Coreg) 25 mg PO BID [facility] Last Admin: 11/12/17 08:33 Dose: 25 mg Clopidogrel Bisulfate (Plavix) 75 mg PO DAILY [facility] Last Admin: 11/12/17 08:33 Dose: 75 mg Enoxaparin Sodium (Lovenox) 30 mg SC DAILY@0600 [facility] Last Admin: 11/12/17 05:48 Dose: 30 mg Escitalopram Oxalate (Lexapro) 10 mg PO DAILY [facility] Last Admin: 11/12/17 08:33 Dose: 10 mg Fexofenadine HCl (Sherry Allergy) 60 mg PO TID PRN PRN PRN Reason: CONGESTION Last Admin: 11/11/17 08:37 Dose: 60 mg Finasteride (Proscar) 5 mg PO DAILY [facility] Last Admin: 11/12/17 08:33 Dose: 5 mg Lisinopril (Zestril) 40 mg PO QHS [facility] Last Admin: 11/11/17 20:10 Dose: 40 mg Magnesium Hydroxide (Milk Of Magnesia) 30 ml PO .PRN X 1 PRN PRN Reason: Constipation Nitroglycerin (Nitrostat) 0.4 mg SUBLINGUAL Q5M PRN PRN Reason: CARDIAC/CHEST PAIN Last Admin: 10/12/17 08:34 Dose: 0.4 mg Ondansetron HCl (Zofran Odt) 4 mg PO Q8H PRN PRN PRN Reason: NAUSEA Last Admin: 11/09/17 13:09 Dose: 4 mg Pantoprazole Sodium (Protonix) 20 mg PO BID [facility] Last Admin: 11/12/17 08:33 Dose: 20 mg Senna/Docusate Sodium (Senokot-S, Suki-Colace) 2 tablet PO BID [facility] Last Admin: 11/12/17 08:34 Dose: Not Given Sodium Chloride () 5 - 30 ml IV UD PRN PRN Reason: SALINE FLUSH Last Admin: 10/12/17 22:30 Dose: 20 ml Medical Necessity - Tobacco Use Smoking Status: Heavy Smoker (>10/day) Tobacco Use: Cigarettes Assessment/Plan debility s/p right parietal infarct 2/2 to symptomatic right ICA occlusion. complicated by a previous left lacunar ICH, and a right parietal ischemic stroke in 2016. The goal of rehab is jain of functional independence. Plan: - Physical therapy for gait and balance - Occupational Therapy for ADLs - As needed analgesics - Bowel protocol - Stroke prevention on ASA, Statin, and Plavix - DVT prophylaxis: Yannick, Prasad stinson, Lovenox - Hypertension: BP continues to be Elevated, Keep BP < 130/80 mmHg => currently on Coreg 25mg, Zestril 40mg, will add Norvasc 5mg daily - Hx of HLD continue home dose of statin, Check LDL and Hba1c levels - Anxiety: Lexapro - Stent placement right ICA=> continue Plavix - Cervical spondylosis => Continued neck pain 2/2 fall prior to stroke => continue C-Collar - Hx GERD continue home medication - Hx Hep C - Hx Asthma - Hx of left lacunar ICH and a right parietal ischemic stroke - Lovenox at 30mg daily - Pollen/perfume Allergies -> started on Claritin 10mg, patient feels it is not working family is bringing in some Sherry for him. - Venous duplex ordered to rule out lower extremity DVT => Duplex was unremarkable - New onset Headaches -> CT head was showed no changes from previous studies. - Repeat Head CT -> remains stable with no changes from previous study
--- NOTE | 2017-11-12 13:04 | PN.NEURO_ITS ---
Subjective: Patient seen, no new complaints. Reports still has some facial numbness but feels slight better. Tolerating therapy. No issues with GI/. Tolerating regular diet. - Physical Exam General: Alert, Oriented x3, Cooperative HEENT: Atraumatic, PERRLA, EOMI, Normocephalic Neck: Supple, No JVD, Negative Carotid Bruits Lungs: Clear to auscultation, Normal air movement Cardiovascular: Regular rate, No murmurs Abdomen: Bowel Sounds Present, Soft, Non Tender Extremities: No edema, Capillary Refill Less than 3 Seconds Skin: No rashes, No breakdown Musculoskeletal: No Tenderness to Palpation of Joints or Extremities Neurological: Cranial nerves II-XII grossly intact Psych/Mental Status: Normal Affect, Appropriate Vital Signs Temp Pulse Resp BP Pulse Ox 98 F 84 18 153/99 H 94 11/12/17 07:15 11/12/17 07:15 11/12/17 07:15 11/12/17 07:15 11/12/17 07:15 Oxygen Flow Rate (L/min) 2 Oxygen Delivery Method Room Air Weight: 118.8 kg Body Mass Index (BMI) 38.6 Intake and Output for Last 24 Hours 11/10/17 11/11/17 11/12/17 23:59 23:59 23:59 Intake Total 600 / 600 800 / 800 320 / 320 Output Total 250 / 250 300 / 300 Balance 600 / 600 550 / 550 20 20 Active Medications Acetaminophen (Tylenol) 650 mg PO Q4H PRN PRN PRN Reason: PAIN Last Admin: 11/12/17 08:32 Dose: 650 mg Albuterol Sulfate (Ventolin Hfa (Sp)) 2 puff INHALATION Q4H PRN PRN PRN Reason: WHEEZING Last Admin: 10/28/17 20:29 Dose: 2 inhaler Amlodipine Besylate (Norvasc) 10 mg PO DAILY [facility] Last Admin: 11/12/17 08:33 Dose: 10 mg [facility] Last Admin: 11/12/17 08:34 Dose: 81 mg Atorvastatin Calcium (Lipitor) 80 mg PO QHS [facility] Last Admin: 11/11/17 20:10 Dose: 80 mg Bisacodyl (Dulcolax) 10 mg RECTAL .PRN X 1 PRN PRN Reason: Constipation Calamine/Phenol (Calmoseptine Ointment) 1 applic TOPICAL BID PRN; Protocol PRN Reason: redness Carvedilol (Coreg) 25 mg PO BID [facility] Last Admin: 11/12/17 08:33 Dose: 25 mg Clopidogrel Bisulfate (Plavix) 75 mg PO DAILY [facility] Last Admin: 11/12/17 08:33 Dose: 75 mg Enoxaparin Sodium (Lovenox) 30 mg SC DAILY@0600 [facility] Last Admin: 11/12/17 05:48 Dose: 30 mg Escitalopram Oxalate (Lexapro) 10 mg PO DAILY [facility] Last Admin: 11/12/17 08:33 Dose: 10 mg Fexofenadine HCl (Sherry Allergy) 60 mg PO TID PRN PRN PRN Reason: CONGESTION Last Admin: 11/11/17 08:37 Dose: 60 mg Finasteride (Proscar) 5 mg PO DAILY [facility] Last Admin: 11/12/17 08:33 Dose: 5 mg Lisinopril (Zestril) 40 mg PO QHS [facility] Last Admin: 11/11/17 20:10 Dose: 40 mg Magnesium Hydroxide (Milk Of Magnesia) 30 ml PO .PRN X 1 PRN PRN Reason: Constipation Nitroglycerin (Nitrostat) 0.4 mg SUBLINGUAL Q5M PRN PRN Reason: CARDIAC/CHEST PAIN Last Admin: 10/12/17 08:34 Dose: 0.4 mg Ondansetron HCl (Zofran Odt) 4 mg PO Q8H PRN PRN PRN Reason: NAUSEA Last Admin: 11/09/17 13:09 Dose: 4 mg Pantoprazole Sodium (Protonix) 20 mg PO BID [facility] Last Admin: 11/12/17 08:33 Dose: 20 mg Senna/Docusate Sodium (Senokot-S, Suki-Colace) 2 tablet PO BID [facility] Last Admin: 11/12/17 08:34 Dose: Not Given Sodium Chloride () 5 - 30 ml IV UD PRN PRN Reason: SALINE FLUSH Last Admin: 10/12/17 22:30 Dose: 20 ml Medical Necessity - Tobacco Use Smoking Status: Heavy Smoker (>10/day) Tobacco Use: Cigarettes Assessment/Plan debility s/p right parietal infarct 2/2 to symptomatic right ICA occlusion. complicated by a previous left lacunar ICH, and a right parietal ischemic stroke in 2016. The goal of rehab is congregational of functional independence. Plan: - Physical therapy for gait and balance - Occupational Therapy for ADLs - As needed analgesics - Bowel protocol - Stroke prevention on ASA, Statin, and Plavix - DVT prophylaxis: Yannick, Prasad stinson, Lovenox - Hypertension: BP continues to be Elevated, Keep BP < 130/80 mmHg => currently on Coreg 25mg, Zestril 40mg, will add Norvasc 5mg daily - Hx of HLD continue home dose of statin, Check LDL and Hba1c levels - Anxiety: Lexapro - Stent placement right ICA=> continue Plavix - Cervical spondylosis => Continued neck pain 2/2 fall prior to stroke => continue C-Collar - Hx GERD continue home medication - Hx Hep C - Hx Asthma - Hx of left lacunar ICH and a right parietal ischemic stroke - Lovenox at 30mg daily - Pollen/perfume Allergies -> started on Claritin 10mg, patient feels it is not working family is bringing in some Sherry for him. - Venous duplex ordered to rule out lower extremity DVT => Duplex was unremarkable - New onset Headaches -> CT head was showed no changes from previous studies. - Repeat Head CT -> remains stable with no changes from previous study
[2017-11-12 15:46] VITALS: BMI 38.6
--- NOTE | 2017-11-12 18:19 | NURSING ---
Reviewed [employer] charting and agree.
[2017-11-12 19:50] VITALS: BP 132/84; PULSE 76; RESP 18; TEMP 36.7; O2SAT 95
[2017-11-12] MEDS: Senna/Docusate Sodium 1 Tablet 2 TABLET PO (20:04)
[2017-11-12] MEDS: Atorvastatin Calcium 80 MG Tablet PO (20:04)
[2017-11-12] MEDS: Lisinopril 40 MG Tablet PO (20:04)
[2017-11-12 20:12] VITALS: BMI 38.6
[2017-11-13] MEDS: Enoxaparin 30 MG/0.3 ML Syringe SC (05:11)
[2017-11-13] MEDS: Acetaminophen 325 MG Tablet 650 MG PO ×3 (06:00→19:00)
[2017-11-13] MEDS: amLODIPine 10 MG Tablet PO (08:16)
[2017-11-13] MEDS: Aspirin 81 MG TAB.CHEW PO (08:16)
[2017-11-13] MEDS: Escitalopram Oxalate 10 MG Tablet PO (08:16)
[2017-11-13] MEDS: Carvedilol 25 MG Tablet PO ×2 (08:16→19:54)
[2017-11-13] MEDS: Finasteride 5 MG Tablet PO (08:16)
[2017-11-13] MEDS: Clopidogrel Bisulfate 75 MG Tablet PO (08:16)
[2017-11-13] MEDS: Pantoprazole Sodium 20 MG Tablet PO ×2 (08:16→19:55)
[2017-11-13 08:28] VITALS: BP 132/88; PULSE 77; RESP 17; TEMP 36.7; O2SAT 96
--- NOTE | 2017-11-13 10:53 | PCM.PN.NEU ---
Subjective: Staffed in team meeting. No family at bedside. Questions answered for the patient. With Physical therapy, he is contact guard to minimal assist for transfers, he still has loss of balance to the left. He is able to ambulate for 200 feet with the brianda-walker. he is able to walk about 100 feet with a quad cane, he requires more assistance when using the quad cane. With Occupational therapy, he is moderate assist for getting his brace on and tying his shoes. He is minimal assist for personal care, he is able to wash his face and comb his hair. He requires help with getting his shirt on his right arm, he can get it on his left arm himself. With speech therapy, he is having trouble with the higher executive functions still, like taking turns, fiances, organization, and sequencing. He still requires cues to focus more. With Nursing there is no issues. He will be re-teamed next . - Physical Exam General: Alert, Oriented x3, Cooperative HEENT: Atraumatic, PERRLA, EOMI, Normocephalic Neck: Supple, No JVD, Negative Carotid Bruits Lungs: Clear to auscultation, Normal air movement Cardiovascular: Regular rate, No murmurs Abdomen: Bowel Sounds Present, Soft, Non Tender Extremities: No edema, Capillary Refill Less than 3 Seconds Skin: No rashes, No breakdown Musculoskeletal: No Tenderness to Palpation of Joints or Extremities Neurological: Cranial nerves II-XII grossly intact Psych/Mental Status: Normal Affect, Appropriate Vital Signs Temp Pulse Resp BP Pulse Ox 98.1 F 77 17 132/88 H 96 11/13/17 08:28 11/13/17 08:28 11/13/17 08:28 11/13/17 08:28 11/13/17 08:28 Oxygen Flow Rate (L/min) 2 Oxygen Delivery Method Room Air Weight: 118.8 kg Body Mass Index (BMI) 38.6 Intake and Output for Last 24 Hours 11/11/17 11/12/17 11/13/17 23:59 23:59 23:59 Intake Total 800 / 800 800 / 800 420 / 420 Output Total 250 / 250 300 / 300 Balance 550 / 550 500 / 500 420 / 420 Active Medications Acetaminophen (Tylenol) 650 mg PO Q4H PRN PRN PRN Reason: PAIN Last Admin: 11/13/17 10:12 Dose: 650 mg Albuterol Sulfate (Ventolin Hfa (Sp)) 2 puff INHALATION Q4H PRN PRN PRN Reason: WHEEZING Last Admin: 10/28/17 20:29 Dose: 2 inhaler Amlodipine Besylate (Norvasc) 10 mg PO DAILY [facility] Last Admin: 11/13/17 08:16 Dose: 10 mg [facility]) [facility] Last Admin: 11/13/17 08:16 Dose: 81 mg Atorvastatin Calcium (Lipitor) 80 mg PO QHS [facility] Last Admin: 11/12/17 20:04 Dose: 80 mg Bisacodyl (Dulcolax) 10 mg RECTAL .PRN X 1 PRN PRN Reason: Constipation Calamine/Phenol (Calmoseptine Ointment) 1 applic TOPICAL BID PRN; Protocol PRN Reason: redness Carvedilol (Coreg) 25 mg PO BID [facility] Last Admin: 11/13/17 08:16 Dose: 25 mg Clopidogrel Bisulfate (Plavix) 75 mg PO DAILY [facility] Last Admin: 11/13/17 08:16 Dose: 75 mg Enoxaparin Sodium (Lovenox) 30 mg SC DAILY@0600 [facility] Last Admin: 11/13/17 05:11 Dose: 30 mg Escitalopram Oxalate (Lexapro) 10 mg PO DAILY [facility] Last Admin: 11/13/17 08:16 Dose: 10 mg Fexofenadine HCl (Sherry Allergy) 60 mg PO TID PRN PRN PRN Reason: CONGESTION Last Admin: 11/11/17 08:37 Dose: 60 mg Finasteride (Proscar) 5 mg PO DAILY [facility] Last Admin: 11/13/17 08:16 Dose: 5 mg Lisinopril (Zestril) 40 mg PO QHS [facility] Last Admin: 11/12/17 20:04 Dose: 40 mg Magnesium Hydroxide (Milk Of Magnesia) 30 ml PO .PRN X 1 PRN PRN Reason: Constipation Nitroglycerin (Nitrostat) 0.4 mg SUBLINGUAL Q5M PRN PRN Reason: CARDIAC/CHEST PAIN Last Admin: 10/12/17 08:34 Dose: 0.4 mg Ondansetron HCl (Zofran Odt) 4 mg PO Q8H PRN PRN PRN Reason: NAUSEA Last Admin: 11/09/17 13:09 Dose: 4 mg Pantoprazole Sodium (Protonix) 20 mg PO BID [facility] Last Admin: 11/13/17 08:16 Dose: 20 mg Senna/Docusate Sodium (Senokot-S, Suki-Colace) 2 tablet PO BID [facility] Last Admin: 11/13/17 08:17 Dose: Not Given Sodium Chloride () 5 - 30 ml IV UD PRN PRN Reason: SALINE FLUSH Last Admin: 10/12/17 22:30 Dose: 20 ml Medical Necessity - Tobacco Use Smoking Status: Heavy Smoker (>10/day) Tobacco Use: Cigarettes Assessment/Plan debility s/p right parietal infarct 2/2 to symptomatic right ICA occlusion. complicated by a previous left lacunar ICH, and a right parietal ischemic stroke in 2016. The goal of rehab is christianity of functional independence. Plan: - Physical therapy for gait and balance - Occupational Therapy for ADLs - As needed analgesics - Bowel protocol - Stroke prevention on ASA, Statin, and Plavix - DVT prophylaxis: CARLOSs, Prasad stinson, Lovenox - Hypertension: BP continues to be Elevated, Keep BP < 130/80 mmHg => currently on Coreg 25mg, Zestril 40mg, will add Norvasc 5mg daily - Hx of HLD continue home dose of statin, Check LDL and Hba1c levels - Anxiety: Lexapro - Stent placement right ICA=> continue Plavix - Cervical spondylosis => Continued neck pain 2/2 fall prior to stroke => continue C-Collar - Hx GERD continue home medication - Hx Hep C - Hx Asthma - Hx of left lacunar ICH and a right parietal ischemic stroke - Lovenox at 30mg daily - Pollen/perfume Allergies -> started on Claritin 10mg, patient feels it is not working family is bringing in some Sherry for him. - Venous duplex ordered to rule out lower extremity DVT => Duplex was unremarkable - New onset Headaches -> CT head was showed no changes from previous studies. - Repeat Head CT -> remains stable with no changes from previous study
--- NOTE | 2017-11-13 11:00 | PN.NEURO_ITS ---
Subjective: Staffed in team meeting. No family at bedside. Questions answered for the patient. With Physical therapy, he is contact guard to minimal assist for transfers, he still has loss of balance to the left. He is able to ambulate for 200 feet with the brianda-walker. he is able to walk about 100 feet with a quad cane, he requires more assistance when using the quad cane. With Occupational therapy, he is moderate assist for getting his brace on and tying his shoes. He is minimal assist for personal care, he is able to wash his face and comb his hair. He requires help with getting his shirt on his right arm, he can get it on his left arm himself. With speech therapy, he is having trouble with the higher executive functions still, like taking turns, fiances, organization, and sequencing. He still requires cues to focus more. With Nursing there is no issues. He will be re-teamed next . - Physical Exam General: Alert, Oriented x3, Cooperative HEENT: Atraumatic, PERRLA, EOMI, Normocephalic Neck: Supple, No JVD, Negative Carotid Bruits Lungs: Clear to auscultation, Normal air movement Cardiovascular: Regular rate, No murmurs Abdomen: Bowel Sounds Present, Soft, Non Tender Extremities: No edema, Capillary Refill Less than 3 Seconds Skin: No rashes, No breakdown Musculoskeletal: No Tenderness to Palpation of Joints or Extremities Neurological: Cranial nerves II-XII grossly intact Psych/Mental Status: Normal Affect, Appropriate Vital Signs Temp Pulse Resp BP Pulse Ox 98.1 F 77 17 132/88 H 96 11/13/17 08:28 11/13/17 08:28 11/13/17 08:28 11/13/17 08:28 11/13/17 08:28 Oxygen Flow Rate (L/min) 2 Oxygen Delivery Method Room Air Weight: 118.8 kg Body Mass Index (BMI) 38.6 Intake and Output for Last 24 Hours 11/11/17 11/12/17 11/13/17 23:59 23:59 23:59 Intake Total 800 / 800 800 / 800 420 / 420 Output Total 250 / 250 300 / 300 Balance 550 / 550 500 / 500 420 / 420 Active Medications Acetaminophen (Tylenol) 650 mg PO Q4H PRN PRN PRN Reason: PAIN Last Admin: 11/13/17 10:12 Dose: 650 mg Albuterol Sulfate (Ventolin Hfa (Sp)) 2 puff INHALATION Q4H PRN PRN PRN Reason: WHEEZING Last Admin: 10/28/17 20:29 Dose: 2 inhaler Amlodipine Besylate (Norvasc) 10 mg PO DAILY [facility] Last Admin: 11/13/17 08:16 Dose: 10 mg [facility], Baby) [facility] Last Admin: 11/13/17 08:16 Dose: 81 mg Atorvastatin Calcium (Lipitor) 80 mg PO QHS [facility] Last Admin: 11/12/17 20:04 Dose: 80 mg Bisacodyl (Dulcolax) 10 mg RECTAL .PRN X 1 PRN PRN Reason: Constipation Calamine/Phenol (Calmoseptine Ointment) 1 applic TOPICAL BID PRN; Protocol PRN Reason: redness Carvedilol (Coreg) 25 mg PO BID [facility] Last Admin: 11/13/17 08:16 Dose: 25 mg Clopidogrel Bisulfate (Plavix) 75 mg PO DAILY [facility] Last Admin: 11/13/17 08:16 Dose: 75 mg Enoxaparin Sodium (Lovenox) 30 mg SC DAILY@0600 [facility] Last Admin: 11/13/17 05:11 Dose: 30 mg Escitalopram Oxalate (Lexapro) 10 mg PO DAILY [facility] Last Admin: 11/13/17 08:16 Dose: 10 mg Fexofenadine HCl (Sherry Allergy) 60 mg PO TID PRN PRN PRN Reason: CONGESTION Last Admin: 11/11/17 08:37 Dose: 60 mg Finasteride (Proscar) 5 mg PO DAILY [facility] Last Admin: 11/13/17 08:16 Dose: 5 mg Lisinopril (Zestril) 40 mg PO QHS [facility] Last Admin: 11/12/17 20:04 Dose: 40 mg Magnesium Hydroxide (Milk Of Magnesia) 30 ml PO .PRN X 1 PRN PRN Reason: Constipation Nitroglycerin (Nitrostat) 0.4 mg SUBLINGUAL Q5M PRN PRN Reason: CARDIAC/CHEST PAIN Last Admin: 10/12/17 08:34 Dose: 0.4 mg Ondansetron HCl (Zofran Odt) 4 mg PO Q8H PRN PRN PRN Reason: NAUSEA Last Admin: 11/09/17 13:09 Dose: 4 mg Pantoprazole Sodium (Protonix) 20 mg PO BID [facility] Last Admin: 11/13/17 08:16 Dose: 20 mg Senna/Docusate Sodium (Senokot-S, Suki-Colace) 2 tablet PO BID [facility] Last Admin: 11/13/17 08:17 Dose: Not Given Sodium Chloride () 5 - 30 ml IV UD PRN PRN Reason: SALINE FLUSH Last Admin: 10/12/17 22:30 Dose: 20 ml Medical Necessity - Tobacco Use Smoking Status: Heavy Smoker (>10/day) Tobacco Use: Cigarettes Assessment/Plan debility s/p right parietal infarct 2/2 to symptomatic right ICA occlusion. complicated by a previous left lacunar ICH, and a right parietal ischemic stroke in 2016. The goal of rehab is mormon of functional independence. Plan: - Physical therapy for gait and balance - Occupational Therapy for ADLs - As needed analgesics - Bowel protocol - Stroke prevention on ASA, Statin, and Plavix - DVT prophylaxis: CARLOSs, Prasad stinson, Lovenox - Hypertension: BP continues to be Elevated, Keep BP < 130/80 mmHg => currently on Coreg 25mg, Zestril 40mg, will add Norvasc 5mg daily - Hx of HLD continue home dose of statin, Check LDL and Hba1c levels - Anxiety: Lexapro - Stent placement right ICA=> continue Plavix - Cervical spondylosis => Continued neck pain 2/2 fall prior to stroke => continue C-Collar - Hx GERD continue home medication - Hx Hep C - Hx Asthma - Hx of left lacunar ICH and a right parietal ischemic stroke - Lovenox at 30mg daily - Pollen/perfume Allergies -> started on Claritin 10mg, patient feels it is not working family is bringing in some Sherry for him. - Venous duplex ordered to rule out lower extremity DVT => Duplex was unremarkable - New onset Headaches -> CT head was showed no changes from previous studies. - Repeat Head CT -> remains stable with no changes from previous study
--- NOTE | 2017-11-13 11:42 | CASEMGMT ---
Team meeting held. Patient present. No support person present at this time. Patient requesting for this administrator social welfare to contact patient girlfriend, Winsome to update on team meeting. Telephone call to jose alejandro Schumacher left. Patient to continue with further care and treatment on the Inpatient Rehab Unit at this time. Support given. Will continue to follow. Elvia DENT, COMMUNITY HEALTH NURSE
[2017-11-13 15:20] VITALS: BMI 38.6
--- NOTE | 2017-11-13 17:14 | PN_ITS ---
Subjective: Patient was seen and examined. Denies any new complaints, therapy is going very well, denies any chest pain no dizziness or shortness of breath. Vitals/I&O's: Vital Signs Temp Pulse Resp BP Pulse Ox 98.1 F 77 17 132/88 H 96 11/13/17 08:28 11/13/17 08:28 11/13/17 08:28 11/13/17 08:28 11/13/17 08:28 Oxygen Flow Rate (L/min) 2 Oxygen Delivery Method Room Air Weight: 118.8 kg Body Mass Index (BMI) 38.6 Intake and Output for Last 24 Hours 11/11/17 11/12/17 11/13/17 23:59 23:59 23:59 Intake Total 800 / 800 800 / 800 660 / 660 Output Total 250 / 250 300 / 300 Balance 550 / 550 500 / 500 660 / 660 General: Alert, Oriented x3, Cooperative, - - Obese HEENT: Atraumatic, PERRLA, EOMI, Normocephalic Oral: Moist Mucosa Neck: Supple Lungs: Clear to auscultation, Normal air movement Cardiovascular: Regular rate, Regular Rhythm, Normal S1, Normal S2, No murmurs Abdomen: Bowel Sounds Present, Soft, Non Tender, Non-Distended, No Hepato- splenomegaly Extremities: No edema Skin: No rashes, No breakdown Musculoskeletal: No Tenderness to Palpation of Joints or Extremities Lymphatic: No Cervical, Supraclavicular, or Inguinal Adenopathy Neurological: Cranial nerves II-XII grossly intact, - - Power is 3/5 in the left upper extremity and 4/5 in LLE, increased tone, gait not oberved Psych/Mental Status: Normal Affect, Appropriate Current Medications Acetaminophen (Tylenol) 650 mg PO Q4H PRN PRN PRN Reason: PAIN Last Admin: 11/13/17 10:12 Dose: 650 mg Albuterol Sulfate (Ventolin Hfa (Sp)) 2 puff INHALATION Q4H PRN PRN PRN Reason: WHEEZING Last Admin: 10/28/17 20:29 Dose: 2 inhaler Amlodipine Besylate (Norvasc) 10 mg PO DAILY [facility] Last Admin: 11/13/17 08:16 Dose: 10 mg [facility], [facility]) [facility] Last Admin: 11/13/17 08:16 Dose: 81 mg Atorvastatin Calcium (Lipitor) 80 mg PO QHS [facility] Last Admin: 11/12/17 20:04 Dose: 80 mg Bisacodyl (Dulcolax) 10 mg RECTAL .PRN X 1 PRN PRN Reason: Constipation Calamine/Phenol (Calmoseptine Ointment) 1 applic TOPICAL BID PRN; Protocol PRN Reason: redness Carvedilol (Coreg) 25 mg PO BID [facility] Last Admin: 11/13/17 08:16 Dose: 25 mg Clopidogrel Bisulfate (Plavix) 75 mg PO DAILY [facility] Last Admin: 11/13/17 08:16 Dose: 75 mg Enoxaparin Sodium (Lovenox) 30 mg SC DAILY@0600 [facility] Last Admin: 11/13/17 05:11 Dose: 30 mg Escitalopram Oxalate (Lexapro) 10 mg PO DAILY [facility] Last Admin: 11/13/17 08:16 Dose: 10 mg Fexofenadine HCl (Sherry Allergy) 60 mg PO TID PRN PRN PRN Reason: CONGESTION Last Admin: 11/11/17 08:37 Dose: 60 mg Finasteride (Proscar) 5 mg PO DAILY [facility] Last Admin: 11/13/17 08:16 Dose: 5 mg Lisinopril (Zestril) 40 mg PO QHS [facility] Last Admin: 11/12/17 20:04 Dose: 40 mg Magnesium Hydroxide (Milk Of Magnesia) 30 ml PO .PRN X 1 PRN PRN Reason: Constipation Nitroglycerin (Nitrostat) 0.4 mg SUBLINGUAL Q5M PRN PRN Reason: CARDIAC/CHEST PAIN Last Admin: 10/12/17 08:34 Dose: 0.4 mg Ondansetron HCl (Zofran Odt) 4 mg PO Q8H PRN PRN PRN Reason: NAUSEA Last Admin: 11/09/17 13:09 Dose: 4 mg Pantoprazole Sodium (Protonix) 20 mg PO BID [facility] Last Admin: 11/13/17 08:16 Dose: 20 mg Senna/Docusate Sodium (Senokot-S, Suki-Colace) 2 tablet PO BID [facility] Last Admin: 11/13/17 08:17 Dose: Not Given Sodium Chloride () 5 - 30 ml IV UD PRN PRN Reason: SALINE FLUSH Last Admin: 10/12/17 22:30 Dose: 20 ml Medical Necessity - Tobacco Use Smoking Status: Heavy Smoker (>10/day) Tobacco Use: Cigarettes Assessment/Plan 57-year-old male admitted to the inpatient rehab unit with 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 1. Acute right parietal infarct due to right ICA occlusion status post angioplasty and placement. undergoing therapy with overall improvement in his debility. 2. Hypertension, controlled, continue on home medications. 3. Dyslipidemia, on statin 4. History of cervical spondylosis 5. DVT prophylaxis SC Lovenox Code Visit Inpatient E&M: 95592 Subs Hosp L2
[2017-11-13] MEDS: FEXOFENADINE HCL 60 MG TABLET PO (19:03)
[2017-11-13 19:53] VITALS: BP 122/78; PULSE 66; RESP 18; TEMP 36.5; O2SAT 96
[2017-11-13] MEDS: Lisinopril 40 MG Tablet PO (19:54)
[2017-11-13] MEDS: Atorvastatin Calcium 80 MG Tablet PO (19:54)
[2017-11-13] MEDS: Senna/Docusate Sodium 1 Tablet 2 TABLET PO (19:55)
[2017-11-13 20:45] VITALS: BMI 38.6
[2017-11-14] MEDS: Enoxaparin 30 MG/0.3 ML Syringe SC (05:44)
[2017-11-14] MEDS: Acetaminophen 325 MG Tablet 650 MG PO (05:47)
[2017-11-14] MEDS: Carvedilol 25 MG Tablet PO ×2 (07:57→19:43)
[2017-11-14] MEDS: Finasteride 5 MG Tablet PO (07:57)
[2017-11-14] MEDS: Escitalopram Oxalate 10 MG Tablet PO (07:57)
[2017-11-14] MEDS: amLODIPine 10 MG Tablet PO (07:57)
[2017-11-14] MEDS: Pantoprazole Sodium 20 MG Tablet PO ×2 (07:57→19:43)
[2017-11-14] MEDS: Clopidogrel Bisulfate 75 MG Tablet PO (07:57)
[2017-11-14] MEDS: Aspirin 81 MG TAB.CHEW PO (07:58)
[2017-11-14] MEDS: FEXOFENADINE HCL 60 MG TABLET PO (07:58)
[2017-11-14 08:12] VITALS: BP 146/92; PULSE 83; RESP 18; TEMP 36.6; O2SAT 95
[2017-11-14 15:10] VITALS: BMI 38.6
[2017-11-14 19:28] VITALS: BP 145/80; PULSE 70; RESP 18; TEMP 36.8; O2SAT 96
[2017-11-14] MEDS: Atorvastatin Calcium 80 MG Tablet PO (19:43)
[2017-11-14] MEDS: Lisinopril 40 MG Tablet PO (19:43)
[2017-11-15] MEDS: Enoxaparin 30 MG/0.3 ML Syringe SC (06:21)
[2017-11-15] MEDS: FEXOFENADINE HCL 60 MG TABLET PO ×2 (06:22→08:13)
[2017-11-15] MEDS: Acetaminophen 325 MG Tablet 650 MG PO ×2 (06:24→18:54)
[2017-11-15 08:08] VITALS: BP 148/94; PULSE 72; RESP 17; TEMP 36.6; O2SAT 94
[2017-11-15] MEDS: amLODIPine 10 MG Tablet PO (08:12)
[2017-11-15] MEDS: Clopidogrel Bisulfate 75 MG Tablet PO (08:12)
[2017-11-15] MEDS: Finasteride 5 MG Tablet PO (08:12)
[2017-11-15] MEDS: Pantoprazole Sodium 20 MG Tablet PO ×2 (08:12→20:40)
[2017-11-15] MEDS: Aspirin 81 MG TAB.CHEW PO (08:13)
[2017-11-15] MEDS: Escitalopram Oxalate 10 MG Tablet PO (08:13)
[2017-11-15] MEDS: Carvedilol 25 MG Tablet PO ×2 (08:13→20:40)
[2017-11-15 13:17] VITALS: BMI 38.6
--- NOTE | 2017-11-15 14:12 | PN_ITS ---
Subjective: Patient seen and examined. Denies any new complaints, therapy is going very well , denies any chest pain no dizziness or shortness of breath. Objective: Physical exam: General: Alert, Oriented x3, Cooperative, - - Obese HEENT: Atraumatic, PERRLA, EOMI, Normocephalic Oral: Moist Mucosa Neck: Supple Lungs: Clear to auscultation, Normal air movement Cardiovascular: Regular rate, Regular Rhythm, Normal S1, Normal S2, No murmurs Abdomen: Bowel Sounds Present, Soft, Non Tender, Non-Distended, No Hepato- splenomegaly Extremities: No edema Skin: No rashes, No breakdown Musculoskeletal: No Tenderness to Palpation of Joints or Extremities Lymphatic: No Cervical, Supraclavicular, or Inguinal Adenopathy Neurological: Cranial nerves II-XII grossly intact, - - Power is 3/5 in the left upper extremity and 4/5 in LLE, increased tone, gait not oberved Psych/Mental Status: Normal Affect, Appropriate Vitals/I&O's: Vital Signs Temp Pulse Resp BP Pulse Ox 97.9 F 72 17 148/94 H 94 11/15/17 08:08 11/15/17 08:08 11/15/17 08:08 11/15/17 08:08 11/15/17 08:08 Oxygen Flow Rate (L/min) 2 Oxygen Delivery Method Room Air Weight: 118.8 kg Body Mass Index (BMI) 38.6 Intake and Output for Last 24 Hours 11/13/17 11/14/17 11/15/17 23:59 23:59 23:59 Intake Total 900 / 900 940 / 940 740 / 740 Balance 900 / 900 940 / 940 740 / 740 Current Medications Acetaminophen (Tylenol) 650 mg PO Q4H PRN PRN PRN Reason: PAIN Last Admin: 11/15/17 06:24 Dose: 650 mg Albuterol Sulfate (Ventolin Hfa (Sp)) 2 puff INHALATION Q4H PRN PRN PRN Reason: WHEEZING Last Admin: 10/28/17 20:29 Dose: 2 inhaler Amlodipine Besylate (Norvasc) 10 mg PO DAILY [facility] Last Admin: 11/15/17 08:12 Dose: 10 [facility] Admin: 11/15/17 08:13 Dose: 81 mg Atorvastatin Calcium (Lipitor) 80 mg PO QHS [facility] Last Admin: 11/14/17 19:43 Dose: 80 mg Bisacodyl (Dulcolax) 10 mg RECTAL .PRN X 1 PRN PRN Reason: Constipation Calamine/Phenol (Calmoseptine Ointment) 1 applic TOPICAL BID PRN; Protocol PRN Reason: redness Carvedilol (Coreg) 25 mg PO BID [facility] Last Admin: 11/15/17 08:13 Dose: 25 mg Clopidogrel Bisulfate (Plavix) 75 mg PO DAILY [facility] Last Admin: 11/15/17 08:12 Dose: 75 mg Enoxaparin Sodium (Lovenox) 30 mg SC DAILY@0600 [facility] Last Admin: 11/15/17 06:21 Dose: 30 mg Escitalopram Oxalate (Lexapro) 10 mg PO DAILY [facility] Last Admin: 11/15/17 08:13 Dose: 10 mg Fexofenadine HCl (Sherry Allergy) 60 mg PO TID PRN PRN PRN Reason: CONGESTION Last Admin: 11/15/17 08:13 Dose: 60 mg Finasteride (Proscar) 5 mg PO DAILY [facility] Last Admin: 11/15/17 08:12 Dose: 5 mg Lisinopril (Zestril) 40 mg PO QHS [facility] Last Admin: 11/14/17 19:43 Dose: 40 mg Magnesium Hydroxide (Milk Of Magnesia) 30 ml PO .PRN X 1 PRN PRN Reason: Constipation Nitroglycerin (Nitrostat) 0.4 mg SUBLINGUAL Q5M PRN PRN Reason: CARDIAC/CHEST PAIN Last Admin: 10/12/17 08:34 Dose: 0.4 mg Ondansetron HCl (Zofran Odt) 4 mg PO Q8H PRN PRN PRN Reason: NAUSEA Last Admin: 11/09/17 13:09 Dose: 4 mg Pantoprazole Sodium (Protonix) 20 mg PO BID [facility] Last Admin: 11/15/17 08:12 Dose: 20 mg Senna/Docusate Sodium (Senokot-S, Suki-Colace) 2 tablet PO BID [facility] Last Admin: 11/15/17 08:16 Dose: Not Given Sodium Chloride () 5 - 30 ml IV UD PRN PRN Reason: SALINE FLUSH Last Admin: 10/12/17 22:30 Dose: 20 ml Medical Necessity - Tobacco Use Smoking Status: Heavy Smoker (>10/day) Tobacco Use: Cigarettes Assessment/Plan 57-year-old male admitted to the inpatient rehab unit with 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 1. Acute right parietal infarct secondary to right ICA occlusion status post angioplasty and placement, undergoing therapy. 2. Hypertension, controlled, continue on home medications. 3. Dyslipidemia, on statin 4. History of cervical spondylosis 5. DVT prophylaxis SC Lovenox Code Visit Inpatient E&M: 96507 Subs Hosp L2
[2017-11-15 18:54] VITALS: BP 140/88; PULSE 75; RESP 18; TEMP 36.9; O2SAT 94
[2017-11-15] MEDS: Atorvastatin Calcium 80 MG Tablet PO (20:40)
[2017-11-15] MEDS: Lisinopril 40 MG Tablet PO (21:06)
[2017-11-16] MEDS: Enoxaparin 30 MG/0.3 ML Syringe SC (05:50)
[2017-11-16] MEDS: FEXOFENADINE HCL 60 MG TABLET PO (06:36)
[2017-11-16] MEDS: Acetaminophen 325 MG Tablet 650 MG PO ×2 (06:37→20:27)
[2017-11-16 07:19] VITALS: BP 127/70; PULSE 65; RESP 18; TEMP 36.3; O2SAT 95
[2017-11-16] MEDS: Pantoprazole Sodium 20 MG Tablet PO ×2 (07:56→20:25)
[2017-11-16] MEDS: Clopidogrel Bisulfate 75 MG Tablet PO (07:56)
[2017-11-16] MEDS: amLODIPine 10 MG Tablet PO (07:56)
[2017-11-16] MEDS: Carvedilol 25 MG Tablet PO ×2 (07:57→20:26)
[2017-11-16] MEDS: Escitalopram Oxalate 10 MG Tablet PO (07:57)
[2017-11-16] MEDS: Aspirin 81 MG TAB.CHEW PO (07:57)
[2017-11-16] MEDS: Finasteride 5 MG Tablet PO (08:00)
[2017-11-16 08:40] VITALS: BMI 38.6
--- NOTE | 2017-11-16 10:50 | NURSING ---
Addendum entered by Joan Dao 11/16/17 10:51: not hemiwalker, but with quad cane Original Note: ambulated in hallway x min assist hemiwalker > 150 ft this shift.
[2017-11-16 19:56] VITALS: BP 130/88; PULSE 70; RESP 18; TEMP 36.6; O2SAT 97
[2017-11-16 20:07] VITALS: BP 130/88; PULSE 70; RESP 18; TEMP 36.6; O2SAT 97
[2017-11-16] MEDS: Atorvastatin Calcium 80 MG Tablet PO (20:25)
[2017-11-16] MEDS: Lisinopril 40 MG Tablet PO (20:25)
[2017-11-17] MEDS: Enoxaparin 30 MG/0.3 ML Syringe SC (05:29)
[2017-11-17] MEDS: Acetaminophen 325 MG Tablet 650 MG PO ×2 (05:29→20:04)
[2017-11-17] MEDS: FEXOFENADINE HCL 60 MG TABLET PO (05:29)
[2017-11-17 08:01] VITALS: BP 134/74; PULSE 70; RESP 18; TEMP 36.4; O2SAT 95
[2017-11-17] MEDS: Escitalopram Oxalate 10 MG Tablet PO (08:09)
[2017-11-17] MEDS: Pantoprazole Sodium 20 MG Tablet PO ×2 (08:09→20:05)
[2017-11-17] MEDS: Carvedilol 25 MG Tablet PO ×2 (08:09→20:05)
[2017-11-17] MEDS: Clopidogrel Bisulfate 75 MG Tablet PO (08:09)
[2017-11-17] MEDS: Aspirin 81 MG TAB.CHEW PO (08:09)
[2017-11-17] MEDS: Finasteride 5 MG Tablet PO (08:09)
[2017-11-17] MEDS: amLODIPine 10 MG Tablet PO (08:10)
--- NOTE | 2017-11-17 10:25 | PCM.PN.NEU ---
Subjective: Patient seen, no new complaints. Tolerating therapy. Denies any shortness of breath, headaches, or chest pains. Does have some left shoulder stiffness but is using heating pad with some relief. 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 No issues with GI/. - Physical Exam General: Alert, Oriented x3, Cooperative HEENT: Atraumatic, PERRLA, EOMI, Normocephalic Neck: Supple, No JVD, Negative Carotid Bruits Lungs: Clear to auscultation, Normal air movement Cardiovascular: Regular rate, No murmurs Abdomen: Bowel Sounds Present, Soft, Non Tender Extremities: No edema, Capillary Refill Less than 3 Seconds Skin: No rashes, No breakdown Musculoskeletal: No Tenderness to Palpation of Joints or Extremities Neurological: Cranial nerves II-XII grossly intact Psych/Mental Status: Normal Affect, Appropriate Vital Signs Temp Pulse Resp BP Pulse Ox 97.5 F L 70 18 134/74 H 95 11/17/17 08:01 11/17/17 08:01 11/17/17 08:01 11/17/17 08:01 11/17/17 08:01 Oxygen Flow Rate (L/min) 2 Oxygen Delivery Method Room Air Weight: 118.8 kg Body Mass Index (BMI) 38.6 Intake and Output for Last 24 Hours 11/15/17 11/16/17 11/17/17 23:59 23:59 23:59 Intake Total 740 / 740 660 / 660 240 / 240 Balance 740 / 740 660 / 660 240 / 240 Active Medications Acetaminophen (Tylenol) 650 mg PO Q4H PRN PRN PRN Reason: PAIN Last Admin: 11/17/17 05:29 Dose: 650 mg Albuterol Sulfate (Ventolin Hfa (Sp)) 2 puff INHALATION Q4H PRN PRN PRN Reason: WHEEZING Last Admin: 10/28/17 20:29 Dose: 2 inhaler Amlodipine Besylate (Norvasc) 10 mg PO DAILY [facility] Last Admin: 11/17/17 08:10 Dose: 10 mg [facility] Last Admin: 11/17/17 08:09 Dose: 81 mg Atorvastatin Calcium (Lipitor) 80 mg PO QHS [facility] Last Admin: 03/25/18 20:25 Dose: 80 mg Bisacodyl (Dulcolax) 10 mg RECTAL .PRN X 1 PRN PRN Reason: Constipation Calamine/Phenol (Calmoseptine Ointment) 1 applic TOPICAL BID PRN; Protocol PRN Reason: redness Carvedilol (Coreg) 25 mg PO BID [facility] Last Admin: 11/17/17 08:09 Dose: 25 mg Clopidogrel Bisulfate (Plavix) 75 mg PO DAILY [facility] Last Admin: 11/17/17 08:09 Dose: 75 mg Enoxaparin Sodium (Lovenox) 30 mg SC DAILY@0600 [facility] Last Admin: 11/17/17 05:29 Dose: 30 mg Escitalopram Oxalate (Lexapro) 10 mg PO DAILY [facility] Last Admin: 11/17/17 08:09 Dose: 10 mg Fexofenadine HCl (Sherry Allergy) 60 mg PO TID PRN PRN PRN Reason: CONGESTION Last Admin: 11/17/17 05:29 Dose: 60 mg Finasteride (Proscar) 5 mg PO DAILY [facility] Last Admin: 11/17/17 08:09 Dose: 5 mg Lisinopril (Zestril) 40 mg PO QHS [facility] Last Admin: 11/16/17 20:25 Dose: 40 mg Magnesium Hydroxide (Milk Of Magnesia) 30 ml PO .PRN X 1 PRN PRN Reason: Constipation Nitroglycerin (Nitrostat) 0.4 mg SUBLINGUAL Q5M PRN PRN Reason: CARDIAC/CHEST PAIN Last Admin: 10/12/17 08:34 Dose: 0.4 mg Ondansetron HCl (Zofran Odt) 4 mg PO Q8H PRN PRN PRN Reason: NAUSEA Last Admin: 11/09/17 13:09 Dose: 4 mg Pantoprazole Sodium (Protonix) 20 mg PO BID [facility] Last Admin: 11/17/17 08:09 Dose: 20 mg Senna/Docusate Sodium (Senokot-S, Suki-Colace) 2 tablet PO BID [facility] Last Admin: 11/17/17 08:11 Dose: Not Given Sodium Chloride () 5 - 30 ml IV UD PRN PRN Reason: SALINE FLUSH Last Admin: 10/12/17 22:30 Dose: 20 ml Medical Necessity - Tobacco Use Smoking Status: Heavy Smoker (>10/day) Tobacco Use: Cigarettes Assessment/Plan debility s/p right parietal infarct 2/2 to symptomatic right ICA occlusion. complicated by a previous left lacunar ICH, and a right parietal ischemic stroke in 2016. The goal of rehab is [facility]. Plan: - Physical therapy for gait and balance - Occupational Therapy for ADLs - As needed analgesics - Bowel protocol - Stroke prevention on ASA, Statin, and Plavix - DVT prophylaxis: SCDs, Prasad stinson, Lovenox - Hypertension: BP continues to be Elevated, Keep BP < 130/80 mmHg => currently on Coreg 25mg, Zestril 40mg, will add Norvasc 5mg daily - Hx of HLD continue home dose of statin, Check LDL and Hba1c levels - Anxiety: Lexapro - Stent placement right ICA=> continue Plavix - Cervical spondylosis => Continued neck pain 2/2 fall prior to stroke => continue C-Collar - Hx GERD continue home medication - Hx Hep C - Hx Asthma - Hx of left lacunar ICH and a right parietal ischemic stroke - Lovenox at 30mg daily - Pollen/perfume Allergies -> started on Claritin 10mg, patient feels it is not working family is bringing in some Sherry for him. - Venous duplex ordered to rule out lower extremity DVT => Duplex was unremarkable - New onset Headaches -> CT head was showed no changes from previous studies. - Repeat Head CT -> remains stable with no changes from previous study
--- NOTE | 2017-11-17 10:30 | PN.NEURO_ITS ---
Subjective: Patient seen, no new complaints. Tolerating therapy. Denies any shortness of breath, headaches, or chest pains. Does have some left shoulder stiffness but is using heating pad with some relief. 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 No issues with GI/. - Physical Exam General: Alert, Oriented x3, Cooperative HEENT: Atraumatic, PERRLA, EOMI, Normocephalic Neck: Supple, No JVD, Negative Carotid Bruits Lungs: Clear to auscultation, Normal air movement Cardiovascular: Regular rate, No murmurs Abdomen: Bowel Sounds Present, Soft, Non Tender Extremities: No edema, Capillary Refill Less than 3 Seconds Skin: No rashes, No breakdown Musculoskeletal: No Tenderness to Palpation of Joints or Extremities Neurological: Cranial nerves II-XII grossly intact Psych/Mental Status: Normal Affect, Appropriate Vital Signs Temp Pulse Resp BP Pulse Ox 97.5 F L 70 18 134/74 H 95 11/17/17 08:01 11/17/17 08:01 11/17/17 08:01 11/17/17 08:01 11/17/17 08:01 Oxygen Flow Rate (L/min) 2 Oxygen Delivery Method Room Air Weight: 118.8 kg Body Mass Index (BMI) 38.6 Intake and Output for Last 24 Hours 11/15/17 11/16/17 11/17/17 23:59 23:59 23:59 Intake Total 740 / 740 660 / 660 240 / 240 Balance 740 / 740 660 / 660 240 / 240 Active Medications Acetaminophen (Tylenol) 650 mg PO Q4H PRN PRN PRN Reason: PAIN Last Admin: 11/17/17 05:29 Dose: 650 mg Albuterol Sulfate (Ventolin Hfa (Sp)) 2 puff INHALATION Q4H PRN PRN PRN Reason: WHEEZING Last Admin: 10/28/17 20:29 Dose: 2 inhaler Amlodipine Besylate (Norvasc) 10 mg PO DAILY [facility] Last Admin: 11/17/17 08:10 Dose: 10 mg [facility] Last Admin: 11/17/17 08:09 Dose: 81 mg Atorvastatin Calcium (Lipitor) 80 mg PO QHS [facility] Last Admin: 03/25/18 20:25 Dose: 80 mg Bisacodyl (Dulcolax) 10 mg RECTAL .PRN X 1 PRN PRN Reason: Constipation Calamine/Phenol (Calmoseptine Ointment) 1 applic TOPICAL BID PRN; Protocol PRN Reason: redness Carvedilol (Coreg) 25 mg PO BID [facility] Last Admin: 11/17/17 08:09 Dose: 25 mg Clopidogrel Bisulfate (Plavix) 75 mg PO DAILY [facility] Last Admin: 11/17/17 08:09 Dose: 75 mg Enoxaparin Sodium (Lovenox) 30 mg SC DAILY@0600 [facility] Last Admin: 11/17/17 05:29 Dose: 30 mg Escitalopram Oxalate (Lexapro) 10 mg PO DAILY [facility] Last Admin: 11/17/17 08:09 Dose: 10 mg Fexofenadine HCl (Sherry Allergy) 60 mg PO TID PRN PRN PRN Reason: CONGESTION Last Admin: 11/17/17 05:29 Dose: 60 mg Finasteride (Proscar) 5 mg PO DAILY [facility] Last Admin: 11/17/17 08:09 Dose: 5 mg Lisinopril (Zestril) 40 mg PO QHS [facility] Last Admin: 11/16/17 20:25 Dose: 40 mg Magnesium Hydroxide (Milk Of Magnesia) 30 ml PO .PRN X 1 PRN PRN Reason: Constipation Nitroglycerin (Nitrostat) 0.4 mg SUBLINGUAL Q5M PRN PRN Reason: CARDIAC/CHEST PAIN Last Admin: 10/12/17 08:34 Dose: 0.4 mg Ondansetron HCl (Zofran Odt) 4 mg PO Q8H PRN PRN PRN Reason: NAUSEA Last Admin: 11/09/17 13:09 Dose: 4 mg Pantoprazole Sodium (Protonix) 20 mg PO BID [facility] Last Admin: 11/17/17 08:09 Dose: 20 mg Senna/Docusate Sodium (Senokot-S, Suki-Colace) 2 tablet PO BID [facility] Last Admin: 11/17/17 08:11 Dose: Not Given Sodium Chloride () 5 - 30 ml IV UD PRN PRN Reason: SALINE FLUSH Last Admin: 10/12/17 22:30 Dose: 20 ml Medical Necessity - Tobacco Use Smoking Status: Heavy Smoker (>10/day) Tobacco Use: Cigarettes Assessment/Plan debility s/p right parietal infarct 2/2 to symptomatic right ICA occlusion. complicated by a previous left lacunar ICH, and a right parietal ischemic stroke in 2016. The goal of rehab is [facility] of functional independence. Plan: - Physical therapy for gait and balance - Occupational Therapy for ADLs - As needed analgesics - Bowel protocol - Stroke prevention on ASA, Statin, and Plavix - DVT prophylaxis: SCDs, Prasad stinson, Lovenox - Hypertension: BP continues to be Elevated, Keep BP < 130/80 mmHg => currently on Coreg 25mg, Zestril 40mg, will add Norvasc 5mg daily - Hx of HLD continue home dose of statin, Check LDL and Hba1c levels - Anxiety: Lexapro - Stent placement right ICA=> continue Plavix - Cervical spondylosis => Continued neck pain 2/2 fall prior to stroke => continue C-Collar - Hx GERD continue home medication - Hx Hep C - Hx Asthma - Hx of left lacunar ICH and a right parietal ischemic stroke - Lovenox at 30mg daily - Pollen/perfume Allergies -> started on Claritin 10mg, patient feels it is not working family is bringing in some Sherry for him. - Venous duplex ordered to rule out lower extremity DVT => Duplex was unremarkable - New onset Headaches -> CT head was showed no changes from previous studies. - Repeat Head CT -> remains stable with no changes from previous study
[2017-11-17 11:03] VITALS: BMI 38.6
--- NOTE | 2017-11-17 12:54 | CASEMGMT ---
Insurance Clinical information faxed. Pending continued stay approval. Auth#[id number] Elvia DENT, [employer]
--- NOTE | 2017-11-17 15:07 | CASEMGMT ---
Insurance Continued stay approved with next update due on 11/24/17. LCD: 10/25/17 Auth#[id number] Elvia DENT, MATERIAL REQUISITIONER
--- NOTE | 2017-11-17 18:10 | PCM.PN.HOSP ---
Subjective: Seen and examined. Patient has right parietal infarct secondary to right ICA occlusion with left-sided weakness. He also history of left lacunar ICH and right parietal ischemic stroke in 2016. Patient has slight left-sided facial droop. Vitals/I&O's: Vital Signs Temp Pulse Resp BP Pulse Ox 97.5 F L 70 18 134/74 H 95 11/17/17 08:01 11/17/17 08:01 11/17/17 08:01 11/17/17 08:01 11/17/17 08:01 Oxygen Flow Rate (L/min) 2 Oxygen Delivery Method Room Air Weight: 261 lb 14.546 oz Body Mass Index (BMI) 38.6 Intake and Output for Last 24 Hours 11/15/17 11/16/17 11/17/17 23:59 23:59 23:59 Intake Total 740 / 740 660 / 660 480 / 480 Balance 740 / 740 660 / 660 480 / 480 General: Alert, Oriented x3, Cooperative HEENT: Atraumatic, PERRLA, EOMI, Normocephalic Neck: Supple, No JVD, Negative Carotid Bruits Lungs: Clear to auscultation, Normal air movement Cardiovascular: Regular rate, Regular Rhythm, Normal S1, Normal S2, No murmurs Abdomen: Bowel Sounds Present, Soft, Non Tender, Non-Distended Extremities: No edema, Capillary Refill Less than 3 Seconds Skin: No rashes, No breakdown Musculoskeletal: Arthritic Changes Neurological: - - Left-Sided weakness. Left lower extremity muscle strength 4/5, left upper extremity 3/5. Mild/subtle left facial droop Psych/Mental Status: Normal Affect, Appropriate Current Medications Acetaminophen (Tylenol) 650 mg PO Q4H PRN PRN PRN Reason: PAIN Last Admin: 11/17/17 05:29 Dose: 650 mg Albuterol Sulfate (Ventolin Hfa (Sp)) 2 puff INHALATION Q4H PRN PRN PRN Reason: WHEEZING Last Admin: 10/28/17 20:29 Dose: 2 inhaler Amlodipine Besylate (Norvasc) 10 mg PO DAILY [facility] Last Admin: 11/17/17 08:10 Dose: 10 mg [facility] Last Admin: 11/17/17 08:09 Dose: 81 mg Atorvastatin Calcium (Lipitor) 80 mg PO QHS [facility] Last Admin: 11/16/17 20:25 Dose: 80 mg Bisacodyl (Dulcolax) 10 mg RECTAL .PRN X 1 PRN PRN Reason: Constipation Calamine/Phenol (Calmoseptine Ointment) 1 applic TOPICAL BID PRN; Protocol PRN Reason: redness Carvedilol (Coreg) 25 mg PO BID [facility] Last Admin: 11/17/17 08:09 Dose: 25 mg Clopidogrel Bisulfate (Plavix) 75 mg PO DAILY [facility] Last Admin: 11/17/17 08:09 Dose: 75 mg Enoxaparin Sodium (Lovenox) 30 mg SC DAILY@0600 [facility] Last Admin: 11/17/17 05:29 Dose: 30 mg Escitalopram Oxalate (Lexapro) 10 mg PO DAILY [facility] Last Admin: 11/17/17 08:09 Dose: 10 mg Fexofenadine HCl (Sherry Allergy) 60 mg PO TID PRN PRN PRN Reason: CONGESTION Last Admin: 11/17/17 05:29 Dose: 60 mg Finasteride (Proscar) 5 mg PO DAILY [facility] Last Admin: 11/17/17 08:09 Dose: 5 mg Lisinopril (Zestril) 40 mg PO QHS [facility] Last Admin: 11/16/17 20:25 Dose: 40 mg Magnesium Hydroxide (Milk Of Magnesia) 30 ml PO .PRN X 1 PRN PRN Reason: Constipation Nitroglycerin (Nitrostat) 0.4 mg SUBLINGUAL Q5M PRN PRN Reason: CARDIAC/CHEST PAIN Last Admin: 10/12/17 08:34 Dose: 0.4 mg Ondansetron HCl (Zofran Odt) 4 mg PO Q8H PRN PRN PRN Reason: NAUSEA Last Admin: 11/09/17 13:09 Dose: 4 mg Pantoprazole Sodium (Protonix) 20 mg PO BID [facility] Last Admin: 11/17/17 08:09 Dose: 20 mg Senna/Docusate Sodium (Senokot-S, Suki-Colace) 2 tablet PO BID [facility] Last Admin: 11/17/17 08:11 Dose: Not Given Sodium Chloride () 5 - 30 ml IV UD PRN PRN Reason: SALINE FLUSH Last Admin: 10/12/17 22:30 Dose: 20 ml Medical Necessity - Tobacco Use Smoking Status: Heavy Smoker (>10/day) Tobacco Use: Cigarettes Assessment/Plan 57-year-old male admitted to the inpatient rehab unit with 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 He also history of left lacunar ICH and right parietal ischemic stroke in 2016. 1. Acute right parietal infarct secondary to right ICA occlusion status post angioplasty and placement, undergoing therapy. 2. Hypertension, controlled, continue on home medications. Blood pressure is controlled. 3. Dyslipidemia, on statin 4. History of cervical spondylosis 5. DVT prophylaxis SC Lovenox Code Visit Inpatient E&M: 82684 Subs Hosp L2
[2017-11-17 19:55] VITALS: BP 125/78; PULSE 68; RESP 18; TEMP 36.3; O2SAT 99
[2017-11-17 20:01] VITALS: BMI 38.6
[2017-11-17] MEDS: Atorvastatin Calcium 80 MG Tablet PO (20:05)
[2017-11-17] MEDS: Lisinopril 40 MG Tablet PO (20:06)
[2017-11-18] MEDS: Enoxaparin 30 MG/0.3 ML Syringe SC (05:04)
[2017-11-18 08:39] VITALS: BP 144/78; PULSE 68; RESP 17; TEMP 36.8; O2SAT 94
[2017-11-18] MEDS: Escitalopram Oxalate 10 MG Tablet PO (08:48)
[2017-11-18] MEDS: Pantoprazole Sodium 20 MG Tablet PO ×2 (08:48→20:00)
[2017-11-18] MEDS: FEXOFENADINE HCL 60 MG TABLET PO (08:48)
[2017-11-18] MEDS: Finasteride 5 MG Tablet PO (08:48)
[2017-11-18] MEDS: Clopidogrel Bisulfate 75 MG Tablet PO (08:48)
[2017-11-18] MEDS: Aspirin 81 MG TAB.CHEW PO (08:48)
[2017-11-18] MEDS: Carvedilol 25 MG Tablet PO ×2 (08:48→19:59)
[2017-11-18] MEDS: amLODIPine 10 MG Tablet PO (08:48)
[2017-11-18 08:56] VITALS: BMI 38.6
[2017-11-18] MEDS: Acetaminophen 325 MG Tablet 650 MG PO ×2 (11:34→20:03)
--- NOTE | 2017-11-18 12:11 | PCM.PN.NEU ---
Subjective: Patient seen during Physical therapy session. No new complaints. Tolerating therapy. No issues with GI/. - Physical Exam General: Alert, Oriented x3, Cooperative HEENT: Atraumatic, PERRLA, EOMI, Normocephalic Neck: Supple, No JVD, Negative Carotid Bruits Lungs: Clear to auscultation, Normal air movement Cardiovascular: Regular rate, No murmurs Abdomen: Bowel Sounds Present, Soft, Non Tender Extremities: No edema, Capillary Refill Less than 3 Seconds Skin: No rashes, No breakdown Musculoskeletal: No Tenderness to Palpation of Joints or Extremities Neurological: Cranial nerves II-XII grossly intact Psych/Mental Status: Normal Affect, Appropriate Vital Signs Temp Pulse Resp BP Pulse Ox 98.2 F 68 17 144/78 H 94 11/18/17 08:39 11/18/17 08:39 11/18/17 08:39 11/18/17 08:39 11/18/17 08:39 Oxygen Flow Rate (L/min) 2 Oxygen Delivery Method Room Air Weight: 118.8 kg Body Mass Index (BMI) 38.6 Intake and Output for Last 24 Hours 11/16/17 11/17/17 11/18/17 23:59 23:59 23:59 Intake Total 660 / 660 480 / 480 420 / 420 Balance 660 / 660 480 / 480 420 / 420 Active Medications Acetaminophen (Tylenol) 650 mg PO Q4H PRN PRN PRN Reason: PAIN Last Admin: 11/18/17 11:34 Dose: 650 mg Albuterol Sulfate (Ventolin Hfa (Sp)) 2 puff INHALATION Q4H PRN PRN PRN Reason: WHEEZING Last Admin: 10/28/17 20:29 Dose: 2 inhaler Amlodipine Besylate (Norvasc) 10 mg PO DAILY [facility] Last Admin: 11/18/17 08:48 Dose: 10 mg [facility], [facility]) [facility] Last Admin: 11/18/17 08:48 Dose: 81 mg Atorvastatin Calcium (Lipitor) 80 mg PO QHS [facility] Last Admin: 11/17/17 20:05 Dose: 80 mg Bisacodyl (Dulcolax) 10 mg RECTAL .PRN X 1 PRN PRN Reason: Constipation Calamine/Phenol (Calmoseptine Ointment) 1 applic TOPICAL BID PRN; Protocol PRN Reason: redness Carvedilol (Coreg) 25 mg PO BID [facility] Last Admin: 11/18/17 08:48 Dose: 25 mg Clopidogrel Bisulfate (Plavix) 75 mg PO DAILY [facility] Last Admin: 11/18/17 08:48 Dose: 75 mg Enoxaparin Sodium (Lovenox) 30 mg SC DAILY@0600 [facility] Last Admin: 11/18/17 05:04 Dose: 30 mg Escitalopram Oxalate (Lexapro) 10 mg PO DAILY [facility] Last Admin: 11/18/17 08:48 Dose: 10 mg Fexofenadine HCl (Sherry Allergy) 60 mg PO TID PRN PRN PRN Reason: CONGESTION Last Admin: 11/18/17 08:48 Dose: 60 mg Finasteride (Proscar) 5 mg PO DAILY [facility] Last Admin: 11/18/17 08:48 Dose: 5 mg Lisinopril (Zestril) 40 mg PO QHS [facility] Last Admin: 11/17/17 20:06 Dose: 40 mg Magnesium Hydroxide (Milk Of Magnesia) 30 ml PO .PRN X 1 PRN PRN Reason: Constipation Nitroglycerin (Nitrostat) 0.4 mg SUBLINGUAL Q5M PRN PRN Reason: CARDIAC/CHEST PAIN Last Admin: 10/12/17 08:34 Dose: 0.4 mg Ondansetron HCl (Zofran Odt) 4 mg PO Q8H PRN PRN PRN Reason: NAUSEA Last Admin: 11/09/17 13:09 Dose: 4 mg Pantoprazole Sodium (Protonix) 20 mg PO BID [facility] Last Admin: 11/18/17 08:48 Dose: 20 mg Senna/Docusate Sodium (Senokot-S, Suki-Colace) 2 tablet PO BID [facility] Last Admin: 11/18/17 08:50 Dose: Not Given Sodium Chloride () 5 - 30 ml IV UD PRN PRN Reason: SALINE FLUSH Last Admin: 10/12/17 22:30 Dose: 20 ml Medical Necessity - Tobacco Use Smoking Status: Heavy Smoker (>10/day) Tobacco Use: Cigarettes Assessment/Plan debility s/p right parietal infarct 2/2 to symptomatic right ICA occlusion. complicated by a previous left lacunar ICH, and a right parietal ischemic stroke in 2016. The goal of rehab is [facility] of functional [facility]. Plan: - Physical therapy for gait and balance - Occupational Therapy for ADLs - As needed analgesics - Bowel protocol - Stroke prevention on ASA, Statin, and Plavix - DVT prophylaxis: CARLOSs, Prasad stinson, Lovenox - Hypertension: BP continues to be Elevated, Keep BP < 130/80 mmHg => currently on Coreg 25mg, Zestril 40mg, will add Norvasc 5mg daily - Hx of HLD continue home dose of statin, Check LDL and Hba1c levels - Anxiety: Lexapro - Stent placement right ICA=> continue Plavix - Cervical spondylosis => Continued neck pain 2/2 fall prior to stroke => continue C-Collar - Hx GERD continue home medication - Hx Hep C - Hx Asthma - Hx of left lacunar ICH and a right parietal ischemic stroke - Lovenox at 30mg daily - Pollen/perfume Allergies -> started on Claritin 10mg, patient feels it is not working family is bringing in some Sherry for him. - Venous duplex ordered to rule out lower extremity DVT => Duplex was unremarkable - New onset Headaches -> CT head was showed no changes from previous studies. - Repeat Head CT -> remains stable with no changes from previous study
[2017-11-18 19:53] VITALS: BP 141/85; PULSE 64; RESP 16; TEMP 36.3; O2SAT 96
[2017-11-18] MEDS: Atorvastatin Calcium 80 MG Tablet PO (19:59)
[2017-11-18] MEDS: Lisinopril 40 MG Tablet PO (20:02)
[2017-11-18 23:59] VITALS: BMI 38.6
--- NOTE | 2017-11-19 01:20 | NURSING ---
Reviewed and agree with YARDAGE CONTROL CLERK documentation and [facility] charting.
[2017-11-19] MEDS: FEXOFENADINE HCL 60 MG TABLET PO (03:15)
--- NOTE | 2017-11-19 03:53 | NURSING ---
Pt c/o allergic reaction to a staff member's scent and requested prn Sherry for relief from itching and nasal drainage. Sherry provided and staff will monitor for relief.
[2017-11-19] MEDS: Enoxaparin 30 MG/0.3 ML Syringe SC (05:31)
[2017-11-19] MEDS: Acetaminophen 325 MG Tablet 650 MG PO ×3 (05:38→22:22)
--- NOTE | 2017-11-19 06:30 | NURSING ---
Pt c/o pain 3/10 in left shoulder and requested PRN Tylenol. Nurse administered 2 tabs Tylenol.
[2017-11-19] MEDS: Pantoprazole Sodium 20 MG Tablet PO ×2 (07:45→21:07)
[2017-11-19] MEDS: Aspirin 81 MG TAB.CHEW PO (07:45)
[2017-11-19] MEDS: Finasteride 5 MG Tablet PO (07:45)
[2017-11-19] MEDS: Escitalopram Oxalate 10 MG Tablet PO (07:45)
[2017-11-19] MEDS: Clopidogrel Bisulfate 75 MG Tablet PO (07:45)
[2017-11-19 08:23] VITALS: BP 124/68; PULSE 78; RESP 17; TEMP 36.8; O2SAT 94
[2017-11-19] MEDS: Carvedilol 25 MG Tablet PO ×2 (08:40→21:08)
[2017-11-19] MEDS: amLODIPine 10 MG Tablet PO (08:41)
--- NOTE | 2017-11-19 10:15 | PCM.PN.NEU ---
Subjective: Patient seen and examined. Complaining of tingling and burning down his left arm and leg, started Gabapentin 100mg TID, increase daily by a 100mg till he is taking 300mg TID for a total of 900mg daily. Tolerating therapy. No issues with GI/. - Physical Exam General: Alert, Oriented x3, Cooperative HEENT: Atraumatic, PERRLA, EOMI, Normocephalic Neck: Supple, No JVD, Negative Carotid Bruits Lungs: Clear to auscultation, Normal air movement Cardiovascular: Regular rate, No murmurs Abdomen: Bowel Sounds Present, Soft, Non Tender Extremities: No edema, Capillary Refill Less than 3 Seconds Skin: No rashes, No breakdown Musculoskeletal: No Tenderness to Palpation of Joints or Extremities Neurological: Cranial nerves II-XII grossly intact Psych/Mental Status: Normal Affect, Appropriate Vital Signs Temp Pulse Resp BP Pulse Ox 98.2 F 78 17 124/68 H 94 11/19/17 08:23 11/19/17 08:23 11/19/17 08:23 11/19/17 08:23 11/19/17 08:23 Oxygen Flow Rate (L/min) 2 Oxygen Delivery Method Room Air Weight: 118.5 kg Body Mass Index (BMI) 38.6 Intake and Output for Last 24 Hours 11/17/17 11/18/17 11/19/17 23:59 23:59 23:59 Intake Total 480 / 480 1200 / 1200 320 / 320 Balance 480 / 480 1200 / 1200 320 / 320 Active Medications Acetaminophen (Tylenol) 650 mg PO Q4H PRN PRN PRN Reason: PAIN Last Admin: 11/19/17 05:38 Dose: 650 mg Albuterol Sulfate (Ventolin Hfa (Sp)) 2 puff INHALATION Q4H PRN PRN PRN Reason: WHEEZING Last Admin: 10/28/17 20:29 Dose: 2 inhaler Amlodipine Besylate (Norvasc) 10 mg PO DAILY [facility] Last Admin: 11/19/17 08:41 Dose: 10 mg [facility] ([facility], [facility]) [facility] Last Admin: 11/19/17 07:45 Dose: 81 mg Atorvastatin Calcium (Lipitor) 80 mg PO QHS [facility] Last Admin: 11/18/17 19:59 Dose: 80 mg Bisacodyl (Dulcolax) 10 mg RECTAL .PRN X 1 PRN PRN Reason: Constipation Calamine/Phenol (Calmoseptine Ointment) 1 applic TOPICAL BID PRN; Protocol PRN Reason: redness Carvedilol (Coreg) 25 mg PO BID [facility] Last Admin: 11/19/17 08:40 Dose: 25 mg Clopidogrel Bisulfate (Plavix) 75 mg PO DAILY [facility] Last Admin: 11/19/17 07:45 Dose: 75 mg Enoxaparin Sodium (Lovenox) 30 mg SC DAILY@0600 [facility] Last Admin: 11/19/17 05:31 Dose: 30 mg Escitalopram Oxalate (Lexapro) 10 mg PO DAILY [facility] Last Admin: 11/19/17 07:45 Dose: 10 mg Fexofenadine HCl (Sherry Allergy) 60 mg PO TID PRN PRN PRN Reason: CONGESTION Last Admin: 11/19/17 03:15 Dose: 60 mg Finasteride (Proscar) 5 mg PO DAILY [facility] Last Admin: 11/19/17 07:45 Dose: 5 mg Lisinopril (Zestril) 40 mg PO QHS [facility] Last Admin: 11/18/17 20:02 Dose: 40 mg Magnesium Hydroxide (Milk Of Magnesia) 30 ml PO .PRN X 1 PRN PRN Reason: Constipation Nitroglycerin (Nitrostat) 0.4 mg SUBLINGUAL Q5M PRN PRN Reason: CARDIAC/CHEST PAIN Last Admin: 10/12/17 08:34 Dose: 0.4 mg Ondansetron HCl (Zofran Odt) 4 mg PO Q8H PRN PRN PRN Reason: NAUSEA Last Admin: 11/09/17 13:09 Dose: 4 mg Pantoprazole Sodium (Protonix) 20 mg PO BID [facility] Last Admin: 11/19/17 07:45 Dose: 20 mg Senna/Docusate Sodium (Senokot-S, Suki-Colace) 2 tablet PO BID [facility] Last Admin: 11/19/17 07:47 Dose: Not Given Sodium Chloride () 5 - 30 ml IV UD PRN PRN Reason: SALINE FLUSH Last Admin: 10/12/17 22:30 Dose: 20 ml Medical Necessity - Tobacco Use Smoking Status: Heavy Smoker (>10/day) Tobacco Use: Cigarettes Assessment/Plan debility s/p right parietal infarct 2/2 to symptomatic right ICA occlusion. complicated by a previous left lacunar ICH, and a right parietal ischemic stroke in 2016. The goal of rehab is catholic of functional independence. Plan: - Physical therapy for gait and balance - Occupational Therapy for ADLs - As needed analgesics - Bowel protocol - Stroke prevention on ASA, Statin, and Plavix - DVT prophylaxis: Yannick, Prasda stinson, Lovenox - Hypertension: BP continues to be Elevated, Keep BP < 130/80 mmHg => currently on Coreg 25mg, Zestril 40mg, will add Norvasc 5mg daily - Hx of HLD continue home dose of statin, Check LDL and Hba1c levels - Anxiety: Lexapro - Stent placement right ICA=> continue Plavix - Cervical spondylosis => Continued neck pain 2/2 fall prior to stroke => continue C-Collar - Hx GERD continue home medication - Hx Hep C - Hx Asthma - Hx of left lacunar ICH and a right parietal ischemic stroke - Lovenox at 30mg daily - Pollen/perfume Allergies -> started on Claritin 10mg, patient feels it is not working family is bringing in some Sherry for him. - Venous duplex ordered to rule out lower extremity DVT => Duplex was unremarkable - New onset Headaches -> CT head was showed no changes from previous studies. - Repeat Head CT -> remains stable with no changes from previous study - Neuropathy left arm and leg => Gabapentin 100mg TID increase by 100mg till taking 300mg TID, for a total of 900mg daily
[2017-11-19] MEDS: Gabapentin 100 MG Capsule PO ×2 (12:07→18:10)
[2017-11-19 12:09] VITALS: BMI 38.6
[2017-11-19 19:46] VITALS: BP 129/74; PULSE 71; RESP 12; TEMP 36.4; O2SAT 95
[2017-11-19] MEDS: Lisinopril 40 MG Tablet PO (21:07)
[2017-11-19] MEDS: Atorvastatin Calcium 80 MG Tablet PO (21:07)
[2017-11-20] MEDS: Acetaminophen 325 MG Tablet 650 MG PO (06:25)
[2017-11-20] MEDS: Enoxaparin 30 MG/0.3 ML Syringe SC (06:26)
[2017-11-20 07:28] VITALS: BP 160/88; PULSE 70; RESP 18; TEMP 36.6; O2SAT 94
[2017-11-20] MEDS: Pantoprazole Sodium 20 MG Tablet PO ×2 (07:37→20:11)
[2017-11-20] MEDS: Finasteride 5 MG Tablet PO (07:37)
[2017-11-20] MEDS: amLODIPine 10 MG Tablet PO (07:37)
[2017-11-20] MEDS: Escitalopram Oxalate 10 MG Tablet PO (07:38)
[2017-11-20] MEDS: Carvedilol 25 MG Tablet PO ×2 (07:38→20:10)
[2017-11-20] MEDS: Clopidogrel Bisulfate 75 MG Tablet PO (07:38)
[2017-11-20] MEDS: Aspirin 81 MG TAB.CHEW PO (07:38)
[2017-11-20] MEDS: Gabapentin 100 MG Capsule PO (07:38)
[2017-11-20] MEDS: FEXOFENADINE HCL 60 MG TABLET PO (07:53)
[2017-11-20 10:08] VITALS: BMI 38.6
--- NOTE | 2017-11-20 10:47 | PCM.PN.NEU ---
Subjective: Staffed in team meeting. No family at bedside. Questions answered for the patient. With Physical therapy, he is walking 200 feet with a cane at contact guard. He is standby assist for mobility and transfers. He is able to ambulate up and down both the ramp and stairs with the use of a cane at stand by assist. With Occupational therapy, he is moderate assist for getting his brace on and tying his shoes. He is still minimal assist for personal care, he is able to wash his face and comb his hair. He requires help with getting his shirt on his right arm, he can get it on his left arm himself. With speech therapy, he is having trouble with the higher executive functions still, like taking turns, fiances, organization, and sequencing. He still requires cues to focus more. With Nursing there is no issues. - Physical Exam General: Alert, Oriented x3, Cooperative HEENT: Atraumatic, PERRLA, EOMI, Normocephalic Neck: Supple, No JVD, Negative Carotid Bruits Lungs: Clear to auscultation, Normal air movement Cardiovascular: Regular rate, No murmurs Abdomen: Bowel Sounds Present, Soft, Non Tender Extremities: No edema, Capillary Refill Less than 3 Seconds Skin: No rashes, No breakdown Musculoskeletal: No Tenderness to Palpation of Joints or Extremities Neurological: Cranial nerves II-XII grossly intact Psych/Mental Status: Normal Affect, Appropriate Vital Signs Temp Pulse Resp BP Pulse Ox 97.8 F 70 18 160/88 H 94 11/20/17 07:28 11/20/17 07:28 11/20/17 07:28 11/20/17 07:28 11/20/17 07:28 Oxygen Flow Rate (L/min) 2 Oxygen Delivery Method Room Air Weight: 118.5 kg Body Mass Index (BMI) 38.6 Intake and Output for Last 24 Hours 11/18/17 11/19/17 11/20/17 23:59 23:59 23:59 Intake Total 1200 / 1200 1000 / 1000 360 / 360 Balance 1200 / 1200 1000 / 1000 360 / 360 Active Medications Acetaminophen (Tylenol) 650 mg PO Q4H PRN PRN PRN Reason: PAIN Last Admin: 11/20/17 06:25 Dose: 650 mg Albuterol Sulfate (Ventolin Hfa (Sp)) 2 puff INHALATION Q4H PRN PRN PRN Reason: WHEEZING Last Admin: 10/28/17 20:29 Dose: 2 inhaler Amlodipine Besylate (Norvasc) 10 mg PO DAILY [facility] Last Admin: 11/20/17 07:37 Dose: 10 mg Aspirin (Aspirin, Baby) 81 mg PO DAILYCM [facility] Last Admin: 11/20/17 07:38 Dose: 81 mg Atorvastatin Calcium (Lipitor) 80 mg PO QHS [facility] Last Admin: 11/19/17 21:07 Dose: 80 mg Bisacodyl (Dulcolax) 10 mg RECTAL .PRN X 1 PRN PRN Reason: Constipation Calamine/Phenol (Calmoseptine Ointment) 1 applic TOPICAL BID PRN; Protocol PRN Reason: redness Carvedilol (Coreg) 25 mg PO BID [facility] Last Admin: 11/20/17 07:38 Dose: 25 mg Clopidogrel Bisulfate (Plavix) 75 mg PO DAILY [facility] Last Admin: 11/20/17 07:38 Dose: 75 mg Enoxaparin Sodium (Lovenox) 30 mg SC DAILY@0600 [facility] Last Admin: 11/20/17 06:26 Dose: 30 mg Escitalopram Oxalate (Lexapro) 10 mg PO DAILY [facility] Last Admin: 11/20/17 07:38 Dose: 10 mg Fexofenadine HCl (Sherry Allergy) 60 mg PO TID PRN PRN PRN Reason: CONGESTION Last Admin: 11/20/17 07:53 Dose: 60 mg Finasteride (Proscar) 5 mg PO DAILY [facility] Last Admin: 11/20/17 07:37 Dose: 5 mg Gabapentin (Neurontin) 200 mg PO TIDCM [facility] Stop: 11/21/17 08:01 Gabapentin (Neurontin) 300 mg PO TIDCM [facility] Lisinopril (Zestril) 40 mg PO QHS [facility] Last Admin: 11/19/17 21:07 Dose: 40 mg Magnesium Hydroxide (Milk Of Magnesia) 30 ml PO .PRN X 1 PRN PRN Reason: Constipation Nitroglycerin (Nitrostat) 0.4 mg SUBLINGUAL Q5M PRN PRN Reason: CARDIAC/CHEST PAIN Last Admin: 10/12/17 08:34 Dose: 0.4 mg Ondansetron HCl (Zofran Odt) 4 mg PO Q8H PRN PRN PRN Reason: NAUSEA Last Admin: 11/09/17 13:09 Dose: 4 mg Pantoprazole Sodium (Protonix) 20 mg PO BID [facility] Last Admin: 11/20/17 07:37 Dose: 20 mg Senna/Docusate Sodium (Senokot-S, Suki-Colace) 2 tablet PO BID [facility] Last Admin: 11/20/17 07:38 Dose: Not Given Sodium Chloride () 5 - 30 ml IV UD PRN PRN Reason: SALINE FLUSH Last Admin: 10/12/17 22:30 Dose: 20 ml Medical Necessity - Tobacco Use Smoking Status: Heavy Smoker (>10/day) Tobacco Use: Cigarettes Assessment/Plan debility s/p right parietal infarct 2/2 to symptomatic right ICA occlusion. complicated by a previous left lacunar ICH, and a right parietal ischemic stroke in 2016. The goal of rehab is yazidism of functional independence. Plan: - Physical therapy for gait and balance - Occupational Therapy for ADLs - As needed analgesics - Bowel protocol - Stroke prevention on ASA, Statin, and Plavix - DVT prophylaxis: SCDs, Prasad stinson, Lovenox - Hypertension: BP continues to be Elevated, Keep BP < 130/80 mmHg => currently on Coreg 25mg, Zestril 40mg, will add Norvasc 5mg daily - Hx of HLD continue home dose of statin, Check LDL and Hba1c levels - Anxiety: Lexapro - Stent placement right ICA=> continue Plavix - Cervical spondylosis => Continued neck pain 2/2 fall prior to stroke => continue C-Collar - Hx GERD continue home medication - Hx Hep C - Hx Asthma - Hx of left lacunar ICH and a right parietal ischemic stroke - Lovenox at 30mg daily - Pollen/perfume Allergies -> started on Claritin 10mg, patient feels it is not working family is bringing in some Sherry for him. - Venous duplex ordered to rule out lower extremity DVT => Duplex was unremarkable - New onset Headaches -> CT head was showed no changes from previous studies. - Repeat Head CT -> remains stable with no changes from previous study - Neuropathy left arm and leg => Gabapentin 100mg TID increase by 100mg till taking 300mg TID, for a total of 900mg daily
[2017-11-20] MEDS: Gabapentin 100 MG Capsule 200 MG PO ×2 (11:38→16:43)
--- NOTE | 2017-11-20 12:52 | CASEMGMT ---
Team meeting held. Patient present, no support person present at this time. Patient declining for this psych social worker to contact support person at this time. Patient approved more time with insurance with the next update due on 11/24/17. Patient aware that current recommendation is for patient to transition to a half-way facility. Patient continues to plan to discharge to [facility] at time of discharge. Support given. Will continue to follow. Elvia DENT, THREAD SEPARATOR
--- NOTE | 2017-11-20 17:06 | PCM.PN.HOSP ---
Subjective: Patient is participating actively in physical and occupational therapy. As per rehab note, he walked 200 feet with cane with standby assist for mobility and balance. No problem in voiding urine. Bowel movement regular. Vitals/I&O's: Vital Signs Temp Pulse Resp BP Pulse Ox 97.8 F 70 18 160/88 H 94 11/20/17 07:28 11/20/17 07:28 11/20/17 07:28 11/20/17 07:28 11/20/17 07:28 Oxygen Flow Rate (L/min) 2 Oxygen Delivery Method Room Air Weight: 261 lb 3.964 oz Body Mass Index (BMI) 38.6 Intake and Output for Last 24 Hours 11/18/17 11/19/17 11/20/17 23:59 23:59 23:59 Intake Total 1200 / 1200 1000 / 1000 600 / 600 Balance 1200 / 1200 1000 / 1000 600 / 600 General: Alert, Oriented x3, Cooperative HEENT: Atraumatic, PERRLA, EOMI, Normocephalic Neck: Supple, No JVD, Negative Carotid Bruits Lungs: Clear to auscultation, Normal air movement Cardiovascular: Regular rate, No murmurs Abdomen: Bowel Sounds Present, Soft, Non Tender Extremities: No edema, Capillary Refill Less than 3 Seconds Skin: No rashes, No breakdown Musculoskeletal: No Tenderness to Palpation of Joints or Extremities, Arthritic Changes Neurological: - - Left-Sided weakness. Left lower extremity muscle strength 4/5, left upper extremity 3/5. Mild/subtle left facial droop Psych/Mental Status: Normal Affect, Appropriate Current Medications Acetaminophen (Tylenol) 650 mg PO Q4H PRN PRN PRN Reason: PAIN Last Admin: 11/20/17 06:25 Dose: 650 mg Albuterol Sulfate (Ventolin Hfa (Sp)) 2 puff INHALATION Q4H PRN PRN PRN Reason: WHEEZING Last Admin: 10/28/17 20:29 Dose: 2 inhaler Amlodipine Besylate (Norvasc) 10 mg PO DAILY [facility] Last Admin: 11/20/17 07:37 Dose: 10 mg [facility], [facility] Last Admin: 11/20/17 07:38 Dose: 81 mg Atorvastatin Calcium (Lipitor) 80 mg PO QHS [facility] Last Admin: 11/19/17 21:07 Dose: 80 mg Bisacodyl (Dulcolax) 10 mg RECTAL .PRN X 1 PRN PRN Reason: Constipation Calamine/Phenol (Calmoseptine Ointment) 1 applic TOPICAL BID PRN; Protocol PRN Reason: redness Carvedilol (Coreg) 25 mg PO BID [facility] Last Admin: 11/20/17 07:38 Dose: 25 mg Clopidogrel Bisulfate (Plavix) 75 mg PO DAILY [facility] Last Admin: 11/20/17 07:38 Dose: 75 mg Enoxaparin Sodium (Lovenox) 30 mg SC DAILY@0600 [facility] Last Admin: 11/20/17 06:26 Dose: 30 mg Escitalopram Oxalate (Lexapro) 10 mg PO DAILY [facility] Last Admin: 11/20/17 07:38 Dose: 10 mg Fexofenadine HCl (Sherry Allergy) 60 mg PO TID PRN PRN PRN Reason: CONGESTION Last Admin: 11/20/17 07:53 Dose: 60 mg Finasteride (Proscar) 5 mg PO DAILY [facility] Last Admin: 11/20/17 07:37 Dose: 5 mg Gabapentin (Neurontin) 200 mg PO TIDCM [facility] Stop: 11/21/17 08:01 Last Admin: 11/20/17 16:43 Dose: 200 mg Gabapentin (Neurontin) 300 mg PO TIDCM [facility] Lisinopril (Zestril) 40 mg PO QHS [facility] Last Admin: 11/19/17 21:07 Dose: 40 mg Magnesium Hydroxide (Milk Of Magnesia) 30 ml PO .PRN X 1 PRN PRN Reason: Constipation Nitroglycerin (Nitrostat) 0.4 mg SUBLINGUAL Q5M PRN PRN Reason: CARDIAC/CHEST PAIN Last Admin: 10/12/17 08:34 Dose: 0.4 mg Ondansetron HCl (Zofran Odt) 4 mg PO Q8H PRN PRN PRN Reason: NAUSEA Last Admin: 11/09/17 13:09 Dose: 4 mg Pantoprazole Sodium (Protonix) 20 mg PO BID [facility] Last Admin: 11/20/17 07:37 Dose: 20 mg Senna/Docusate Sodium (Senokot-S, Suki-Colace) 2 tablet PO BID [facility] Last Admin: 11/20/17 07:38 Dose: Not Given Sodium Chloride () 5 - 30 ml IV UD PRN PRN Reason: SALINE FLUSH Last Admin: 10/12/17 22:30 Dose: 20 ml Medical Necessity - Tobacco Use Smoking Status: Heavy Smoker (>10/day) Tobacco Use: Cigarettes Assessment/Plan 57-year-old male admitted to the inpatient rehab unit with 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 He also history of left lacunar ICH and right parietal ischemic stroke in 2016. 1. Acute right parietal infarct secondary to right ICA occlusion status post angioplasty and placement, undergoing therapy. Continue PT and OT. 2. Hypertension, controlled, continue on home medications. Usually his blood pressure is in the range of 125/72 on 144/78. One-time 160/88. Monitor BP and if persistently high more than 40/98, need to up titrate the antihypertensive medication. On lisinopril 40 mg daily, amlodipine 10 mg daily and Coreg 25 g p.o. twice daily. If needed further antihypertensive medication, start HCTZ. 3. Dyslipidemia, on statin 4. History of cervical spondylosis 5. DVT prophylaxis SC Lovenox Code Visit Inpatient E&M: 47773 Subs Hosp L2
--- NOTE | 2017-11-20 17:11 | PN_ITS ---
Subjective: Patient is participating actively in physical and occupational therapy. As per rehab note, he walked 200 feet with cane with standby assist for mobility and balance. No problem in voiding urine. Bowel movement regular. Vitals/I&O's: Vital Signs Temp Pulse Resp BP Pulse Ox 97.8 F 70 18 160/88 H 94 11/20/17 07:28 11/20/17 07:28 11/20/17 07:28 11/20/17 07:28 11/20/17 07:28 Oxygen Flow Rate (L/min) 2 Oxygen Delivery Method Room Air Weight: 261 lb 3.964 oz Body Mass Index (BMI) 38.6 Intake and Output for Last 24 Hours 11/18/17 11/19/17 11/20/17 23:59 23:59 23:59 Intake Total 1200 / 1200 1000 / 1000 600 / 600 Balance 1200 / 1200 1000 / 1000 600 / 600 General: Alert, Oriented x3, Cooperative HEENT: Atraumatic, PERRLA, EOMI, Normocephalic Neck: Supple, No JVD, Negative Carotid Bruits Lungs: Clear to auscultation, Normal air movement Cardiovascular: Regular rate, No murmurs Abdomen: Bowel Sounds Present, Soft, Non Tender Extremities: No edema, Capillary Refill Less than 3 Seconds Skin: No rashes, No breakdown Musculoskeletal: No Tenderness to Palpation of Joints or Extremities, Arthritic Changes Neurological: - - Left-Sided weakness. Left lower extremity muscle strength 4/5 , left upper extremity 3/5. Mild/subtle left facial droop Psych/Mental Status: Normal Affect, Appropriate Current Medications Acetaminophen (Tylenol) 650 mg PO Q4H PRN PRN PRN Reason: PAIN Last Admin: 11/20/17 06:25 Dose: 650 mg Albuterol Sulfate (Ventolin Hfa (Sp)) 2 puff INHALATION Q4H PRN PRN PRN Reason: WHEEZING Last Admin: 10/28/17 20:29 Dose: 2 inhaler Amlodipine Besylate (Norvasc) 10 mg PO DAILY [facility] Last Admin: 11/20/17 07:37 Dose: 10 [facility] Last Admin: 11/20/17 07:38 Dose: 81 mg Atorvastatin Calcium (Lipitor) 80 mg PO QHS [facility] Last Admin: 11/19/17 21:07 Dose: 80 mg Bisacodyl (Dulcolax) 10 mg RECTAL .PRN X 1 PRN PRN Reason: Constipation Calamine/Phenol (Calmoseptine Ointment) 1 applic TOPICAL BID PRN; Protocol PRN Reason: redness Carvedilol (Coreg) 25 mg PO BID [facility] Last Admin: 11/20/17 07:38 Dose: 25 mg Clopidogrel Bisulfate (Plavix) 75 mg PO DAILY [facility] Last Admin: 11/20/17 07:38 Dose: 75 mg Enoxaparin Sodium (Lovenox) 30 mg SC DAILY@0600 [facility] Last Admin: 11/20/17 06:26 Dose: 30 mg Escitalopram Oxalate (Lexapro) 10 mg PO DAILY [facility] Last Admin: 11/20/17 07:38 Dose: 10 mg Fexofenadine HCl (Sherry Allergy) 60 mg PO TID PRN PRN PRN Reason: CONGESTION Last Admin: 11/20/17 07:53 Dose: 60 mg Finasteride (Proscar) 5 mg PO DAILY [facility] Last Admin: 11/20/17 07:37 Dose: 5 mg Gabapentin (Neurontin) 200 mg PO TIDCM [facility] Stop: 11/21/17 08:01 Last Admin: 11/20/17 16:43 Dose: 200 mg Gabapentin (Neurontin) 300 mg PO TIDCM [facility] Lisinopril (Zestril) 40 mg PO QHS [facility] Last Admin: 11/19/17 21:07 Dose: 40 mg Magnesium Hydroxide (Milk Of Magnesia) 30 ml PO .PRN X 1 PRN PRN Reason: Constipation Nitroglycerin (Nitrostat) 0.4 mg SUBLINGUAL Q5M PRN PRN Reason: CARDIAC/CHEST PAIN Last Admin: 10/12/17 08:34 Dose: 0.4 mg Ondansetron HCl (Zofran Odt) 4 mg PO Q8H PRN PRN PRN Reason: NAUSEA Last Admin: 11/09/17 13:09 Dose: 4 mg Pantoprazole Sodium (Protonix) 20 mg PO BID [facility] Last Admin: 11/20/17 07:37 Dose: 20 mg Senna/Docusate Sodium (Senokot-S, Suki-Colace) 2 tablet PO BID [facility] Last Admin: 11/20/17 07:38 Dose: Not Given Sodium Chloride () 5 - 30 ml IV UD PRN PRN Reason: SALINE FLUSH Last Admin: 10/12/17 22:30 Dose: 20 ml Medical Necessity - Tobacco Use Smoking Status: Heavy Smoker (>10/day) Tobacco Use: Cigarettes Assessment/Plan 57-year-old male admitted to the inpatient rehab unit with 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 He also history of left lacunar ICH and right parietal ischemic stroke in 2016. 1. Acute right parietal infarct secondary to right ICA occlusion status post angioplasty and placement, undergoing therapy. Continue PT and OT. 2. Hypertension, controlled, continue on home medications. Usually his blood pressure is in the range of 125/72 on 144/78. One-time 160/88. Monitor BP and if persistently high more than 40/98, need to up titrate the antihypertensive medication. On lisinopril 40 mg daily, amlodipine 10 mg daily and Coreg 25 g p.o. twice daily. If needed further antihypertensive medication, start HCTZ. 3. Dyslipidemia, on statin 4. History of cervical spondylosis 5. DVT prophylaxis SC Lovenox Code Visit Inpatient E&M: 61103 Subs Hosp L2
[2017-11-20 20:05] VITALS: BP 123/72; PULSE 66; RESP 18; TEMP 36.6; O2SAT 96
[2017-11-20] MEDS: Atorvastatin Calcium 80 MG Tablet PO (20:10)
[2017-11-20] MEDS: Senna/Docusate Sodium 1 Tablet 2 TABLET PO (20:10)
[2017-11-20] MEDS: Lisinopril 40 MG Tablet PO (20:10)
[2017-11-20 22:58] VITALS: BMI 38.6
[2017-11-21] MEDS: Enoxaparin 30 MG/0.3 ML Syringe SC (05:07)
[2017-11-21 08:14] VITALS: BP 119/70; PULSE 79; RESP 17; TEMP 36.7; O2SAT 95
[2017-11-21] MEDS: Pantoprazole Sodium 20 MG Tablet PO ×2 (08:21→21:36)
[2017-11-21] MEDS: Clopidogrel Bisulfate 75 MG Tablet PO (08:22)
[2017-11-21] MEDS: Aspirin 81 MG TAB.CHEW PO (08:22)
[2017-11-21] MEDS: amLODIPine 10 MG Tablet PO (08:22)
[2017-11-21] MEDS: Carvedilol 25 MG Tablet PO ×2 (08:22→21:36)
[2017-11-21] MEDS: Escitalopram Oxalate 10 MG Tablet PO (08:22)
[2017-11-21] MEDS: Finasteride 5 MG Tablet PO (08:22)
[2017-11-21] MEDS: FEXOFENADINE HCL 60 MG TABLET PO ×2 (08:23→21:36)
[2017-11-21] MEDS: Gabapentin 100 MG Capsule 200 MG PO (08:23)
[2017-11-21] MEDS: Acetaminophen 325 MG Tablet 650 MG PO ×2 (10:13→21:36)
[2017-11-21] MEDS: Gabapentin 300 MG Capsule PO ×2 (12:14→16:57)
[2017-11-21 15:20] VITALS: BMI 38.6
--- NOTE | 2017-11-21 16:02 | PCM.PN.NEU ---
Subjective: Patient seen and examined, continues to have some burning and tingling down his left arm and his left, states my butt feels like its on firer at times feels it is getting better. Continue on Gabapentin now at 900mg daily in three divided doses. tolerating medication. Tolerating therapy. No issues with GI/. - Physical Exam General: Alert, Oriented x3, Cooperative HEENT: Atraumatic, PERRLA, EOMI, Normocephalic Neck: Supple, No JVD, Negative Carotid Bruits Lungs: Clear to auscultation, Normal air movement Cardiovascular: Regular rate, No murmurs Abdomen: Bowel Sounds Present, Soft, Non Tender Extremities: No edema, Capillary Refill Less than 3 Seconds Skin: No rashes, No breakdown Musculoskeletal: No Tenderness to Palpation of Joints or Extremities Neurological: Cranial nerves II-XII grossly intact Psych/Mental Status: Normal Affect, Appropriate Vital Signs Temp Pulse Resp BP Pulse Ox 98.1 F 79 17 119/70 95 11/21/17 08:14 11/21/17 08:14 11/21/17 08:14 11/21/17 08:14 11/21/17 08:14 Oxygen Flow Rate (L/min) 2 Oxygen Delivery Method Room Air Weight: 118.5 kg Body Mass Index (BMI) 38.6 Intake and Output for Last 24 Hours 11/19/17 11/20/17 11/21/17 23:59 23:59 23:59 Intake Total 1000 / 1000 840 / 840 920 / 920 Balance 1000 / 1000 840 / 840 920 / 920 Active Medications Acetaminophen (Tylenol) 650 mg PO Q4H PRN PRN PRN Reason: PAIN Last Admin: 11/21/17 10:13 Dose: 650 mg Albuterol Sulfate (Ventolin Hfa (Sp)) 2 puff INHALATION Q4H PRN PRN PRN Reason: WHEEZING Last Admin: 10/28/17 20:29 Dose: 2 inhaler Amlodipine Besylate (Norvasc) 10 mg PO DAILY [facility] Last Admin: 11/21/17 08:22 Dose: 10 mg [facility] Last Admin: 11/21/17 08:22 Dose: 81 mg Atorvastatin Calcium (Lipitor) 80 mg PO QHS [facility] Last Admin: 11/20/17 20:10 Dose: 80 mg Bisacodyl (Dulcolax) 10 mg RECTAL .PRN X 1 PRN PRN Reason: Constipation Calamine/Phenol (Calmoseptine Ointment) 1 applic TOPICAL BID PRN; Protocol PRN Reason: redness Carvedilol (Coreg) 25 mg PO BID [facility] Last Admin: 11/21/17 08:22 Dose: 25 mg Clopidogrel Bisulfate (Plavix) 75 mg PO DAILY [facility] Last Admin: 11/21/17 08:22 Dose: 75 mg Enoxaparin Sodium (Lovenox) 30 mg SC DAILY@0600 [facility] Last Admin: 11/21/17 05:07 Dose: 30 mg Escitalopram Oxalate (Lexapro) 10 mg PO DAILY [facility] Last Admin: 11/21/17 08:22 Dose: 10 mg Fexofenadine HCl (Sherry Allergy) 60 mg PO TID PRN PRN PRN Reason: CONGESTION Last Admin: 11/21/17 08:23 Dose: 60 mg Finasteride (Proscar) 5 mg PO DAILY [facility] Last Admin: 11/21/17 08:22 Dose: 5 mg Gabapentin (Neurontin) 300 mg PO TIDCM [facility] Last Admin: 11/21/17 12:14 Dose: 300 mg Lisinopril (Zestril) 40 mg PO QHS [facility] Last Admin: 11/20/17 20:10 Dose: 40 mg Magnesium Hydroxide (Milk Of Magnesia) 30 ml PO .PRN X 1 PRN PRN Reason: Constipation Nitroglycerin (Nitrostat) 0.4 mg SUBLINGUAL Q5M PRN PRN Reason: CARDIAC/CHEST PAIN Last Admin: 10/12/17 08:34 Dose: 0.4 mg Ondansetron HCl (Zofran Odt) 4 mg PO Q8H PRN PRN PRN Reason: NAUSEA Last Admin: 11/09/17 13:09 Dose: 4 mg Pantoprazole Sodium (Protonix) 20 mg PO BID [facility] Last Admin: 11/21/17 08:21 Dose: 20 mg Senna/Docusate Sodium (Senokot-S, Suki-Colace) 2 tablet PO BID [facility] Last Admin: 11/21/17 08:22 Dose: Not Given Sodium Chloride () 5 - 30 ml IV UD PRN PRN Reason: SALINE FLUSH Last Admin: 10/12/17 22:30 Dose: 20 ml Medical Necessity - Tobacco Use Smoking Status: Heavy Smoker (>10/day) Tobacco Use: Cigarettes Assessment/Plan debility s/p right parietal infarct 2/2 to symptomatic right ICA occlusion. complicated by a previous left lacunar ICH, and a right parietal ischemic stroke in 2016. The goal of rehab is anglican of functional independence. Plan: - Physical therapy for gait and balance - Occupational Therapy for ADLs - As needed analgesics - Bowel protocol - Stroke prevention on ASA, Statin, and Plavix - DVT prophylaxis: Yannick, Prasad stinson, Lovenox - Hypertension: BP continues to be Elevated, Keep BP < 130/80 mmHg => currently on Coreg 25mg, Zestril 40mg, will add Norvasc 5mg daily - Hx of HLD continue home dose of statin, Check LDL and Hba1c levels - Anxiety: Lexapro - Stent placement right ICA=> continue Plavix - Cervical spondylosis => Continued neck pain 2/2 fall prior to stroke => continue C-Collar - Hx GERD continue home medication - Hx Hep C - Hx Asthma - Hx of left lacunar ICH and a right parietal ischemic stroke - Lovenox at 30mg daily - Pollen/perfume Allergies -> started on Claritin 10mg, patient feels it is not working family is bringing in some Sherry for him. - Venous duplex ordered to rule out lower extremity DVT => Duplex was unremarkable - New onset Headaches -> CT head was showed no changes from previous studies. - Repeat Head CT -> remains stable with no changes from previous study - Neuropathy left arm and leg => Gabapentin 100mg TID increase by 100mg till taking 300mg TID, for a total of 900mg daily
--- NOTE | 2017-11-21 16:09 | PN.NEURO_ITS ---
Subjective: Patient seen and examined, continues to have some burning and tingling down his left arm and his left, states my butt feels like its on firer at times feels it is getting better. Continue on Gabapentin now at 900mg daily in three divided doses. tolerating medication. Tolerating therapy. No issues with GI/ . - Physical Exam General: Alert, Oriented x3, Cooperative HEENT: Atraumatic, PERRLA, EOMI, Normocephalic Neck: Supple, No JVD, Negative Carotid Bruits Lungs: Clear to auscultation, Normal air movement Cardiovascular: Regular rate, No murmurs Abdomen: Bowel Sounds Present, Soft, Non Tender Extremities: No edema, Capillary Refill Less than 3 Seconds Skin: No rashes, No breakdown Musculoskeletal: No Tenderness to Palpation of Joints or Extremities Neurological: Cranial nerves II-XII grossly intact Psych/Mental Status: Normal Affect, Appropriate Vital Signs Temp Pulse Resp BP Pulse Ox 98.1 F 79 17 119/70 95 11/21/17 08:14 11/21/17 08:14 11/21/17 08:14 11/21/17 08:14 11/21/17 08:14 Oxygen Flow Rate (L/min) 2 Oxygen Delivery Method Room Air Weight: 118.5 kg Body Mass Index (BMI) 38.6 Intake and Output for Last 24 Hours 11/19/17 11/20/17 11/21/17 23:59 23:59 23:59 Intake Total 1000 / 1000 840 / 840 920 / 920 Balance 1000 / 1000 840 / 840 920 / 920 Active Medications Acetaminophen (Tylenol) 650 mg PO Q4H PRN PRN PRN Reason: PAIN Last Admin: 11/21/17 10:13 Dose: 650 mg Albuterol Sulfate (Ventolin Hfa (Sp)) 2 puff INHALATION Q4H PRN PRN PRN Reason: WHEEZING Last Admin: 10/28/17 20:29 Dose: 2 inhaler Amlodipine Besylate (Norvasc) 10 mg PO DAILY [facility] Last Admin: 11/21/17 08:22 Dose: 10 mg [facility], Baby) [facility] Last Admin: 11/21/17 08:22 Dose: 81 mg Atorvastatin Calcium (Lipitor) 80 mg PO QHS [facility] Last Admin: 11/20/17 20:10 Dose: 80 mg Bisacodyl (Dulcolax) 10 mg RECTAL .PRN X 1 PRN PRN Reason: Constipation Calamine/Phenol (Calmoseptine Ointment) 1 applic TOPICAL BID PRN; Protocol PRN Reason: redness Carvedilol (Coreg) 25 mg PO BID [facility] Last Admin: 11/21/17 08:22 Dose: 25 mg Clopidogrel Bisulfate (Plavix) 75 mg PO DAILY [facility] Last Admin: 11/21/17 08:22 Dose: 75 mg Enoxaparin Sodium (Lovenox) 30 mg SC DAILY@0600 [facility] Last Admin: 11/21/17 05:07 Dose: 30 mg Escitalopram Oxalate (Lexapro) 10 mg PO DAILY [facility] Last Admin: 11/21/17 08:22 Dose: 10 mg Fexofenadine HCl (Sherry Allergy) 60 mg PO TID PRN PRN PRN Reason: CONGESTION Last Admin: 11/21/17 08:23 Dose: 60 mg Finasteride (Proscar) 5 mg PO DAILY [facility] Last Admin: 11/21/17 08:22 Dose: 5 mg Gabapentin (Neurontin) 300 mg PO TIDCM [facility] Last Admin: 11/21/17 12:14 Dose: 300 mg Lisinopril (Zestril) 40 mg PO QHS [facility] Last Admin: 11/20/17 20:10 Dose: 40 mg Magnesium Hydroxide (Milk Of Magnesia) 30 ml PO .PRN X 1 PRN PRN Reason: Constipation Nitroglycerin (Nitrostat) 0.4 mg SUBLINGUAL Q5M PRN PRN Reason: CARDIAC/CHEST PAIN Last Admin: 10/12/17 08:34 Dose: 0.4 mg Ondansetron HCl (Zofran Odt) 4 mg PO Q8H PRN PRN PRN Reason: NAUSEA Last Admin: 11/09/17 13:09 Dose: 4 mg Pantoprazole Sodium (Protonix) 20 mg PO BID [facility] Last Admin: 11/21/17 08:21 Dose: 20 mg Senna/Docusate Sodium (Senokot-S, Suki-Colace) 2 tablet PO BID [facility] Last Admin: 11/21/17 08:22 Dose: Not Given Sodium Chloride () 5 - 30 ml IV UD PRN PRN Reason: SALINE FLUSH Last Admin: 10/12/17 22:30 Dose: 20 ml Medical Necessity - Tobacco Use Smoking Status: Heavy Smoker (>10/day) Tobacco Use: Cigarettes Assessment/Plan debility s/p right parietal infarct 2/2 to symptomatic right ICA occlusion. complicated by a previous left lacunar ICH, and a right parietal ischemic stroke in 2016. The goal of rehab is buddhism of functional independence. Plan: - Physical therapy for gait and balance - Occupational Therapy for ADLs - As needed analgesics - Bowel protocol - Stroke prevention on ASA, Statin, and Plavix - DVT prophylaxis: Yannick, Prasad stinson, Lovenox - Hypertension: BP continues to be Elevated, Keep BP < 130/80 mmHg => currently on Coreg 25mg, Zestril 40mg, will add Norvasc 5mg daily - Hx of HLD continue home dose of statin, Check LDL and Hba1c levels - Anxiety: Lexapro - Stent placement right ICA=> continue Plavix - Cervical spondylosis => Continued neck pain 2/2 fall prior to stroke => continue C-Collar - Hx GERD continue home medication - Hx Hep C - Hx Asthma - Hx of left lacunar ICH and a right parietal ischemic stroke - Lovenox at 30mg daily - Pollen/perfume Allergies -> started on Claritin 10mg, patient feels it is not working family is bringing in some Sherry for him. - Venous duplex ordered to rule out lower extremity DVT => Duplex was unremarkable - New onset Headaches -> CT head was showed no changes from previous studies. - Repeat Head CT -> remains stable with no changes from previous study - Neuropathy left arm and leg => Gabapentin 100mg TID increase by 100mg till taking 300mg TID, for a total of 900mg daily
[2017-11-21 21:33] VITALS: BP 123/64; PULSE 78; RESP 17; TEMP 36.7; O2SAT 96
[2017-11-21] MEDS: Atorvastatin Calcium 80 MG Tablet PO (21:36)
[2017-11-21] MEDS: Lisinopril 40 MG Tablet PO (21:37)
[2017-11-22] MEDS: Enoxaparin 30 MG/0.3 ML Syringe SC (06:12)
[2017-11-22] MEDS: Acetaminophen 325 MG Tablet 650 MG PO (06:12)
[2017-11-22] MEDS: Gabapentin 300 MG Capsule PO ×3 (07:31→17:54)
[2017-11-22] MEDS: FEXOFENADINE HCL 60 MG TABLET PO ×2 (07:31→20:11)
[2017-11-22] MEDS: Aspirin 81 MG TAB.CHEW PO (07:32)
[2017-11-22] MEDS: Escitalopram Oxalate 10 MG Tablet PO (07:32)
[2017-11-22] MEDS: Clopidogrel Bisulfate 75 MG Tablet PO (07:32)
[2017-11-22] MEDS: amLODIPine 10 MG Tablet PO (07:32)
[2017-11-22] MEDS: Carvedilol 25 MG Tablet PO ×2 (07:34→20:08)
[2017-11-22] MEDS: Finasteride 5 MG Tablet PO (07:34)
[2017-11-22] MEDS: Pantoprazole Sodium 20 MG Tablet PO ×2 (07:35→20:08)
[2017-11-22 08:39] VITALS: BP 147/86; PULSE 74; RESP 18; TEMP 36.8; O2SAT 96
[2017-11-22 16:14] VITALS: BMI 38.6
--- NOTE | 2017-11-22 17:15 | PCM.PN.HOSP ---
Subjective: Patient complain of neuropathy pain from left buttock to lower leg. Otherwise he is cooperating with physical therapy. Still not able to close a fist of left hand. Vitals/I&O's: Vital Signs Temp Pulse Resp BP Pulse Ox 98.2 F 74 18 147/86 H 96 11/22/17 08:39 11/22/17 08:39 11/22/17 08:39 11/22/17 08:39 11/22/17 08:39 Oxygen Flow Rate (L/min) 2 Oxygen Delivery Method Room Air Weight: 261 lb 3.964 oz Body Mass Index (BMI) 38.6 Intake and Output for Last 24 Hours 11/20/17 11/21/17 11/22/17 23:59 23:59 23:59 Intake Total 840 / 840 1160 / 1160 740 / 740 Balance 840 / 840 1160 / 1160 740 / 740 General: Alert, Oriented x3, Cooperative HEENT: Atraumatic, PERRLA, EOMI, Normocephalic Neck: Supple, No JVD, Negative Carotid Bruits Lungs: Clear to auscultation, Normal air movement Cardiovascular: Regular rate, Regular Rhythm, Normal S1, Normal S2, No murmurs Abdomen: Bowel Sounds Present, Soft, Non Tender Extremities: No edema, Capillary Refill Less than 3 Seconds Skin: No rashes, No breakdown Musculoskeletal: No Tenderness to Palpation of Joints or Extremities, Arthritic Changes Neurological: - - Left facial droop. Left-sided weakness, left upper extremity more than left lower extremity Psych/Mental Status: Normal Affect, Appropriate Current Medications Acetaminophen (Tylenol) 650 mg PO Q4H PRN PRN PRN Reason: PAIN Last Admin: 11/22/17 06:12 Dose: 650 mg Albuterol Sulfate (Ventolin Hfa (Sp)) 2 puff INHALATION Q4H PRN PRN PRN Reason: WHEEZING Last Admin: 10/28/17 20:29 Dose: 2 inhaler Amlodipine Besylate (Norvasc) 10 mg PO DAILY [facility] Last Admin: 11/22/17 07:32 Dose: 10 mg [facility], [facility] Last Admin: 11/22/17 07:32 Dose: 81 mg Atorvastatin Calcium (Lipitor) 80 mg PO QHS [facility] Last Admin: 11/21/17 21:36 Dose: 80 mg Bisacodyl (Dulcolax) 10 mg RECTAL .PRN X 1 PRN PRN Reason: Constipation Calamine/Phenol (Calmoseptine Ointment) 1 applic TOPICAL BID PRN; Protocol PRN Reason: redness Carvedilol (Coreg) 25 mg PO BID [facility] Last Admin: 11/22/17 07:34 Dose: 25 mg Clopidogrel Bisulfate (Plavix) 75 mg PO DAILY [facility] Last Admin: 11/22/17 07:32 Dose: 75 mg Enoxaparin Sodium (Lovenox) 30 mg SC DAILY@0600 [facility] Last Admin: 11/22/17 06:12 Dose: 30 mg Escitalopram Oxalate (Lexapro) 10 mg PO DAILY [facility] Last Admin: 11/22/17 07:32 Dose: 10 mg Fexofenadine HCl (Sherry Allergy) 60 mg PO TID PRN PRN PRN Reason: CONGESTION Last Admin: 11/22/17 07:31 Dose: 60 mg Finasteride (Proscar) 5 mg PO DAILY [facility] Last Admin: 11/22/17 07:34 Dose: 5 mg Gabapentin (Neurontin) 300 mg PO TIDCM [facility] Last Admin: 11/22/17 13:57 Dose: 300 mg Lisinopril (Zestril) 40 mg PO QHS [facility] Last Admin: 11/21/17 21:37 Dose: 40 mg Magnesium Hydroxide (Milk Of Magnesia) 30 ml PO .PRN X 1 PRN PRN Reason: Constipation Nitroglycerin (Nitrostat) 0.4 mg SUBLINGUAL Q5M PRN PRN Reason: CARDIAC/CHEST PAIN Last Admin: 10/12/17 08:34 Dose: 0.4 mg Ondansetron HCl (Zofran Odt) 4 mg PO Q8H PRN PRN PRN Reason: NAUSEA Last Admin: 11/09/17 13:09 Dose: 4 mg Pantoprazole Sodium (Protonix) 20 mg PO BID [facility] Last Admin: 11/22/17 07:35 Dose: 20 mg Senna/Docusate Sodium (Senokot-S, Suki-Colace) 2 tablet PO BID [facility] Last Admin: 11/22/17 07:36 Dose: Not Given Sodium Chloride () 5 - 30 ml IV UD PRN PRN Reason: SALINE FLUSH Last Admin: 10/12/17 22:30 Dose: 20 ml Medical Necessity - Tobacco Use Smoking Status: Heavy Smoker (>10/day) Tobacco Use: Cigarettes Assessment/Plan 57-year-old male admitted to the inpatient rehab unit with 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 He also history of left lacunar ICH and right parietal ischemic stroke in 2016. 1. Acute right parietal infarct secondary to right ICA occlusion status post angioplasty and placement, undergoing therapy. Continue PT and OT. Left upper and lower extremity neuropathy.: Patient has some burning and tingling down on the left lower leg and left arm. Patient was started on gabapentin 300 mg 3 times daily. 2. Hypertension, controlled, continue on home medications. Usually his blood pressure is in the range of 125/72 on 144/78. One-time 160/88. Monitor BP and if persistently high more than 40/98, need to up titrate the antihypertensive medication. On lisinopril 40 mg daily, amlodipine 10 mg daily and Coreg 25 g p.o. twice daily. Blood pressure still mostly less than 150/90 and therefore does not need to start HCTZ. If needed further antihypertensive medication, start HCTZ. 3. Dyslipidemia, on statin 4. History of cervical spondylosis 5. DVT prophylaxis SC Lovenox Code Visit Inpatient E&M: 08137 Subs Hosp L2
--- NOTE | 2017-11-22 17:27 | PN_ITS ---
Subjective: Patient complain of neuropathy pain from left buttock to lower leg. Otherwise he is cooperating with physical therapy. Still not able to close a fist of left hand. Vitals/I&O's: Vital Signs Temp Pulse Resp BP Pulse Ox 98.2 F 74 18 147/86 H 96 11/22/17 08:39 11/22/17 08:39 11/22/17 08:39 11/22/17 08:39 11/22/17 08:39 Oxygen Flow Rate (L/min) 2 Oxygen Delivery Method Room Air Weight: 261 lb 3.964 oz Body Mass Index (BMI) 38.6 Intake and Output for Last 24 Hours 11/20/17 11/21/17 11/22/17 23:59 23:59 23:59 Intake Total 840 / 840 1160 / 1160 740 / 740 Balance 840 / 840 1160 / 1160 740 / 740 General: Alert, Oriented x3, Cooperative HEENT: Atraumatic, PERRLA, EOMI, Normocephalic Neck: Supple, No JVD, Negative Carotid Bruits Lungs: Clear to auscultation, Normal air movement Cardiovascular: Regular rate, Regular Rhythm, Normal S1, Normal S2, No murmurs Abdomen: Bowel Sounds Present, Soft, Non Tender Extremities: No edema, Capillary Refill Less than 3 Seconds Skin: No rashes, No breakdown Musculoskeletal: No Tenderness to Palpation of Joints or Extremities, Arthritic Changes Neurological: - - Left facial droop. Left-sided weakness, left upper extremity more than left lower extremity Psych/Mental Status: Normal Affect, Appropriate Current Medications Acetaminophen (Tylenol) 650 mg PO Q4H PRN PRN PRN Reason: PAIN Last Admin: 11/22/17 06:12 Dose: 650 mg Albuterol Sulfate (Ventolin Hfa (Sp)) 2 puff INHALATION Q4H PRN PRN PRN Reason: WHEEZING Last Admin: 10/28/17 20:29 Dose: 2 inhaler Amlodipine Besylate (Norvasc) 10 mg PO DAILY [facility] Last Admin: 11/22/17 07:32 Dose: 10 mg [facility], [facility]) [facility] Last Admin: 11/22/17 07:32 Dose: 81 mg Atorvastatin Calcium (Lipitor) 80 mg PO QHS [facility] Last Admin: 11/21/17 21:36 Dose: 80 mg Bisacodyl (Dulcolax) 10 mg RECTAL .PRN X 1 PRN PRN Reason: Constipation Calamine/Phenol (Calmoseptine Ointment) 1 applic TOPICAL BID PRN; Protocol PRN Reason: redness Carvedilol (Coreg) 25 mg PO BID [facility] Last Admin: 11/22/17 07:34 Dose: 25 mg Clopidogrel Bisulfate (Plavix) 75 mg PO DAILY [facility] Last Admin: 11/22/17 07:32 Dose: 75 mg Enoxaparin Sodium (Lovenox) 30 mg SC DAILY@0600 [facility] Last Admin: 11/22/17 06:12 Dose: 30 mg Escitalopram Oxalate (Lexapro) 10 mg PO DAILY [facility] Last Admin: 11/22/17 07:32 Dose: 10 mg Fexofenadine HCl (Sherry Allergy) 60 mg PO TID PRN PRN PRN Reason: CONGESTION Last Admin: 11/22/17 07:31 Dose: 60 mg Finasteride (Proscar) 5 mg PO DAILY [facility] Last Admin: 11/22/17 07:34 Dose: 5 mg Gabapentin (Neurontin) 300 mg PO TIDCM [facility] Last Admin: 11/22/17 13:57 Dose: 300 mg Lisinopril (Zestril) 40 mg PO QHS [facility] Last Admin: 11/21/17 21:37 Dose: 40 mg Magnesium Hydroxide (Milk Of Magnesia) 30 ml PO .PRN X 1 PRN PRN Reason: Constipation Nitroglycerin (Nitrostat) 0.4 mg SUBLINGUAL Q5M PRN PRN Reason: CARDIAC/CHEST PAIN Last Admin: 10/12/17 08:34 Dose: 0.4 mg Ondansetron HCl (Zofran Odt) 4 mg PO Q8H PRN PRN PRN Reason: NAUSEA Last Admin: 11/09/17 13:09 Dose: 4 mg Pantoprazole Sodium (Protonix) 20 mg PO BID [facility] Last Admin: 11/22/17 07:35 Dose: 20 mg Senna/Docusate Sodium (Senokot-S, Suki-Colace) 2 tablet PO BID [facility] Last Admin: 11/22/17 07:36 Dose: Not Given Sodium Chloride () 5 - 30 ml IV UD PRN PRN Reason: SALINE FLUSH Last Admin: 10/12/17 22:30 Dose: 20 ml Medical Necessity - Tobacco Use Smoking Status: Heavy Smoker (>10/day) Tobacco Use: Cigarettes Assessment/Plan 57-year-old male admitted to the inpatient rehab unit with 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 He also history of left lacunar ICH and right parietal ischemic stroke in 2016. 1. Acute right parietal infarct secondary to right ICA occlusion status post angioplasty and placement, undergoing therapy. Continue PT and OT. Left upper and lower extremity neuropathy.: Patient has some burning and tingling down on the left lower leg and left arm. Patient was started on gabapentin 300 mg 3 times daily. 2. Hypertension, controlled, continue on home medications. Usually his blood pressure is in the range of 125/72 on 144/78. One-time 160/88. Monitor BP and if persistently high more than 40/98, need to up titrate the antihypertensive medication. On lisinopril 40 mg daily, amlodipine 10 mg daily and Coreg 25 g p.o. twice daily. Blood pressure still mostly less than 150/90 and therefore does not need to start HCTZ. If needed further antihypertensive medication, start HCTZ. 3. Dyslipidemia, on statin 4. History of cervical spondylosis 5. DVT prophylaxis SC Lovenox Code Visit Inpatient E&M: 68930 Subs Hosp L2
[2017-11-22 19:56] VITALS: BP 138/80; PULSE 71; RESP 17; TEMP 36.6; O2SAT 95
[2017-11-22] MEDS: Atorvastatin Calcium 80 MG Tablet PO (20:08)
[2017-11-22] MEDS: Lisinopril 40 MG Tablet PO (20:08)
[2017-11-22 20:21] VITALS: BMI 38.6
[2017-11-23] MEDS: Enoxaparin 30 MG/0.3 ML Syringe SC (06:36)
--- NOTE | 2017-11-23 06:59 | NURSING ---
pt found standing at end of bed and pt laughed, stating I just had to try it! Nurse explained the necessity for compliance with safety rules and pt stated he would comply. PA was reapplied.
[2017-11-23] MEDS: Acetaminophen 325 MG Tablet 650 MG PO ×2 (08:09→20:38)
[2017-11-23] MEDS: FEXOFENADINE HCL 60 MG TABLET PO ×2 (08:09→13:36)
[2017-11-23] MEDS: Carvedilol 25 MG Tablet PO ×2 (08:10→20:37)
[2017-11-23] MEDS: Gabapentin 300 MG Capsule PO ×3 (08:10→16:45)
[2017-11-23] MEDS: Pantoprazole Sodium 20 MG Tablet PO ×2 (08:10→20:38)
[2017-11-23] MEDS: Escitalopram Oxalate 10 MG Tablet PO (08:11)
[2017-11-23] MEDS: Aspirin 81 MG TAB.CHEW PO (08:11)
[2017-11-23] MEDS: Clopidogrel Bisulfate 75 MG Tablet PO (08:12)
[2017-11-23] MEDS: amLODIPine 10 MG Tablet PO (08:12)
[2017-11-23] MEDS: Finasteride 5 MG Tablet PO (08:13)
[2017-11-23 09:18] VITALS: BP 151/80; PULSE 81; RESP 18; TEMP 36.7; O2SAT 95
[2017-11-23 13:32] VITALS: BMI 38.6
[2017-11-23] MEDS: Lisinopril 40 MG Tablet PO (20:38)
[2017-11-23] MEDS: Atorvastatin Calcium 80 MG Tablet PO (20:38)
[2017-11-23 20:43] VITALS: BP 123/69; PULSE 71; RESP 14; TEMP 36.4; O2SAT 94
[2017-11-23 20:47] VITALS: BMI 38.6
--- NOTE | 2017-11-24 03:34 | NURSING ---
REVIEWED AND AGREE WITH COUNSELLORS'S FIM AND HANDOFF CHARTING.
[2017-11-24] MEDS: Enoxaparin 30 MG/0.3 ML Syringe SC (05:04)
[2017-11-24] MEDS: Acetaminophen 325 MG Tablet 650 MG PO ×2 (06:00→21:03)
[2017-11-24 07:15] VITALS: BP 146/88; PULSE 66; RESP 18; TEMP 36.2; O2SAT 98
[2017-11-24] MEDS: FEXOFENADINE HCL 60 MG TABLET PO (07:34)
[2017-11-24] MEDS: Escitalopram Oxalate 10 MG Tablet PO (07:34)
[2017-11-24] MEDS: Carvedilol 25 MG Tablet PO ×2 (07:34→21:03)
[2017-11-24] MEDS: Finasteride 5 MG Tablet PO (07:34)
[2017-11-24] MEDS: Pantoprazole Sodium 20 MG Tablet PO ×2 (07:34→21:02)
[2017-11-24] MEDS: Gabapentin 300 MG Capsule PO (07:34)
[2017-11-24] MEDS: amLODIPine 10 MG Tablet PO (07:34)
[2017-11-24] MEDS: Clopidogrel Bisulfate 75 MG Tablet PO (07:34)
[2017-11-24] MEDS: Aspirin 81 MG TAB.CHEW PO (07:34)
--- NOTE | 2017-11-24 10:13 | PN.NEURO_ITS ---
Subjective: Patient seen and examined. No new events over night. Tolerating therapy. Continues to have burning and tingling in his butt area, it improves when he is able to stand and take pressure off the area for a little bite. The tingling and burning in his left arm and leg has improved, since starting the GPN, currently he is on 300mg TID, Will increase the dose to 400mg TID. No issues with GI/. Tolerating cardiac and low cholesterol diet. - Physical Exam General: Alert, Oriented x3, Cooperative HEENT: Atraumatic, PERRLA, EOMI, Normocephalic Neck: Supple, No JVD, Negative Carotid Bruits Lungs: Clear to auscultation, Normal air movement Cardiovascular: Regular rate, No murmurs Abdomen: Bowel Sounds Present, Soft, Non Tender Extremities: No edema, Capillary Refill Less than 3 Seconds Skin: No rashes, No breakdown Musculoskeletal: No Tenderness to Palpation of Joints or Extremities Neurological: Cranial nerves II-XII grossly intact Psych/Mental Status: Normal Affect, Appropriate Vital Signs Temp Pulse Resp BP Pulse Ox 97.2 F L 66 18 146/88 H 98 11/24/17 07:15 11/24/17 07:15 11/24/17 07:15 11/24/17 07:15 11/24/17 07:15 Oxygen Flow Rate (L/min) 2 Oxygen Delivery Method Room Air Weight: 118.5 kg Body Mass Index (BMI) 38.6 Intake and Output for Last 24 Hours 11/22/17 11/23/17 11/24/17 23:59 23:59 23:59 Intake Total 1000 / 1000 960 / 960 360 / 360 Balance 1000 / 1000 960 / 960 360 / 360 Active Medications Acetaminophen (Tylenol) 650 mg PO Q4H PRN PRN PRN Reason: PAIN Last Admin: 11/24/17 06:00 Dose: 650 mg Albuterol Sulfate (Ventolin Hfa (Sp)) 2 puff INHALATION Q4H PRN PRN PRN Reason: WHEEZING Last Admin: 10/28/17 20:29 Dose: 2 inhaler Amlodipine Besylate (Norvasc) 10 mg PO DAILY [facility] Last Admin: 11/24/17 07:34 Dose: 10 mg [facility]ir[facility] ([facility], Baby) [facility] Last Admin: 11/24/17 07:34 Dose: 81 mg Atorvastatin Calcium (Lipitor) 80 mg PO QHS [facility] Last Admin: 11/23/17 20:38 Dose: 80 mg Bisacodyl (Dulcolax) 10 mg RECTAL .PRN X 1 PRN PRN Reason: Constipation Calamine/Phenol (Calmoseptine Ointment) 1 applic TOPICAL BID PRN; Protocol PRN Reason: redness Carvedilol (Coreg) 25 mg PO BID [facility] Last Admin: 11/24/17 07:34 Dose: 25 mg Clopidogrel Bisulfate (Plavix) 75 mg PO DAILY [facility] Last Admin: 11/24/17 07:34 Dose: 75 mg Enoxaparin Sodium (Lovenox) 30 mg SC DAILY@0600 [facility] Last Admin: 11/24/17 05:04 Dose: 30 mg Escitalopram Oxalate (Lexapro) 10 mg PO DAILY [facility] Last Admin: 11/24/17 07:34 Dose: 10 mg Fexofenadine HCl (Sherry Allergy) 60 mg PO TID PRN PRN PRN Reason: CONGESTION Last Admin: 11/24/17 07:34 Dose: 60 mg Finasteride (Proscar) 5 mg PO DAILY [facility] Last Admin: 11/24/17 07:34 Dose: 5 mg Gabapentin (Neurontin) 400 mg PO TIDCM [facility] Lisinopril (Zestril) 40 mg PO QHS [facility] Last Admin: 11/23/17 20:38 Dose: 40 mg Magnesium Hydroxide (Milk Of Magnesia) 30 ml PO .PRN X 1 PRN PRN Reason: Constipation Nitroglycerin (Nitrostat) 0.4 mg SUBLINGUAL Q5M PRN PRN Reason: CARDIAC/CHEST PAIN Last Admin: 10/12/17 08:34 Dose: 0.4 mg Ondansetron HCl (Zofran Odt) 4 mg PO Q8H PRN PRN PRN Reason: NAUSEA Last Admin: 11/09/17 13:09 Dose: 4 mg Pantoprazole Sodium (Protonix) 20 mg PO BID [facility] Last Admin: 11/24/17 07:34 Dose: 20 mg Senna/Docusate Sodium (Senokot-S, Suki-Colace) 2 tablet PO BID [facility] Last Admin: 11/24/17 07:34 Dose: Not Given Sodium Chloride () 5 - 30 ml IV UD PRN PRN Reason: SALINE FLUSH Last Admin: 10/12/17 22:30 Dose: 20 ml Medical Necessity - Tobacco Use Smoking Status: Heavy Smoker (>10/day) Tobacco Use: Cigarettes Assessment/Plan debility s/p right parietal infarct 2/2 to symptomatic right ICA occlusion. complicated by a previous left lacunar ICH, and a right parietal ischemic stroke in 2016. The goal of rehab is sabianist of functional independence. Plan: - Physical therapy for gait and balance - Occupational Therapy for ADLs - As needed analgesics - Bowel protocol - Stroke prevention on ASA, Statin, and Plavix - DVT prophylaxis: SCDs, Prasad stinson, Lovenox - Hypertension: BP continues to be Elevated, Keep BP < 130/80 mmHg => currently on Coreg 25mg, Zestril 40mg, will add Norvasc 5mg daily - Hx of HLD continue home dose of statin, Check LDL and Hba1c levels - Anxiety: Lexapro - Stent placement right ICA=> continue Plavix - Cervical spondylosis => Continued neck pain 2/2 fall prior to stroke => continue C-Collar - Hx GERD continue home medication - Hx Hep C - Hx Asthma - Hx of left lacunar ICH and a right parietal ischemic stroke - Lovenox at 30mg daily - Pollen/perfume Allergies -> started on Claritin 10mg, patient feels it is not working family is bringing in some Sherry for him. - Venous duplex ordered to rule out lower extremity DVT => Duplex was unremarkable - New onset Headaches -> CT head was showed no changes from previous studies. - Repeat Head CT -> remains stable with no changes from previous study - Neuropathy left arm and leg => Gabapentin 100mg TID increase by 100mg till taking 300mg TID, for a total of 900mg daily, increase dose to 400mg TID.
[2017-11-24 11:42] VITALS: BMI 38.6
[2017-11-24] MEDS: Gabapentin 400 MG Capsule PO ×2 (11:52→16:28)
--- NOTE | 2017-11-24 15:11 | NURSING ---
patient has been calling for assistance with transfers discussed with therapy and pa removed. patient verbalized understanding to call for assistance.
--- NOTE | 2017-11-24 15:14 | CASEMGMT ---
Insurance Clinical updates faxed to insurance company. Will await continued stay determination. Auth # [id number] FILIPE Drake
[2017-11-24 21:00] VITALS: BMI 38.6
[2017-11-24 21:01] VITALS: BP 140/77; PULSE 65; RESP 16; TEMP 36.4; O2SAT 94
[2017-11-24] MEDS: Atorvastatin Calcium 80 MG Tablet PO (21:03)
[2017-11-24] MEDS: Lisinopril 40 MG Tablet PO (21:03)
[2017-11-25] VITALS (8 sets, daily range): BP systolic 139–162; BP diastolic 77–94; PULSE 61–77; RESP 16–20; TEMP 36.6–36.8; O2SAT 94–97; BMI 38.6
--- NOTE | 2017-11-25 02:23 | NURSING ---
Reviewed and agree with TRAVELING SALES EXECUTIVE documentation and FIMS charting.
[2017-11-25] MEDS: Enoxaparin 30 MG/0.3 ML Syringe SC (05:10)
[2017-11-25] MEDS: Acetaminophen 325 MG Tablet 650 MG PO ×2 (05:11→21:34)
[2017-11-25 05:40] LABS: Bedside Glucose 92 mg/dL (70-110)
--- NOTE | 2017-11-25 05:45 | NURSING ---
Pt fell to floor from shower chair in Bathroom. Pt stated he thought he hit his head and left arm. abrasion to left elbow noted. BS 93, BP 207/110, hr 70. Hospitalist, Dr Sheldon chapman, informed, and ordered STANDARD NEURO CHECKS. Pt sitting up in chair and denies dizziness or lightheadness. Will continue to monitor.
--- NOTE | 2017-11-25 06:12 | NURSING ---
Addendum entered by Mary Devine 11/25/17 06:16: environmental services floor tech, Edilia, and Teen Counselor, Elda, notified. Family called but no answer and no answering machine available. Original Note: 05:50 BP 151/94, HR, P, R WNL. PERRLA. PT SITTING UP IN RECLINER AND DENIES DIZZINESS OR LIGHT HEADEDNESS. WILL CONTINUE TO MONITOR.
--- NOTE | 2017-11-25 06:27 | NURSING ---
Dr. Levin notified of pt fall and updated on plan of action. Dr Levin agreed with plan. Multiple attempts made to call girlfriend, Hanny, and finally got an answering machine. Message was left.
[2017-11-25] MEDS: Clopidogrel Bisulfate 75 MG Tablet PO (08:06)
[2017-11-25] MEDS: amLODIPine 10 MG Tablet PO (08:06)
[2017-11-25] MEDS: Gabapentin 400 MG Capsule PO ×3 (08:07→17:25)
[2017-11-25] MEDS: Escitalopram Oxalate 10 MG Tablet PO (08:07)
[2017-11-25] MEDS: Aspirin 81 MG TAB.CHEW PO (08:07)
[2017-11-25] MEDS: Finasteride 5 MG Tablet PO (08:07)
[2017-11-25] MEDS: Pantoprazole Sodium 20 MG Tablet PO ×2 (08:07→21:34)
[2017-11-25] MEDS: Carvedilol 25 MG Tablet PO ×2 (08:08→21:34)
--- NOTE | 2017-11-25 09:00 | NURSING ---
No complaints of pain or an abnormal neuro assessment and several done this morning.
--- NOTE | 2017-11-25 12:10 | CASEMGMT ---
Insurance Continued stay approved with next update due on 12/01/17. Auth#[id number] Elvia DENT, DRILLING ENGINEER
--- NOTE | 2017-11-25 17:46 | PCM.PN.HOSP ---
Subjective: Patient was seen and examined. Therapy is going well, denies any chest pain or dizziness or palpitations. No acute events per staff. Objective: PHYSICAL EXAM: General: Alert, Oriented x3, Cooperative, not pale or jaundiced HEENT: Atraumatic, PERRLA, EOMI, Normocephalic Neck: Supple, No JVD, Negative Carotid Bruits Lungs: Clear to auscultation Cardiovascular: Regular rate, Regular Rhythm, Normal S1, Normal S2, No murmurs Abdomen: Bowel Sounds Present, Soft, Non Tender, no palpable organs Extremities: No edema, Capillary Refill Less than 3 Seconds Skin: No rashes Musculoskeletal: No Tenderness to Palpation of Joints or Extremities, Arthritic Changes Neurological: - - Left facial droop. Left-sided weakness, left upper extremity more than left lower extremity Psych/Mental Status: Normal Affect, Appropriate Vitals/I&O's: Vital Signs Temp Pulse Resp BP Pulse Ox 98.3 F 74 18 143/79 H 97 11/25/17 08:30 11/25/17 08:30 11/25/17 08:30 11/25/17 08:30 11/25/17 08:30 Oxygen Flow Rate (L/min) 2 Oxygen Delivery Method Room Air Weight: 118.5 kg Body Mass Index (BMI) 38.6 Intake and Output for Last 24 Hours 11/23/17 11/24/17 11/25/17 23:59 23:59 23:59 Intake Total 960 / 960 620 / 620 1140 / 1140 Balance 960 / 960 620 / 620 1140 / 1140 Laboratory Results 11/25/17 05:33: POC Glucose 92 Current Medications Acetaminophen (Tylenol) 650 mg PO Q4H PRN PRN PRN Reason: PAIN Last Admin: 11/25/17 05:11 Dose: 650 mg Albuterol Sulfate (Ventolin Hfa (Sp)) 2 puff INHALATION Q4H PRN PRN PRN Reason: WHEEZING Last Admin: 10/28/17 20:29 Dose: 2 inhaler Amlodipine Besylate (Norvasc) 10 mg PO DAILY [facility] Last Admin: 11/25/17 08:06 Dose: 10 mg Aspir[facility] ([facility]in, Baby) [facility] Last Admin: 11/25/17 08:07 Dose: 81 mg Atorvastatin Calcium (Lipitor) 80 mg PO QHS [facility] Last Admin: 11/24/17 21:03 Dose: 80 mg Bisacodyl (Dulcolax) 10 mg RECTAL .PRN X 1 PRN PRN Reason: Constipation Calamine/Phenol (Calmoseptine Ointment) 1 applic TOPICAL BID PRN; Protocol PRN Reason: redness Carvedilol (Coreg) 25 mg PO BID [facility] Last Admin: 11/25/17 08:08 Dose: 25 mg Clopidogrel Bisulfate (Plavix) 75 mg PO DAILY [facility] Last Admin: 11/25/17 08:06 Dose: 75 mg Enoxaparin Sodium (Lovenox) 30 mg SC DAILY@0600 [facility] Last Admin: 11/25/17 05:10 Dose: 30 mg Escitalopram Oxalate (Lexapro) 10 mg PO DAILY [facility] Last Admin: 11/25/17 08:07 Dose: 10 mg Fexofenadine HCl (Sherry Allergy) 60 mg PO TID PRN PRN PRN Reason: CONGESTION Last Admin: 11/24/17 07:34 Dose: 60 mg Finasteride (Proscar) 5 mg PO DAILY [facility] Last Admin: 11/25/17 08:07 Dose: 5 mg Gabapentin (Neurontin) 400 mg PO TIDCM [facility] Last Admin: 11/25/17 17:25 Dose: 400 mg Lisinopril (Zestril) 40 mg PO QHS [facility] Last Admin: 11/24/17 21:03 Dose: 40 mg Magnesium Hydroxide (Milk Of Magnesia) 30 ml PO .PRN X 1 PRN PRN Reason: Constipation Nitroglycerin (Nitrostat) 0.4 mg SUBLINGUAL Q5M PRN PRN Reason: CARDIAC/CHEST PAIN Last Admin: 10/12/17 08:34 Dose: 0.4 mg Ondansetron HCl (Zofran Odt) 4 mg PO Q8H PRN PRN PRN Reason: NAUSEA Last Admin: 11/09/17 13:09 Dose: 4 mg Pantoprazole Sodium (Protonix) 20 mg PO BID [facility] Last Admin: 11/25/17 08:07 Dose: 20 mg Senna/Docusate Sodium (Senokot-S, Suki-Colace) 2 tablet PO BID [facility] Last Admin: 11/25/17 08:09 Dose: Not Given Sodium Chloride () 5 - 30 ml IV UD PRN PRN Reason: SALINE FLUSH Last Admin: 10/12/17 22:30 Dose: 20 ml Medical Necessity - Tobacco Use Smoking Status: Heavy Smoker (>10/day) Tobacco Use: Cigarettes Assessment/Plan 57-year-old male with PMHx of CVA, previous left lacunar ICH, hypertension admitted to the inpatient rehab unit with debility after 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 1. Debility secondary to acute stroke, undergoing therapy 2. Acute right parietal infarct secondary to right ICA occlusion status post angioplasty and stent placement, on aspirin, statin, beta-todd, Plavix, lisinopril 3. Hypertension, controlled, continue on amlodipine, carvedilol, lisinopril 4. Hyperlipidemia, on statin 5. History of cervical spondylosis, on gabapentin 6. DVT prophylaxis - SC Lovenox Code Visit Inpatient E&M: 95683 Subs Hosp L2
--- NOTE | 2017-11-25 17:57 | PN_ITS ---
Subjective: Patient was seen and examined. Therapy is going well, denies any chest pain or dizziness or palpitations. No acute events per staff. Objective: PHYSICAL EXAM: General: Alert, Oriented x3, Cooperative, not pale or jaundiced HEENT: Atraumatic, PERRLA, EOMI, Normocephalic Neck: Supple, No JVD, Negative Carotid Bruits Lungs: Clear to auscultation Cardiovascular: Regular rate, Regular Rhythm, Normal S1, Normal S2, No murmurs Abdomen: Bowel Sounds Present, Soft, Non Tender, no palpable organs Extremities: No edema, Capillary Refill Less than 3 Seconds Skin: No rashes Musculoskeletal: No Tenderness to Palpation of Joints or Extremities, Arthritic Changes Neurological: - - Left facial droop. Left-sided weakness, left upper extremity more than left lower extremity Psych/Mental Status: Normal Affect, Appropriate Vitals/I&O's: Vital Signs Temp Pulse Resp BP Pulse Ox 98.3 F 74 18 143/79 H 97 11/25/17 08:30 11/25/17 08:30 11/25/17 08:30 11/25/17 08:30 11/25/17 08:30 Oxygen Flow Rate (L/min) 2 Oxygen Delivery Method Room Air Weight: 118.5 kg Body Mass Index (BMI) 38.6 Intake and Output for Last 24 Hours 11/23/17 11/24/17 11/25/17 23:59 23:59 23:59 Intake Total 960 / 960 620 / 620 1140 / 1140 Balance 960 / 960 620 / 620 1140 / 1140 Laboratory Results 11/25/17 05:33: POC Glucose 92 Current Medications Acetaminophen (Tylenol) 650 mg PO Q4H PRN PRN PRN Reason: PAIN Last Admin: 11/25/17 05:11 Dose: 650 mg Albuterol Sulfate (Ventolin Hfa (Sp)) 2 puff INHALATION Q4H PRN PRN PRN Reason: WHEEZING Last Admin: 10/28/17 20:29 Dose: 2 inhaler Amlodipine Besylate (Norvasc) 10 mg PO DAILY [facility] Last Admin: 11/25/17 08:06 Dose: 10 mg [facility], [facility]) [facility] Last Admin: 11/25/17 08:07 Dose: 81 mg Atorvastatin Calcium (Lipitor) 80 mg PO QHS [facility] Last Admin: 11/24/17 21:03 Dose: 80 mg Bisacodyl (Dulcolax) 10 mg RECTAL .PRN X 1 PRN PRN Reason: Constipation Calamine/Phenol (Calmoseptine Ointment) 1 applic TOPICAL BID PRN; Protocol PRN Reason: redness Carvedilol (Coreg) 25 mg PO BID [facility] Last Admin: 11/25/17 08:08 Dose: 25 mg Clopidogrel Bisulfate (Plavix) 75 mg PO DAILY [facility] Last Admin: 11/25/17 08:06 Dose: 75 mg Enoxaparin Sodium (Lovenox) 30 mg SC DAILY@0600 [facility] Last Admin: 11/25/17 05:10 Dose: 30 mg Escitalopram Oxalate (Lexapro) 10 mg PO DAILY [facility] Last Admin: 11/25/17 08:07 Dose: 10 mg Fexofenadine HCl (Sherry Allergy) 60 mg PO TID PRN PRN PRN Reason: CONGESTION Last Admin: 11/24/17 07:34 Dose: 60 mg Finasteride (Proscar) 5 mg PO DAILY [facility] Last Admin: 11/25/17 08:07 Dose: 5 mg Gabapentin (Neurontin) 400 mg PO TIDCM [facility] Last Admin: 11/25/17 17:25 Dose: 400 mg Lisinopril (Zestril) 40 mg PO QHS [facility] Last Admin: 11/24/17 21:03 Dose: 40 mg Magnesium Hydroxide (Milk Of Magnesia) 30 ml PO .PRN X 1 PRN PRN Reason: Constipation Nitroglycerin (Nitrostat) 0.4 mg SUBLINGUAL Q5M PRN PRN Reason: CARDIAC/CHEST PAIN Last Admin: 10/12/17 08:34 Dose: 0.4 mg Ondansetron HCl (Zofran Odt) 4 mg PO Q8H PRN PRN PRN Reason: NAUSEA Last Admin: 11/09/17 13:09 Dose: 4 mg Pantoprazole Sodium (Protonix) 20 mg PO BID [facility] Last Admin: 11/25/17 08:07 Dose: 20 mg Senna/Docusate Sodium (Senokot-S, Suki-Colace) 2 tablet PO BID [facility] Last Admin: 11/25/17 08:09 Dose: Not Given Sodium Chloride () 5 - 30 ml IV UD PRN PRN Reason: SALINE FLUSH Last Admin: 10/12/17 22:30 Dose: 20 ml Medical Necessity - Tobacco Use Smoking Status: Heavy Smoker (>10/day) Tobacco Use: Cigarettes Assessment/Plan 57-year-old male with PMHx of CVA, previous left lacunar ICH, hypertension admitted to the inpatient rehab unit with debility after 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 1. Debility secondary to acute stroke, undergoing therapy 2. Acute right parietal infarct secondary to right ICA occlusion status post angioplasty and stent placement, on aspirin, statin, beta-todd, Plavix, lisinopril 3. Hypertension, controlled, continue on amlodipine, carvedilol, lisinopril 4. Hyperlipidemia, on statin 5. History of cervical spondylosis, on gabapentin 6. DVT prophylaxis - SC Lovenox Code Visit Inpatient E&M: 50243 Subs Hosp L2
[2017-11-25] MEDS: Lisinopril 40 MG Tablet PO (21:34)
[2017-11-25] MEDS: Atorvastatin Calcium 80 MG Tablet PO (21:34)
[2017-11-25] MEDS: FEXOFENADINE HCL 60 MG TABLET PO (21:36)
--- NOTE | 2017-11-26 01:41 | NURSING ---
Reviewed and agree with VEHICLE TECHNICIAN documentation and FIMS charting.
[2017-11-26] MEDS: Enoxaparin 30 MG/0.3 ML Syringe SC (05:58)
[2017-11-26] MEDS: Acetaminophen 325 MG Tablet 650 MG PO (05:59)
[2017-11-26] MEDS: amLODIPine 10 MG Tablet PO (08:00)
[2017-11-26] MEDS: Finasteride 5 MG Tablet PO (08:00)
[2017-11-26] MEDS: Gabapentin 400 MG Capsule PO ×3 (08:00→16:23)
[2017-11-26] MEDS: Pantoprazole Sodium 20 MG Tablet PO ×2 (08:00→23:01)
[2017-11-26] MEDS: FEXOFENADINE HCL 60 MG TABLET PO ×3 (08:00→20:00)
[2017-11-26] MEDS: Clopidogrel Bisulfate 75 MG Tablet PO (08:00)
[2017-11-26] MEDS: Escitalopram Oxalate 10 MG Tablet PO (08:01)
[2017-11-26] MEDS: Carvedilol 25 MG Tablet PO ×2 (08:01→23:02)
[2017-11-26 08:02] VITALS: BP 153/95; PULSE 74; RESP 16; TEMP 36.6; O2SAT 95
[2017-11-26] MEDS: Aspirin 81 MG TAB.CHEW PO (08:03)
--- NOTE | 2017-11-26 10:51 | PCM.PN.NEU ---
Subjective: Patient seen and examined. No new events over night. Tolerating therapy. Deneis any shortness of breath, or chest pains. Denies any Blurry or double vision, or new focal deficits. No issues with GI/. - Physical Exam General: Alert, Oriented x3, Cooperative HEENT: Atraumatic, PERRLA, EOMI, Normocephalic Neck: Supple, No JVD, Negative Carotid Bruits Lungs: Clear to auscultation, Normal air movement Cardiovascular: Regular rate, No murmurs Abdomen: Bowel Sounds Present, Soft, Non Tender Extremities: No edema, Capillary Refill Less than 3 Seconds Skin: No rashes, No breakdown Musculoskeletal: No Tenderness to Palpation of Joints or Extremities Neurological: Cranial nerves II-XII grossly intact Psych/Mental Status: Normal Affect, Appropriate Vital Signs Temp Pulse Resp BP Pulse Ox 97.9 F 74 16 153/95 H 95 11/26/17 08:02 11/26/17 08:02 11/26/17 08:02 11/26/17 08:02 11/26/17 08:02 Oxygen Flow Rate (L/min) 2 Oxygen Delivery Method Room Air Weight: 118.5 kg Body Mass Index (BMI) 38.6 Intake and Output for Last 24 Hours 11/24/17 11/25/17 11/26/17 23:59 23:59 23:59 Intake Total 620 / 620 1140 / 1140 480 / 480 Balance 620 / 620 1140 / 1140 480 / 480 Active Medications Acetaminophen (Tylenol) 650 mg PO Q4H PRN PRN PRN Reason: PAIN Last Admin: 11/26/17 05:59 Dose: 650 mg Albuterol Sulfate (Ventolin Hfa (Sp)) 2 puff INHALATION Q4H PRN PRN PRN Reason: WHEEZING Last Admin: 10/28/17 20:29 Dose: 2 inhaler Amlodipine Besylate (Norvasc) 10 mg PO DAILY [facility] Last Admin: 11/26/17 08:00 Dose: 10 mg [facility]irin ([facility]in, Baby) [facility] Last Admin: 11/26/17 08:03 Dose: 81 mg Atorvastatin Calcium (Lipitor) 80 mg PO QHS [facility] Last Admin: 11/25/17 21:34 Dose: 80 mg Bisacodyl (Dulcolax) 10 mg RECTAL .PRN X 1 PRN PRN Reason: Constipation Calamine/Phenol (Calmoseptine Ointment) 1 applic TOPICAL BID PRN; Protocol PRN Reason: redness Carvedilol (Coreg) 25 mg PO BID [facility] Last Admin: 11/26/17 08:01 Dose: 25 mg Clopidogrel Bisulfate (Plavix) 75 mg PO DAILY [facility] Last Admin: 11/26/17 08:00 Dose: 75 mg Enoxaparin Sodium (Lovenox) 30 mg SC DAILY@0600 [facility] Last Admin: 11/26/17 05:58 Dose: 30 mg Escitalopram Oxalate (Lexapro) 10 mg PO DAILY [facility] Last Admin: 11/26/17 08:01 Dose: 10 mg Fexofenadine HCl (Sherry Allergy) 60 mg PO TID PRN PRN PRN Reason: CONGESTION Last Admin: 11/26/17 08:00 Dose: 60 mg Finasteride (Proscar) 5 mg PO DAILY [facility] Last Admin: 11/26/17 08:00 Dose: 5 mg Gabapentin (Neurontin) 400 mg PO TIDCM [facility] Last Admin: 11/26/17 08:00 Dose: 400 mg Lisinopril (Zestril) 40 mg PO QHS [facility] Last Admin: 11/25/17 21:34 Dose: 40 mg Magnesium Hydroxide (Milk Of Magnesia) 30 ml PO .PRN X 1 PRN PRN Reason: Constipation Nitroglycerin (Nitrostat) 0.4 mg SUBLINGUAL Q5M PRN PRN Reason: CARDIAC/CHEST PAIN Last Admin: 10/12/17 08:34 Dose: 0.4 mg Ondansetron HCl (Zofran Odt) 4 mg PO Q8H PRN PRN PRN Reason: NAUSEA Last Admin: 11/09/17 13:09 Dose: 4 mg Pantoprazole Sodium (Protonix) 20 mg PO BID [facility] Last Admin: 11/26/17 08:00 Dose: 20 mg Senna/Docusate Sodium (Senokot-S, Suki-Colace) 2 tablet PO BID [facility] Last Admin: 11/26/17 08:03 Dose: Not Given Sodium Chloride () 5 - 30 ml IV UD PRN PRN Reason: SALINE FLUSH Last Admin: 10/12/17 22:30 Dose: 20 ml Medical Necessity - Tobacco Use Smoking Status: Heavy Smoker (>10/day) Tobacco Use: Cigarettes Assessment/Plan debility s/p right parietal infarct 2/2 to symptomatic right ICA occlusion. complicated by a previous left lacunar ICH, and a right parietal ischemic stroke in 2016. The goal of rehab is muslim of functional independence. Plan: - Physical therapy for gait and balance - Occupational Therapy for ADLs - As needed analgesics - Bowel protocol - Stroke prevention on ASA, Statin, and Plavix - DVT prophylaxis: SCDs, Prasad stinson, Lovenox - Hypertension: BP continues to be Elevated, Keep BP < 130/80 mmHg => currently on Coreg 25mg, Zestril 40mg, will add Norvasc 5mg daily - Hx of HLD continue home dose of statin, Check LDL and Hba1c levels - Anxiety: Lexapro - Stent placement right ICA=> continue Plavix - Cervical spondylosis => Continued neck pain 2/2 fall prior to stroke => continue C-Collar - Hx GERD continue home medication - Hx Hep C - Hx Asthma - Hx of left lacunar ICH and a right parietal ischemic stroke - Lovenox at 30mg daily - Pollen/perfume Allergies -> started on Claritin 10mg, patient feels it is not working family is bringing in some Sherry for him. - Venous duplex ordered to rule out lower extremity DVT => Duplex was unremarkable - New onset Headaches -> CT head was showed no changes from previous studies. - Repeat Head CT -> remains stable with no changes from previous study - Neuropathy left arm and leg => Gabapentin 100mg TID increase by 100mg till taking 300mg TID, for a total of 900mg daily, increase dose to 400mg TID.
--- NOTE | 2017-11-26 10:54 | PN.NEURO_ITS ---
Subjective: Patient seen and examined. No new events over night. Tolerating therapy. Deneis any shortness of breath, or chest pains. Denies any Blurry or double vision, or new focal deficits. No issues with GI/. - Physical Exam General: Alert, Oriented x3, Cooperative HEENT: Atraumatic, PERRLA, EOMI, Normocephalic Neck: Supple, No JVD, Negative Carotid Bruits Lungs: Clear to auscultation, Normal air movement Cardiovascular: Regular rate, No murmurs Abdomen: Bowel Sounds Present, Soft, Non Tender Extremities: No edema, Capillary Refill Less than 3 Seconds Skin: No rashes, No breakdown Musculoskeletal: No Tenderness to Palpation of Joints or Extremities Neurological: Cranial nerves II-XII grossly intact Psych/Mental Status: Normal Affect, Appropriate Vital Signs Temp Pulse Resp BP Pulse Ox 97.9 F 74 16 153/95 H 95 11/26/17 08:02 11/26/17 08:02 11/26/17 08:02 11/26/17 08:02 11/26/17 08:02 Oxygen Flow Rate (L/min) 2 Oxygen Delivery Method Room Air Weight: 118.5 kg Body Mass Index (BMI) 38.6 Intake and Output for Last 24 Hours 11/24/17 11/25/17 11/26/17 23:59 23:59 23:59 Intake Total 620 / 620 1140 / 1140 480 / 480 Balance 620 / 620 1140 / 1140 480 / 480 Active Medications Acetaminophen (Tylenol) 650 mg PO Q4H PRN PRN PRN Reason: PAIN Last Admin: 11/26/17 05:59 Dose: 650 mg Albuterol Sulfate (Ventolin Hfa (Sp)) 2 puff INHALATION Q4H PRN PRN PRN Reason: WHEEZING Last Admin: 10/28/17 20:29 Dose: 2 inhaler Amlodipine Besylate (Norvasc) 10 mg PO DAILY [facility] Last Admin: 11/26/17 08:00 Dose: 10 [facility] Admin: 11/26/17 08:03 Dose: 81 mg Atorvastatin Calcium (Lipitor) 80 mg PO QHS [facility] Last Admin: 11/25/17 21:34 Dose: 80 mg Bisacodyl (Dulcolax) 10 mg RECTAL .PRN X 1 PRN PRN Reason: Constipation Calamine/Phenol (Calmoseptine Ointment) 1 applic TOPICAL BID PRN; Protocol PRN Reason: redness Carvedilol (Coreg) 25 mg PO BID [facility] Last Admin: 11/26/17 08:01 Dose: 25 mg Clopidogrel Bisulfate (Plavix) 75 mg PO DAILY [facility] Last Admin: 11/26/17 08:00 Dose: 75 mg Enoxaparin Sodium (Lovenox) 30 mg SC DAILY@0600 [facility] Last Admin: 11/26/17 05:58 Dose: 30 mg Escitalopram Oxalate (Lexapro) 10 mg PO DAILY [facility] Last Admin: 11/26/17 08:01 Dose: 10 mg Fexofenadine HCl (Sherry Allergy) 60 mg PO TID PRN PRN PRN Reason: CONGESTION Last Admin: 11/26/17 08:00 Dose: 60 mg Finasteride (Proscar) 5 mg PO DAILY [facility] Last Admin: 11/26/17 08:00 Dose: 5 mg Gabapentin (Neurontin) 400 mg PO TIDCM [facility] Last Admin: 11/26/17 08:00 Dose: 400 mg Lisinopril (Zestril) 40 mg PO QHS [facility] Last Admin: 11/25/17 21:34 Dose: 40 mg Magnesium Hydroxide (Milk Of Magnesia) 30 ml PO .PRN X 1 PRN PRN Reason: Constipation Nitroglycerin (Nitrostat) 0.4 mg SUBLINGUAL Q5M PRN PRN Reason: CARDIAC/CHEST PAIN Last Admin: 10/12/17 08:34 Dose: 0.4 mg Ondansetron HCl (Zofran Odt) 4 mg PO Q8H PRN PRN PRN Reason: NAUSEA Last Admin: 11/09/17 13:09 Dose: 4 mg Pantoprazole Sodium (Protonix) 20 mg PO BID [facility] Last Admin: 11/26/17 08:00 Dose: 20 mg Senna/Docusate Sodium (Senokot-S, Suki-Colace) 2 tablet PO BID [facility] Last Admin: 11/26/17 08:03 Dose: Not Given Sodium Chloride () 5 - 30 ml IV UD PRN PRN Reason: SALINE FLUSH Last Admin: 10/12/17 22:30 Dose: 20 ml Medical Necessity - Tobacco Use Smoking Status: Heavy Smoker (>10/day) Tobacco Use: Cigarettes Assessment/Plan debility s/p right parietal infarct 2/2 to symptomatic right ICA occlusion. complicated by a previous left lacunar ICH, and a right parietal ischemic stroke in 2016. The goal of rehab is scientologist of functional independence. Plan: - Physical therapy for gait and balance - Occupational Therapy for ADLs - As needed analgesics - Bowel protocol - Stroke prevention on ASA, Statin, and Plavix - DVT prophylaxis: SCDs, Prasad stinson, Lovenox - Hypertension: BP continues to be Elevated, Keep BP < 130/80 mmHg => currently on Coreg 25mg, Zestril 40mg, will add Norvasc 5mg daily - Hx of HLD continue home dose of statin, Check LDL and Hba1c levels - Anxiety: Lexapro - Stent placement right ICA=> continue Plavix - Cervical spondylosis => Continued neck pain 2/2 fall prior to stroke => continue C-Collar - Hx GERD continue home medication - Hx Hep C - Hx Asthma - Hx of left lacunar ICH and a right parietal ischemic stroke - Lovenox at 30mg daily - Pollen/perfume Allergies -> started on Claritin 10mg, patient feels it is not working family is bringing in some Sherry for him. - Venous duplex ordered to rule out lower extremity DVT => Duplex was unremarkable - New onset Headaches -> CT head was showed no changes from previous studies. - Repeat Head CT -> remains stable with no changes from previous study - Neuropathy left arm and leg => Gabapentin 100mg TID increase by 100mg till taking 300mg TID, for a total of 900mg daily, increase dose to 400mg TID.
[2017-11-26 15:14] VITALS: BMI 38.6
[2017-11-26 19:55] VITALS: BP 125/76; PULSE 96; RESP 16; TEMP 36.3; O2SAT 95
[2017-11-26] MEDS: Lisinopril 40 MG Tablet PO (23:01)
[2017-11-26] MEDS: Atorvastatin Calcium 80 MG Tablet PO (23:01)
[2017-11-27] MEDS: Enoxaparin 30 MG/0.3 ML Syringe SC (05:59)
[2017-11-27] MEDS: Acetaminophen 325 MG Tablet 650 MG PO ×2 (06:02→19:51)
[2017-11-27 08:12] VITALS: BP 120/77; PULSE 73; RESP 17; TEMP 36.7; O2SAT 96
--- NOTE | 2017-11-27 10:13 | CASEMGMT ---
Team meeting held. Patient present. Collaborating with team and patient, plan for patient to transition to a [facility] facility. Patient is agreeable to transitioning and is requesting for a referral to be made to [facility]. [facility]. Patient to continue with care and treatment until established discharge plan. Planning for discharge this weekend if [facility] Support given. Telephone call to [facility], Message left. Clinical information faxed. Alvin to contact this social science teacher with whether or not the they are able to accept. Will continue to follow. Elvia DENT, BOTTOM WHEELER
[2017-11-27] MEDS: Finasteride 5 MG Tablet PO (10:15)
[2017-11-27] MEDS: Clopidogrel Bisulfate 75 MG Tablet PO (10:15)
[2017-11-27] MEDS: Aspirin 81 MG TAB.CHEW PO (10:15)
[2017-11-27] MEDS: FEXOFENADINE HCL 60 MG TABLET PO ×2 (10:15→19:52)
[2017-11-27] MEDS: Pantoprazole Sodium 20 MG Tablet PO ×2 (10:15→20:56)
[2017-11-27] MEDS: Carvedilol 25 MG Tablet PO ×2 (10:15→20:56)
[2017-11-27] MEDS: amLODIPine 10 MG Tablet PO (10:15)
[2017-11-27] MEDS: Gabapentin 400 MG Capsule PO ×3 (10:15→17:57)
[2017-11-27] MEDS: Escitalopram Oxalate 10 MG Tablet PO (10:16)
--- NOTE | 2017-11-27 10:16 | PCM.PN.NEU ---
Subjective: Staffed in team meeting. Family was not at bedside. Questions answered. With Physical therapy, bed mobility, and transfers is at contact guard. To stand and pivot is at stand by assist to contact guard at times. He is able to walk 200 to 280 feet with Quad cane, at contact guard. He has trouble with lifting his left leg high enough to transverse the stairs safely. he is able to do his TUG test in 32 seconds. With Occupational therapy, he is standby assist for his grooming, bathing and dressing his upper body, for lower body he is 50%. He is contact guard for getting on and off the toilet and getting into and out of the shower. With Speech therapy, He is still having issues with attention, he gets off task quickly and has to be remind to stay on task, he also has problems with self awareness, he has improved but requires reminding. With Nursing he continues to have some burning and tingling in his buttocks when he sits for short periods of time, he has to stand and he feels better, he is on Gabapentin 400mg TID. He also has post dribble after peeing, currently he is on Proscar, will do a urinalysis and check his post void residual, may need to consult Urology if there is nothing noted. The plan is to transition him to [facility], pending pre-cert approval, in the next few days. - Physical Exam General: Alert, Oriented x3, Cooperative HEENT: Atraumatic, PERRLA, EOMI, Normocephalic Neck: Supple, No JVD, Negative Carotid Bruits Lungs: Clear to auscultation, Normal air movement Cardiovascular: Regular rate, No murmurs Abdomen: Bowel Sounds Present, Soft, Non Tender Extremities: No edema, Capillary Refill Less than 3 Seconds Skin: No rashes, No breakdown Musculoskeletal: No Tenderness to Palpation of Joints or Extremities Neurological: Cranial nerves II-XII grossly intact Psych/Mental Status: Normal Affect, Appropriate Vital Signs Temp Pulse Resp BP Pulse Ox 98.1 F 73 17 120/77 96 11/27/17 08:12 11/27/17 08:12 11/27/17 08:12 11/27/17 08:12 11/27/17 08:12 Oxygen Flow Rate (L/min) 2 Oxygen Delivery Method Room Air Weight: 122 kg Body Mass Index (BMI) 38.6 Intake and Output for Last 24 Hours 11/25/17 11/26/17 11/27/17 23:59 23:59 23:59 Intake Total 1140 / 1140 1180 / 1180 420 / 420 Balance 1140 / 1140 1180 / 1180 420 / 420 Active Medications Acetaminophen (Tylenol) 650 mg PO Q4H PRN PRN PRN Reason: PAIN Last Admin: 11/27/17 06:02 Dose: 650 mg Albuterol Sulfate (Ventolin Hfa (Sp)) 2 puff INHALATION Q4H PRN PRN PRN Reason: WHEEZING Last Admin: 10/28/17 20:29 Dose: 2 inhaler Amlodipine Besylate (Norvasc) 10 mg PO DAILY [facility] Last Admin: 11/27/17 10:15 Dose: 10 mg [facility]ir[facility] ([facility], Baby) [facility] Last Admin: 11/27/17 10:15 Dose: 81 mg Atorvastatin Calcium (Lipitor) 80 mg PO QHS [facility] Last Admin: 11/26/17 23:01 Dose: 80 mg Bisacodyl (Dulcolax) 10 mg RECTAL .PRN X 1 PRN PRN Reason: Constipation Calamine/Phenol (Calmoseptine Ointment) 1 applic TOPICAL BID PRN; Protocol PRN Reason: redness Carvedilol (Coreg) 25 mg PO BID [facility] Last Admin: 11/27/17 10:15 Dose: 25 mg Clopidogrel Bisulfate (Plavix) 75 mg PO DAILY [facility] Last Admin: 11/27/17 10:15 Dose: 75 mg Enoxaparin Sodium (Lovenox) 30 mg SC DAILY@0600 [facility] Last Admin: 11/27/17 05:59 Dose: 30 mg Escitalopram Oxalate (Lexapro) 10 mg PO DAILY [facility] Last Admin: 11/27/17 10:16 Dose: 10 mg Fexofenadine HCl (Sherry Allergy) 60 mg PO TID PRN PRN PRN Reason: CONGESTION Last Admin: 11/27/17 10:15 Dose: 60 mg Finasteride (Proscar) 5 mg PO DAILY [facility] Last Admin: 11/27/17 10:15 Dose: 5 mg Gabapentin (Neurontin) 400 mg PO TIDCM [facility] Last Admin: 11/27/17 10:15 Dose: 400 mg Lisinopril (Zestril) 40 mg PO QHS [facility] Last Admin: 11/26/17 23:01 Dose: 40 mg Magnesium Hydroxide (Milk Of Magnesia) 30 ml PO .PRN X 1 PRN PRN Reason: Constipation Nitroglycerin (Nitrostat) 0.4 mg SUBLINGUAL Q5M PRN PRN Reason: CARDIAC/CHEST PAIN Last Admin: 10/12/17 08:34 Dose: 0.4 mg Ondansetron HCl (Zofran Odt) 4 mg PO Q8H PRN PRN PRN Reason: NAUSEA Last Admin: 11/09/17 13:09 Dose: 4 mg Pantoprazole Sodium (Protonix) 20 mg PO BID [facility] Last Admin: 11/27/17 10:15 Dose: 20 mg Senna/Docusate Sodium (Senokot-S, Suki-Colace) 2 tablet PO BID [facility] Last Admin: 11/27/17 09:36 Dose: Not Given Sodium Chloride () 5 - 30 ml IV UD PRN PRN Reason: SALINE FLUSH Last Admin: 10/12/17 22:30 Dose: 20 ml Medical Necessity - Tobacco Use Smoking Status: Heavy Smoker (>10/day) Tobacco Use: Cigarettes Assessment/Plan debility s/p right parietal infarct 2/2 to symptomatic right ICA occlusion. complicated by a previous left lacunar ICH, and a right parietal ischemic stroke in 2016. The goal of rehab is pentecostal of functional independence. Plan: - Physical therapy for gait and balance - Occupational Therapy for ADLs - As needed analgesics - Bowel protocol - Stroke prevention on ASA, Statin, and Plavix - DVT prophylaxis: SCDs, Prasad stinson, Lovenox - Hypertension: BP continues to be Elevated, Keep BP < 130/80 mmHg => currently on Coreg 25mg, Zestril 40mg, will add Norvasc 5mg daily - Hx of HLD continue home dose of statin, Check LDL and Hba1c levels - Anxiety: Lexapro - Stent placement right ICA=> continue Plavix - Cervical spondylosis => Continued neck pain 2/2 fall prior to stroke => continue C-Collar - Hx GERD continue home medication - Hx Hep C - Hx Asthma - Hx of left lacunar ICH and a right parietal ischemic stroke - Lovenox at 30mg daily - Pollen/perfume Allergies -> started on Claritin 10mg, patient feels it is not working family is bringing in some Sherry for him. - Venous duplex ordered to rule out lower extremity DVT => Duplex was unremarkable - New onset Headaches -> CT head was showed no changes from previous studies. - Repeat Head CT -> remains stable with no changes from previous study - Neuropathy left arm and leg => Gabapentin 100mg TID increase by 100mg till taking 300mg TID, for a total of 900mg daily, increase dose to 400mg TID. - Plan: Transition to [facility], in the next few days, pending pre-cert
--- NOTE | 2017-11-27 10:36 | PN.NEURO_ITS ---
Subjective: Staffed in team meeting. Family was not at bedside. Questions answered. With Physical therapy, bed mobility, and transfers is at contact guard. To stand and pivot is at stand by assist to contact guard at times. He is able to walk 200 to 280 feet with Quad cane, at contact guard. He has trouble with lifting his left leg high enough to transverse the stairs safely. he is able to do his TUG test in 32 seconds. With Occupational therapy, he is standby assist for his grooming, bathing and dressing his upper body, for lower body he is 50%. He is contact guard for getting on and off the toilet and getting into and out of the shower. With Speech therapy, He is still having issues with attention, he gets off task quickly and has to be remind to stay on task, he also has problems with self awareness, he has improved but requires reminding. With Nursing he continues to have some burning and tingling in his buttocks when he sits for short periods of time, he has to stand and he feels better, he is on Gabapentin 400mg TID. He also has post dribble after peeing, currently he is on Proscar, will do a urinalysis and check his post void residual, may need to consult Urology if there is nothing noted. The plan is to transition him to [facility], pending pre-cert approval, in the next few days. - Physical Exam General: Alert, Oriented x3, Cooperative HEENT: Atraumatic, PERRLA, EOMI, Normocephalic Neck: Supple, No JVD, Negative Carotid Bruits Lungs: Clear to auscultation, Normal air movement Cardiovascular: Regular rate, No murmurs Abdomen: Bowel Sounds Present, Soft, Non Tender Extremities: No edema, Capillary Refill Less than 3 Seconds Skin: No rashes, No breakdown Musculoskeletal: No Tenderness to Palpation of Joints or Extremities Neurological: Cranial nerves II-XII grossly intact Psych/Mental Status: Normal Affect, Appropriate Vital Signs Temp Pulse Resp BP Pulse Ox 98.1 F 73 17 120/77 96 11/27/17 08:12 11/27/17 08:12 11/27/17 08:12 11/27/17 08:12 11/27/17 08:12 Oxygen Flow Rate (L/min) 2 Oxygen Delivery Method Room Air Weight: 122 kg Body Mass Index (BMI) 38.6 Intake and Output for Last 24 Hours 11/25/17 11/26/17 11/27/17 23:59 23:59 23:59 Intake Total 1140 / 1140 1180 / 1180 420 / 420 Balance 1140 / 1140 1180 / 1180 420 / 420 Active Medications Acetaminophen (Tylenol) 650 mg PO Q4H PRN PRN PRN Reason: PAIN Last Admin: 11/27/17 06:02 Dose: 650 mg Albuterol Sulfate (Ventolin Hfa (Sp)) 2 puff INHALATION Q4H PRN PRN PRN Reason: WHEEZING Last Admin: 10/28/17 20:29 Dose: 2 inhaler Amlodipine Besylate (Norvasc) 10 mg PO DAILY [facility] Last Admin: 11/27/17 10:15 Dose: 10 mg [facility], [facility] Last Admin: 11/27/17 10:15 Dose: 81 mg Atorvastatin Calcium (Lipitor) 80 mg PO QHS [facility] Last Admin: 11/26/17 23:01 Dose: 80 mg Bisacodyl (Dulcolax) 10 mg RECTAL .PRN X 1 PRN PRN Reason: Constipation Calamine/Phenol (Calmoseptine Ointment) 1 applic TOPICAL BID PRN; Protocol PRN Reason: redness Carvedilol (Coreg) 25 mg PO BID [facility] Last Admin: 11/27/17 10:15 Dose: 25 mg Clopidogrel Bisulfate (Plavix) 75 mg PO DAILY [facility] Last Admin: 11/27/17 10:15 Dose: 75 mg Enoxaparin Sodium (Lovenox) 30 mg SC DAILY@0600 [facility] Last Admin: 11/27/17 05:59 Dose: 30 mg Escitalopram Oxalate (Lexapro) 10 mg PO DAILY [facility] Last Admin: 11/27/17 10:16 Dose: 10 mg Fexofenadine HCl (Sherry Allergy) 60 mg PO TID PRN PRN PRN Reason: CONGESTION Last Admin: 11/27/17 10:15 Dose: 60 mg Finasteride (Proscar) 5 mg PO DAILY [facility] Last Admin: 11/27/17 10:15 Dose: 5 mg Gabapentin (Neurontin) 400 mg PO TIDCM [facility] Last Admin: 11/27/17 10:15 Dose: 400 mg Lisinopril (Zestril) 40 mg PO QHS [facility] Last Admin: 11/26/17 23:01 Dose: 40 mg Magnesium Hydroxide (Milk Of Magnesia) 30 ml PO .PRN X 1 PRN PRN Reason: Constipation Nitroglycerin (Nitrostat) 0.4 mg SUBLINGUAL Q5M PRN PRN Reason: CARDIAC/CHEST PAIN Last Admin: 10/12/17 08:34 Dose: 0.4 mg Ondansetron HCl (Zofran Odt) 4 mg PO Q8H PRN PRN PRN Reason: NAUSEA Last Admin: 11/09/17 13:09 Dose: 4 mg Pantoprazole Sodium (Protonix) 20 mg PO BID [facility] Last Admin: 11/27/17 10:15 Dose: 20 mg Senna/Docusate Sodium (Senokot-S, Suki-Colace) 2 tablet PO BID [facility] Last Admin: 11/27/17 09:36 Dose: Not Given Sodium Chloride () 5 - 30 ml IV UD PRN PRN Reason: SALINE FLUSH Last Admin: 10/12/17 22:30 Dose: 20 ml Medical Necessity - Tobacco Use Smoking Status: Heavy Smoker (>10/day) Tobacco Use: Cigarettes Assessment/Plan debility s/p right parietal infarct 2/2 to symptomatic right ICA occlusion. complicated by a previous left lacunar ICH, and a right parietal ischemic stroke in 2016. The goal of rehab is islam of functional independence. Plan: - Physical therapy for gait and balance - Occupational Therapy for ADLs - As needed analgesics - Bowel protocol - Stroke prevention on ASA, Statin, and Plavix - DVT prophylaxis: SCDs, Prasad stinson, Lovenox - Hypertension: BP continues to be Elevated, Keep BP < 130/80 mmHg => currently on Coreg 25mg, Zestril 40mg, will add Norvasc 5mg daily - Hx of HLD continue home dose of statin, Check LDL and Hba1c levels - Anxiety: Lexapro - Stent placement right ICA=> continue Plavix - Cervical spondylosis => Continued neck pain 2/2 fall prior to stroke => continue C-Collar - Hx GERD continue home medication - Hx Hep C - Hx Asthma - Hx of left lacunar ICH and a right parietal ischemic stroke - Lovenox at 30mg daily - Pollen/perfume Allergies -> started on Claritin 10mg, patient feels it is not working family is bringing in some Sherry for him. - Venous duplex ordered to rule out lower extremity DVT => Duplex was unremarkable - New onset Headaches -> CT head was showed no changes from previous studies. - Repeat Head CT -> remains stable with no changes from previous study - Neuropathy left arm and leg => Gabapentin 100mg TID increase by 100mg till taking 300mg TID, for a total of 900mg daily, increase dose to 400mg TID. - Plan: Transition to [facility], in the next few days, pending pre-cert
--- NOTE | 2017-11-27 13:48 | CASEMGMT ---
Social Work Telephone call from Elizabeth at [facility], [place], Elizabeth reporting to be able to accept patient and to have begun precert. Will continue to follow. Elvia DENT, POURER CRANE LADLE
[2017-11-27 14:52] VITALS: BMI 38.6
[2017-11-27 15:43] LABS: Bacteria 0 SEEN /hpf (None Seen); Mucous, Urine 0 SEEN /hpf (<or=2+); Red Blood Cells-Urine 0 SEEN /hpf (0-5); Squamous Epithelial Cells - UA 0 SEEN /hpf (0-5); White Blood Cells 0 SEEN /hpf (0-5)
[2017-11-27 15:45] LABS: Color, Urine Yellow (Yellow); Glucose, Dipstick Normal (Normal); Ketone-Dipstick Negative (Negative); Leukocyte Esterase-Dipstick Negative /ul (Negative); Nitrite-Dipstick Negative (Negative); Occult Blood-Urine Negative /ul (Negative); Protein-Dipstick Negative (Negative); Urine Bilirubin Dipstick Negative (Negative); Urine Clarity Clear (Clear); Urine Urobilinogen Normal (Normal)
[2017-11-27 19:43] VITALS: BP 112/67; PULSE 64; RESP 16; TEMP 36.4; O2SAT 97
[2017-11-27] MEDS: Lisinopril 40 MG Tablet PO (20:56)
[2017-11-27] MEDS: Atorvastatin Calcium 80 MG Tablet PO (20:56)
[2017-11-28] MEDS: Acetaminophen 325 MG Tablet 650 MG PO ×2 (06:13→21:27)
[2017-11-28] MEDS: Enoxaparin 30 MG/0.3 ML Syringe SC (06:14)
[2017-11-28 08:24] VITALS: BP 132/89; PULSE 72; RESP 17; TEMP 36.8; O2SAT 95
[2017-11-28] MEDS: FEXOFENADINE HCL 60 MG TABLET PO (09:50)
[2017-11-28] MEDS: Aspirin 81 MG TAB.CHEW PO (09:50)
[2017-11-28] MEDS: Clopidogrel Bisulfate 75 MG Tablet PO (09:50)
[2017-11-28] MEDS: Escitalopram Oxalate 10 MG Tablet PO (09:50)
[2017-11-28] MEDS: Finasteride 5 MG Tablet PO (09:50)
[2017-11-28] MEDS: Carvedilol 25 MG Tablet PO ×2 (09:50→21:27)
[2017-11-28] MEDS: Gabapentin 400 MG Capsule PO ×3 (09:50→16:36)
[2017-11-28] MEDS: amLODIPine 10 MG Tablet PO (09:50)
[2017-11-28] MEDS: Pantoprazole Sodium 20 MG Tablet PO ×2 (09:53→21:28)
--- NOTE | 2017-11-28 09:54 | PCM.TXEXTCAR ---
- Diet 10/23/17 12:14 Diet: Cardiac/Low Cholesterol Is pt able to select menu?: Yes Diet Comments: 2 GM sodium diet no coffee on tray - Routine Orders/Code Status Code Status: Full Code - Wound(s) rt groin Wound Type: puncture left elbow Wound Type: Abrasion - Therapies Weight Bearing: Weight bearing as tolerated Physical Therapy: Eval and Treat Occupational Therapy: Eval and Treat Speech Therapy: Eval and Treat - Allergies/Procedures Done in Hospital Allergies/Adverse Reactions: Allergies Iodinated Contrast- Oral and IV Dye Allergy (Verified 10/02/17 12:44) Hives perfume Allergy (Verified 10/02/17 12:44) Other pollen extracts Allergy (Verified 10/02/17 12:44) Other - Type of Care/Length of Stay Estimated LOS: More Than 30 Days Type of Care Needed: Skilled Rehab Potential: Good Prognosis: Good - Additional Orders/Day of Discharge Day of Discharge: 11/29/17 - Dietary and Speech Recommendations Dietitian Recommendations/Changes: Please re-weight pt for current body weight - Follow Up Care Please Follow Up With: Nithya Arevalo NP-C - Neurology When: 12/16/17 @ 1500 (3PM)
--- NOTE | 2017-11-28 11:42 | PCM.RU.DC ---
Rehab Discharge Summary DATE OF ADMISSION: 10/02/17 DATE OF DISCHARGE: 11/29/17 - Rehab Diagnosis CVA Discharge Activity: May Not Drive, May Shower, May Take a Tub Bath, Use Walker - Carlos Eduardo-walker, - - Cane Weight Bearing Status: Weight bearing as tolerated Call your doctor if you observe: Fever of 101 or Higher, Coldness, Increased Pain, Numbness or Tingling, Change in Color, Inability to urinate, Inability to have a bowel movement, Using more than one pad per hour, Shortness of breath, Dizziness, Fainting spells, Swelling in the ankles, Chest pain, Prolonged hiccoughing, Increased palpitations (irregular heartbeat), Calf discomfort, Uncontrolled pain Home Medications: Medications to take at Discharge Acetaminophen [Tylenol] 650 mg PO Q4H PRN PRN 10/02/17 Albuterol Inhaler [Ventolin Hfa] 2 puff INHALATION Q4H PRN PRN 10/02/17 Aspirin [Aspirin, Baby] 324 mg PO DAILY 10/02/17 Atorvastatin Calcium 80 mg PO DAILY 10/02/17 Clopidogrel Bisulfate [Plavix] 75 mg PO DAILY 10/02/17 Escitalopram Oxalate [Lexapro] 10 mg PO DAILY 10/02/17 Lisinopril [Zestril] 30 mg PO DAILY 10/02/17 Pantoprazole Sodium [Protonix] 40 mg PO DAILY 10/02/17 Amlodipine [Norvasc] 10 mg PO DAILY tablet 11/28/17 Carvedilol [Coreg (Beta Espinoza)] 25 mg PO BID tablet 11/28/17 Fexofenadine HCl [Sherry Allergy] 60 mg PO TID PRN PRN tablet 11/28/17 Finasteride [Proscar] 5 mg PO DAILY tablet 11/28/17 Gabapentin [Neurontin] 400 mg PO TIDCM capsule 11/28/17 Menthol/Lanolin/Calamine/Znox [Calmoseptine Ointment] 1 applic TOPICAL BID PRN tube 11/28/17 Nitroglycerin [Nitrostat] 0.4 mg SUBLINGUAL Q5M PRN tablet 11/28/17 Ondansetron [Zofran Odt] 4 mg PO Q8H PRN PRN tablet 11/28/17 Please Follow Up With: Nithya Arevalo NP-C - Neurology When: 12/16/17 @ 1500 (3PM) Disposition: [facility] facility Minutes spent on discharge:: 40 Patient Condition:: Good Rehab Course The patient is a 57 year old right-handed male who was admitted to the rehab unit for rehabilitation after suffering a right parietal infarct 2/2 to symptomatic right ICA occlusion. He has a history of HTN, Hep C, Cervical spondylosis, left lacunar ICH, right parietal ischemic stroke in 2016, GERD, HPD, Asthma, chronic lower back pain with right sided sciatica, L3-L5 disc bulge with mild canal narrowing, LUE weakness/spasticity from a previous stroke. On 09/24/17 he started experiencing several falls one in which he hit his head. EMS was called and he was taken to the hospital where presented with dysarthria, left facial droopy and left sided weakness, his INIH was 13. CTH showed a NAP but the patient was not a candidate due to his history of an ICH. An MRI showed an occlusion of the Right ICA, and a Right Caudal M@ segment. He was then taken to interventional radiology where he received a right ICA angioplasty x 3 and stent with TICI 2b. It was also noted that he had residual multifocal distal emboli but they where unable to retrieve these. He continues to have mild left sided facial droopy, flaccid left upper arm, he is able to lift and extend his left leg. He is tolerating a regular diet with thin liquids. He lives alone, is previously completely functionally independent and is admitted to the rehab unit in order to restore his previous level of functional independence. He did take aspirin previously at home. With Physical therapy, bed mobility, and transfers is at contact guard. To stand and pivot is at stand by assist to contact guard at times. He is able to walk 200 to 280 feet with Quad cane, at contact guard. He has trouble with lifting his left leg high enough to transverse the stairs safely. he is able to do his TUG test in 32 seconds. With Occupational therapy, he is standby assist for his grooming, bathing and dressing his upper body, for lower body he is 50%. He is contact guard for getting on and off the toilet and getting into and out of the shower. With Speech therapy, He is still having issues with attention, he gets off task quickly and has to be remind to stay on task, he also has problems with self awareness, he has improved but requires reminding. With Nursing he continues to have some burning and tingling in his buttocks when he sits for short periods of time, he has to stand and he feels better, he is on Gabapentin 400mg TID. He also has post dribble after peeing, currently he is on Proscar, will do a urinalysis and check his post void residual, may need to consult Urology if there is nothing noted. The plan is to transition him to [facility]. Meaningful Use Info Meaningful Use Diagnoses (Choose all that apply): Ischemic CVA - CVA Therapy Assessed for PT,OT and/or ST?: Yes - Ischemic Stroke Antithrombotic order at d/c?: Yes Dx of Atrial fib/flutter?: No Anticoagulant at discharge?: No Reason anticoagulant not ordered: Treatment not Indicated Statins at discharge?: Yes Primary Dx Acute Ischemic CVA?: Yes IV tPA ordered during stay?: No Reason IV t-PA not ordered: Treatment not Indicated
--- NOTE | 2017-11-28 11:46 | PCM.DC ---
- Discharge Diagnoses Reason(s) for Visit for Discharge Instructions: CVA You will use the following diet at home:: Regular, Cardiac Your food should be the consistency of: Regular Your liquids should be the consistency of: Regular/Thin Discharge Activity: May Not Drive, May Shower, May Take a Tub Bath, Use Walker - Carlos Eduardo-walker, - - Cane Weight Bearing Status: Weight bearing as tolerated Call your doctor if you observe: Fever of 101 or Higher, Coldness, Increased Pain, Numbness or Tingling, Change in Color, Inability to urinate, Inability to have a bowel movement, Using more than one pad per hour, Shortness of breath, Dizziness, Fainting spells, Swelling in the ankles, Chest pain, Prolonged hiccoughing, Increased palpitations (irregular heartbeat), Calf discomfort, Uncontrolled pain Allergies/Adverse Reactions: Allergies Iodinated Contrast- Oral and IV Dye Allergy (Verified 10/02/17 12:44) Hives perfume Allergy (Verified 10/02/17 12:44) Other pollen extracts Allergy (Verified 10/02/17 12:44) Other Medications to take at Discharge Acetaminophen [Tylenol] 650 mg PO Q4H PRN PRN 10/02/17 Albuterol Inhaler [Ventolin Hfa] 2 puff INHALATION Q4H PRN PRN 10/02/17 Aspirin [Aspirin, Baby] 324 mg PO DAILY 10/02/17 Atorvastatin Calcium 80 mg PO DAILY 10/02/17 Clopidogrel Bisulfate [Plavix] 75 mg PO DAILY 10/02/17 Escitalopram Oxalate [Lexapro] 10 mg PO DAILY 10/02/17 Lisinopril [Zestril] 30 mg PO DAILY 10/02/17 Pantoprazole Sodium [Protonix] 40 mg PO DAILY 10/02/17 Amlodipine [Norvasc] 10 mg PO DAILY tablet 11/28/17 Carvedilol [Coreg (Beta Espinoza)] 25 mg PO BID tablet 11/28/17 Fexofenadine HCl [Sherry Allergy] 60 mg PO TID PRN PRN tablet 11/28/17 Finasteride [Proscar] 5 mg PO DAILY tablet 11/28/17 Gabapentin [Neurontin] 400 mg PO TIDCM capsule 11/28/17 Menthol/Lanolin/Calamine/Znox [Calmoseptine Ointment] 1 applic TOPICAL BID PRN tube 11/28/17 Nitroglycerin [Nitrostat] 0.4 mg SUBLINGUAL Q5M PRN tablet 11/28/17 Ondansetron [Zofran Odt] 4 mg PO Q8H PRN PRN tablet 11/28/17 Please Follow Up With: Nithya Arevalo NP-C - Neurology When: 12/16/17 @ 1500 (3PM) Proposed Discharge Date: 11/29/17
[2017-11-28 12:10] VITALS: BMI 38.6
--- NOTE | 2017-11-28 16:33 | CASEMGMT ---
Social Work Telephone call received from Elizabeth at [facility]. Patent has been approved. Patient plans to discharge on 11/29/17. Spoke with patient and patient significant other, all agreeable to discharge plan. Patient requesting for transportation to be set up via wheelchair van. Support given. Telephone call to Leslie/Merna. Transportation set up for 11/29/17 @ 10:30am. Transportation form completed and placed with patient discharge information. PASRR completed in [facility] and faxed to [facility] along with discharge information. Proposed discharge date: 11/29/17 PLAN: Discharge to [facility] Skilled. Elvia DENT, [employer]
[2017-11-28 21:26] VITALS: BP 117/69; PULSE 71; RESP 16; TEMP 36.6; O2SAT 94
[2017-11-28] MEDS: Atorvastatin Calcium 80 MG Tablet PO (21:27)
[2017-11-28] MEDS: Lisinopril 40 MG Tablet PO (21:28)
[2017-11-29] MEDS: Enoxaparin 30 MG/0.3 ML Syringe SC (06:34)
--- NOTE | 2017-11-29 07:25 | PN_ITS ---
Subjective: Patient was seen and examined. No new complaints. He has been [facility] at the [facility] facility. Denies chest pain, dizziness, palpitations, leg swelling. Therapy has gone fairly well for him. Objective: PHYSICAL EXAM: General: Alert, Oriented x3, Cooperative, not pale or jaundiced HEENT: Atraumatic, PERRLA, EOMI, Normocephalic Neck: Supple, No JVD, Negative Carotid Bruits Lungs: Clear to auscultation Cardiovascular: Regular rate, Regular Rhythm, Normal S1, Normal S2, No murmurs Abdomen: Bowel Sounds Present, Soft, Non Tender, no palpable organs Extremities: No edema, Capillary Refill Less than 3 Seconds Skin: No rashes Musculoskeletal: No Tenderness to Palpation of Joints or Extremities, Arthritic Changes Neurological: - - Left facial droop. Left-sided weakness, left upper extremity more than left lower extremity Psych/Mental Status: Normal Affect, Appropriate Vitals/I&O's: Vital Signs Temp Pulse Resp BP Pulse Ox 97.8 F 71 16 117/69 94 11/28/17 21:26 11/28/17 21:26 11/28/17 21:26 11/28/17 21:26 11/28/17 21:26 Oxygen Flow Rate (L/min) 2 Oxygen Delivery Method Room Air Weight: 122 kg Body Mass Index (BMI) 38.6 Intake and Output for Last 24 Hours 11/27/17 11/28/17 11/29/17 23:59 23:59 23:59 Intake Total 660 / 660 1100 / 1100 Balance 660 / 660 1100 / 1100 Current Medications Acetaminophen (Tylenol) 650 mg PO Q4H PRN PRN PRN Reason: PAIN Last Admin: 11/28/17 21:27 Dose: 650 mg Albuterol Sulfate (Ventolin Hfa (Sp)) 2 puff INHALATION Q4H PRN PRN PRN Reason: WHEEZING Last Admin: 10/28/17 20:29 Dose: 2 inhaler Amlodipine Besylate (Norvasc) 10 mg PO DAILY [facility] Last Admin: 11/28/17 09:50 Dose: 10 mg [facility] Admin: 11/28/17 09:50 Dose: 81 mg Atorvastatin Calcium (Lipitor) 80 mg PO QHS [facility] Last Admin: 11/28/17 21:27 Dose: 80 mg Bisacodyl (Dulcolax) 10 mg RECTAL .PRN X 1 PRN PRN Reason: Constipation Calamine/Phenol (Calmoseptine Ointment) 1 applic TOPICAL BID PRN; Protocol PRN Reason: redness Carvedilol (Coreg) 25 mg PO BID [facility] Last Admin: 11/28/17 21:27 Dose: 25 mg Clopidogrel Bisulfate (Plavix) 75 mg PO DAILY [facility] Last Admin: 11/28/17 09:50 Dose: 75 mg Enoxaparin Sodium (Lovenox) 30 mg SC DAILY@0600 [facility] Last Admin: 11/29/17 06:34 Dose: 30 mg Escitalopram Oxalate (Lexapro) 10 mg PO DAILY [facility] Last Admin: 11/28/17 09:50 Dose: 10 mg Fexofenadine HCl (Sherry Allergy) 60 mg PO TID PRN PRN PRN Reason: CONGESTION Last Admin: 11/28/17 09:50 Dose: 60 mg Finasteride (Proscar) 5 mg PO DAILY [facility] Last Admin: 11/28/17 09:50 Dose: 5 mg Gabapentin (Neurontin) 400 mg PO TIDCM [facility] Last Admin: 11/28/17 16:36 Dose: 400 mg Lisinopril (Zestril) 40 mg PO QHS [facility] Last Admin: 11/28/17 21:28 Dose: 40 mg Magnesium Hydroxide (Milk Of Magnesia) 30 ml PO .PRN X 1 PRN PRN Reason: Constipation Nitroglycerin (Nitrostat) 0.4 mg SUBLINGUAL Q5M PRN PRN Reason: CARDIAC/CHEST PAIN Last Admin: 10/12/17 08:34 Dose: 0.4 mg Ondansetron HCl (Zofran Odt) 4 mg PO Q8H PRN PRN PRN Reason: NAUSEA Last Admin: 11/09/17 13:09 Dose: 4 mg Pantoprazole Sodium (Protonix) 20 mg PO BID [facility] Last Admin: 11/28/17 21:28 Dose: 20 mg Senna/Docusate Sodium (Senokot-S, Suki-Colace) 2 tablet PO BID [facility] Last Admin: 11/28/17 21:28 Dose: Not Given Sodium Chloride () 5 - 30 ml IV UD PRN PRN Reason: SALINE FLUSH Last Admin: 10/12/17 22:30 Dose: 20 ml Medical Necessity - Tobacco Use Smoking Status: Heavy Smoker (>10/day) Tobacco Use: Cigarettes Assessment/Plan 57-year-old male with PMHx of CVA, previous left lacunar ICH, hypertension admitted to the inpatient rehab unit with debility after 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 1. Debility secondary to acute stroke, completed acute rehab, being discharged to prison facility 2. Acute right parietal infarct secondary to right ICA occlusion status post angioplasty and stent placement, on aspirin, statin, beta-todd, Plavix, lisinopril 3. Hypertension, controlled, continue on amlodipine, carvedilol, lisinopril 4. Hyperlipidemia, on statin 5. History of cervical spondylosis, on gabapentin 6. DVT prophylaxis - SC Lovenox Code Visit Inpatient E&M: 38739 Subs Hosp L2
[2017-11-29 08:08] VITALS: BP 157/83; PULSE 71; RESP 18; TEMP 36.6; O2SAT 96
[2017-11-29] MEDS: Finasteride 5 MG Tablet PO (08:10)
[2017-11-29] MEDS: FEXOFENADINE HCL 60 MG TABLET PO (08:10)
[2017-11-29] MEDS: Carvedilol 25 MG Tablet PO (08:10)
[2017-11-29] MEDS: Aspirin 81 MG TAB.CHEW PO (08:11)
[2017-11-29] MEDS: amLODIPine 10 MG Tablet PO (08:11)
[2017-11-29] MEDS: Clopidogrel Bisulfate 75 MG Tablet PO (08:11)
[2017-11-29] MEDS: Pantoprazole Sodium 20 MG Tablet PO (08:11)
[2017-11-29] MEDS: Gabapentin 400 MG Capsule PO (08:11)
[2017-11-29] MEDS: Escitalopram Oxalate 10 MG Tablet PO (08:11)
[2017-11-29] MEDS: Acetaminophen 325 MG Tablet 650 MG PO (08:13)
--- NOTE | 2017-11-29 08:50 | NURSING ---
report given to Margot at [facility]. beatrice given and packed with patient to take home medication to [facility].
[2017-11-29 09:08] VITALS: BMI 38.6
--- NOTE | 2017-11-29 10:30 | NURSING ---
transport here to take patient to [facility] via w/c.
--- NOTE | 2017-12-02 11:30 | CASEMGMT ---
Insurance Notified insurance of patient discharge on 11/29/17 to retirement facility. Auth#[id number] Eliva DENT, MANAGER OF [employer]
== END 2017-11-29 10:30 | disposition skilled nursing facility (03) | DRG 12 ==
PROVIDERS: Nurse Practitioner Acute Care; Student in an Organized Health Care Education/Training Program; Urology; Admitting Provider Psychiatry & Neurology Neurology; Visit Provider Internal Medicine
DX: I69.354 Hemiplegia and hemiparesis following cerebral infarction affecting left non-dominant side (principal); G62.9 Polyneuropathy, unspecified; B37.9 Candidiasis, unspecified; E78.5 Hyperlipidemia, unspecified; F17.210 Nicotine dependence, cigarettes, uncomplicated; F32.9 Major depressive disorder, single episode, unspecified; I10 Essential (primary) hypertension; I69.322 Dysarthria following cerebral infarction; I69.392 Facial weakness following cerebral infarction; K21.9 Gastro-esophageal reflux disease without esophagitis; J45.909 Unspecified asthma, uncomplicated; F41.9 Anxiety disorder, unspecified; Z79.899 Other long term (current) drug therapy; Z79.02 Long term (current) use of antithrombotics/antiplatelets; Z79.01 Long term (current) use of anticoagulants; M47.22 Other spondylosis with radiculopathy, cervical region; Z86.19 Personal history of other infectious and parasitic diseases; Z91.81 History of falling; I73.9 Peripheral vascular disease, unspecified; Z82.49 Family history of ischemic heart disease and other diseases of the circulatory system
CPT/HCPCS: 36415; 70450; 74230; 76770; 80048; 81001; 82962; 84153; 84484; 85027; 85610; 87086; 87088; 92507; 92526; 92610; 92611; 93005; 93971; 97032; 97110; 97112; 97116; 97140; 97162; 97166; 97530; 97535; 99406; A4216

== ENCOUNTER 2018-01-05 12:00 | Observation (INO) | payer MEDICAID, SELFPAY ==
[2018-01-05 12:01] VITALS: BP 156/107; PULSE 91; RESP 16; TEMP 36.7; O2SAT 96; BMI 35.4
--- NOTE | 2018-01-05 12:45 | RAD_ITS ---
STUDY: X-RAY - LEFT SHOULDER REASON FOR EXAM: Male, 57 years old. History of multiple falls. TECHNIQUE: 2 view(s) of the shoulder. COMPARISON: None. FINDINGS: There is mild degenerative arthrosis of the glenohumeral articulation. There is degenerative arthrosis of the acromioclavicular joint without inferior osseous spur formation. Normal acromion. Normal humeral head and visualized proximal humerus. The soft tissue structures are unremarkable. Normal visualized pulmonary apex. 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 Electronically Signed: Jose Luis Jackson MD at 13:59 EDT Tel [phone], Service support ,
--- NOTE | 2018-01-05 12:45 | RAD_ITS ---
STUDY: X-RAY - LEFT KNEE REASON FOR EXAM: Male, 57 years old. History of multiple falls. TECHNIQUE: 4 view(s) of the knee. COMPARISON: None. FINDINGS: Normal visualized distal femur. Normal visualized proximal tibia and fibula. Normal proximal tibiofibular articulation. Normal medial femorotibial compartment. Normal lateral femorotibial compartment. Normal patellofemoral articulation. The soft tissue structures are unremarkable. RAD/Knee 4 or More Views IMPRESSION: Normal x-ray examination of the knee. Electronically Signed: Jose Luis Jackson MD at 13:55 EDT Tel [phone], Service support ,
--- NOTE | 2018-01-05 12:45 | RAD_ITS ---
STUDY: X-RAY - PELVIS AND LEFT HIP REASON FOR EXAM: Male, 57 years old. Multiple falls. TECHNIQUE: Radiological exam, hip, unilateral, with pelvis when performed; 2 or 3 views. COMPARISON: None. FINDINGS: There is a non-specific bowel gas pattern. Normal visualized soft tissue structures. Normal bilateral iliac wings, sacroiliac joints and visualized sacrum. Normal bilateral superior and inferior pubic rami. Normal pubic symphysis. Normal bilateral ischial tuberosities. Normal visualized femoral head. Normal acetabulum. There is mild articular joint space narrowing of the hip. RAD/Hip 2-3 Views with Pelvis IMPRESSION: Degenerative changes of the hip joints. No fracture or dislocation is seen. Electronically Signed: Jose Luis Jackson MD at 13:54 EDT Tel [phone], Service support ,
--- NOTE | 2018-01-05 12:45 | RAD_ITS ---
STUDY: X-RAY - LEFT ANKLE REASON FOR EXAM: Male, 57 years old. History of multiple falls. TECHNIQUE: 3 view(s) of the ankle. COMPARISON: None. FINDINGS: Normal visualized distal tibia and fibula. Normal medial and lateral malleoli. Normal tibiotalar articulation and ankle mortise. Small plantar spur. The visualized subtalar, talonavicular, calcaneocuboid and tarsal articulations are normal. Diffuse soft tissue swelling. No fracture or dislocation. RAD/Ankle min 3 Views IMPRESSION: Diffuse soft tissue swelling. No fracture or dislocation is seen. Small calcaneal spur. Electronically Signed: Jose Luis Jackson MD at 13:55 EDT Tel [phone], Service support ,
--- NOTE | 2018-01-05 12:45 | RAD_ITS ---
STUDY: X-RAY - UNILATERAL RIBS ( LEFT ) WITH CHEST REASON FOR EXAM: Male, 57 years old. Multiple falls. TECHNIQUE - RIBS: 4 view(s) of the ribs. TECHNIQUE - CHEST: Single AP portable view of the chest. COMPARISON: None. FINDINGS - RIBS: Normal visualized ribs without a demonstrated fracture. FINDINGS - CHEST: The lungs are clear and expanded. There is no demonstrated pleural abnormality. Normal size heart. Normal mediastinum and renetta. Normal visualized pulmonary arteries. Normal visualized aortic arch and descending thoracic aorta. Normal visualized thoracic spine. Normal visualized ribs, clavicles, and shoulders. There is no demonstrated abnormality of the visualized soft tissue structures of the upper abdomen. RAD/Ribs Uni Min 3V w/PA Chest IMPRESSION: RIBS: Normal x-ray examination of the ribs. CHEST: Normal x-ray examination of the chest. Electronically Signed: Jose Luis Jackson MD at 13:55 EDT Tel [phone], Service support ,
--- NOTE | 2018-01-05 12:45 | CT_ITS ---
STUDY: CT CERVICAL SPINE WITHOUT CONTRAST REASON FOR EXAM: Male, 57 years old. Frequent falls. RADIATION DOSAGE (If Supplied By Facility): CTDIvol = ( 28.70 ) mGy, DLP = ( 611.08 ) mGycm TECHNIQUE: High resolution transaxial imaging was performed without contrast material. Sagittal and coronal images were reconstructed. Individualized dose optimization techniques were used for this CT. COMPARISON: None FINDINGS: Normal craniovertebral junction. Normal anterior atlantoaxial articulation. Normal odontoid process. There is straightening of the normal cervical lordosis. Normal vertebral bodies and posterior osseous elements. A vascular stent is seen in the right internal carotid artery. C2-3: Normal endplates. Normal disc height and morphology. Normal central canal and intervertebral neuroforamina. C3-4: Normal endplates. Normal disc height and morphology. Normal central canal and intervertebral neuroforamina. C4-5: Anterior spondylosis. No evidence of a spinal stenosis. C5-6: Moderate degree of disc space narrowing. Anterior spondylosis. Facet joint osteoarthritis. C6-7: Anterior fusion at the C6-C7 level. Uncovertebral arthrosis. Bilateral neural foraminal stenosis worse on the right side. C7-T1: Normal endplates. Normal disc height and morphology. Normal central canal and intervertebral neuroforamina. Stent is seen in the right carotid artery. CT/Spine Cervical without Contras IMPRESSION: Prior fusion at the C6-C7 level with bilateral neural foraminal stenosis worse on the right side. Electronically Signed: Jose Luis Jackson MD at 13:32 EDT Tel [phone], Service support ,
--- NOTE | 2018-01-05 12:45 | CT_ITS ---
STUDY: CT BRAIN WITHOUT CONTRAST REASON FOR EXAM: Male, 57 years old. Frequent falls. RADIATION DOSAGE (If Supplied By Facility): CTDIvol = ( 44.99 ) mGy, DLP = ( 812.98 ) mGycm TECHNIQUE: Transaxial CT imaging of the brain was performed without administration of intravenous contrast material. Individualized dose optimization techniques were used for this CT. COMPARISON: Comparison is made with prior study dated November 11, 2017. FINDINGS: Normal soft tissue structures. Normal calvarium. Normal size ventricles and extra-axial spaces for the patient's age. There is evidence of encephalomalacia in the right temporal parietal lobes in keeping with prior infarction involving the right middle cerebral artery territory. This is unchanged. Old lacunar infarct in the body of the left caudate nucleus. Normal brainstem. Normal cerebellum. There is no intracranial hemorrhage. There are no findings of an acute ischemic infarction. Normal visualized paranasal sinuses. CT/Brain/Head without Contrast IMPRESSION: Stable examination. Encephalomalacia in the right temporoparietal lobe in keeping with prior right middle cerebral artery territory infarction. Lacunar infarct in the body of the left caudate nucleus. Electronically Signed: Jose Luis Jackson MD at 13:34 EDT Tel [phone], Service support ,
--- NOTE | 2018-01-05 12:49 | ED.DCSUM_ITS ---
- ER Visit Summary Date of Service: 01/05/18 Chief Complaint: Falls History of Present Illness: The patient is a 57 M patient has fallen multiple times, the most recent fall was last night. He recently had a stroke and has been in rehab. He has left-sided weakness. He was having trouble walking from his weakness and his cane was stuck in a mat. He fell, and complains of left head pain, left neck pain, left shoulder pain, left rib pain, left hip pain, left knee pain, and left ankle pain. He does take Eliquis. No loss of consciousness. No new weakness or new symptoms or signs the pain. Physical Examination: Vital signs unremarkable. Afebrile. Head atraumatic on inspection. Neck is atraumatic on inspection but tender to palpation over the left cervical spine. Left shoulder is diffusely tender to palpation. Clavicle nontender. Lungs clear. Heart regular. Left anterior axillary chest wall tender to palpation. Abdomen soft and nontender. Left hip is tender to palpation, but pelvis is stable. Left knee is tender to palpation with an anterior abrasion. Left ankle tender to palpation. No deformity through any joints. No shortening or rotation. Neurovascular intact distally in all extremities. No new neurologic symptoms or findings. Test Results: X-rays of the shoulder, chest, ribs, hip, knee, and ankle were ordered. CT head and brain pending. Emergency Department Course and Treatment: He was treated with [place] while awaiting results. CT head and CT neck showed chronic and postop changes. Shoulder x-ray, chest, ribs, hip, knee, ankle showed chronic changes but no acute abnormalities. Patient is not doing well at his assisted living and is requesting senior care placement. Social work saw him and said that he can be admitted for observation and transferred for placement in 24 hours. Treatment Plan: Above Disposition: Admission Impression: 1. Falls 2. History of stroke This note was generated with [employer] dictation software. It may contain incorrect words, spelling, and punctuation that were not noted in review of the chart prior to signing ED Disposition - Plan for ED Patient: Chief Complaint: Fall Referrals: [facility] Doctor,Out of [Primary Care Provider] -
[2018-01-05] MEDS: HYDROcodone Bitartrate/Apap 5/325 Tablet PO (12:55)
[2018-01-05 14:05] VITALS: BP 161/91; PULSE 75; RESP 16; O2SAT 98
[2018-01-05 15:15] VITALS: BP 138/91; PULSE 92; RESP 16; O2SAT 97
[2018-01-05 16:04] VITALS: BMI 35.4
--- NOTE | 2018-01-05 16:05 | HP.PCM_ITS ---
<Jo Ann Kearney - Last Filed: 01/05/18 16:19> Problem List (1) CVA (cerebral vascular accident) Status: Chronic (2) HTN (hypertension) Status: Chronic (3) Hepatitis C Status: Chronic (4) Cervical spondylosis Status: Chronic (5) GERD (gastroesophageal reflux disease) Status: Chronic (6) Asthma Status: Chronic (7) Chronic back pain Status: Chronic (8) ICAO (internal carotid artery occlusion) Status: Resolved (9) Physical debility Status: Acute (10) BPH (benign prostatic hyperplasia) Status: Chronic History of Present Illness Date of Admission: 01/05/18 Chief Complaint: Frequent falls The patient is a 57 year old M who presents to the emergency room with frequent falls. Patient states he has fallen 3 times within the past few days. He states he fell into his significant other and almost injured her. He is also concerned because he is on Eliquis. Patient was admitted 10/02/17 to Rehab unit after sustaining a right parietal infarct secondary to right ICA occlusion. He was treated at [facility]. Patient underwent right ICA angioplasty ?3 and stent. He was noted to have residual multifocal distal emboli. Patient has residual left-sided weakness. His left arm is fairly flaccid but able to move his fingers some and able to move against some resistance. Patient is able to bear weight on his left leg and has minimal weakness. He has mild residual left facial droop. No speech or swallowing deficits. Patient was discharged from rehab facility 11/28/17 where he went to [facility] [place]. He states he was discharged from facility on Friday and has had 3 falls since that time. He states he lives alone and is unable to shower himself and is worried about continued falling. He uses a quad cane with ambulation. He complains of left-sided pain secondary to fall prior to admission. Denies dizziness, lightheadedness. Denies new neurologic symptoms. He has a past medical history of recent CVA as previously noted, hypertension , hepatitis C, cervical spondylosis, left lacunar intracranial hemorrhage, GERD , BPH, asthma, chronic lower back pain, asthma, recent history of DVT. Past Medical History Past Medical History (Chronic Problems): Chronic Problems CVA (cerebral vascular accident) (Chronic) HTN (hypertension) (Chronic) Hepatitis C (Chronic) Cervical spondylosis (Chronic) GERD (gastroesophageal reflux disease) (Chronic) Asthma (Chronic) Chronic back pain (Chronic) BPH (benign prostatic hyperplasia) (Chronic) Allergies Iodinated Contrast- Oral and IV Dye Allergy (Verified 01/05/18 12:02) Hives perfume Allergy (Verified 01/05/18 12:02) Other pollen extracts Allergy (Verified 01/05/18 12:02) Other Home Medications: Ambulatory Orders Medication Instructions Recorded Acetaminophen [Tylenol] 650 mg PO Q4H PRN PRN 10/02/17 Albuterol Inhaler [Ventolin Hfa] 2 puff INHALATION Q4H PRN PRN 10/02/17 Atorvastatin Calcium 80 mg PO QHS 10/02/17 Clopidogrel Bisulfate [Plavix] 75 mg PO DAILY 10/02/17 Pantoprazole Sodium [Protonix] 40 mg PO DAILY 10/02/17 Fexofenadine HCl [Sherry Allergy] 60 mg PO TID PRN PRN tablet 11/28/17 Nitroglycerin [Nitrostat] 0.4 mg SUBLINGUAL Q5M PRN tablet 11/28/17 Amlodipine [Norvasc] 10 mg PO DAILY 01/05/18 Apixaban [Eliquis] 5 mg PO BID 01/05/18 Aspirin [Aspirin EC] 325 mg PO DAILY 01/05/18 Carvedilol [Coreg (Beta Espinoza)] 12.5 mg PO BID 01/05/18 Finasteride [Proscar] 5 mg PO DAILY 01/05/18 Hydrochlorothiazide 12.5 mg PO DAILY 01/05/18 Lisinopril [Zestril] 40 mg PO DAILY 01/05/18 Surgical History: herniorrhaphy, - - Cervical neck surgery plating with cardaviar bone graph Psychiatric History: Anxiety, Depression Lives: Alone Smoking Status: Never smoker Alcohol: None Drugs: None - *Family History Maternal History Items: No pertinent history Paternal History Items: Hypertension Review of Systems Constitutional: Denies: Chills, Fever, Weight Change HEENT: Denies: Head Aches, Sinus Congestion, Sinus Drainage Cardiovascular: Denies: Chest Pain, Light Headedness, Palpitations, Syncope Respiratory: Denies: Cough, Shortness of breath at rest, Sputum production Gastrointestinal: Denies: Abdominal Pain, Nausea, Vomiting Genitourinary: Denies: Dysuria Musculoskeletal: Reports: Leg Pain Skin: Reports: - - Left knee abrasion. Denies: Rash, Wounds Neurological: Reports: Balance problems, Focal weakness - Not new. Denies: Blurred vision, Double vision, Slurred speech, Confusion, Headaches, Numbness, Tingling Psychiatric: Reports: Anxiety, Depression Hematologic/ Lymphatic: Denies: Easy Bruising, Easy Bleeding VTE Information - Inpt Only VTE Present on Admission: No VTE Mechan Device Prophylaxis: Knee High HERIBERTO Hose VTE Pharm Prophylaxis ordered?: Yes Patient Problems: Active and Suspected Problems Physical debility (Acute) Failure to thrive (Acute) - Physical Exam General: Alert, Oriented x3, Cooperative, No apparent distress HEENT: Atraumatic, PERRLA, EOMI, Normocephalic Neck: Supple, No JVD, Negative Carotid Bruits Lungs: Clear to auscultation, Diminished Cardiovascular: Regular rate, Regular Rhythm, Normal S1, Normal S2, No murmurs Abdomen: Bowel Sounds Present, Soft, Non Tender, Non-Distended, Obese Extremities: No clubbing, No cyanosis, Capillary Refill Less than 3 Seconds, Edema - Left hand and left lower extremity edema. Skin: No rashes, No breakdown, - - Left knee abrasion status post fall. Musculoskeletal: No Tenderness to Palpation of Joints or Extremities Neurological: Cranial nerves II-XII grossly intact, Facial Droop - Left, - - Left arm weakness, left leg weakness. Psych/Mental Status: Normal Affect, Appropriate Vital Signs Temp Pulse Resp BP Pulse Ox 98.1 F 92 16 138/91 H 97 01/05/18 12:01 01/05/18 15:15 01/05/18 15:15 01/05/18 15:15 01/05/18 15:15 Oxygen Delivery Method Room Air Weight: 118.388 kg Body Mass Index (BMI) 35.4 Assessment/Plan Active and Suspected Problems Physical debility (Acute) Failure to thrive (Acute) 1. Physical debility status post recent right parietal infarct secondary to right ICA occlusion with residual left-sided weakness-recently discharged from [facility] [place]. Previously in rehab unit. Frequent falls since discharge from [facility] [place]. Patient also has a reported former history of left lacunar intracranial hemorrhage. PT/OT. Case management consult for anticipated need for placement. Continue aspirin, statin, Plavix, Eliquis. Fall precautions. 2. Recent right ICA occlusion status post angioplasty ?3 and stent-continue aspirin, statin, Plavix. 3. History of recent right lower extremity DVT-continue Eliquis. 4. Chronic lower back pain/cervical spondylosis/sciatica/L3-L5 disc bulge with mild canal narrowing- PT/OT. PRN pain regimen. Continue gabapentin regimen. 5. Chronic Asthma-no acute exacerbation. Albuterol aerosol as needed. 6. Hypertension-stable, continue home lisinopril, amlodipine, carvedilol, hydrochlorothiazide regimen. 7. Chronic hepatitis C 8. GERD-continue PPI. 9. BPH-continue home Proscar regimen. 10. Depression-continue home Lexapro regimen. 11. Obesity-diet and lifestyle modifications encouraged. DVT prophylaxis-Eliquis. This patient was seen by LOUIE Andino under the supervision of Dr. Orourke. <Justen Orourke - Last Filed: 01/05/18 16:38> Problem List (1) Failure to thrive Status: Acute (2) CVA (cerebral vascular accident) Status: Chronic (3) HTN (hypertension) Status: Chronic (4) Hepatitis C Status: Chronic (5) Cervical spondylosis Status: Chronic (6) GERD (gastroesophageal reflux disease) Status: Chronic (7) Asthma Status: Chronic (8) Chronic back pain Status: Chronic (9) BPH (benign prostatic hyperplasia) Status: Chronic History of Present Illness The patient is a 57 year old M who had a right parietal CVA on 09/26. Went to the IRU at [facility] from 10/02-11/28, then SNF until this past Friday. According to the patient, he took himself out as he felt he was regressing. At home, he has been falling and his is unable to care for him safely. CM was contacted through the ER and advised observation admission and to reevaluate the patient for SNF again.[] Past Medical History Allergies Iodinated Contrast- Oral and IV Dye Allergy (Verified 01/05/18 12:02) Hives perfume Allergy (Verified 01/05/18 12:02) Other pollen extracts Allergy (Verified 01/05/18 12:02) Other Surgical History: herniorrhaphy, - Psychiatric History: Anxiety, Depression Lives: Spouse/ Significant Other Smoking Status: Never smoker Alcohol: None Drugs: None - *Family History Paternal History Items: Hypertension Review of Systems Constitutional: Denies: Chills, Fever, Weight Change HEENT: Denies: Head Aches, Sinus Congestion, Sinus Drainage Cardiovascular: Denies: Chest Pain, Light Headedness, Palpitations, Syncope Respiratory: Denies: Cough, Shortness of breath at rest, Sputum production Gastrointestinal: Denies: Abdominal Pain, Nausea, Vomiting Genitourinary: Denies: Dysuria Musculoskeletal: Reports: Leg Pain Skin: Reports: -. Denies: Rash, Wounds Neurological: Reports: Balance problems, Focal weakness. Denies: Blurred vision , Double vision, Slurred speech, Confusion, Headaches, Numbness, Tingling Psychiatric: Reports: Anxiety, Depression Hematologic/ Lymphatic: Reports: Hx of blood clot. Denies: Easy Bruising, Easy Bleeding VTE Information - Inpt Only VTE Present on Admission: No VTE Pharm Prophylaxis ordered?: Yes - Physical Exam General: Alert, Cooperative, No apparent distress HEENT: Atraumatic, Normocephalic Neck: Supple, No JVD, Negative Carotid Bruits, Negative Hepatojugular Reflux Lungs: Clear to auscultation, Normal air movement, No rhonchi, No wheeze Cardiovascular: Regular rate, Regular Rhythm, Normal S1, Normal S2, No murmurs Abdomen: Bowel Sounds Present, Soft, Non Tender, Non-Distended Extremities: No clubbing, No cyanosis, Capillary Refill Less than 3 Seconds, Edema Skin: No rashes, No breakdown, - Neurological: Cranial nerves II-XII grossly intact, Facial Droop, - Psych/Mental Status: Normal Affect, Appropriate Vital Signs Temp Pulse Resp BP Pulse Ox 36.7 C 78 17 134/90 H 95 01/05/18 12:01 01/05/18 16:15 01/05/18 16:15 01/05/18 16:15 01/05/18 16:15 Oxygen Delivery Method Room Air Weight: 118.388 kg Body Mass Index (BMI) 35.4 Assessment/Plan Patient seen and examined independently. Agree with the above note by the nurse practitioner. 1. Failure to thrive PT OT evaluate and treat. Case management to assist with placement. I did try to manage expectations of the patient and his significant other that him coming in is not a guarantee that his senior care facility would be covered. But we would go with the appropriate channels to see what would be covered. Code Visit OBSV E&M: 60929 Initial observation care L2
[2018-01-05 16:15] VITALS: BP 134/90; PULSE 78; RESP 17; O2SAT 95
--- NOTE | 2018-01-05 16:46 | CASEMGMT ---
Social Work Note In to complete initial assessment with pt as he is an anticipated admission. Pt was recently discharged from [facility] on Friday, 01/02. Prior to admission to [facility] he had come to the following a stroke. His first choice for rehabilitation would be [facility] and second choice would be [facility]. Pt is having trouble completing ADL's and does not have 24/7 care. Support is his significant other. Informed that SW will leave a referral with the care coordinator in , but will likely not hear until tomorrow. Understanding expressed. He fell today while using his quad cane, unable to use a walker at this time d/t lack of dexterity in his left hand. [facility] therapists came out today and recommended he seek further evaluation for placement needs. Pt made aware that SW on assigned unit will f/u with discharge planning. Left vm with admissions requesting placement. If unable to accept SW to fax referral to [facility]. Plan: Placement for rehabilitation. Jo Ann Figueroa, TANK HOUSE OPERATOR, LEAD CYTOGENETIC TECHNOLOGIST
[2018-01-05 20:55] VITALS: BP 126/81; PULSE 75; RESP 18; TEMP 36.6; O2SAT 96
[2018-01-05] MEDS: Acetaminophen 325 MG Tablet 650 MG PO (21:00)
[2018-01-05] MEDS: APIXABAN 5 MG TABLET PO (21:00)
[2018-01-05] MEDS: Carvedilol 12.5 MG Tablet PO (21:01)
[2018-01-05] MEDS: Atorvastatin Calcium 80 MG Tablet PO (21:01)
[2018-01-05 21:55] VITALS: BMI 35.4
[2018-01-06 02:55] VITALS: BP 128/82; PULSE 76; RESP 18; TEMP 36.4; O2SAT 95
[2018-01-06 07:33] VITALS: BP 128/96; PULSE 81; RESP 18; TEMP 36.4; O2SAT 94
[2018-01-06] MEDS: Acetaminophen 325 MG Tablet 650 MG PO ×3 (07:45→21:01)
[2018-01-06] MEDS: Aspirin E.C. 325 MG Tablet PO (07:46)
[2018-01-06] MEDS: amLODIPine 10 MG Tablet PO (09:16)
[2018-01-06] MEDS: APIXABAN 5 MG TABLET PO ×2 (09:16→21:01)
[2018-01-06] MEDS: Carvedilol 12.5 MG Tablet PO ×2 (09:16→21:01)
[2018-01-06] MEDS: HYDROCHLOROTHIAZIDE 12.5 MG CAPSULE PO (09:16)
[2018-01-06] MEDS: Lisinopril 40 MG Tablet PO (09:17)
[2018-01-06] MEDS: Pantoprazole Sodium 40 MG Tablet PO (09:17)
[2018-01-06] MEDS: Finasteride 5 MG Tablet PO (09:17)
[2018-01-06] MEDS: Clopidogrel Bisulfate 75 MG Tablet PO (09:17)
[2018-01-06] MEDS: Loratadine 10 MG Tablet PO (09:25)
--- NOTE | 2018-01-06 10:24 | CASEMGMT ---
Social Work Note SW received a message from Edilia with inpatient rehab stating that she is unable to accept pt. Per Lizzy GALVEZ FINAL BLOCK PRESS OPERATOR, pt's second choice is [facility]. SW will follow up with pt to confirm discharge plans. Plan: Placement for rehabilitation Laverne Hernandez RANGE MANAGEMENT SPECIALIST, FINAL BLOCK PRESS OPERATOR
--- NOTE | 2018-01-06 12:41 | PCM.PROGNOTE ---
Patient Problems: Active and Suspected Problems Physical debility (Acute) Failure to thrive (Acute) Subjective: Patient seen and examined. Resting in chair in no acute distress. Complains of being sore secondary to fall prior to admission. Complains of pain associated with left leg brace. Denies other complaints. - Physical Exam General: Alert, Oriented x3, Cooperative, No apparent distress HEENT: Atraumatic, PERRLA, EOMI, Normocephalic Neck: Supple, No JVD, Negative Carotid Bruits Lungs: Clear to auscultation, Diminished Cardiovascular: Regular rate, Regular Rhythm, Normal S1, Normal S2, No murmurs Abdomen: Bowel Sounds Present, Soft, Non Tender, Non-Distended, Obese Extremities: No clubbing, No cyanosis, Capillary Refill Less than 3 Seconds, Edema - Edema - Left hand and left lower extremity edema. Skin: - - Left knee abrasion Musculoskeletal: No Tenderness to Palpation of Joints or Extremities Neurological: Cranial nerves II-XII grossly intact, - - Facial Droop - Left, - - Left arm weakness, left leg weakness. Psych/Mental Status: Normal Affect, Appropriate Vital Signs Temp Pulse Resp BP Pulse Ox 97.5 F L 81 18 128/96 H 94 01/06/18 07:33 01/06/18 07:33 01/06/18 07:33 01/06/18 07:33 01/06/18 07:33 Oxygen Delivery Method Room Air Weight: 118.6 kg Body Mass Index (BMI) 35.4 Intake and Output for Last 24 Hours 01/04/18 01/05/18 01/06/18 23:59 23:59 23:59 Output Total 475 / 475 Balance -475 / -475 Medical Necessity - Tobacco Use Smoking Status: Never smoker Tobacco Use: Cigarettes Assessment/Plan Active and Suspected Problems Physical debility (Acute) Failure to thrive (Acute) Patient is a 57-year-old male admitted 01/05/2018 due to frequent falls. He has a past medical history of recent right parietal infarct secondary to right ICA occlusion, hypertension, hepatitis C, cervical spondylosis, left lacunar intracranial hemorrhage, GERD, BPH, asthma, chronic lower back pain, asthma, recent history of DVT. 1. Physical debility status post recent right parietal infarct secondary to right ICA occlusion with residual left-sided weakness-recently discharged from [facility]. Previously in rehab unit. Frequent falls since discharge from [facility]. Patient also has a reported former history of left lacunar intracranial hemorrhage. PT/OT. Case management consult for anticipated need for placement. Continue aspirin, statin, Plavix, Eliquis. Fall precautions. SNF pending pre-cert. 2. Recent right ICA occlusion status post angioplasty ?3 and stent-continue aspirin, statin, Plavix. 3. History of recent right lower extremity DVT-continue Eliquis. 4. Chronic lower back pain/cervical spondylosis/sciatica/L3-L5 disc bulge with mild canal narrowing- PT/OT. PRN pain regimen. Continue gabapentin regimen. 5. Chronic Asthma-no acute exacerbation. Albuterol aerosol as needed. 6. Hypertension-stable, continue home lisinopril, amlodipine, carvedilol, hydrochlorothiazide regimen. 7. Chronic hepatitis C 8. GERD-continue PPI. 9. BPH-continue home Proscar regimen. 10. Depression-continue home Lexapro regimen. 11. Obesity-diet and lifestyle modifications encouraged. DVT prophylaxis-Eliquis. Discharge planning-[facility] pending pre-cert. Patient was denied by rehab. This patient was seen by LOUIE Andino under the supervision of Dr. Garcia.
--- NOTE | 2018-01-06 13:26 | CASEMGMT ---
Social Work Note SW in to meet with pt to discuss discharge planning. SW introduced self and role at [facility]. SW informed pt that inpatient rehab is unable to accept pt again. Pt confirms that his second choice is [facility]. This SW informed pt that this worker will have to check with [facility] if they are in network with pt's insurance. At this time pt doesn't have a second or third choice for placement. SW provided pt with list of SNF in network with his insurance. Pt states that he will look over the list with his significant other and inform either this SW or the SW on the floor tomorrow what his second and third choices are. SW informed pt that this worker will check with [facility] regarding insurance. Pt states understanding. Pt denied additional needs or concerns at this time. CLARISSA placed a call to Kalie at [facility] and per Kalie they are not in network with pt's insurance. CLARISSA will update pt of this as time allows. SW on floor will continue to follow along for discharge planning. Plan: Placement for rehabilitation Lavenre Hernandez CONTRACT MAIL CARRIER, STUMMEL SELECTOR
[2018-01-06 14:24] VITALS: PULSE 78; RESP 18; TEMP 36.4; O2SAT 96
--- NOTE | 2018-01-06 16:14 | CHAPLAIN ---
Type of Pastoral Visit _x__ Initial Visit ___ Follow-up Visit ___ On-call Visit ___ General Patient Visit ___ Spiritual Assessment ___ Family Conference ___ Bereavement ___ Rapid Response ___ Code Blue ___ Other (describe below) Pastoral Care Referral From _x__ Patient ___ Family ___ Nurse ___ Physician ___ Handhole Machine Operator ___ Comfort Advisor ___ Other (describe below) Sacrament/Intervention _x__ Active listening ___ Anointing ___ Mosque ___ Bereavement ___ Communion _x__ Lali exploration ___ _x__ Life review _x__ Prayer ___ Reconciliation ___ Sacrament of Sick _x__ Supportive presence ___ Wedding ___ Other (describe below) Pastoral Comments
[2018-01-06 20:41] VITALS: BP 128/70; PULSE 74; RESP 20; TEMP 36.3; O2SAT 95
[2018-01-06] MEDS: Atorvastatin Calcium 80 MG Tablet PO (21:01)
[2018-01-07 02:41] VITALS: BP 120/61; PULSE 71; RESP 18; TEMP 36.8; O2SAT 92
[2018-01-07] MEDS: Acetaminophen 325 MG Tablet 650 MG PO ×2 (03:21→21:53)
--- NOTE | 2018-01-07 08:44 | PCM.PROGNOTE ---
Patient Problems: Active and Suspected Problems Physical debility (Acute) Failure to thrive (Acute) Subjective: Patient seen and examined. Sitting on edge of bed in no acute distress. States he feels depressed and frustrated with his disability/left-sided weakness. States therapy is working with him on adjusting assistive devices. Waiting facility acceptance for SNF. - Physical Exam General: Alert, Oriented x3, Cooperative HEENT: Atraumatic, PERRLA, EOMI, Normocephalic Neck: Supple, No JVD, Negative Carotid Bruits Lungs: Clear to auscultation, Diminished Cardiovascular: Regular rate, Regular Rhythm, Normal S1, Normal S2, No murmurs Abdomen: Bowel Sounds Present, Soft, Non Tender, Non-Distended, Obese Extremities: No clubbing, No cyanosis, Capillary Refill Less than 3 Seconds, Edema - Left hand and left lower extremity edema. Skin: No rashes, No breakdown Musculoskeletal: No Tenderness to Palpation of Joints or Extremities Neurological: Cranial nerves II-XII grossly intact, - - Facial Droop - Left, - - Left arm weakness, left leg weakness. Psych/Mental Status: Depressed Vital Signs Temp Pulse Resp BP Pulse Ox 98.3 F 71 18 120/61 92 01/07/18 02:41 01/07/18 02:41 01/07/18 02:41 01/07/18 02:41 01/07/18 02:41 Oxygen Delivery Method Room Air Weight: 118.6 kg Body Mass Index (BMI) 35.4 Intake and Output for Last 24 Hours 01/05/18 01/06/18 01/07/18 23:59 23:59 23:59 Intake Total 640 / 640 500 / 500 Output Total 475 / 475 1350 / 1350 Balance 165 / 165 -850 / -850 Medical Necessity - Tobacco Use Smoking Status: Never smoker Tobacco Use: Cigarettes Assessment/Plan Active and Suspected Problems Physical debility (Acute) Failure to thrive (Acute) Patient is a 57-year-old male admitted 01/05/2018 due to frequent falls. He has a past medical history of recent right parietal infarct secondary to right ICA occlusion, hypertension, hepatitis C, cervical spondylosis, left lacunar intracranial hemorrhage, GERD, BPH, asthma, chronic lower back pain, asthma, recent history of DVT. 1. Physical debility status post recent right parietal infarct secondary to right ICA occlusion with residual left-sided weakness-recently discharged from [facility]. Previously in rehab unit. Frequent falls since discharge from [facility]. Patient also has a reported former history of left lacunar intracranial hemorrhage. PT/OT. Case management consult for anticipated need for placement. Continue aspirin, statin, Plavix, Eliquis. Fall precautions. SNF pending pre-cert. 2. Recent right ICA occlusion status post angioplasty ?3 and stent-continue aspirin, statin, Plavix. 3. History of recent right lower extremity DVT-continue Eliquis. 4. Chronic lower back pain/cervical spondylosis/sciatica/L3-L5 disc bulge with mild canal narrowing- PT/OT. PRN pain regimen. Continue gabapentin regimen. 5. Chronic Asthma-no acute exacerbation. Albuterol aerosol as needed. 6. Hypertension-stable, continue home lisinopril, amlodipine, carvedilol, hydrochlorothiazide regimen. 7. Chronic hepatitis C 8. GERD-continue PPI. 9. BPH-continue home Proscar regimen. 10. Depression-continue home Lexapro regimen. 11. Obesity-diet and lifestyle modifications encouraged. DVT prophylaxis-Eliquis. Discharge planning-Patient was denied by rehab. CM working on other arrangements. This patient was seen by LOUIE Andino under the supervision of Dr. Rabago.
[2018-01-07 08:49] VITALS: BP 136/85; PULSE 76; RESP 18; TEMP 36.4; O2SAT 95
[2018-01-07] MEDS: Aspirin E.C. 325 MG Tablet PO (08:53)
[2018-01-07] MEDS: Lisinopril 40 MG Tablet PO (08:53)
[2018-01-07] MEDS: HYDROCHLOROTHIAZIDE 12.5 MG CAPSULE PO (08:53)
[2018-01-07] MEDS: Clopidogrel Bisulfate 75 MG Tablet PO (08:53)
[2018-01-07] MEDS: Pantoprazole Sodium 40 MG Tablet PO (08:53)
[2018-01-07] MEDS: amLODIPine 10 MG Tablet PO (08:53)
[2018-01-07] MEDS: Carvedilol 12.5 MG Tablet PO ×2 (08:53→21:53)
[2018-01-07] MEDS: Finasteride 5 MG Tablet PO (08:54)
[2018-01-07] MEDS: APIXABAN 5 MG TABLET PO ×2 (08:54→21:53)
--- NOTE | 2018-01-07 09:53 | CASEMGMT ---
Addendum entered by Lydia Figueroa 01/07/18 14:23: [facility] can take pt and will start precert. SW let pt know, he is agreeable. Pt asked if they have a walker with the platform that he used here, as he feels he can move better with this. SW explained will ask. SW spoke w/Melyssa at [facility], they do have platform walkers. SW let pt know. SW will continue to follow, plan is for [facility] pending precert. FAISAL Grey, TEST FIXTURE ASSEMBLER Original Note: Addendum entered by Lydia Figueroa 01/07/18 13:23: SW received message from Shyla at [facility], they do not have any beds available. SW called [facility] again, they do have beds, SW refaxed referral as it did not go through initially(their phones were down earlier). SW will continue to follow. FAISAL Grey, TEST FIXTURE ASSEMBLER Original Note: Addendum entered by Lydia Figueroa 01/07/18 10:40: SW spoke w/Shyla at [facility], the referral is being reviewed and they are also looking at bed availability, she is to let this SW know. SW called [facility], nobody answered phone, SW did fax referral to [facility] also in event [facility] does not have a bed or cannot take pt. FAISAL Grey, TEST FIXTURE ASSEMBLER Original Note: SW spoke with pt in room in regard to other longterm choices, as [facility] does not take pt's insurance. Pt would like referral sent to 1. [facility] if they take his insurance, 2. [facility] or 3. [facility]. SW called [facility], message left. SW checked the [facility] website and as per the website [facility] does take pt's insurance. SW called again for fax number and faxed referral. SW will await return call from [facility] regarding whether or not they can take pt. FAISAL Grey, TEST FIXTURE ASSEMBLER
[2018-01-07 15:53] VITALS: BP 111/78; PULSE 84; RESP 16; TEMP 36.4; O2SAT 95
[2018-01-07 20:54] VITALS: BP 120/65; PULSE 73; RESP 18; TEMP 36.8; O2SAT 95
[2018-01-07] MEDS: Atorvastatin Calcium 80 MG Tablet PO (21:53)
[2018-01-08 02:54] VITALS: BP 129/68; PULSE 77; RESP 18; TEMP 36.5; O2SAT 96
[2018-01-08] MEDS: Acetaminophen 325 MG Tablet 650 MG PO (03:20)
--- NOTE | 2018-01-08 09:01 | PCM.PROGNOTE ---
Patient Problems: Active and Suspected Problems Physical debility (Acute) Failure to thrive (Acute) Subjective: She was seen and examined today, he is sitting up eating breakfast and has no complaints. We are continuing to wait for approval for him to be transferred to a [facility] facility. - Physical Exam General: Alert, Oriented x3, Cooperative, No apparent distress, Well developed, Well nourished HEENT: Atraumatic, PERRLA, EOMI, Normocephalic Oral: Moist Mucosa Neck: Supple, No JVD, No Nuchal Rigidity, Trachea Midline, Thyroid Normal Size and Texture Lungs: Clear to auscultation, Normal air movement, No rhonchi, No wheeze, No rales Cardiovascular: Regular rate, Regular Rhythm, Normal S1, Normal S2, No murmurs, No Ectopic Activity Abdomen: Bowel Sounds Present, Soft, Non Tender, Non-Distended, Obese Extremities: Capillary Refill Less than 3 Seconds Skin: No rashes, No breakdown Musculoskeletal: No Tenderness to Palpation of Joints or Extremities Neurological: Cranial nerves II-XII grossly intact, Sensory exam intact to light touch and pain, - - Has left hemiparesis Psych/Mental Status: Normal Affect, Appropriate, Alert and oriented to time, place, person, mood and affect Vital Signs Temp Pulse Resp BP Pulse Ox 97.7 F L 77 18 129/68 H 96 01/08/18 02:54 01/08/18 02:54 01/08/18 02:54 01/08/18 02:54 01/08/18 02:54 Oxygen Delivery Method Room Air Weight: 118.6 kg Body Mass Index (BMI) 35.4 Intake and Output for Last 24 Hours 01/06/18 01/07/18 01/08/18 23:59 23:59 23:59 Intake Total 640 / 640 1500 / 1500 500 / 500 Output Total 475 / 475 1650 / 1650 675 / 675 Balance 165 / 165 -150 / -150 -175 / -175 Medical Necessity - Tobacco Use Smoking Status: Never smoker Tobacco Use: Cigarettes Assessment/Plan Active and Suspected Problems Physical debility (Acute) Failure to thrive (Acute) #1 generalized debility secondary to recent ischemic stroke-continue PT OT, await approval for [facility]p facility transfer #2 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
--- NOTE | 2018-01-08 09:05 | PN_ITS ---
Patient Problems: Active and Suspected Problems Physical debility (Acute) Failure to thrive (Acute) Subjective: She was seen and examined today, he is sitting up eating breakfast and has no complaints. We are continuing to wait for approval for him to be transferred to a longterm facility. - Physical Exam General: Alert, Oriented x3, Cooperative, No apparent distress, Well developed, Well nourished HEENT: Atraumatic, PERRLA, EOMI, Normocephalic Oral: Moist Mucosa Neck: Supple, No JVD, No Nuchal Rigidity, Trachea Midline, Thyroid Normal Size and Texture Lungs: Clear to auscultation, Normal air movement, No rhonchi, No wheeze, No rales Cardiovascular: Regular rate, Regular Rhythm, Normal S1, Normal S2, No murmurs, No Ectopic Activity Abdomen: Bowel Sounds Present, Soft, Non Tender, Non-Distended, Obese Extremities: Capillary Refill Less than 3 Seconds Skin: No rashes, No breakdown Musculoskeletal: No Tenderness to Palpation of Joints or Extremities Neurological: Cranial nerves II-XII grossly intact, Sensory exam intact to light touch and pain, - - Has left hemiparesis Psych/Mental Status: Normal Affect, Appropriate, Alert and oriented to time, place, person, mood and affect Vital Signs Temp Pulse Resp BP Pulse Ox 97.7 F L 77 18 129/68 H 96 01/08/18 02:54 01/08/18 02:54 01/08/18 02:54 01/08/18 02:54 01/08/18 02:54 Oxygen Delivery Method Room Air Weight: 118.6 kg Body Mass Index (BMI) 35.4 Intake and Output for Last 24 Hours 01/06/18 01/07/18 01/08/18 23:59 23:59 23:59 Intake Total 640 / 640 1500 / 1500 500 / 500 Output Total 475 / 475 1650 / 1650 675 / 675 Balance 165 / 165 -150 / -150 -175 / -175 Medical Necessity - Tobacco Use Smoking Status: Never smoker Tobacco Use: Cigarettes Assessment/Plan Active and Suspected Problems Physical debility (Acute) Failure to thrive (Acute) #1 generalized debility secondary to recent ischemic stroke-continue PT OT, await approval for longterm facility transfer #2 cerebrovascular disease with recent right ICA occlusion with resultant angioplasty and stent #3 recent right lower extremity DVT-continue treatment with Eliquis #4 chronic low back pain secondary to degenerative disc disease of the lumbar spine #5 hypertension #6 depression Code Visit Inpatient E&M: 44178 Subs Hosp L2
[2018-01-08] MEDS: Aspirin E.C. 325 MG Tablet PO (09:50)
[2018-01-08] MEDS: Carvedilol 12.5 MG Tablet PO (09:51)
[2018-01-08] MEDS: HYDROCHLOROTHIAZIDE 12.5 MG CAPSULE PO (09:51)
[2018-01-08] MEDS: Lisinopril 40 MG Tablet PO (09:51)
[2018-01-08] MEDS: Pantoprazole Sodium 40 MG Tablet PO (09:51)
[2018-01-08] MEDS: Clopidogrel Bisulfate 75 MG Tablet PO (09:51)
[2018-01-08] MEDS: amLODIPine 10 MG Tablet PO (09:51)
[2018-01-08] MEDS: APIXABAN 5 MG TABLET PO (09:52)
[2018-01-08] MEDS: Finasteride 5 MG Tablet PO (09:52)
[2018-01-08 09:53] VITALS: BP 126/53; PULSE 86; RESP 18; TEMP 36.8; O2SAT 98
--- NOTE | 2018-01-08 13:23 | CASEMGMT ---
Addendum entered by Lydia Figueroa 01/08/18 14:15: CLARISSA faxed all discharge instructions to [facility], set up a 2:30pm ambulette w/Leslie [facility]. CLARISSA let pt, RN here, and [facility] know time of transport, no further needs are anticipated. FAISAL Grey, LEATHER FINISHER Original Note: SW spoke w/Melyssa, pt has been approved to go to [facility] today. CLARISSA texted physician to let him know. SW completed PAS/RR, faxed it with results to [facility]. CLARISSA let pt know that he has been authorized by insurance to go to [facility] today, and will set up transport once physician completes the discharge instructions. Once instructions complete, CLARISSA will fax to [facility] and set up transport. FAISAL Grey, LEATHER FINISHER
--- NOTE | 2018-01-08 13:55 | PCM.TXEXTCAR ---
- Diet regular - Wound(s) left knee Wound Type: Abrasion - Therapies Weight Bearing: Weight bearing as tolerated Extremity Affected:: Left Upper Physical Therapy: Eval and Treat Occupational Therapy: Eval and Treat - Problem/Diagnosis (1) CVA (cerebral vascular accident) Status: Chronic Current Visit: Yes (2) HTN (hypertension) Status: Chronic Current Visit: Yes (3) GERD (gastroesophageal reflux disease) Status: Chronic Current Visit: Yes (4) Chronic back pain Status: Chronic Current Visit: Yes (5) Physical debility Status: Acute Current Visit: Yes (6) BPH (benign prostatic hyperplasia) Status: Chronic Current Visit: Yes - Allergies/Procedures Done in Hospital Allergies/Adverse Reactions: Allergies Iodinated Contrast- Oral and IV Dye Allergy (Verified 01/05/18 12:02) Hives perfume Allergy (Verified 01/05/18 12:02) Other pollen extracts Allergy (Verified 01/05/18 12:02) Other Procedures: None - Type of Care/Length of Stay Estimated LOS: Convalescent Care Less Than 30 days Type of Care Needed: Skilled Rehab Potential: Good Prognosis: Good - Additional Orders/Day of Discharge Additional Orders: Pt would benefit from using walker w/left platform with PT H&P will serve as current which was dated: 01/05/18 Day of Discharge: 01/08/18 - Follow Up Care Primary Care Physician: Milton Rod,Out of [NON-STAFF] -
[2018-01-08 14:27] VITALS: BP 144/88; PULSE 79; RESP 18; TEMP 36.9; O2SAT 95
--- NOTE | 2018-01-08 14:38 | NURSING ---
dilan placed to [facility], Report given to [employer]ICER who will be taking over pt care
--- NOTE | 2018-01-08 17:33 | PCM.DC.SUM ---
Discharge Date and Diagnosis Date of Admission: 01/05/18 Date of Discharge: 01/08/18 - Primary Discharge Diagnosis #1 generalized debility secondary to recent ischemic stroke #2 cerebrovascular disease with recent right internal carotid artery occlusion and resultant angioplasty and stent #3 recent right lower extremity DVT #4 chronic low back pain secondary to degenerative disc disease of the lumbar spine #5 hypertension #6 depression #7 left-sided weakness secondary to recent ischemic stroke - Secondary Discharge Diagnosis Chronic Problems CVA (cerebral vascular accident) (Chronic) HTN (hypertension) (Chronic) Hepatitis C (Chronic) Cervical spondylosis (Chronic) GERD (gastroesophageal reflux disease) (Chronic) Asthma (Chronic) Chronic back pain (Chronic) BPH (benign prostatic hyperplasia) (Chronic) Hospital Course and Treatment Operations: None Procedures: None Summary of Care Provided: The patient is a 57 year old M was seen in the emergency room at [facility] with a complaint of multiple falls at home. Patient had recently been hospitalized for stroke and had subsequently then gone to a rehab unit and was released recently from the rehab unit. Workup in the emergency room included x-rays of the shoulder chest ribs hip knee and ankle as well as CT of the brain. All these were negative for any acute abnormalities, due to the fact the patient was not doing well at his assisted living facility, he requested [facility]iary placement. Patient was placed and observation status on [facility], he was seen by PT and OT and after several days, approval was obtained for the patient to go to a senior care facility for continued rehab. On 01/08/18, patient was seen and examined and felt to be in stable condition for discharge to a senior care facility. Home Medications: Medications to take at Discharge Acetaminophen [Tylenol] 650 mg PO Q4H PRN PRN 10/02/17 Albuterol Inhaler [Ventolin Hfa] 2 puff INHALATION Q4H PRN PRN 10/02/17 Atorvastatin Calcium 80 mg PO QHS 10/02/17 Clopidogrel Bisulfate [Plavix] 75 mg PO DAILY 10/02/17 Pantoprazole Sodium [Protonix] 40 mg PO DAILY 10/02/17 Nitroglycerin [Nitrostat] 0.4 mg SUBLINGUAL Q5M PRN tablet 11/28/17 Amlodipine [Norvasc] 10 mg PO DAILY 01/05/18 Apixaban [Eliquis] 5 mg PO BID 01/05/18 Aspirin [Aspirin EC] 325 mg PO DAILY 01/05/18 Carvedilol [Coreg (Beta Espinoza)] 12.5 mg PO BID 01/05/18 Finasteride [Proscar] 5 mg PO DAILY 01/05/18 Hydrochlorothiazide 12.5 mg PO DAILY 01/05/18 Lisinopril [Zestril] 40 mg PO DAILY 01/05/18 Loratadine [Claritin] 10 mg PO DAILY PRN PRN tablet 01/08/18 Primary Care Physician: Milton Doctor,Out of [NON-STAFF] - Disposition: Assisted facility Minutes spent on discharge:: 30 Patient Condition:: Stable Medical Necessity - Tobacco Use Smoking Status: Never smoker Tobacco Use: Cigarettes Meaningful Use Info Meaningful Use Diagnoses (Choose all that apply): None applicable Code Visit OBSV E&M: 88030 Observation care discharge
--- NOTE | 2018-01-08 17:38 | DS.PCM_ITS ---
Discharge Date and Diagnosis Date of Admission: 01/05/18 Date of Discharge: 01/08/18 - Primary Discharge Diagnosis #1 generalized debility secondary to recent ischemic stroke #2 cerebrovascular disease with recent right internal carotid artery occlusion and resultant angioplasty and stent #3 recent right lower extremity DVT #4 chronic low back pain secondary to degenerative disc disease of the lumbar spine #5 hypertension #6 depression #7 left-sided weakness secondary to recent ischemic stroke - Secondary Discharge Diagnosis Chronic Problems CVA (cerebral vascular accident) (Chronic) HTN (hypertension) (Chronic) Hepatitis C (Chronic) Cervical spondylosis (Chronic) GERD (gastroesophageal reflux disease) (Chronic) Asthma (Chronic) Chronic back pain (Chronic) BPH (benign prostatic hyperplasia) (Chronic) Hospital Course and Treatment Operations: None Procedures: None Summary of Care Provided: The patient is a 57 year old M was seen in the emergency room at [facility] with a complaint of multiple falls at home. Patient had recently been hospitalized for stroke and had subsequently then gone to a rehab unit and was released recently from the rehab unit. Workup in the emergency room included x-rays of the shoulder chest ribs hip knee and ankle as well as CT of the brain. All these were negative for any acute abnormalities, due to the fact the patient was not doing well at his assisted living facility, he requested residential placement. Patient was placed and observation status on [facility], he was seen by PT and OT and after several days, approval was obtained for the patient to go to a senior living facility for continued rehab. On , patient was seen and examined and felt to be in stable condition for discharge to a senior living facility. Home Medications: Medications to take at Discharge Acetaminophen [Tylenol] 650 mg PO Q4H PRN PRN 10/02/17 Albuterol Inhaler [Ventolin Hfa] 2 puff INHALATION Q4H PRN PRN 10/02/17 Atorvastatin Calcium 80 mg PO QHS 10/02/17 Clopidogrel Bisulfate [Plavix] 75 mg PO DAILY 10/02/17 Pantoprazole Sodium [Protonix] 40 mg PO DAILY 10/02/17 Nitroglycerin [Nitrostat] 0.4 mg SUBLINGUAL Q5M PRN tablet 11/28/17 Amlodipine [Norvasc] 10 mg PO DAILY 01/05/18 Apixaban [Eliquis] 5 mg PO BID 01/05/18 Aspirin [Aspirin EC] 325 mg PO DAILY 01/05/18 Carvedilol [Coreg (Beta Espinoza)] 12.5 mg PO BID 01/05/18 Finasteride [Proscar] 5 mg PO DAILY 01/05/18 Hydrochlorothiazide 12.5 mg PO DAILY 01/05/18 Lisinopril [Zestril] 40 mg PO DAILY 01/05/18 Loratadine [Claritin] 10 mg PO DAILY PRN PRN tablet 01/08/18 Primary Care Physician: Milton Doctor,Out of [NON-STAFF] - Disposition: Alf facility Minutes spent on discharge:: 30 Patient Condition:: Stable Medical Necessity - Tobacco Use Smoking Status: Never smoker Tobacco Use: Cigarettes Meaningful Use Info Meaningful Use Diagnoses (Choose all that apply): None applicable Code Visit OBSV E&M: 38289 Observation care discharge
== END 2018-01-08 14:28 | disposition skilled nursing facility (03) ==
LOC: ED 15:50 → MS2 16:43
PROVIDERS: Emergency Provider Emergency Medicine; Family Provider Internal Medicine; PCP Internal Medicine; Visit Provider Internal Medicine
DX: R53.81 Other malaise (principal); I69.354 Hemiplegia and hemiparesis following cerebral infarction affecting left non-dominant side; R29.6 Repeated falls; I10 Essential (primary) hypertension; K21.9 Gastro-esophageal reflux disease without esophagitis; J45.909 Unspecified asthma, uncomplicated; N40.0 Benign prostatic hyperplasia without lower urinary tract symptoms; Z79.899 Other long term (current) drug therapy; Z79.82 Long term (current) use of aspirin; Z79.01 Long term (current) use of anticoagulants; I69.392 Facial weakness following cerebral infarction; G89.29 Other chronic pain; Z86.718 Personal history of other venous thrombosis and embolism; B18.2 Chronic viral hepatitis C; M47.896 Other spondylosis, lumbar region; E66.9 Obesity, unspecified; Z68.35 Body mass index [BMI] 35.0-35.9, adult; Z71.3 Dietary counseling and surveillance; F32.9 Major depressive disorder, single episode, unspecified; R62.7 Adult failure to thrive; F41.9 Anxiety disorder, unspecified; S80.212A Abrasion, left knee, initial encounter; W19.XXXA Unspecified fall, initial encounter; Y93.9 Activity, unspecified; Y92.9 Unspecified place or not applicable
CPT/HCPCS: 70450; 71101; 72125; 73030; 73502; 73564; 73610; 97110; 97116; 97162; 97165; 97530; 99218; 99281; 99406; G0378

== ENCOUNTER 2020-06-05 13:30 | Observation (INO) | payer MEDICARE, MEDICAID, SELFPAY ==
[2020-06-05] VITALS (11 sets, daily range): BP systolic 151–165; BP diastolic 85–107; PULSE 20–94; RESP 16–18; TEMP 36.4–36.9; O2SAT 94–97; BMI 38.6; BMI 34.9; BMI 34.6
--- NOTE | 2020-06-05 13:55 | EKG12_ITS ---
Test Reason : CP Blood Pressure : / mmHG Vent. Rate : 079 BPM Atrial Rate : 079 BPM P-R Int : 164 ms QRS Dur : 100 ms QT Int : 418 ms P-R-T Axes : 065 -37 035 degrees QTc Int : 479 ms Normal sinus rhythm Left axis deviation Incomplete right bundle branch block Abnormal ECG Confirmed by JOSELITO LOYA, EKATERINA ([id number]), editor index BRENT SANTIAGO ([id number]) on 06/12/2020 8:39:09 A M Referred By: WINSTON/JOSETTE Confirmed By:MATILDE YEE MD
--- NOTE | 2020-06-05 14:09 | ED.DCSUM_ITS ---
History of Present Illness Chief Complaint: Chest Pain Informant: Patient, EMS Onset: Today Activity at onset: Rest Timing: Intermittent Quality: Sharp Location: Substernal - Substernal/subxiphoid with radiation to left shoulder down to his fingers Current Severity: Mild Maximum Severity: Severe Worsened By: Nothing Relieved By: Nothing Associated Symptoms: Nausea, Diaphoresis, Dyspnea, Lightheadedness. Negative for: Cough, Fever, Acid Reflux, Palpitations Narrative: Patient is a 60-year-old male with history hypertension, hypercholesterolemia status post CVA August 2019 who presents with subxiphoid/sob sternal sharp discomfort that radiates to the left shoulder down to his fingers associated with diaphoresis, dyspnea and nausea. He states he walked to his mother's bedroom. Lie down. Upon arising he felt weird. States he had altered sensation of his left leg, which she was told was due to the stroke and regeneration of sensory fibers. He has had additional episodes since first episode of chest discomfort which occurred between 11:30 AM and 12 noon. The first episode was associated with dyspnea and diaphoresis. Subsequent episodes have not been associated with diaphoresis. Patient has no known coronary artery disease. He was a smoker of 1+ pack per day since the age of 16. He quit last year. He does report history of GERD. He states this is not so much of the pain he experiences with GERD. He denies black or maroon stool. He denies any current respiratory symptoms. States he had recent pulmonary function tests which were surprisingly better than expected . Patient reports persistent motor weakness and altered sensation left side due to prior stroke. He informed that he is not wearing his leg brace or his arm brace. CVD Risk Factors: Hypertension, Hypercholesterolemia, Smoking TAD Risk Factors: Hypertension. Negative for: Marfan's Syndrome, Family History - Past Medical History (1) Asthma Status: Chronic (2) BPH (benign prostatic hyperplasia) Status: Chronic (3) CVA (cerebral vascular accident) Status: Chronic (4) Chronic back pain Status: Chronic (5) GERD (gastroesophageal reflux disease) Status: Chronic (6) HTN (hypertension) Status: Chronic (7) Hepatitis C Status: Chronic Past Medical History - Allergies and Home Meds Allergies/Adverse Reactions: Allergies Iodinated Contrast Media [Iodinated Contrast- Oral and IV Dye] Allergy (Verified 06/05/20 13:40) Hives perfume Allergy (Verified 06/05/20 13:40) Other pollen extracts Allergy (Verified 06/05/20 13:40) Other Primary Care Physician: Selene García MD [Primary Care Provider] - Prior records reviewed: Yes Surgical History: herniorrhaphy, - Lives: With Family Smoking Status: Former smoker Alcohol: Rare Drugs: None - Family History Paternal Family History: Reports: Hypertension Maternal Family History: Reports: No pertinent history Review of Systems General: Denies: Chills, Fever, Malaise, Subjective Eyes: Denies: Visual changes - bilaterally, Blurred Vision - bilaterally ENT: Denies: Rhinorrhea, Sore throat Cardiovascular: Reports: Chest pain. Denies: Palpitations Respiratory: Reports: Dyspnea. Denies: Cough, Dyspnea on exertion Gastrointestinal: Reports: Nausea. Denies: Abdominal pain, Vomiting, Diarrhea Genitourinary: Denies: Dysuria, Hematuria Musculoskeletal: Reports: Extremity Pain. Denies: Myalgias, Arthralgias, Neck pain, Back pain, Swelling Skin: Denies: Rash, Wounds Neurological: Reports: Weakness, Parasthesia Psych: Denies: Depression Hematologic: Denies: Easy bruising, Easy bleeding Physical Exam Vital Signs/Narrative: Vital Signs Temp Pulse Resp BP Pulse Ox 06/05/20 13:57 97 06/05/20 13:32 98.2 F 83 18 151/93 H 96 Inital Vital Signs reviewed: Yes General: Well nourished, Well developed, Obese, No Acute Distress Head: Normocephalic, Atraumatic Eyes: Perrl, EOMI ENT: Moist mucous membranes, No rhinorrhea Neck: Supple, Nontender Cardiovascular: Regular rate, Regular rhythm, No murmurs, Normal S1, Normal S2 Respiratory: No distress, CTA bilaterally, Chest nontender Abdomen: Soft, Nontender, Nondistended, Normal bowel sounds Back: Nontender, Normal Inspection Extremities: Nontender, No edema Skin: Normal color, No rash Neurological: Alert, Oriented x3. Negative for: Cranial nerves II-XII grossly intact, Normal Strength, Normal Sensation Psychological: Normal affect, Normal Mood Diagnostic/Tx/Re-eval Impressions Chest X-Ray 06/05/20 14:30 IMPRESSION: Borderline cardiomegaly. Hyperinflation. Electronically Signed: Jose Luis Jackson, at 14:45 EDT , Service support , 06/05/20 14:30 Chest 1 View (Portable) [RAD] Stat Laboratory Results 06/05/20 06/05/20 14:04 14:04 WBC 6.7 RBC 4.42 L Hgb 13.6 Hct 40.1 MCV 90.7 MCH 30.8 MCHC 33.9 RDW Std Deviation 48.7 H RDW Coeff of Edith 14.7 H Plt Count 226 MPV 9.7 Immature Gran % (Auto) 0.300 Neut % (Auto) 67.7 Lymph % (Auto) 21.6 Jerome % (Auto) 8.9 Eos % (Auto) 1.2 Baso % (Auto) 0.3 Absolute Neuts (auto) 4.5 Absolute Lymphs (auto) 1.44 Nucleated RBC % 0 Sodium 141 Potassium 3.1 L Chloride 106 Carbon Dioxide 31.0 Anion Gap 4 L BUN 15 Creatinine 0.96 Estim Creat Clear Calc 90.94 Est GFR (MDRD) Af Amer 103 Est GFR (MDRD) Non-Af 85 BUN/Creatinine Ratio 15.6 Glucose 94 Calcium 8.8 Troponin I < 0.015 States he had a stress test August 2019. He did not have cardiac symptoms. He had a stress test because he had elevated blood pressure. Stress test was not for cardiac evaluation i.e. chest pain, dyspnea on exertion etc. It was because of elevated blood pressure. The hospitalist was paged for serial enzymes and further work-up. - EKG Initial EKG Interpretation: Sinus Rhythm - Sinus rhythm with a ventricular rate of 79. MN interval is 164 ms. QRS duration 100 ms. QT duration 418 ms. QRS has configuration of incomplete right bundle branch block. [place] is to the left. Treatment: Aspirin - Medical Decision Making Presents with chest discomfort. Differential diagnosis includes cardiac ischemia, GERD, peptic ulcer disease, esophageal spasm pulmonary. Work-up included EKG, chest x-ray and appropriate blood work. He did receive aspirin. ED Disposition - Plan for ED Patient: Disposition: Acute Care Hospital [facility] Diagnosis: Chest pain Referrals: Selene García MD [Primary Care Provider] -
[2020-06-05 14:21] LABS: Absolute Lymphocyte Count 1.44 X10^3/uL (0.83-4.51); Absolute Neutrophil Count 4.5 X10^3/uL (2.0-7.7); Basophil# 0.02 X10^3/uL; Basophil% 0.3 % (0-1); Eosinophil# 0.08 X10^3/uL; Eosinophils% 1.2 % (0-5); Hematocrit 40.1 % (40-54); Hemoglobin 13.6 g/dL (13.0-16.5); Lymphocyte # 1.44 X10^3/ul (4.0); Lymphocyte % 21.6 % (19-41); Mean Corp Hgb Conc 33.9 g/dL (32-36); Mean Corpuscular Hgb 30.8 pg (27.0-32.0); Mean Corpuscular Volume 90.7 fL (80-94); Mean Platelet Vol. 9.7 fl (6.2-12.0); Monocyte# 0.59 X10^3/uL; Monocyte% 8.9 % (0-10); NRBC Flagged by Analyzer 0 % (0-5); Neutrophil # 4.51 X10^3/uL (2.7-7.7); Neutrophil % 67.7 % (47-70); Platelet Count 226 K/mm3 (150-450); RBC Distribution Width CV 14.7 % (11.6-14.6); RBC Distribution Width SD 48.7 fl (35.1-43.9); Red Blood Count 4.42 M/mm3 (4.6-6.2); White Blood Count 6.7 K/mm3 (4.4-11.0)
--- NOTE | 2020-06-05 14:30 | RAD_ITS ---
STUDY: X-RAY CHEST REASON FOR EXAM: Male, 60 years old. C/O CP AND ABD PAIN X 2 HOURS RADIATING DOWN LEFT ARM, DIZZINESS TECHNIQUE: Single AP portable view of the chest. COMPARISON: None. FINDINGS: EKG electrodes are seen. Hyperinflation. There is no demonstrated pleural abnormality. There is borderline cardiomegaly. Normal mediastinum and renetta. Normal visualized pulmonary arteries. Normal visualized aortic arch and descending thoracic aorta. There are diffuse degenerative changes of the visualized thoracic spine. Normal visualized ribs, clavicles, and shoulders. There is no demonstrated abnormality of the visualized soft tissue structures of the upper abdomen. RAD/Chest 1 View (Portable) IMPRESSION: Borderline cardiomegaly. Hyperinflation. Electronically Signed: Jose Luis Jackson, at 14:45 EDT , Service support ,
[2020-06-05 14:37] LABS: Anion Gap 4 (5-15); BUN 15 mg/dL (7-18); BUN/Creat Ratio 15.6 RATIO (10-20); Calcium,Total 8.8 mg/dL (8.5-10.1); Chloride 106 mmol/L (98-107); Creatinine, Serum 0.96 mg/dL (0.70-1.30); EST Glomerular Filtration Rate 85 mL/min (>60); Est Glom Filt Rate - Afr Amer 103 mL/min (>60); Estimated Creatinine Clearance 90.94 ml/min; Glucose 94 mg/dL (74-106); Potassium 3.1 mmol/L (3.5-5.1); Sodium Level 141 mmol/L (136-145)
--- NOTE | 2020-06-05 15:42 | HP.PCM_ITS ---
Problem List (1) Chest pain Status: Acute (2) CVA (cerebral vascular accident) Status: Chronic (3) HTN (hypertension) Status: Chronic (4) GERD (gastroesophageal reflux disease) Status: Chronic (5) Chronic back pain Status: Chronic (6) BPH (benign prostatic hyperplasia) Status: Chronic History of Present Illness Date of Admission: 06/05/20 Chief Complaint: Chest pain. The patient is a 60 year old M with past medical history as mentioned above presented to the emergency room because of chest pain. Symptoms started this morning around 11 AM, retrosternal chest pain, started at rest, sharp, 7 out of 10 in severity, radiates to the left shoulder and left upper arm, associated with dizziness, diaphoresis as well as nausea and without aggravating or relieving factors. He mentioned that occasionally, the pain starts down to his left leg when he had the stroke, goes up to the left side of his body, his chest and into his. Pain has been intermittent and associated with significant dizziness and lightheadedness. He denies syncope or presyncope. He mentioned that he had a nuclear stress test beginning of 2019 at [facility] and he mentioned that he was informed the stress test was normal. In the emergency department, his blood pressure was left elevated, other vital signs were stable. Routine blood work was remarkable for potassium of 3.1, otherwise normal. Chest x-ray showed mild cardiomegaly, no acute findings. EKG revealed normal sinus rhythm, normal TN interval, normal QRS, no acute acute changes. Troponin is negative. He is being admitted for atypical chest pain for evaluation. Past Medical History Past Medical History (Chronic Problems): Chronic Problems CVA (cerebral vascular accident) (Chronic) HTN (hypertension) (Chronic) Hepatitis C (Chronic) Cervical spondylosis (Chronic) GERD (gastroesophageal reflux disease) (Chronic) Asthma (Chronic) Chronic back pain (Chronic) BPH (benign prostatic hyperplasia) (Chronic) Allergies Iodinated Contrast Media [Iodinated Contrast- Oral and IV Dye] Allergy (Verified 06/05/20 13:40) Hives perfume Allergy (Verified 06/05/20 13:40) Other pollen extracts Allergy (Verified 06/05/20 13:40) Other Home Medications: Ambulatory Orders Medication Instructions Recorded Acetaminophen [Tylenol] 650 mg PO Q4H PRN PRN 10/02/17 Albuterol Inhaler [Ventolin Hfa] 2 puff INHALATION Q4H PRN PRN 10/02/17 Atorvastatin Calcium 80 mg PO QHS 10/02/17 Clopidogrel Bisulfate [Plavix] 75 mg PO DAILY 10/02/17 Pantoprazole Sodium [Protonix] 40 mg PO DAILY 10/02/17 Nitroglycerin (INPATIENT USE) 0.4 mg SUBLINGUAL Q5M PRN tablet 11/28/17 [Nitrostat] Amlodipine [Norvasc] 10 mg PO DAILY 01/05/18 Apixaban [Eliquis] 5 mg PO BID 01/05/18 Aspirin [Aspirin EC] 325 mg PO DAILY 01/05/18 Carvedilol [Coreg (Beta Espinoza)] 12.5 mg PO BID 01/05/18 Finasteride [Proscar] 5 mg PO DAILY 01/05/18 Lisinopril [Zestril] 40 mg PO DAILY 01/05/18 hydroCHLOROthiazide 12.5 mg PO DAILY 01/05/18 [Hydrochlorothiazide] Loratadine [Claritin] 10 mg PO DAILY PRN PRN tablet 01/08/18 Surgical History: herniorrhaphy, - Psychiatric History: Anxiety, Depression Lives: With Family Smoking Status: Former smoker Alcohol: Rare Drugs: None - *Family History Maternal History Items: No pertinent history Paternal History Items: Hypertension Review of Systems Constitutional: Denies: Anorexia, Chills, Fever, Weakness Eyes: Denies: Blurred vision, Double vision, Drainage, Redness HEENT: Denies: Difficulty Hearing, Ear Pain, Eye Pain, Nasal Congestion, Sore Throat Cardiovascular: Reports: Chest Pain, Light Headedness. Denies: Chest Pressure, Chest Tightness, Edema, Orthopnea, Paroxysmal Noc. Dyspnea, Syncope Respiratory: Reports: Shortness of Breath. Denies: Cough, Hemoptysis, Pleuritic Pain, Sputum production, Wheezing Gastrointestinal: Denies: Abdominal Pain, Constipation, Diarrhea, Nausea, Vomiting Genitourinary: Denies: Dysuria, Frequency, Hematuria Musculoskeletal: Denies: Arm Pain, Back Pain, Foot Pain Skin: Denies: Dryness, Rash Neurological: Denies: Balance problems, Double vision, Change in Speech, Slurred speech, Confusion, Incoordination, Numbness, Tingling Psychiatric: Denies: Anxiety, Depression Endocrine: Denies: Change in Body Habitus, Polydipsia, Polyuria VTE Information - Inpt Only VTE Present on Admission: No VTE Mechan Device Prophylaxis: None VTE Pharm Prophylaxis ordered?: No Patient Problems: Active and Suspected Problems Chest pain (Acute) - Physical Exam Vitals/I&O's: Vital Signs Temp Pulse Resp BP Pulse Ox 98.4 F 75 17 165/107 H 95 06/05/20 15:34 06/05/20 15:34 06/05/20 15:34 06/05/20 15:34 06/05/20 15:34 Oxygen Delivery Method Room Air Weight: 257 lb 15.053 oz Body Mass Index (BMI) 34.9 General: Alert, Oriented x3, Cooperative, No apparent distress HEENT: Atraumatic, PERRLA, EOMI, Normocephalic Oral: Moist Mucosa, No Gingival or Mucosal Lesions/ Ulcerations Neck: Supple, No JVD, Negative Carotid Bruits, Trachea Midline, Thyroid Normal Size and Texture Lungs: Clear to auscultation, Normal air movement, No rhonchi, No wheeze, No rales, Diminished Cardiovascular: Regular rate, Regular Rhythm, Normal S1, Normal S2, PMI Normal Abdomen: Bowel Sounds Present, Soft, Non Tender, Non-Distended, No Hepato- splenomegaly, Obese Extremities: No clubbing, No cyanosis, No edema Skin: No rashes, No breakdown Lymphatic: No Cervical, Supraclavicular, or Inguinal Adenopathy Neurological: - - Minimal left-sided facial droop, left side hemiparesis. Power on the left side is 4+ by 5. Psych/Mental Status: Normal Affect, Appropriate, Alert and oriented to time, place, person, mood and affect Laboratory Results 06/05/20 14:04: WBC 6.7, RBC 4.42 L, Hgb 13.6, Hct 40.1, MCV 90.7, MCH 30.8, MCHC 33.9, RDW Std Deviation 48.7 H, RDW Coeff of Edith 14.7 H, Plt Count 226, MPV 9.7, Immature Gran % (Auto) 0.300, Neut % (Auto) 67.7, Lymph % (Auto) 21.6, [place] % (Auto) 8.9, Eos % (Auto) 1.2, Baso % (Auto) 0.3, Absolute Neuts (auto) 4.5, Absolute Lymphs (auto) 1.44, Nucleated RBC % 0 06/05/20 14:04: Sodium 141, Potassium 3.1 L, Chloride 106, Carbon Dioxide 31.0, Anion Gap 4 L, BUN 15, Creatinine 0.96, Estim Creat Clear Calc 90.94, Est GFR (MDRD) Af Amer 103, Est GFR (MDRD) Non-Af 85, BUN/Creatinine Ratio 15.6, Glucose 94, Calcium 8.8, Troponin I < 0.015 Clinical Impression(s) from Imaging Studies Chest X-Ray 06/05/20 14:30 IMPRESSION: Borderline cardiomegaly. Hyperinflation. Electronically Signed: Jose Luis Manuel, at 14:45 EDT , Service support , Assessment/Plan All Active Problems Chest pain (Acute) This is a 60 years old male patient presented to the emergency room because of chest pain and is being admitted for evaluation. #1 chest pain: Atypical. Risk factors of age, hypertension, coronary artery disease and history of stroke as well. Initial EKG reveals no acute clinical changes. Troponin is negative. Patient mentioned he had stress test in either August or September, and it was normal. He mentioned that that stress test was done for elevated blood pressure. Case discussed with cardiology and will proceed with nuclear stress test at this time given his history of recent stroke few months ago. Plan: Admit to PCU observation, cardiac monitoring, serial cardiac enzymes, repeat EKG tomorrow morning, obtain stress test report from [facility], nitroglycerin as needed, Zofran as needed, check pro time with INR, replace potassium with K. Dur 60 mg p.o. x1, repeat BMP tomorrow morning, PT OT evaluation and treatment. #2 hypertension: Currently, blood pressure slightly related, continue Norvasc, Coreg, HCTZ and possible, start IV allergy as needed. #3 carotid artery disease: Status post stenting of the right internal carotid artery. He follows up with his doctor at [facility] [place], scheduled for imaging of his carotids on June 13, 2020. Recommend follow-up with his doctor, continue aspirin, statin and Eliquis. #4 history of CVA: With resultant left-sided hemiparesis, continue Eliquis, aspirin and statins. #5 GERD: Continue PPI. #6 benign prostatic hypertrophy: Continue Proscar. #7 DVT prophylaxis: Continue Eliquis. This note was generated with Norse dictation software. It may contain incorrect words, spelling, and punctuation that were not noted in checking the note before signing. OBSV E&M: 46823 Initial observation care L2
[2020-06-05 16:36] LABS: International Normalized Ratio 1.1; Prothrombin Time (Protime)PT. 13.7 SECONDS (11.7-14.9)
[2020-06-05] MEDS: hydrALAZINE 20 MG/ML Vial 10 MG IV (21:57)
[2020-06-05] MEDS: 0.9% Saline Lock 10 ML Syringe IV (21:59)
[2020-06-06 03:00] VITALS: PULSE 68
[2020-06-06 03:43] VITALS: BP 126/72; PULSE 70; RESP 18; TEMP 36.5; O2SAT 96
--- NOTE | 2020-06-06 05:55 | EKG12_ITS ---
Test Reason : AM EKG Blood Pressure : / mmHG Vent. Rate : 075 BPM Atrial Rate : 075 BPM P-R Int : 174 ms QRS Dur : 100 ms QT Int : 424 ms P-R-T Axes : 069 -44 039 degrees QTc Int : 473 ms Normal sinus rhythm Left axis deviation Abnormal ECG When compared with ECG of 05-JUN-2020 13:35, MANUAL COMPARISON REQUIRED, DATA IS UNCONFIRMED Confirmed by JOSELITO LOYA, EKATERINA ([id number]), video editor BRENT SANTIAGO ([id number]) on 06/07/2020 11:30:55 AM Referred By: RHETT Confirmed By:MATILDE YEE MD
[2020-06-06] MEDS: Chlorthalidone 50 MG Tablet 25 MG PO (06:03)
[2020-06-06] MEDS: Aspirin 81 MG TAB.CHEW PO (06:04)
[2020-06-06] MEDS: Losartan Potassium 50 MG Tablet PO (06:04)
[2020-06-06 07:00] VITALS: PULSE 64
[2020-06-06 07:35] LABS: Anion Gap 6 (5-15); BUN 12 mg/dL (7-18); BUN/Creat Ratio 14.5 RATIO (10-20); Calcium,Total 8.9 mg/dL (8.5-10.1); Chloride 108 mmol/L (98-107); Creatinine, Serum 0.83 mg/dL (0.70-1.30); EST Glomerular Filtration Rate 101 mL/min (>60); Est Glom Filt Rate - Afr Amer 122 mL/min (>60); Estimated Creatinine Clearance 105.18 ml/min; Glucose 86 mg/dL (74-106); Potassium 3.2 mmol/L (3.5-5.1); Sodium Level 142 mmol/L (136-145)
[2020-06-06 08:06] VITALS: BP 136/83; PULSE 65; RESP 18; TEMP 36.6; O2SAT 98
[2020-06-06 10:59] LABS: Magnesium 1.9 mg/dL (1.6-2.6)
[2020-06-06] MEDS: Atorvastatin Calcium 80 MG Tablet PO (11:03)
--- NOTE | 2020-06-06 11:32 | STRESSREP ---
Stress Test Report Date: 06-06-2020 Procedure: Pharmacologic stress nuclear imaging study Indications: Chest pain; carotid artery disease; status post carotid artery stent; CVA Consent: Per the patient Procedure: The patient underwent pharmacologic (Regadenoson) evaluation with a peak heart rate of 99 beats per minute (61%predicted maximal heart rate) and a peak blood pressure of 161/87 mmHg. The baseline ECG demonstrated normal sinus rhythm. The peak pharmacologic ECG demonstrated no obvious ECG changes. There were no cardiac dysrhythmias pretest, during pharmacologic infusion, or recovery. There was no complaint of chest discomfort during pharmacologic infusion or recovery. The examination was discontinued secondary to completion of protocol. Impression: 1. Pharmacologic (Regadenoson) evaluation 2. Peak pharmacologic ECG with no obvious ECG changes. 3. There were no cardiac dysrhythmias pretest, during pharmacologic infusion, or recovery. 4. Nuclear images pending Myocardial perfusion imaging study: Technique: The patient was injected with 15.0 millicuries of technetium 99m Cardiolite and subsequently rest SPECT Cardiolite nuclear imaging was obtained in the horizontal long, vertical long, and short axis views. The patient underwent pharmacologic (Regadenoson) evaluation with a peak heart rate of 99 beats per minute (61% percent predicted maximal heart rate) and a peak blood pressure of 161/87 mmHg. The patient was injected with 42.3 millicuries of technetium 99m Cardiolite and subsequently stress SPECT Cardiolite nuclear imaging was obtained in the horizontal long, vertical long, and short axis views. A gated Cardiolite study at peak stress was obtained. Interpretation: Rest and stress SPECT Cardiolite nuclear imaging status post realignment, normalization, and attenuation correction demonstrate relative uniform tracer uptake and myocardial perfusion appearing within normal limits. There is end systolic thickening and brightening. The gated Cardiolite study demonstrates myocardial thickening and inward wall motion. The reported LVEF is 70%. Impression: 1. Rest and stress SPECT Cardiolite nuclear imaging demonstrate relative uniform tracer uptake and myocardial perfusion appearing within normal limits. 2. The gated Cardiolite study reports an LVEF of 70%. This note was generated with [employer] [place] software. It may contain incorrect words, spelling, and punctuation that were not noted in checking the note before signing.
--- NOTE | 2020-06-06 11:45 | DCINST_ITS ---
- Discharge Diagnoses Current Active Problems: Current Active and Chronic Problems Chest pain (Acute) Reason(s) for Visit for Discharge Instructions: Chest pain You will use the following diet at home:: Cardiac Your food should be the consistency of: Regular Your liquids should be the consistency of: Regular/Thin Discharge Activity: Return to Normal Activity Additional Instructions: Continue to take all your medications as prescribed. You were admitted for chest pain and your EKG, cardiac enzymes and stress test were normal. This means that your chest pain is not likely due to a heart related condition. He could be due to acid reflux or anxiety. Continue to keep yourself hydrated, follow a low-salt, low-fat diet. Follow-up with your primary care doctor within 1 to 2 weeks. Follow-up with your neurologist within 1-2 weeks Allergies/Adverse Reactions: Allergies Iodinated Contrast Media [Iodinated Contrast- Oral and IV Dye] Allergy (Verified 06/05/20 13:40) Hives perfume Allergy (Verified 06/05/20 16:30) throat tightness pollen extracts Allergy (Verified 06/05/20 13:40) Other Medications to take at Discharge Atorvastatin Calcium 80 mg PO DAILY 10/02/17 Pantoprazole Sodium [Protonix] 40 mg PO QODAY 10/02/17 Nitroglycerin (INPATIENT USE) [Nitrostat] 0.4 mg SUBLINGUAL Q5M PRN tablet 11/28/17 Aspirin 81 mg PO DAILY 06/05/20 Azelastine HCl 1 drp EACH EYE BID PRN PRN 06/05/20 Chlorthalidone 25 mg PO DAILY 06/05/20 Cyanocobalamin (Vitamin B-12) [B-12] 1,000 mcg PO DAILY PRN PRN 06/05/20 Ergocalciferol [Vitamin D] 50,000 unit PO MO 06/05/20 Ipratropium [place] 2 spray NASAL TID PRN PRN 06/05/20 Levocetirizine Dihydrochloride 5 mg PO QHS 06/05/20 Losartan Potassium [Cozaar] 50 mg PO DAILY 06/05/20 Montelukast Sodium [Singulair] 10 mg PO DAILY PRN PRN 06/05/20 Pyridoxine HCl (Vitamin B6) [Vitamin B-6] 100 mg PO DAILY PRN PRN 06/05/20 Primary Care Physician: Selene García MD [Primary Care Provider] - Please follow up with your Primary Care Physician in: within 1-2 weeks Test Results: Test results from this visit will be discussed in further detail at your follow- up appointment, if applicable. When: Your neurologist within 1-2 weeks Proposed Discharge Date: 06/06/20
--- NOTE | 2020-06-06 11:49 | PCM.DC.SUM ---
Discharge Date and Diagnosis - Problem List Patient Problems: Active and Suspected Problems Chest pain (Acute) Date of Admission: 06/05/20 Date of Discharge: 06/06/20 - Primary Discharge Diagnosis Acute Problems: Active Problems Chest pain (Acute), ACS ruled out - Secondary Discharge Diagnosis Chronic Problems: Chronic Problems CVA (cerebral vascular accident) (Chronic) HTN (hypertension) (Chronic) Hepatitis C (Chronic) Cervical spondylosis (Chronic) GERD (gastroesophageal reflux disease) (Chronic) Asthma (Chronic) Chronic back pain (Chronic) BPH (benign prostatic hyperplasia) (Chronic) Hospital Course and Treatment Imaging Results: 06/06/20 05:55 Nuclear Stress Test - Chemical [NM] AM (NON MEDS) Clinical Impression(s) from Imaging Studies Chest X-Ray 06/05/20 14:30 IMPRESSION: Borderline cardiomegaly. Hyperinflation. Electronically Signed: Jose Luis Manuel, at 14:45 EDT , Service support , Operations: None Procedures: Stress test Summary of Care Provided: The patient is a 60 year old M with past medical history of CVA, hypertension, chronic hepatitis C, chronic back pain who was admitted with complaints of chest pain that started on the day of admission. Chest pain was described as retrosternal, radiates to the left shoulder and left associated with dizziness, diaphoresis and nausea. Patient also complains of pain that starts from his left leg. He has history of paresis in the left leg after his CVA. He denied any syncopal episodes. His work-up in the emergency department was negative. Troponins were negative. Patient admitted to the telemetry floor and his troponins were trended. He underwent stress test that was unremarkable. Patient continued to complain of increased sensation to the left side of his body especially the left leg and the sole of his left foot. This is a site of his old stroke. The tingling and numbness was increased and appeared to be extra sensitive to touch affecting his walking. He was seen by physical and occupational therapy and no new recommendations were made. Patient was asked to make an appointment with his primary neurologist, Dr. Levin in follow-up. I will attempt to discuss patient's care with Dr. Levin on phone, I paged out to the office but did not get any page back. Patient to follow-up with him. Patient Problems: Active and Suspected Problems Chest pain (Acute) Subjective: On the day of discharge, patient was seen and examined. Complains of increased sensation in the left lower extremity especially on the sole of his left foot. The increased sensation makes him laugh. He is unable to walk well. He was seen by PT and OT. No new recommendations were given. Objective: Physical exam: General: Alert, Oriented x3, Cooperative, No apparent distress HEENT: Atraumatic, PERRLA, EOMI, Normocephalic Oral: Moist Mucosa, No Gingival or Mucosal Lesions/ Ulcerations Neck: Supple, No JVD, Negative Carotid Bruits, Trachea Midline, Thyroid Normal Size and Texture Lungs: Clear to auscultation, Normal air movement, No rhonchi, No wheeze, No rales, Diminished Cardiovascular: Regular rate, Regular Rhythm, Normal S1, Normal S2, PMI Normal Abdomen: Bowel Sounds Present, Soft, Non Tender, Non-Distended, No Hepato-splenomegaly, Obese Extremities: No clubbing, No cyanosis, No edema Skin: No rashes, No breakdown Lymphatic: No Cervical, Supraclavicular, or Inguinal Adenopathy Neurological: - - Minimal left-sided facial droop, left side hemiparesis. Power on the left side is 4+ by 5. Psych/Mental Status: Normal Affect, Appropriate, Alert and oriented to time, place, person, mood and affect - Physical Exam Vitals/I&O's: Vital Signs Temp Pulse Resp BP Pulse Ox 97.9 F 65 18 136/83 H 98 06/06/20 08:06 06/06/20 08:06 06/06/20 08:06 06/06/20 08:06 06/06/20 08:06 Oxygen Delivery Method Room Air Weight: 115.711 kg Body Mass Index (BMI) 34.6 Intake and Output for Last 24 Hours 06/04/20 06/05/20 06/06/20 23:59 23:59 23:59 Intake Total 320 / 320 60 / 60 Output Total 1050 / 1050 650 / 650 Balance -730 / -730 -590 / -590 Laboratory Results 06/05/20 14:04: WBC 6.7, RBC 4.42 L, Hgb 13.6, Hct 40.1, MCV 90.7, MCH 30.8, MCHC 33.9, RDW Std Deviation 48.7 H, RDW Coeff of Edith 14.7 H, Plt Count 226, MPV 9.7, Immature Gran % (Auto) 0.300, Neut % (Auto) 67.7, Lymph % (Auto) 21.6, [place] % (Auto) 8.9, Eos % (Auto) 1.2, Baso % (Auto) 0.3, Absolute Neuts (auto) 4.5, Absolute Lymphs (auto) 1.44, Nucleated RBC % 0 06/05/20 14:04: Sodium 141, Potassium 3.1 L, Chloride 106, Carbon Dioxide 31.0, Anion Gap 4 L, BUN 15, Creatinine 0.96, Estim Creat Clear Calc 90.94, Est GFR (MDRD) Af Amer 103, Est GFR (MDRD) Non-Af 85, BUN/Creatinine Ratio 15.6, Glucose 94, Calcium 8.8, Troponin I < 0.015 06/05/20 14:04: PT 13.7, INR 1.1 06/05/20 17:09: Troponin I < 0.015 06/05/20 19:56: Troponin I < 0.015 06/06/20 06:10: Sodium 142, Potassium 3.2 L, Chloride 108 H, Carbon Dioxide 28.0, Anion Gap 6, BUN 12, Creatinine 0.83, Estim Creat Clear Calc 105.18, Est GFR (MDRD) Af Amer 122, Est GFR (MDRD) Non-Af 101, BUN/Creatinine Ratio 14.5, Glucose 86, Calcium 8.9 06/06/20 06:10: Magnesium 1.9 Current Medications Acetaminophen (Tylenol) 650 mg PO Q6H PRN PRN PRN Reason: Pain Score 1-10/Temp > 100.7 F Aspirin (Aspirin, Baby) 81 mg PO DAILY@0800 COUNTS INCLUDE 234 BEDS AT THE [facility] Last Admin: 06/06/20 06:04 Dose: 81 mg Documented by: Atorvastatin Calcium (Lipitor) 80 mg PO DAILY COUNTS INCLUDE 234 BEDS AT THE [facility] Last Admin: 06/06/20 11:03 Dose: 80 mg Documented by: Chlorthalidone (Hygroton) 25 mg PO DAILY COUNTS INCLUDE 234 BEDS AT THE [facility] Last Admin: 06/06/20 06:03 Dose: 25 mg Documented by: Enoxaparin Sodium (Lovenox) 40 mg SC DAILY COUNTS INCLUDE 234 BEDS AT THE [facility] Hydralazine HCl (Apresoline Iv) 10 mg IV Q6H PRN PRN PRN Reason: for SBP>160 Last Admin: 06/05/20 21:57 Dose: 10 mg Documented by: Losartan Potassium (Cozaar) 50 mg PO DAILY PEDRO Last Admin: 06/06/20 06:04 Dose: 50 mg Documented by: Nitroglycerin (Nitrostat) 0.4 mg SUBLINGUAL Q5M PRN PRN Reason: CHEST PAIN Ondansetron HCl (Zofran) 4 mg IV Q8H PRN PRN PRN Reason: NAUSEA/VOMITING Pantoprazole Sodium (Protonix) 40 mg PO QODAY PEDRO Senna/Docusate Sodium (Senokot-S, Suki-Colace) 2 tablet PO BID PRN PRN PRN Reason: Constipation Sodium Chloride () 10 - 40 ml IV UD PRN PRN Reason: SALINE FLUSH Last Admin: 06/05/20 21:59 Dose: 10 ml Documented by: Zolpidem Tartrate (Ambien (Generic)) 5 mg PO QHS PRN PRN PRN Reason: INSOMNIA Discharge Diet: Low fat/ Low Cholesterol, 2000 mg Sodium Diet Discharge Activity: Return to Normal Activity Home Medications: Medications to take at Discharge Atorvastatin Calcium 80 mg PO DAILY 10/02/17 Pantoprazole Sodium [Protonix] 40 mg PO QODAY 10/02/17 Nitroglycerin (INPATIENT USE) [Nitrostat] 0.4 mg SUBLINGUAL Q5M PRN tablet 11/28/17 Aspirin 81 mg PO DAILY 06/05/20 Azelastine HCl 1 drp EACH EYE BID PRN PRN 06/05/20 Chlorthalidone 25 mg PO DAILY 06/05/20 Cyanocobalamin (Vitamin B-12) [B-12] 1,000 mcg PO DAILY PRN PRN 06/05/20 Ergocalciferol [Vitamin D] 50,000 unit PO MO 06/05/20 Ipratropium [place] 2 spray NASAL TID PRN PRN 06/05/20 Levocetirizine Dihydrochloride 5 mg PO QHS 06/05/20 Losartan Potassium [Cozaar] 50 mg PO DAILY 06/05/20 Montelukast Sodium [Singulair] 10 mg PO DAILY PRN PRN 06/05/20 Pyridoxine HCl (Vitamin B6) [Vitamin B-6] 100 mg PO DAILY PRN PRN 06/05/20 Primary Care Physician: Selene García MD [Primary Care Provider] - Please follow up with your Primary Care Physician in: within 1-2 weeks When: Your neurologist within 1-2 weeks Disposition: Home Minutes spent on discharge:: 35 Patient Condition:: Stable Medical Necessity - Tobacco Use Smoking Status: Former smoker Tobacco Use: Cigarettes Meaningful Use Info Meaningful Use Diagnoses (Choose all that apply): None applicable OBSV E&M: 05419 Observation care discharge
[2020-06-06 14:00] VITALS: BP 134/77; PULSE 88; RESP 18; TEMP 36.4; O2SAT 99
[2020-06-06 15:00] VITALS: PULSE 82
--- NOTE | 2020-06-06 15:07 | CHAPLAIN ---
Type of Pastoral Visit _x__ Initial Visit ___ Follow-up Visit ___ On-call Visit ___ General Patient Visit ___ Spiritual Assessment ___ Family Conference ___ Bereavement ___ Rapid Response ___ Code Blue ___ Other (describe below) Pastoral Care Referral From _x__ Patient ___ Family ___ Nurse ___ Physician ___ Ammonia Refrigeration Technician ___ Grievance And Appeals Coordinator ___ Other (describe below) Sacrament/Intervention _x__ Active listening ___ Anointing ___ Scientologist ___ Bereavement ___ Communion _x__ Lali exploration ___ _x__ Life review ___ Prayer ___ Reconciliation ___ Sacrament of Sick ___ Supportive presence ___ Wedding ___ Other (describe below) Pastoral Comments
== END 2020-06-06 11:42 | disposition home or self-care (01) ==
LOC: ED 15:48 → PCU 15:56
PROVIDERS: Admitting Provider Hospitalist; Emergency Provider Emergency Medicine; PCP Internal Medicine; Visit Provider Internal Medicine
DX: R07.89 Other chest pain (principal); R11.0 Nausea; R42 Dizziness and giddiness; R06.00 Dyspnea, unspecified; I10 Essential (primary) hypertension; E78.00 Pure hypercholesterolemia, unspecified; K21.9 Gastro-esophageal reflux disease without esophagitis; I69.398 Other sequelae of cerebral infarction; R20.8 Other disturbances of skin sensation; J45.909 Unspecified asthma, uncomplicated; N40.0 Benign prostatic hyperplasia without lower urinary tract symptoms; F41.9 Anxiety disorder, unspecified; F32.9 Major depressive disorder, single episode, unspecified; I69.354 Hemiplegia and hemiparesis following cerebral infarction affecting left non-dominant side; I69.392 Facial weakness following cerebral infarction; B18.2 Chronic viral hepatitis C; Z79.899 Other long term (current) drug therapy; Z79.82 Long term (current) use of aspirin; Z87.891 Personal history of nicotine dependence
CPT/HCPCS: 36415; 71045; 78452; 80048; 83735; 84484; 85025; 85610; 93005; 93017; 96374; 97162; 97166; 99218; 99251; 99283; 99285; A9500; A4216; G0378; G0463; J2785

== ENCOUNTER 2020-10-19 15:51 | Emergency (ER) | payer MEDICARE, MEDICAID, SELFPAY ==
[2020-06-05 16:16] VITALS: BMI 34.6
[2020-10-19 15:52] VITALS: BP 185/115; PULSE 77; PULSE 80; RESP 16; RESP 20; TEMP 36.9; O2SAT 100; O2SAT 97; BMI 37.1
--- NOTE | 2020-10-19 16:07 | EKG12_ITS ---
Test Reason : DIZZY Blood Pressure : / mmHG Vent. Rate : 074 BPM Atrial Rate : 074 BPM P-R Int : 170 ms QRS Dur : 094 ms QT Int : 410 ms P-R-T Axes : 065 -51 041 degrees QTc Int : 455 ms Normal sinus rhythm Left axis deviation Abnormal ECG Confirmed by JOSELITO LOYA, EKATERINA ([id number]), book or script editor BRENT SANTIAGO ([id number]) on 10/23/2020 9:58:06 AM Referred By: MILADIS Confirmed By:MATILDE YEE MD
--- NOTE | 2020-10-19 16:08 | ED.DCSUM_ITS ---
History of Present Illness Chief Complaint: Dizziness Informant: Patient Narrative: 60-year-old male presenting with chief complaint of lightheadedness. He states is not vertiginous in nature. He said it has been going on for a few hours intermittently. He states he even has it when he is sitting. Patient has history of stroke with left-sided residual deficits and states he does not generally get up very quickly but notices it more when standing. He states that after standing he had a warm sensation that flushed his whole body and he thought that he was going to faint so he sat down. Patient states that he felt short of breath during this episode. He relates that he felt short of breath the other day with a similar event. Patient denies any new deficits. Patient does state that sometimes his potassium and magnesium are low and this could be causing his imbalance. - Past Medical History (1) BPH (benign prostatic hyperplasia) Status: Chronic (2) CVA (cerebral vascular accident) Status: Chronic (3) GERD (gastroesophageal reflux disease) Status: Chronic (4) HTN (hypertension) Status: Chronic Past Medical History - Allergies and Home Meds Allergies/Adverse Reactions: Allergies Iodinated Contrast Media [Iodinated Contrast- Oral and IV Dye] Allergy (Verified 06/05/20 13:40) Hives perfume Allergy (Verified 06/05/20 16:30) throat tightness pollen extracts Allergy (Verified 06/05/20 13:40) Other Primary Care Physician: Selene García MD [Primary Care Provider] - Prior records reviewed: Yes Past Medical History: - - Reviewed in problem list Surgical History: herniorrhaphy, - Smoking Status: Former smoker - Family History Paternal Family History: Reports: Hypertension Maternal Family History: Reports: No pertinent history Review of Systems General: Denies: Chills, Fever, Sweats Eyes: Denies: Visual changes - bilaterally, Diplopia ENT: Denies: Rhinorrhea, Sore throat Cardiovascular: Reports: Palpitations. Denies: Chest pain, Heart racing Respiratory: Reports: Dyspnea. Denies: Cough, Sputum Gastrointestinal: Denies: Abdominal pain, Nausea, Vomiting, Diarrhea, Melena, Hematochezia Genitourinary: Denies: Dysuria, Hematuria, Frequency Musculoskeletal: Denies: Back pain, Extremity Pain Skin: Denies: Rash, Wounds Neurological: Reports: - - Chronic weakness of the left upper and lower extremity with chronic paresthesias.. Denies: Headache Psych: Denies: Depression, Anxiety Physical Exam Vital Signs/Narrative: Vital Signs Temp Pulse Resp BP Pulse Ox 10/19/20 15:52 98.5 F 77 20 H 185/115 H 100 Inital Vital Signs reviewed: Yes General: Well nourished, No Acute Distress Head: Normocephalic, Atraumatic Eyes: Perrl, EOMI ENT: Moist mucous membranes Cardiovascular: Regular rate, Regular rhythm Respiratory: No distress, CTA bilaterally Extremities: Nontender, No edema Skin: Normal color, No rash. Negative for: Cyanosis, Diaphoresis Neurological: Alert, Oriented x3 Psychological: Normal affect, Normal Mood Diagnostic/Tx/Re-eval Clinical Impression(s) from Imaging Studies Brain CT 10/19/20 16:34 IMPRESSION: 1. No acute findings. 2. Chronic right MCA infarct. Additional chronic lacunar infarcts as noted above. 3. Mild microvascular ischemic changes. Atrophy. Electronically Signed: Sara Grayson MD at 17:07 EST Tel , Service support , Chest X-Ray 10/19/20 16:40 IMPRESSION: Normal x-ray examination of the chest. Electronically Signed: Sara Grayson MD at 17:12 EST Tel , Service support , Laboratory Data 10/19/20 10/19/20 10/19/20 16:25 16:25 16:25 WBC 7.1 RBC 4.79 Hgb 14.7 Hct 42.7 MCV 89.1 MCH 30.7 MCHC 34.4 RDW Std Deviation 44.9 H RDW Coeff of Edith 13.9 Plt Count 243 MPV 9.8 Immature Gran % (Auto) 0.300 Neut % (Auto) 55.4 Lymph % (Auto) 30.4 Calloway % (Auto) 10.0 Eos % (Auto) 3.5 Baso % (Auto) 0.4 Absolute Neuts (auto) 3.9 Absolute Lymphs (auto) 2.16 Nucleated RBC % 0 D-Dimer Quant (PE/DVT) 0.46 Sodium 140 Potassium 3.5 Chloride 103 Carbon Dioxide 33.0 H Anion Gap 4 L BUN 14 Creatinine 1.03 Estim Creat Clear Calc 84.76 Est GFR (MDRD) Af Amer 95 Est GFR (MDRD) Non-Af 78 BUN/Creatinine Ratio 13.6 Glucose 110 H Calcium 9.3 Magnesium 1.9 Troponin I < 0.015 - Rhythm Strip Rhythm Strip: Sinus Rhythm Rate: 74 - EKG Initial EKG Interpretation: Sinus Rhythm, No Acute Injury Pattern - Medical Decision Making 60-year-old male presenting with lightheadedness and near syncopal episode. It is noted that his blood pressure is also elevated today. We took this a few times and it still appears high at 192/105 when I evaluated in the room. EMS also had multiple repeat high blood pressures. Patient had EKG performed on arrival which is sinus rhythm at 74 bpm without signs of ischemic changes as interpreted by myself. This is compared to previous EKG 06 June 2020 and there is no change. Chest x-ray as interpreted by myself shows no acute cardiopulmonary process. CT brain interpreted by the radiologist and reviewed by myself shows no acute intracranial abnormalities however patient does have chronic CA and lacunar infarcts. Patient's CBC shows a white blood cell count of 7.1 hemoglobin 14.7 platelets 243. Electrolytes and renal function are normal. Troponin is negative. D-dimer is negative. After treatment patient's blood pressure is 165/95. Patient was discussed with on-call physician for Ricky. She did recommend just increasing his losartan to 100 mg. Upon speaking with the patient he states that he has somebody a physician that manages his blood pressure. He states he will double his dose until he can get a new prescription from his other physician. Patient will be discharged home in stable condition. Impression: 1. Hypertension, established [id number] 2. Dyspnea 3. Lightheadedness ED Disposition - Plan for ED Patient: Disposition: Home or Assisted Living Instructions: ED Dizziness, Uncertain Cause, ED Hypertension, Established Referrals: Selene García MD [Primary Care Provider] -
[2020-10-19] MEDS: hydrALAZINE 20 MG/ML Vial 5 MG IV ×2 (16:32→17:48)
--- NOTE | 2020-10-19 16:34 | CT_ITS ---
STUDY: CT BRAIN WITHOUT CONTRAST REASON FOR EXAM: Male, 60 years old. lightheadedness RADIATION DOSAGE (If Supplied By Facility): CTDIvol = ( 44.99 ) mGy, DLP = ( 863.60 ) mGycm TECHNIQUE: Transaxial CT imaging of the brain was performed without administration of intravenous contrast material. Individualized dose optimization techniques were used for this CT. COMPARISON: 01/05/2018. FINDINGS: Normal soft tissue structures. Normal calvarium. There is mild cerebral atrophy with widening of the extra-axial spaces and ventricular dilatation. There are areas of decreased attenuation within the white matter tracts of the supratentorial brain, consistent with microvascular disease changes. There is no intracranial hemorrhage. No acute territorial infarct. Chronic right middle cerebral artery infarct. Chronic right caudate lacunar infarct. Chronic left periventricular deep white matter infarct. Normal visualized paranasal sinuses. CT/Brain/Head without Contrast IMPRESSION: 1. No acute findings. 2. Chronic right MCA infarct. Additional chronic lacunar infarcts as noted above. 3. Mild microvascular ischemic changes. Atrophy. Electronically Signed: Sara Grayson MD at 17:07 EST Tel , Service support ,
--- NOTE | 2020-10-19 16:40 | RAD_ITS ---
STUDY: X-RAY CHEST REASON FOR EXAM: Male, 60 years old. chest pain TECHNIQUE: Single AP portable view of the chest. COMPARISON: 06/05/2020. FINDINGS: The lungs are clear and expanded. There is no demonstrated pleural abnormality. Normal size heart. Normal mediastinum and renetta. Normal visualized pulmonary arteries. Normal visualized aortic arch and descending thoracic aorta. Normal visualized thoracic spine. Normal visualized ribs, clavicles, and shoulders. There is no demonstrated abnormality of the visualized soft tissue structures of the upper abdomen. RAD/Chest 1 View (Portable) IMPRESSION: Normal x-ray examination of the chest. Electronically Signed: Sara Grayson MD at 17:12 EST Tel , Service support ,
[2020-10-19 16:46] LABS: Absolute Lymphocyte Count 2.16 X10^3/uL (0.83-4.51); Absolute Neutrophil Count 3.9 X10^3/uL (2.0-7.7); Basophil# 0.03 X10^3/uL; Basophil% 0.4 % (0-1); Eosinophil# 0.25 X10^3/uL; Eosinophils% 3.5 % (0-5); Hematocrit 42.7 % (40-54); Hemoglobin 14.7 g/dL (13.0-16.5); Lymphocyte # 2.16 X10^3/ul (4.0); Lymphocyte % 30.4 % (19-41); Mean Corp Hgb Conc 34.4 g/dL (32-36); Mean Corpuscular Hgb 30.7 pg (27.0-32.0); Mean Corpuscular Volume 89.1 fL (80-94); Mean Platelet Vol. 9.8 fl (6.2-12.0); Monocyte# 0.71 X10^3/uL; NRBC Flagged by Analyzer 0 % (0-5); Neutrophil # 3.94 X10^3/uL (2.7-7.7); Neutrophil % 55.4 % (47-70); Platelet Count 243 K/mm3 (150-450); RBC Distribution Width CV 13.9 % (11.6-14.6); RBC Distribution Width SD 44.9 fl (35.1-43.9); Red Blood Count 4.79 M/mm3 (4.6-6.2); White Blood Count 7.1 K/mm3 (4.4-11.0)
[2020-10-19 16:54] LABS: D-Dimer Quantitative (DVT/PE) 0.46 FEU/ug/m (0.27-0.49)
[2020-10-19 17:03] LABS: Anion Gap 4 (5-15); BUN 14 mg/dL (7-18); BUN/Creat Ratio 13.6 RATIO (10-20); Calcium,Total 9.3 mg/dL (8.5-10.1); Chloride 103 mmol/L (98-107); Creatinine, Serum 1.03 mg/dL (0.70-1.30); EST Glomerular Filtration Rate 78 mL/min (>60); Est Glom Filt Rate - Afr Amer 95 mL/min (>60); Estimated Creatinine Clearance 84.76 ml/min; Glucose 110 mg/dL (74-106); Magnesium 1.9 mg/dL (1.6-2.6); Potassium 3.5 mmol/L (3.5-5.1); Sodium Level 140 mmol/L (136-145)
[2020-10-19 17:34] VITALS: BP 163/103; PULSE 76; RESP 16
[2020-10-19 18:00] VITALS: BP 165/98; PULSE 108; RESP 20
[2020-10-19 18:55] VITALS: BP 165/96; PULSE 85; RESP 16; O2SAT 96
== END 2020-10-19 19:05 | disposition home or self-care (01) ==
PROVIDERS: Emergency Provider Student in an Organized Health Care Education/Training Program; PCP Internal Medicine
DX: I10 Essential (primary) hypertension (principal); R06.00 Dyspnea, unspecified; R55 Syncope and collapse; I69.954 Hemiplegia and hemiparesis following unspecified cerebrovascular disease affecting left non-dominant side; N40.0 Benign prostatic hyperplasia without lower urinary tract symptoms; K21.9 Gastro-esophageal reflux disease without esophagitis; Z79.82 Long term (current) use of aspirin; Z79.899 Other long term (current) drug therapy; Z87.891 Personal history of nicotine dependence
CPT/HCPCS: 70450; 71045; 80048; 83735; 84484; 85025; 85379; 93005; 96374; 96376; 99285; A4216

== ENCOUNTER → 2021-01-09 13:00 | Outpatient (CLI) | payer MEDICARE, MEDICAID, SELFPAY ==
--- NOTE | 2021-01-09 13:02 | CDU_ITS ---
Reason For Study: Carotid stenosis Rt. Velocities/BP Lt. Velocities/BP Prox CCA 86.5/25.2 cm/sec. Prox CCA 101/27.9 cm/sec. Mid CCA 79.9/23.9 cm/sec. Mid CCA 104.7/31.6 cm/sec. Dist CCA 81.2/20 cm/sec. Dist CCA 88.2/27.9 cm/sec. Bulb 70.4/18.8 cm/sec. Prox ICA 79/26.2 cm/sec. Prox ICA 97.4/34.8 cm/sec. Mid ICA 82.6/33.5 cm/sec. Mid ICA 117.4/29.8 cm/sec. Dist ICA 86.3/33.5 cm/sec. Dist ICA 95.5/33.4 cm/sec. Prox ECA 113.8/18.8 cm/sec. Prox ECA 136.7/31.4 cm/sec. Lt. Vert. 55.3/16.8 cm/sec. Rt. Vert. 29.1/11.6 cm/sec. Right Extracranial There is homogeneous, smooth atherosclerotic plaque noted in the right common carotid artery. There is heterogeneous, smooth atherosclerotic plaque noted in the right internal carotid artery. Stent note from right Distal CCA to Prox ICA. There is intimal thickening but no significant atherosclerotic plaque noted in the right external carotid artery. Antegrade flow is noted in the right vertebral artery. Left Extracranial There is homogeneous, smooth atherosclerotic plaque noted in the left common carotid artery. There is homogeneous, smooth atherosclerotic plaque noted in the left internal carotid artery. There is homogeneous, smooth atherosclerotic plaque noted in the left external carotid artery. Antegrade flow is noted in the left vertebral artery. Procedure Carotid Duplex 73526. This is a Carotid Duplex examination using B-mode, color flow and specral Doppler. Exam performed in department. VL/Carotid Duplex Ultrasound Interpretation Summary Right carotid stent noted in the common carotid and right internal carotid teo ry with less than 50% stenosis of the internal carotid artery Less than 50% stenosis right external carotid artery Smooth plaque of the proximal left internal carotid artery with less than 50% s tenosis Less than 50% stenosis left external carotid artery Patent and antegrade vertebral arteries bilaterally Ordering Physician: SOY FRIEDMAN Referring Physician: Selene García Performed By: Laverne Fragoso RVT
== END ==
PROVIDERS: PCP Internal Medicine
DX: I65.23 Occlusion and stenosis of bilateral carotid arteries (principal)
CPT/HCPCS: 93880

== ENCOUNTER 2021-09-13 14:30 | Outpatient (RCR) | payer MEDICARE, MEDICAID, SELFPAY ==
--- NOTE | 2021-01-04 14:50 | HP.PTEVAL_ITS ---
Patient's Visit Information RENITA SHABAZZ is a 60 year old M referred to Physical Therapy by SOY FRIEDMAN with a diagnosis of CHRONIC RIGHT ARTERIAL ISCHEMIC STOKE ,MCA,GENERAL WEAKNESS. Date of Evaluation: 01/04/21 Physical Therapist: George Schwab, PT, Cert MDT, OCS - Visit Plan Frequency: 2x /Week Duration: 4 Weeks Plan: OLD CVA 2018. PT INTERVENTIONS PROGRESSIVE GAIT/BALANCE TRAINING ,PRE'S BLE ,FUNCTIONAL STRENGTHENING AND ENDURANCE TRAINING - Subjective This 60 y/o male presents to physical therapy with CVA and left side weakness. Patient had CVA with left side 2018 had extensive therapy. Patient had 2nd TIA 2019. Patient has parathesia left leg and hand .Patient goal is to work hard in PT. Patient is able to do ADL's bathing/dressing/cooking. Patient lives in apartment no steps. Tub/shower with hand rail. Patient ambulates with no device ,occasionally cane has left AFO,left brace. Patient goal is to get stronger. Patient reports no falls ,goal to do steps.Patient plans to get blood work. Patient has had prior PT in past. Patient will start OT next week. Patient condition of CVA affect QOL and function. SOCAIL: . VOCATION: disability. - Objective POSTURE: mild foward posture left leg ER. GAIT: reciprocal pattern decrease stance time left mild ataxia ,ER left lateral sway no device with left AFO,increase hyperextension. NEURO: mild ataxia LLE ,mild hypontocity,reflexes achilles and patella hyerreflexia,left UE hypertonicity triceps. BALANCE : FAIR+ no device. FLEXIBILITY: hams mod limited. MMT: quads/hams left 4-/5,hip flexion/abd 3+/5 ,ankle DF 3+/5,right 5/5. STAIRS: ONE STEP leading with left - Balance Scores CATSIB Score (Max score 120 seconds): 90 - Goals Goal 1:: I with HEP. Goal Time Frame: 4-6 Weeks Goal 2:: Ambulate with improve gait pattern 80% of the time in community Goal Time Frame: 4-6 Weeks Goal 3:: Patient improve CATSIBE BY 5 POINTS to improve balance Goal Time Frame: 4-6 Weeks Goal 4:: Patient to improve LFES score by 5 points or > to improve QOL. Goal Time Frame: 4-6 Weeks Goal 5:: Patient to improve stairs with rail I Goal Time Frame: 4-6 Weeks - Rehabilitation Potential Physical Therapy Diagnosis: This patient had CVA affecting left side thus has weakenss ,left side impairs gait,balance impairs gait and function along with stairs thus benefit from skilled PT Rehabilitation Potential: Good - Anticipated Interventions Patient/Client Instruction: Educate patient on: Condition, Plan of Care For the Purpose of:: To improve muscle performance and motor function, To increase tolerance to activity/condition/position, To improve performance and independence with ADL's, To improve ability of physical actions for home/community/work/leisure, To increase flexibility/ROM, To improve endurance, To improve balance, To improve safety with gait, To assume or resume ADL's, To improve ability to perform tasks related to life management, To improve tolerance to ADL's Thank you for the opportunity to evaluate your patient. For Medicare and Medicare HMO plans, please review the plan of care and approve it. It will need to be FAXED BACK to us at [phone] for Medicare purposes. For Medicare only, by signing this I certify the plan of care. Please let me know if there are questions or concerns regarding this plan of care. Physician Signature: Date:
--- NOTE | 2021-01-09 16:19 | HP.OTEVAL ---
Patient's Visit Information RENITA SHABAZZ is a 60 year old M, referred to Occupational Therapy by SOY FRIEDMAN, with a diagnosis of CVA left arm weakness. Date of Evaluation: 01/09/21 Occupational Therapist: Teodora Lund, MARTELLR/Airam, CHT - Subjective his 60 y/o male presents to physical therapy with CVA and left side weakness. Patient had CVA with left side 2018 had extensive therapy. Patient had 2nd TIA 2019. Patient has parathesia left leg and hand .Patient goal is to get some function in his left UE. Patient is able to do NICOLAS ADL's bathing/dressing/cooking one handed. Patient lives in apartment no steps. Tub/shower with hand rail. Patient ambulates with no device ,occasionally cane has left AFO,left brace. Patient goal is to get stronger. Patient reports no falls ,goal to do steps.Patient plans to get blood work. Patient has had prior PT in past. Patient condition of CVA. SOCAIL: . VOCATION: disability. - ADLs Dressing: Pants, Socks, Shoes Fasteners: Buttons, Zippers Eating: Use silverware, Cut food Grooming: Trim nails, Squeeze toothpaste on Miscellaneous: Start car, Handle money (change), Hold change, Turn pages in book, Use computer keyboard - Pain left UE 4 Pain Intensity Range: 1, 5 - ROM Shoulder: left flex 60* abduction 85* Elbow: left WNL Forearm: left unable Wrist: left initiation of wrist flex no extension ROM Comments: pt demo with limited digit and wrist extension - Strength Shoulder: right 5/5 left 3-/5 Elbow: right 5/5 left 3/5 Forearm: right 5/5 left 3-/5 Coil Winding Machines Set Up Mechanic: right 125# left 20# Lateral Pinch: right 34# left unable Tripod Pinch: right 30# left unable - Sensation Sensation Comments: pt reports he is getting numb/tingling sensation - in left UE sensation increases with external stimulation - Movement Muscle Tone: mod tone of left digits Movement Comments: noted trace ataxic motion with shoulder flexion and elbow extension - In-Hand Manipulation Finger to Palm Translation: Normal - Right, Unable - Left Palm to Finger Translation: Normal - Right, Unable - Left Shift: Normal - Right, Unable - Left Rotation: Normal - Right, Unable - Left - Quick DASH-Disab of Arm,Shoulder& Hand Quick DASH Score: 75.0000 - Goals Goal:: pt will demo a increase in left shoulder to 4/5 by d/c. pt will demo a increase in left dairy scientist strength to 70# or greater to increase pts ind. with ALDs and IADLs by d/c Goal:: pt will demo a increase in left shoulder flexion while sitting/standing to 130* or greater to increase pts ind. with ADLS and IADL by dc. pt will demo wrist ext to 45* or greater to increase pts tenodesis approach to grasp/release task by d/c. pt will demo active finger flex/ext to grasp and release med/ and small objects for ADls and IADLs by d/c Goal:: pt will demo the ability to know where left UE is in relation to body to decrease risk of running into objects while walking or prevention of injury while performing bed/mat mobility to decrease risk of left UE injury by end of week 2. - Rehabilitation General Assessment: pt demo with limited left UE ROM and strength increasing need of assist for bilateral hand tasks. pt motivated to work with left UE to return motion of shoulder/elbow/wrist and hand- pt would benefit from skilled OT services 2-3x week for 4 weeks to increase pts understanding of HEP and increase pts active motion- therapist ed. pt on adding a component of reciprocal UE motion, place and hold exercises- pt demonstrated understanding and agree to POC. Rehabilitation Potential: Good - Anticipated Interventions A/AAROM/PROM, Strengthening, Orthoses, Fine Motor Coord/Danilo - Visit Plan Frequency: 2-3x /Week Duration: 6 Weeks TEXT: Thank you for the opportunity to evaluate your patient. For Medicare and Medicare HMO plans, please review the plan of care and approve it. It will need to be FAXED BACK to us at [phone] for Medicare purposes. Please let me know if there are questions or concerns regarding this plan of care. Physician Signature: Date:
--- NOTE | 2021-05-01 14:01 | OTREVAL_ITS ---
SOY FRIEDMAN, It has been my pleasure to treat RENITA SHABAZZ over the last 9 visits for CVA left arm weakness. Please see the progress note below for an update on the occupational therapy plan of care! Subjective: pt states he has made some improvements- has noticed his arm is getting more sensation Objective/Function: pt demo with shoulder flex at 65* and shoulder abduction at 70* 85* with compensation of twisting his body-. pt did make gains with left elbow extension. pts tone in hand and wrist continues to MOD tone. - pt is using resting hand brace at this time to decrease tone in digits- pt would benefit from skilled OT services every two weeks to continue with POC to increase pts functional ROM of left UE for ADls and IADLs Plan Frequency: every two weeks Duration: 2 Months Plan: cont with left UE - try on mat to increase left shoulder motion. Goals - Goals Patient Goals: Use Hand/Wrist/Arm Normally Again, Be More Independent in ADLS Goal:: pt will demo a increase in left shoulder to 4/5 by d/c. pt will demo a increase in left building contractor strength to 70# or greater to increase pts ind. with ALDs and IADLs by d/c Goal:: pt will demo a increase in left shoulder flexion while sitting/standing to 130* or greater to increase pts ind. with ADLS and IADL by dc. pt will demo wrist ext to 45* or greater to increase pts tenodesis approach to grasp/release task by d/c. pt will demo active finger flex/ext to grasp and release med/ and small objects for ADls and IADLs by d/c Goal:: pt will demo the ability to know where left UE is in relation to body to decrease risk of running into objects while walking or prevention of injury while performing bed/mat mobility to decrease risk of left UE injury by end of week 2. Anticipated Interventions Anticipated Interventions: A/AAROM/PROM, Strengthening, Orthoses, Fine Motor Coord/Danilo Please do not hesitate to contact me at [phone] by phone or if you have questions or concerns regarding this new plan of care! Sincerely, Teodora Lund, OTR/L, CHT
--- NOTE | 2021-05-03 14:28 | HP.PTREVAL_ITS ---
SOY FRIEDMAN, It has been my pleasure to treat RENITA SHABAZZ over the last 10 visits for CHRONIC RIGHT ARTERIAL ISCHEMIC STOKE ,MCA,GENERAL WEAKNESS. Please see the progress note below for an update on the physical therapy plan of care! Subjective: Doing better overall Objective/Function: POSTURE: MILD FORWARD POSTURE. GAIT : AMBULATED WITH WITH QC WITH MILD DECREASE CONTROL PLACEMENT MILD ATAXIA LLE. MMT: QUADS/HAMS 4/5, HIP FLEXION 4-/5 RIGHT LEFT QUADS /5,HAMS 4-/5,. BALANCE: FAIR+ WITH QC. NEURO: MILD ATAXIA LLE. STAIRS: ONE STEP AT TIME Plan Plan: CONT WITH POC 2XWK FOR WEEKS. OLD CVA 2018. PT INTERVENTIONS PROGRESSIVE GAIT/BALANCE TRAINING ,PRE'S BLE ,FUNCTIONAL STRENGTHENING AND ENDURANCE TRAINING Balance/Gait/Functional tests - Balance/Special Test Scores CATSIB Score (Max score 120 seconds): 90 Lower Extremity Functional Score: 36 Goals Goal 1:: I with HEP. Goal Time Frame: 4-6 Weeks Goal Progress: Progressing Goal 2:: Ambulate with improve gait pattern 80% of the time in community Goal Time Frame: 4-6 Weeks Goal Progress: Progressing Goal 3:: Patient improve CATSIBE BY 5 POINTS to improve balance Goal Time Frame: 4-6 Weeks Goal Progress: Progressing Goal 4:: Patient to improve LFES score by 5 points or > to improve QOL. Goal Time Frame: 4-6 Weeks Goal Progress: Progressing Goal 5:: Patient to improve stairs with rail I Goal Time Frame: 4-6 Weeks Goal Progress: Progressing Anticipated Interventions Patient/Client Instruction: Educate patient on: Condition, Plan of Care For the Purpose of:: To improve muscle performance and motor function, To increase tolerance to activity/condition/position, To improve performance and independence with ADL's, To improve ability of physical actions for home/ community/work/leisure, To increase flexibility/ROM, To improve endurance, To improve balance, To improve safety with gait, To assume or resume ADL's, To improve ability to perform tasks related to life management, To improve tolerance to ADL's Please do not hesitate to contact me at [phone] by phone or if you have questions or concerns regarding this new plan of care! Sincerely, George Schwab, PT, Cert MDT, OCS
--- NOTE | 2021-06-26 07:55 | HP.OTDCSUM_ITS ---
It has been my pleasure to treat RENITA SHABAZZ under orders from SOY FRIEDMAN, for the diagnosis of CVA left arm weakness for a total of 15 visit(s). Please see the following information for a summary of their discharge status. % Improvement: 25 Objective/Function: pt demo with shoulder flex at 65* and shoulder abduction at 70* 85* with compensation of twisting his body-. pt did make gains with left elbow extension. pts tone in hand and wrist continues to MOD tone. - pt is using resting hand brace at this time to decrease tone in digits-. pt is NICOLAS with ADLs and IADLs at this time. pt has plateaued with gains with UE at this time it is rec'd pt continue with his HEP of AAROM, PROM, wt. bearing and use of orthosis. pt may benefit from Botox to assist in decrease flexion tone to limit risk of skin breakdown or contractures. pt states he will look into Botox with his neurologist. Patient Goals: Use Hand/Wrist/Arm Normally Again, Be More Independent in ADLS Goal:: pt will demo a increase in left shoulder to 4/5 by d/c. pt will demo a increase in left director marketing communications strength to 70# or greater to increase pts ind. with ALDs and IADLs by d/c Goal:: pt will demo a increase in left shoulder flexion while sitting/standing to 130* or greater to increase pts ind. with ADLS and IADL by dc. pt will demo wrist ext to 45* or greater to increase pts tenodesis approach to grasp/release task by d/c. pt will demo active finger flex/ext to grasp and release med/ and small objects for ADls and IADLs by d/c Goal:: pt will demo the ability to know where left UE is in relation to body to decrease risk of running into objects while walking or prevention of injury while performing bed/mat mobility to decrease risk of left UE injury by end of week 2. Plan: OT recommended botox; pt will make appt. D/C from OT with recommendation to completed HEP daily Discharge Comments: pt has plateaued with gains with UE at this time it is rec'd pt continue with his HEP of AAROM, PROM, wt. bearing and use of orthosis. pt may benefit from Botox to assist in decrease flexion tone to limit risk of skin breakdown or contractures. pt states he will look into Botox with his neurolo gist. therapist advised pt to continue with his HEP. If there are questions or concerns regarding this patient's occupational therapy, please fell free to call me at [phone]. Thank you for the r eferral of this patient. Sincerely, Teodora Lund, OTR/L, CHT
--- NOTE | 2021-07-26 15:56 | HP.PTREVAL_ITS ---
SOY FRIEDMAN, It has been my pleasure to treat RENITA HSABAZZ over the last 20 visits for CHRONIC RIGHT ARTERIAL ISCHEMIC STOKE ,MCA,GENERAL WEAKNESS. Please see the progress note below for an update on the physical therapy plan of care! Subjective: Doing better overall stronger ,on new MEDS for HEP C Objective/Function: POSTURE: mild forward posture. GAIT: ambulates with SBQC with no AFO with ER and control of LLE with 2 point gait with mild decrease control. BALANCE: fair+ with QC. MMT: quads/hams 4-5/ ,hip 4-/5 ,ankle 1/5 Plan Plan: CONT WITH POC 2XWK. OLD CVA 2018. PT INTERVENTIONS PROGRESSIVE GAIT/BALANCE TRAINING ,PRE'S BLE ,FUNCTIONAL STRENGTHENING AND ENDURANCE TRAINING Balance/Gait/Functional tests - Balance/Special Test Scores CATSIB Score (Max score 120 seconds): 90 Lower Extremity Functional Score: 39 Goals Goal 1:: I with HEP. Goal Time Frame: 4-6 Weeks Goal Progress: Progressing Goal 2:: Ambulate with improve gait pattern 80% of the time in community Goal Time Frame: 4-6 Weeks Goal Progress: Progressing Goal 3:: Patient improve CATSIBE BY 5 POINTS to improve balance Goal Time Frame: 4-6 Weeks Goal Progress: Progressing Goal 4:: Patient to improve LFES score by 5 points or > to improve QOL. Goal Time Frame: 4-6 Weeks Goal Progress: Progressing Goal 5:: Patient to improve stairs with rail I Goal Time Frame: 4-6 Weeks Goal Progress: Progressing Anticipated Interventions Patient/Client Instruction: Educate patient on: Condition, Plan of Care For the Purpose of:: To improve muscle performance and motor function, To increase tolerance to activity/condition/position, To improve performance and independence with ADL's, To improve ability of physical actions for home/community/work/leisure, To increase flexibility/ROM, To improve endurance, To improve balance, To improve safety with gait, To assume or resume ADL's, To improve ability to perform tasks related to life management, To improve sophia erance to ADL's Please do not hesitate to contact me at [phone] by phone or if you have questions or concerns regarding this new plan of care! Sincerely, George Schwab, PT, Cert MDT, OCS
--- NOTE | 2021-08-28 14:48 | HP.PTREVAL ---
SOY FRIEDMAN, It has been my pleasure to treat RENITA SHABAZZ over the last 23 visits for CHRONIC RIGHT ARTERIAL ISCHEMIC STOKE ,MCA,GENERAL WEAKNESS. Please see the progress note below for an update on the physical therapy plan of care! Subjective: Slowly moving better. I walked in here with cane in R UE. I am stiff because was not good with HEP over [place]. Went to the gym yesterday and did nustep. Hep C is gone but still on meds which make him tired. Took time off b/c may have been exposed to covid but never had. No more AFO needed which is improvement. Has not worn it in two weeks, will wear it with snow. using cane in R UE. Not using cane at home much of time. W[facility] get in [facility] jail [facility]. Objective/Function: Using R UE cane but can walk without it short distances without it. not using AFO but has L hip hike and steppage gait. Has some L knee rcuvatum with gait but is mild. overall patient feeling tighter, going to gym on his own soemtimes but only doing nustep. Thinks a few weeks off therapy orozco set him back a little and made him weak with new meds. recommended use of cane at home ue to FGA score. Steps are with UE assist and using R LE goes well, L knee is weak and hurts to perform but can do it up the steps with UE assist, dangerous down the steps using L. Wants to be able to get in pool at [facility] if possible and workout. Plan to put him in our pool with therapist to monitor safety and prognosis for i in pool ex and that is our exit strategy from PT. Questionable prognosis. 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 Balance/Gait/Functional tests - Balance/Special Test Scores Functional Gait Assessment Score: 20 % Disability: 33.3400 CATSIB Score (Max score 120 seconds): 95 Lower Extremity Functional Score: 35 Goals Goal 1:: I with HEP. Goal Time Frame: 4-6 Weeks Goal Progress: noncompliant. Goal 2:: Ambulate with improve gait pattern 80% of the time in community Goal Time Frame: 4-6 Weeks Goal Progress: improved, weak lately Goal 3:: Patient improve CATSIBE BY 5 POINTS to improve balance Goal Time Frame: 4-6 Weeks Goal Progress: Goal Met Goal 4:: Patient to improve LFES score by 5 points or > to improve QOL. Goal Time Frame: 4-6 Weeks Goal Progress: Not Progressing Goal 5:: Patient to improve stairs with rail I Goal Time Frame: 4-6 Weeks Goal Progress: using r LE, L weak, appro Goal 6:: I approp water ex adn floating in water with noodle to recover in and out of pool for community pool Goal Time Frame: 4-6 Weeks Anticipated Interventions Patient/Client Instruction: Educate patient on: Condition, Plan of Care For the Purpose of:: To improve muscle performance and motor function, To increase tolerance to activity/condition/position, To improve performance and independence with ADL's, To improve ability of physical actions for home/community/work/leisure, To increase flexibility/ROM, To improve endurance, To improve balance, To improve safety with gait, To assume or resume ADL's, To improve ability to perform tasks related to life management, To improve tolerance to ADL's Please do not hesitate to contact me at [phone] by phone or if you have questions or concerns regarding this new plan of care! Sincerely, Justen Gonsalez, DPT, OCS, CSCS
== END 2021-09-13 19:00 | disposition home or self-care (01) ==
LOC: PT 14:30
PROVIDERS: PCP Internal Medicine
DX: I69.30 Unspecified sequelae of cerebral infarction (principal); R53.1 Weakness
CPT/HCPCS: 97110; 97112; 97113; 97162; 97166; 97530

== ENCOUNTER 2022-03-07 14:00 | Outpatient (RCR) | payer MEDICARE, MEDICAID, SELFPAY ==
--- NOTE | 2021-12-05 11:02 | HP.PTEVAL_ITS ---
Patient's Visit Information RENITA SHABAZZ is a 61 year old M referred to Physical Therapy by Dr. Riddhi Yeager DO with a diagnosis of LEFT SIDE WEAKNESS. Date of Evaluation: 12/04/21 Physical Therapist: George Schwab, PT, Cert MDT, OCS - Visit Plan Frequency: 2x /Week Duration: 4 Weeks Plan: PT INTERVETIONS PROGRESSIVE GAIT TRAINING ,BALANCE TRAINING ,STRENGTHNEING LLE ,FUNCTIONAL STRENGTH ,NEUROMUSCULAR EDUCATION,FUNCTIONAL STRENGTHENING AND FLEXABLILITY - Subjective This 61 y/o male presents to physical therapy with left side weakness . Patient initially had CVA with left side weakness 2017 ,then had TIA 2019. Had PT in o utpatient and Aquatic therapy . Then recently developed COVID Sep 13 developed increase weakness . Patient was hospitalized for 3 days at [facility]. Patient need PT in hospital ,when d/c [facility] PT. ~ 3 weeks. Seen family recommended PT/OT started OT for ~ 2weeks [place]. Patient developed increase weakness with gait and endurance affects overall function. Patient had to use hinged AFO . Patient is able bathing/dressing. Patient has tube/shower with grab bars. . Patient has some allergy with mild SOB. C/O paresthesia/tingling left leg and hand. Patient uses SBQC . Patient goals is too get stronger and walk better. Patient did have CATSCAN brain. VOCATION: Disablity. SOCAIL: single - Pain Left Lower Extremity Pain Intensity (Out of 10): 5 Pain Intensity Range: 10 - Objective POSTURE: mild forward posture. GAIT: ambulates with SBQC 2 point gait with AFO left mild decrease control. NEURO: c/o paresthesia/tingling left leg light touch intact, reflexes Achilles/patella 3/3. BALANCE: fait + with QC. FLEXABLITY : hamstrings mod tight. MMT (peak force): quads 43,hamstrings 24,4,hip flexion 23.7 ,hip abduction 0. STAIRS: one steps at a time with rail and SBQC - Balance/Special Test Scores CATSIB Score (Max score 120 seconds): 65 Lower Extremity Functional Score: 25 30 Second Chair Rise Test Seconds: 4 - Goals Goal 1:: I with HEP Goal Time Frame: 4-6 Weeks Goal 2:: Patient to improve 30sec sit-stand test by 10 times to improve function Goal Time Frame: 4-6 Weeks Goal 3:: Patient to improve CATSIBE BY 10 points to improve balance . Goal Time Frame: 4-6 Weeks Goal 4:: Patient to improve LFES score by 10 points to improve gait and QOL Goal Time Frame: 4-6 Weeks Goal 5:: Patient to improve strength of hip flexion by 5 peak force and hip abduction by 5-10 peak force to improve gait Goal Time Frame: 4-6 Weeks - Rehabilitation Potential Physical Therapy Diagnosis: Patient has h/o of CVA affecting left side with recent episode of developing COVID developed weakness and had to be hospitalized which has caused patient to be weaker ,impairing gait ,balance and function thus benefit from skilled PT Rehabilitation Potential: Good - Anticipated Interventions Patient/Client Instruction: Educate patient on: Condition, Plan of Care For the Purpose of:: To increase ROM, To improve muscle performance and motor function, To improve ability to perform ADL's, To increase tolerance to activity/condition/position, To improve ability of physical actions for home/community/work/leisure, To improve gait and locomotor functions, To increase flexibility/ROM, To improve endurance, To improve safety with gait, To assume or resume ADL's, To improve health and function, To improve tolerance to ADL's Therapeutic Exercise to Include: Strength training, Power training, Endurance training, Balance training, Coordination, Postural training, Flexibilty training, Gait and locomotor training, Active ROM For the Purpose of:: To improve muscle performance and motor function, To improve ability of physical actions for home/community/work/leisure, To improve gait and locomotor functions, To increase flexibility/ROM, To improve endurance, To improve balance, To improve safety with gait, To improve tolerance to ADL's Thank you for the opportunity to evaluate your patient. For Medicare and Medicare HMO plans, please review the plan of care and approve it. It will need to be FAXED BACK to us at [phone] for Medicare purposes. For Medicare only, by signing this I certify the plan of care. Please let me know if there are questions or concerns regarding this plan of care. Physician Signature: Date:
--- NOTE | 2022-01-04 14:16 | HP.PTREVAL ---
Dr. Riddhi Yeager, DO, It has been my pleasure to treat RENITA SHABAZZ over the last 10 visits for LEFT SIDE WEAKNESS. Please see the progress note below for an update on the physical therapy plan of care! Subjective: Getting stronger Objective/Function: POSTURE: mild forward posture. NEURO: intact reflexes Achilles/patella hyperreflexia left. GAIT: ambulates with QC with improved step length and stance time 2 point equal stride length. BALANCE: fair+ with no device. STAIRS: one step at time with rail. MMT: quads 60.2 ,hams 27.8,hip flexion 40.7,HIP ABD 18.3 Plan Plan: PT INTERVETIONS PROGRESSIVE GAIT TRAINING ,BALANCE TRAINING ,STRENGTHNEING LLE ,FUNCTIONAL STRENGTH ,NEUROMUSCULAR EDUCATION,FUNCTIONAL STRENGTHENING AND FLEXABLILITY Balance/Gait/Functional tests - Balance/Special Test Scores CATSIB Score (Max score 120 seconds): 120 Lower Extremity Functional Score: 40 30 Second Chair Rise Test Seconds: 10 Goals Goal 1:: I with HEP Goal Time Frame: 4-6 Weeks Goal Progress: Progressing Goal 2:: Patient to improve 30sec sit-stand test by 12 times to improve function(NEW GOALl Goal Time Frame: 4-6 Weeks Goal 3:: Patient to improve CATSIBE BY 10 points to improve balance .(GOAL MET) Goal Time Frame: 4-6 Weeks Goal Progress: Goal Met Goal 4:: Patient to improve LFES score by 10 points to improve gait and QOL Goal Time Frame: 4-6 Weeks Goal Progress: Progressing Goal 5:: Patient to improve strength of hip flexion by 5 peak force and hip abduction by 5-10 peak force to improve gait( NEW GOAL) Goal Time Frame: 4-6 Weeks Anticipated Interventions Patient/Client Instruction: Educate patient on: Condition, Plan of Care For the Purpose of:: To increase ROM, To improve muscle performance and motor function, To improve ability to perform ADL's, To increase tolerance to activity/condition/position, To improve ability of physical actions for home/community/work/leisure, To improve gait and locomotor functions, To increase flexibility/ROM, To improve endurance, To improve safety with gait, To assume or resume ADL's, To improve health and function, To improve tolerance to ADL's Therapeutic Exercise to Include: Strength training, Power training, Endurance training, Balance training, Coordination, Postural training, Flexibilty training, Gait and locomotor training, Active ROM For the Purpose of:: To improve muscle performance and motor function, To improve ability of physical actions for home/community/work/leisure, To improve gait and locomotor functions, To increase flexibility/ROM, To improve endurance, To improve balance, To improve safety with gait, To improve tolerance to ADL's Please do not hesitate to contact me at [phone] by phone or if you have questions or concerns regarding this new plan of care! Sincerely, George Schwab, PT, Cert MDT, OCS
--- NOTE | 2022-03-01 13:16 | HP.PTREVAL ---
Dr. Riddhi Yeager, DO, It has been my pleasure to treat RENITA SHABAZZ over the last 20 visits for LEFT SIDE WEAKNESS. Please see the progress note below for an update on the physical therapy plan of care! Subjective: Doing okay getting stronger overall , Objective/Function: POSTURE: WFL ER LEFT. GAIT: ambulated with QC with left AFO ER leg with left UE synergy mild ataxia. BALANCE: Good- with QC. MMT: quads 47.6 ,hams 48.4 ,hip flexion 38.7. NEURO: FLEXOR SYNERGY LEFT UE ,SPASTICITY LEFT LEG WITH ERIS Plan Plan: PT INTERVETIONS PROGRESSIVE GAIT TRAINING ,BALANCE TRAINING ,STRENGTHNEING LLE ,FUNCTIONAL STRENGTH ,NEUROMUSCULAR EDUCATION,FUNCTIONAL STRENGTHENING AND FLEXABLILITY Balance/Gait/Functional tests - Balance/Special Test Scores CATSIB Score (Max score 120 seconds): 120 Lower Extremity Functional Score: 42 30 Second Chair Rise Test Seconds: 10 Goals Goal 1:: I with HEP Goal Time Frame: 4-6 Weeks Goal Progress: Progressing Goal 2:: Patient to improve 30sec sit-stand test by 12 times to improve function(NEW GOALl Goal Time Frame: 4-6 Weeks Goal 3:: Patient to improve CATSIBE BY 10 points to improve balance .(GOAL MET) Goal Time Frame: 4-6 Weeks Goal Progress: Goal Met Goal 4:: Patient to improve LFES score by 10 points to improve gait and QOL Goal Time Frame: 4-6 Weeks Goal Progress: Progressing Goal 5:: Patient to improve strength of hip flexion by 5 peak force and hip abduction by 5-10 peak force to improve gait( NEW GOAL) Goal Time Frame: 4-6 Weeks Goal 6:: Patient to improve gait with no device for in home ambulation.( new goal) Goal Time Frame: 4-6 Weeks Anticipated Interventions Patient/Client Instruction: Educate patient on: Condition, Plan of Care For the Purpose of:: To increase ROM, To improve muscle performance and motor function, To improve ability to perform ADL's, To increase tolerance to activity/condition/position, To improve ability of physical actions for home/community/work/leisure, To improve gait and locomotor functions, To increase flexibility/ROM, To improve endurance, To improve safety with gait, To assume or resume ADL's, To improve health and function, To improve tolerance to ADL's Therapeutic Exercise to Include: Strength training, Power training, Endurance training, Balance training, Coordination, Postural training, Flexibilty training, Gait and locomotor training, Active ROM For the Purpose of:: To improve muscle performance and motor function, To improve ability of physical actions for home/community/work/leisure, To improve gait and locomotor functions, To increase flexibility/ROM, To improve endurance, To improve balance, To improve safety with gait, To improve tolerance to ADL's Please do not hesitate to contact me at [phone] by phone or if you have questions or concerns regarding this new plan of care! Sincerely, George Schwab, PT, Cert MDT, OCS
--- NOTE | 2022-03-07 15:03 | HP.PTDCSUM ---
It has been my pleasure to treat RENITA SHABAZZ referred by Dr. Riddhi Yeager DO, with the diagnosis of LEFT SIDE WEAKNESS for a total of 21 visit(s). Discharge Date: 03/07/22 Please see the following information for a summary of their discharge status. Subjective: Ready to d/c Left Lower Extremity Pain Intensity (Out of 10): 3 % Improvement: 50 Objective/Function: OSTURE: WFL ER LEFT. GAIT: ambulated with QC with left AFO ER leg with left UE synergy mild ataxia. BALANCE: Good- with QC. MMT: quads 47.6 ,hams 48.4 ,hip flexion 38.7. NEURO: FLEXOR SYNERGY LEFT UE ,SPASTICITY LEFT LEG WITH TIME Goal 1:: I with HEP Goal Progress: Goal Met Goal 2:: Patient to improve 30sec sit-stand test by 12 times to improve function(NEW GOALl Goal Progress: Goal Met Goal 3:: Patient to improve CATSIBE BY 10 points to improve balance .(GOAL MET) Goal Progress: Goal Met Goal 4:: Patient to improve LFES score by 10 points to improve gait and QOL Goal Progress: Progressing Goal 5:: Patient to improve strength of hip flexion by 5 peak force and hip abduction by 5-10 peak force to improve gait( NEW GOAL) Goal 6:: Patient to improve gait with no device for in home ambulation.( new goal) Goal Progress: Progressing Plan: D/C If there are questions or concerns regarding this patient's physical therapy, please feel free to call me at [phone]. Thank you for the referral of this patient. Sincerely, George Schwab, PT, Cert MDT, OCS Balance/Gait/Functional tests - Balance/Special Test Scores CATSIB Score (Max score 120 seconds): 120 Lower Extremity Functional Score: 40 30 Second Chair Rise Test Seconds: 10
== END 2022-03-07 19:00 | disposition home or self-care (01) ==
LOC: PT 14:00
PROVIDERS: PCP Family Medicine; Referring Provider Family Medicine; Visit Provider Family Medicine
DX: R53.1 Weakness (principal)
CPT/HCPCS: 97110; 97162; 97530

== ENCOUNTER → 2022-06-19 | Outpatient (CLI) | payer MEDICARE, MEDICAID, SELFPAY | END | disposition home or self-care (01) | LOC: SL 22:33 | PROVIDERS: PCP Family Medicine; Referring Provider Nurse Practitioner Family; Visit Provider Nurse Practitioner Family | DX: G47.33 Obstructive sleep apnea (adult) (pediatric) (principal) | CPT/HCPCS: 95810 ==

== ENCOUNTER 2023-07-16 14:00 | Outpatient (RCR) | payer MEDICARE, MEDICAID, SELFPAY ==
--- NOTE | 2023-03-10 19:31 | HP.PTEVAL ---
Patient's Visit Information Visit Information Visit Information: RENITA SHABAZZ is a 63 year old M referred to Physical Therapy by LOUIE Castaneda with a diagnosis of CHRONIC RIGHT ATERIAL ISCHEMIC STROKE,MCA ,LEF LEG PARASTHESIA/TINGLING. Date of Evaluation: 03/10/23 Physical Therapist: George Schwab, PT, Cert MDT, OCS Visit Plan Frequency: 2x /Week Duration: 4 Weeks Plan: PT INTERVETIONS FLEXABILITY LLE ,STRENGTH LEFT QUADS/HAMS/HIP ,FUNCTIONAL STRENGTHENING AND BALANCE PROGRAM Subjective Subjective: This 63 y/o male presents to physical therapy with CVA and left side weakness. Patient had CVA with left side 2018 had extensive therapy. Patient had 2nd TIA 2019. Patient had PT last year but had to stop family and did try [facility]. Recently seen DR recommended PT ,patient had AFO adjusted. Patient had Covid 1 1/2 ago. Patient has noticed decrease weakness and plan to get new AFO ,just had cast yesterday. Patient has paresthesia left leg and hand . Patient is able to do ADL's bathing/dressing/cooking. Patient lives in apartment no steps. Tub/shower with hand rail. Patient ambulates with uses left SBQC. Patient goal is to get stronger. Patient reports no falls , Patient condition of CVA affect QOL and function. Medication: Bactofilin as needed. SOCAIL: single. VOCATION: disability. Pain Left Lower Extremity: Pain Intensity (Out of 10): 6 Pain Intensity Range: 10 Objective Objective: POSTURE: mild forward posture left leg ER. GAIT: reciprocal pattern decrease stance time left mild ataxia ,ER left lateral sway SBQC with left AFO, Increase hyperextension knee. NEURO: mild ataxia LLE ,mild hypotonicity ,but increase spasticity in leg with increase activity ,reflexes Achilles and patella 2/3 ,left UE hypertonicity triceps. BALANCE : FAIR+ no device. FLEXIBILITY: hams mod limited. MMT: left quads 31.4 ,hams left 21.3,hip flexion 29.3 ,ankle DF 8.0,right 5/5 grossly. STAIRS: ONE STEP leading with left with cane and rail Balance/Special Test Scores CATSIB Score (Max score 120 seconds): 65 Lower Extremity Functional Score: 22 30 Second Chair Rise Test Seconds: 6 Goals Goal 1:: Patient be I with HEP for strength Goal Time Frame: 4-6 Weeks Goal 2:: Patient to improve LFES score by 5 -10 points or > to improve and gait. Goal Time Frame: 4-6 Weeks Goal 3:: Patient to demonstrate 50% improvement with increase function with gait/ADLS. Goal Time Frame: 4-6 Weeks Goal 4:: Patient to improve peak force of quads/hams/hip by 10 to improve gait Goal Time Frame: 4-6 Weeks Goal 5:: Patient to improve 30sec sit-stand by 5-8 reps to improve functional strength Goal Time Frame: 4-6 Weeks Goal 6:: Patient to improve CATSIB by 5-10 points to to improve balance Goal Time Frame: 4-6 Weeks Rehabilitation Potential Physical Therapy Diagnosis: This patient CVA with left side hemiplegia with decrease gait ,balance ,strength thus benefit from skilled PT . Rehabilitation Potential: Good Anticipated Interventions Patient/Client Instruction: Educate patient on: Condition and Plan of Care For the Purpose of:: To decrease pain, To increase ROM, To improve muscle performance and motor function, To improve ability to perform ADL's, To increase tolerance to activity/condition/position, To improve performance and independence with ADL's, To improve ability of physical actions for home/community/work/leisure, To improve health of tissue, To decrease soft tissue restriction, To increase flexibility/ROM, To improve endurance, To improve balance and To improve tolerance to ADL's Therapeutic Exercise to Include: Strength training, Endurance training, Balance training, Coordination, Flexibilty training, Gait and locomotor training and Active ROM Comment: QUADS/HAMS/HIP For the Purpose of:: To improve muscle performance and motor function, To improve ability to perform ADL's, To increase tolerance to activity/condition/position, To improve performance and independence with ADL's, To improve ability of physical actions for home/community/work/leisure, To improve gait and locomotor functions, To improve endurance and To improve balance Text: Thank you for the opportunity to evaluate your patient. For Medicare and Medicare HMO plans, please review the plan of care and approve it. It will need to be FAXED BACK to us at [phone] for Medicare purposes. For Medicare only, by signing this I certify the plan of care. Please let me know if there are questions or concerns regarding this plan of care. Physician Signature: Date:
--- NOTE | 2023-04-10 15:02 | HP.PTREVAL_ITS ---
Re-Evaluation Intro: Joan Dao, ARLENE-C, It has been my pleasure to treat RENITA SHABAZZ over the last 10 visits for CHRONIC RIGHT ATERIAL ISCHEMIC STROKE,MCA ,LEF LEG PARASTHESIA/TINGLING. Please see the progress note below for an update on the physical therapy plan of care! Subjective Subjective: No new c/o's Objective Objective/Function: Objective: POSTURE: mild forward posture left leg ER. GAIT: reciprocal pattern decrease stance time left mild ataxia ,ER left lateral sway SBQC with left AFO, Increase hyperextension knee. NEURO: mild ataxia LLE ,mild hypotonicity ,but increase spasticity in leg with increase activity ,reflexes Achilles and patella 2/3 ,left UE hypertonicity triceps. BALANCE : FAIR+ no device. FLEXIBILITY: hams mod limited. MMT: left quads 31.9 ,hams left 22.3,hip flexion 29.9 ,ankle DF 8.0,right 5/5 grossly. STAIRS: ONE STEP leading with left with cane and rail Plan Plan Plan: PT INTERVETIONS FLEXABILITY LLE, STRENGTH LEFT QUADS/HAMS/HIP, FUNCTIONAL STRENGTHENING AND BALANCE PROGRAM Balance/Gait/Functional tests Balance/Special Test Scores CATSIB Score (Max score 120 seconds): 88 Lower Extremity Functional Score: 22 30 Second Chair Rise Test Seconds: 12 Goals Goals Goal 1:: Patient be I with HEP for strength Goal Time Frame: 4-6 Weeks Goal Progress: Progressing Goal 2:: Patient to improve LFES score by 5 -10 points or > to improve and gait. Goal Time Frame: 4-6 Weeks Goal Progress: Progressing Goal 3:: Patient to demonstrate 50% improvement with increase function with gait/ADLS. Goal Time Frame: 4-6 Weeks Goal Progress: Progressing Goal 4:: Patient to improve peak force of quads/hams/hip by 10 to improve gait Goal Time Frame: 4-6 Weeks Goal Progress: Progressing Goal 5:: Patient to improve 30sec sit-stand by 5-8 reps to improve functional strength Goal Time Frame: 4-6 Weeks Goal Progress: Progressing Goal 6:: Patient to improve CATSIB by 5-10 points to to improve balance Goal Time Frame: 4-6 Weeks Goal Progress: Progressing Anticipated Interventions Anticipated Interventions Patient/Client Instruction: Educate patient on: Condition and Plan of Care For the Purpose of:: To decrease pain, To increase ROM, To improve muscle performance and motor function, To improve ability to perform ADL's, To increase tolerance to activity/condition/position, To improve performance and independence with ADL's, To improve ability of physical actions for home/community/work/leisure, To improve health of tissue, To decrease soft tissue restriction, To increase flexibility/ROM, To improve endurance, To improve balance and To improve tolerance to ADL's Therapeutic Exercise to Include: Strength training, Endurance training, Balance training, Coordination, Flexibilty training, Gait and locomotor training and Active ROM Comment: QUADS/HAMS/HIP For the Purpose of:: To improve muscle performance and motor function, To improve ability to perform ADL's, To increase tolerance to activity/condition/position, To improve performance and independence with ADL's, To improve ability of physical actions for home/community/work/leisure, To improve gait and locomotor functions, To improve endurance and To improve balance Re-Evaluation Ending Re-evaluation ending: Please do not hesitate to contact me at [phone] by phone or Fax: if you have questions or concerns regarding this new plan of care! Sincerely, George Schwab, PT, Cert MDT, OCS
--- NOTE | 2023-05-21 15:58 | HP.PTREVAL ---
Re-Evaluation Intro: Joan Dao, ARLENE-C, It has been my pleasure to treat RENITA SHABAZZ over the last 20 visits for CHRONIC RIGHT ATERIAL ISCHEMIC STROKE,MCA ,LEF LEG PARASTHESIA/TINGLING. Please see the progress note below for an update on the physical therapy plan of care! Subjective Subjective: No new complaints .. may have sinus problems cold Objective Objective/Function: Objective/Function: Objective: POSTURE: mild forward posture left leg ER. GAIT: reciprocal pattern decrease stance time left mild ataxia ,ER left lateral sway SBQC with left AFO, Increase hyperextension knee. NEURO: mild ataxia LLE ,mild hypotonicity ,but increase spasticity in leg with increase activity ,reflexes Achilles and patella 2/3 ,left UE hypertonicity triceps. BALANCE : FAIR+ no device. FLEXIBILITY: hams mod limited. MMT: left quads 32.9 ,hams left 23.3,hip flexion 29.8 ,ankle DF 9.0,right 5/5 grossly. STAIRS: ONE STEP leading with left with cane and rail Plan Plan Plan: PT INTERVETIONS FLEXABILITY LLE, STRENGTH LEFT QUADS/HAMS/HIP, FUNCTIONAL STRENGTHENING AND BALANCE PROGRAM Balance/Gait/Functional tests Balance/Special Test Scores CATSIB Score (Max score 120 seconds): 88 Lower Extremity Functional Score: 35 30 Second Chair Rise Test Seconds: 13 Goals Goals Goal 1:: Patient be I with HEP for strength Goal Time Frame: 4-6 Weeks Goal Progress: Progressing Goal 2:: Patient to improve LFES score by 5 -10 points or > to improve and gait. Goal Time Frame: 4-6 Weeks Goal Progress: Progressing Goal 3:: Patient to demonstrate 50% improvement with increase function with gait/ADLS. Goal Time Frame: 4-6 Weeks Goal Progress: Progressing Goal 4:: Patient to improve peak force of quads/hams/hip by 10 to improve gait Goal Time Frame: 4-6 Weeks Goal Progress: Progressing Goal 5:: Patient to improve 30sec sit-stand by 5-8 reps to improve functional strength Goal Time Frame: 4-6 Weeks Goal Progress: Progressing Goal 6:: Patient to improve CATSIB by 5-10 points to to improve balance Goal Time Frame: 4-6 Weeks Goal Progress: Progressing Anticipated Interventions Anticipated Interventions Patient/Client Instruction: Educate patient on: Condition and Plan of Care For the Purpose of:: To decrease pain, To increase ROM, To improve muscle performance and motor function, To improve ability to perform ADL's, To increase tolerance to activity/condition/position, To improve performance and independence with ADL's, To improve ability of physical actions for home/community/work/leisure, To improve health of tissue, To decrease soft tissue restriction, To increase flexibility/ROM, To improve endurance, To improve balance and To improve tolerance to ADL's Therapeutic Exercise to Include: Strength training, Endurance training, Balance training, Coordination, Flexibilty training, Gait and locomotor training and Active ROM Comment: QUADS/HAMS/HIP For the Purpose of:: To improve muscle performance and motor function, To improve ability to perform ADL's, To increase tolerance to activity/condition/position, To improve performance and independence with ADL's, To improve ability of physical actions for home/community/work/leisure, To improve gait and locomotor functions, To improve endurance and To improve balance Re-Evaluation Ending Re-evaluation ending: Please do not hesitate to contact me at [phone] by phone or if you have questions or concerns regarding this new plan of care! Sincerely, George Schwab, PT, Cert MDT, OCS
--- NOTE | 2023-06-30 17:27 | HP.PTREVAL ---
Re-Evaluation Intro: Joan Dao, ARLENE-C, It has been my pleasure to treat RENITA SHABAZZ over the last 30 visits for CHRONIC RIGHT ATERIAL ISCHEMIC STROKE,MCA ,LEF LEG PARASTHESIA/TINGLING. Please see the progress note below for an update on the physical therapy plan of care! Subjective Subjective: Doing well Objective Objective/Function: POSTURE: mild forward posture left leg ER. GAIT: reciprocal pattern decrease stance time left mild ataxia ,ER left lateral sway SBQC with left AFO, Increase hyperextension knee. NEURO: mild ataxia LLE ,mild hypotonicity ,but increase spasticity in leg with increase activity ,reflexes Achilles and patella 2/3 ,left UE hypertonicity triceps. BALANCE : FAIR+ no device. FLEXIBILITY: hams mod limited. MMT: left quads 33.1 ,hams left 28.3,hip flexion 30.8 ,ankle DF 9.0,right 5/5 grossly. STAIRS: ONE STEP leading with left with cane and rail Plan Plan Plan: New AFO thus goals PT will be needed to address PT INTERVETIONS FLEXABILITY LLE, STRENGTH LEFT QUADS/HAMS/HIP, FUNCTIONAL STRENGTHENING AND BALANCE PROGRAM Balance/Gait/Functional tests Balance/Special Test Scores CATSIB Score (Max score 120 seconds): 88 Lower Extremity Functional Score: 35 30 Second Chair Rise Test Seconds: 13 Goals Goals Goal 1:: Patient be I with HEP for strength Goal Time Frame: 4-6 Weeks Goal Progress: Progressing Goal 2:: Patient to improve LFES score by 5 -10 points or > to improve and gait. Goal Time Frame: 4-6 Weeks Goal Progress: Progressing Goal 3:: Patient to demonstrate 50% improvement with increase function with gait/ADLS. Goal Time Frame: 4-6 Weeks Goal Progress: Progressing Goal 4:: Patient to improve peak force of quads/hams/hip by 10 to improve gait Goal Time Frame: 4-6 Weeks Goal Progress: Progressing Goal 5:: Patient to improve 30sec sit-stand by 5-8 reps to improve functional strength Goal Time Frame: 4-6 Weeks Goal Progress: Progressing Goal 6:: Patient to improve CATSIB by 5-10 points to to improve balance Goal Time Frame: 4-6 Weeks Goal Progress: Progressing Anticipated Interventions Anticipated Interventions Patient/Client Instruction: Educate patient on: Condition and Plan of Care For the Purpose of:: To decrease pain, To increase ROM, To improve muscle performance and motor function, To improve ability to perform ADL's, To increase tolerance to activity/condition/position, To improve performance and independence with ADL's, To improve ability of physical actions for home/community/work/leisure, To improve health of tissue, To decrease soft tissue restriction, To increase flexibility/ROM, To improve endurance, To improve balance and To improve tolerance to ADL's Therapeutic Exercise to Include: Strength training, Endurance training, Balance training, Coordination, Flexibilty training, Gait and locomotor training and Active ROM Comment: QUADS/HAMS/HIP For the Purpose of:: To improve muscle performance and motor function, To improve ability to perform ADL's, To increase tolerance to activity/condition/position, To improve performance and independence with ADL's, To improve ability of physical actions for home/community/work/leisure, To improve gait and locomotor functions, To improve endurance and To improve balance Re-Evaluation Ending Re-evaluation ending: Please do not hesitate to contact me at [phone] by phone or if you have questions or concerns regarding this new plan of care! Sincerely, George Schwab, PT, Cert MDT, OCS
--- NOTE | 2023-07-16 15:03 | HP.PTDCSUM ---
Discharge Summary D/C summary: It has been my pleasure to treat RENITA SHABAZZ referred by Joan Dao NP-C, with the diagnosis of CHRONIC RIGHT ATERIAL ISCHEMIC STROKE,MCA ,LEF LEG PARASTHESIA/TINGLING for a total of 35 visit(s). Discharge Date: 07/16/23 Please see the following information for a summary of their discharge status. Subjective Subjective: Ready for d/c Pain Left Lower Extremity: Pain Intensity (Out of 10): 2 Overall Improvement % Improvement: 40 Objective Objective/Function: Objective/Function: POSTURE: mild forward posture left leg ER. GAIT: reciprocal pattern decrease stance time left mild ataxia ,ER left lateral sway SBQC with left AFO, Increase hyperextension knee. NEURO: mild ataxia LLE ,mild hypotonicity ,but increase spasticity in leg with increase activity ,reflexes Achilles and patella 2/3 ,left UE hypertonicity triceps. BALANCE : FAIR+ no device. FLEXIBILITY: hams mod limited. MMT: left quads 33.1 ,hams left 28.3,hip flexion 30.8 ,ankle DF 9.0,right 5/5 grossly. STAIRS: ONE STEP leading with left with cane and rail Goals Goal 1:: Patient be I with HEP for strength Goal Progress: Goal Met Goal 2:: Patient to improve LFES score by 5 -10 points or > to improve and gait. Goal Progress: Goal Met Goal 3:: Patient to demonstrate 50% improvement with increase function with gait/ADLS. Goal Progress: Goal Met Goal 4:: Patient to improve peak force of quads/hams/hip by 10 to improve gait Goal Progress: Goal Met Goal 5:: Patient to improve 30sec sit-stand by 5-8 reps to improve functional strength Goal Progress: Goal Met Goal 6:: Patient to improve CATSIB by 5-10 points to to improve balance Goal Progress: Goal Met Plan Plan: D/C D/C Information d/c sentence: If there are questions or concerns regarding this patient's physical therapy, please feel free to call me at [phone]. Thank you for the referral of this patient. Sincerely, George Schwab, PT, Cert MDT, OCS Balance/Gait/Functional tests Balance/Special Test Scores CATSIB Score (Max score 120 seconds): 88 Lower Extremity Functional Score: 43 30 Second Chair Rise Test Seconds: 13 Improvement % Improvement: 40
== END 2023-07-16 19:00 | disposition home or self-care (01) ==
LOC: PT 14:00
PROVIDERS: PCP Family Medicine; Referring Provider Nurse Practitioner Family; Visit Provider Nurse Practitioner Family
DX: R20.2 Paresthesia of skin (principal); I69.30 Unspecified sequelae of cerebral infarction
CPT/HCPCS: 97014; 97110; 97140; 97162; G0283

== ENCOUNTER → 2024-07-07 | Outpatient (CLI) | payer MEDICARE, MEDICAID, SELFPAY ==
--- NOTE | 2024-07-07 12:38 | CDU_ITS ---
Reason For Study: Carotid Stenosis Rt. Velocities/BP Lt. Velocities/BP Prox CCA 65.2/23.4 cm/sec. Prox CCA 75.4/27.0 cm/sec. Mid CCA Prox to Stent, 63.0/20.1 cm/s Mid CCA 69.9/27.0 cm/sec. Mid CCA Prox Stent, 67.4/23.4 cm/s Dist CCA 67.7/21.5 cm/sec. Dist CCA Mid Stent ,55.6/13.8 cm/s Prox ICA 88.8/30.3 cm/sec. ICA Prox Dist Stent, 57.8/21.5 cm/s Mid ICA 89.1/31.4 cm/sec. ICA Mid Dist to Stent, 57.7/20.0 cm/s. Dist ICA 49.0/19.7 cm/sec. Dist ICA 66.3/23.3 cm/sec. Lt. ICA/CCA = 1.27. Rt. ICA/CCA = 1.05. Prox ECA 112.5/19.4 cm/sec. Prox ECA 119.8/21.2 cm/sec. Lt. Vert. 39.3/15.7 cm/sec. Rt. Vert. 26.5/9.4 cm/sec. Right Extracranial There is intimal thickening but no significant atherosclerotic plaque noted in the right common carotid artery. There is intimal thickening but no significant atherosclerotic plaque noted in the right internal carotid artery. There is intimal thickening but no significant atherosclerotic plaque noted in the right external carotid artery. Antegrade flow is noted in the right vertebral artery. Left Extracranial There is intimal thickening but no significant atherosclerotic plaque noted in the left common carotid artery. There is heterogeneous, irregular atherosclerotic plaque noted in the left internal carotid artery. There is homogeneous, smooth atherosclerotic plaque noted in the left external carotid artery. Antegrade flow is noted in the left vertebral artery. Procedure Carotid Duplex 98643. This is a Carotid Duplex examination using B-mode, color flow and specral Doppler. Exam performed in department. VL/Carotid Duplex Ultrasound Interpretation Summary Mild (<50%) stenosis right extracranial internal carotid. Mild (<50%) stenosis left extracranial internal carotid. Patent and antegrade vertebrals bilaterally. Ordering Physician: Justen Roche Referring Physician: Justen Roche MD Performed By: Laverne Fragoso RVT and Student
== END | disposition home or self-care (01) ==
LOC: CVS 12:38
PROVIDERS: PCP Family Medicine; Referring Provider Surgery Trauma Surgery; Visit Provider Surgery Trauma Surgery
DX: I65.22 Occlusion and stenosis of left carotid artery (principal)
CPT/HCPCS: 93880

== ENCOUNTER → 2024-12-06 | Outpatient (CLI) | payer MEDICARE, MEDICAID, SELFPAY ==
[2024-12-06 20:12] LABS: Erythrocyte Sedimentation Rate 23 mm/hr (0-20)
== END | disposition home or self-care (01) ==
PROVIDERS: PCP Family Medicine; Referring Provider Psychiatry & Neurology Neurology; Visit Provider Psychiatry & Neurology Neurology
DX: I82.90 Acute embolism and thrombosis of unspecified vein (principal)
CPT/HCPCS: 36415; 81241; 85300; 85301; 85302; 85303; 85306; 85652; 86147; 86160

== ENCOUNTER → 2025-01-05 | Outpatient (CLI) | payer MEDICARE, MEDICAID, SELFPAY ==
--- NOTE | 2025-01-05 13:01 | CDU_ITS ---
Reason For Study Reason For Study: S/P R TCAR, L ICA Stenosis Rt. Velocities/BP Lt. Velocities/BP Prox CCA 78.4/22.3 cm/sec. Prox CCA 99.2/30.0 cm/sec. Mid CCA Pre Stent, 78.4/20.1 cm/s Mid CCA 70.7/23.4 cm/sec. Mid CCA Prox Stent, 66.3/20.1 cm/s Dist CCA 71.8/23.4 cm/sec. Dist CCA Mid Stent, 64.1/15.7 cm/s Prox ICA 182.9/79.7 cm/sec. ICA Prox Dist Stent, 61.7/17.3 cm/s Mid ICA 53.7/21.8 cm/sec. ICA Mid Dist to Stent, 57.2/17.1 cm/s. Dist ICA 78.1/29.8 cm/sec. Dist ICA 60.0/16.2 cm/sec. Lt. ICA/CCA = 2.6. Rt. ICA/CCA = 0.8. Prox ECA 108.4/15.1 cm/sec. Prox ECA 130.2/22.5 cm/sec. Lt. Vert. 57.5/20.1 cm/sec. Rt. Vert. 25.1/8.0 cm/sec. Right Extracranial There is homogeneous, smooth atherosclerotic plaque noted in the right common carotid artery. There is heterogeneous, irregular atherosclerotic plaque noted in the right internal carotid artery. The right internal carotid artery is very tortuous. There is intimal thickening but no significant atherosclerotic plaque noted in the right external carotid artery. Antegrade flow is noted in the right vertebral artery. Left Extracranial There is homogeneous, smooth atherosclerotic plaque noted in the left common carotid artery. There is heterogeneous, irregular atherosclerotic plaque noted in the left internal carotid artery. The left internal carotid artery is very tortuous. There is heterogeneous, irregular atherosclerotic plaque noted in the left external carotid artery. Antegrade flow is noted in the left vertebral artery. Procedure Carotid Duplex [id number]. This is a Carotid Duplex examination using B-mode, color flow and specral Doppler. Exam performed in department. VL/Carotid Duplex Ultrasound Interpretation Summary Mild (<50%) stenosis right extracranial internal carotid. Moderate (50-69%) stenosis left extracranial internal carotid. Patent and antegrade vertebrals bilaterally. Ordering Physician: Vero Smith Referring Physician: Vero Smith Performed By: Lali Penn, ALEAXT
== END | disposition home or self-care (01) ==
LOC: CVS 13:01
PROVIDERS: PCP Family Medicine; Referring Provider Physician Assistant; Visit Provider Physician Assistant
DX: I65.23 Occlusion and stenosis of bilateral carotid arteries (principal)
CPT/HCPCS: 93880

== ENCOUNTER → 2025-02-02 | Outpatient (CLI) | payer MEDICARE, MEDICAID, SELFPAY ==
--- NOTE | 2025-02-02 12:37 | NM_ITS ---
PROCEDURE: GASTRIC EMPTYING STUDY N/A REASON FOR EXAM: GERD COMPARISON: None. TECHNIQUE: The patient ingested a semi-solid meal of oatmeal. There was no vomiting postprandially. Anterior and posterior planar images of the upper abdomen were obtained for a total of 1 hour. Regions of interest were drawn, and a geometric mean was used to calculate a [id number]. Medications taken in the past 24 hours that may affect gastric emptying: None RADIOPHARMACEUTICAL: Technetium 99 M sulfur colloid DOSE 1.1mCi orally, with oatmeal. FINDINGS: During the time of imaging, gastroesophageal reflux was not seen. Gastric emptying half-time linear fit of 26.1 minutes. Gastric emptying half-time raw data fit of 16.7 minutes. Gastric emptying 52% 17.5 minutes, 77% at 29.5 minutes, 88% at 47.5 minutes, and 92% at 59.5 minutes. NM/Gastric Emptying Study IMPRESSION: 1. Normal semi solid meal gastric emptying. 2. During the time of this examination, gastroesophageal reflux was not visuali zed. Reading Location: [address]
== END | disposition home or self-care (01) ==
LOC: NM 12:37
PROVIDERS: PCP Family Medicine; Referring Provider Internal Medicine Gastroenterology; Visit Provider Internal Medicine Gastroenterology
DX: K21.9 Gastro-esophageal reflux disease without esophagitis (principal)
CPT/HCPCS: 78264; A9541

== ENCOUNTER → 2025-03-28 | Outpatient (CLI) | payer MEDICARE, MEDICAID, SELFPAY ==
--- NOTE | 2025-03-28 14:13 | CT_ITS ---
PROCEDURE: CTA HEAD AND NECK W/ CONTRAST 03/28/2025 REASON FOR EXAM: L ICA STENOSIS, HX CVA TECHNIQUE: CTA HEAD AND NECK W/ CONTRAST Multiplanar Sagittal and Coronal images were obtained. 3D post processing was performed CONTRAST: Isovue 370 VOLUME: 100 mL One or more dose reduction techniques were used (e.g., Automated exposure control, adjustment of the mA and/or kV according to patient size, use of iterative reconstruction technique). RADIATION DOSE SUMMARY: CTDlvol: 21.6 mGy DLP: 1714.34 mGycm COMPARISON: Prior study dated December 17, 2023. FINDINGS: Aortic Arch: Normal size and branching pattern. Mild atherosclerotic plaque. Brachiocephalic and Subclavians: Mild atherosclerotic plaque without significant stenosis. RIGHT Carotid: Right CCA: Once again, an endovascular stent is seen in the distal portion of the right common carotid artery extending into the proximal right internal carotid artery. The stent is patent. Right ICA: Stent is patent. No focal stenosis. Right ECA: Unremarkable. LEFT Carotid: Left CCA: Unremarkable. Left ICA: Moderate calcified and soft plaque. Maximum stenosis (NASCET): 80 % Left ECA: Unremarkable. Vertebrals: Dominant left vertebral artery. RIGHT Vertebral: Unremarkable. LEFT Vertebral: Unremarkable. Anatomy: [place] anatomy is normal. Aneurysm or avm: No intracranial aneurysms or large vascular malformations are identified. Anterior cerebral arteries: Unremarkable: Middle cerebral arteries: Unremarkable. Basilar artery: Unremarkable. Posterior cerebral arteries: Unremarkable. Other major branches of the posterior circulation: Unremarkable. Major venous structures: Unremarkable. Other findings: There is evidence of encephalomalacia in the right posterior temporal parietal lobes in keeping with prior infarction. CT/CTA Head AND Neck W/ Contrast IMPRESSION: Tight stenosis at the origin of left internal carotid artery. Patent stent in the distal portion of the right common carotid artery extending to the proximal portion of the right internal carotid artery. Reading Location: [facility]
== END | disposition home or self-care (01) ==
LOC: CT 14:12
PROVIDERS: PCP Family Medicine; Referring Provider Physician Assistant; Visit Provider Physician Assistant
DX: I65.23 Occlusion and stenosis of bilateral carotid arteries (principal); Z86.73 Personal history of transient ischemic attack (TIA), and cerebral infarction without residual deficits
CPT/HCPCS: 70496; 70498; Q9967

== ENCOUNTER → 2025-06-17 | Outpatient (CLI) | payer MEDICARE, MEDICAID, SELFPAY | END | disposition home or self-care (01) | LOC: CT 13:35 | PROVIDERS: PCP Family Medicine; Referring Provider Nurse Practitioner Acute Care; Visit Provider Nurse Practitioner Acute Care | DX: Z12.2 Encounter for screening for malignant neoplasm of respiratory organs (principal); Z87.891 Personal history of nicotine dependence | CPT/HCPCS: 71271 ==

== ENCOUNTER → 2025-07-12 | Outpatient (CLI) | payer MEDICARE, MEDICAID, SELFPAY ==
[2025-07-12 14:32] LABS: Hematocrit 39.3 % (40-54); Hemoglobin 13.6 g/dL (13.0-16.5); Immature Granulocytes Count 0.040 X10^3/uL (0.0-0.0); Mean Corp Hgb Conc 34.6 g/dL (32-36); Mean Corpuscular Volume 87.5 fL (80-94); Mean Platelet Vol. 10.3 fl (6.2-12.0); NRBC Flagged by Analyzer 0 % (0-5); Platelet Count 230 K/mm3 (150-450); RBC Distribution Width CV 14.4 % (11.6-14.6); RBC Distribution Width SD 46.2 fl (35.1-43.9); Red Blood Count 4.49 M/mm3 (4.6-6.2); White Blood Count 7.8 K/mm3 (4.4-11.0)
[2025-07-17 22:06] LABS: Bluegrass, Kentucky 0.56 kU/L (Class II); Cat Hair/Dander, Standard <0.10 kU/L (Class 0); Dog Epithelia <0.10 kU/L (Class 0); Elm, American White 0.25 kU/L (Class 0/I); Oak, White 2.91 kU/L (Class III); Plantain, English <0.10 kU/L (Class 0); Ragweed, Short/Common 0.11 kU/L (Class 0/I)
[2025-07-19 21:08] LABS: Aspirgillus flavus Negative (Neg:<1:1); Aspirgillus fumigatus Negative (Neg:<1:1); Aspirgillus niger Negative (Neg:<1:1)
== END | disposition home or self-care (01) ==
PROVIDERS: PCP Family Medicine; Referring Provider Nurse Practitioner Acute Care; Visit Provider Nurse Practitioner Acute Care
DX: J30.2 Other seasonal allergic rhinitis (principal)
CPT/HCPCS: 36415; 82785; 85025; 86003; 86606